=== PATIENT | female | born 1950 | race Caucasian/White ===

== ENCOUNTER 2025-07-20 09:10 | Outpatient (OUT) | payer MEDICARE, MEDICAID, SELFPAY | END 2025-07-20 09:11 | disposition home or self-care (01) | LOC: WC 09:13 | PROVIDERS: PCP Family Medicine; Visit Provider Podiatrist Foot & Ankle Surgery | DX: E11.621 Type 2 diabetes mellitus with foot ulcer (principal); L97.414 Non-pressure chronic ulcer of right heel and midfoot with necrosis of bone; L97.422 Non-pressure chronic ulcer of left heel and midfoot with fat layer exposed | CPT/HCPCS: G0463 ==

== ENCOUNTER 2025-08-24 10:55 | Outpatient (OUT) | payer MEDICARE, MEDICAID, SELFPAY | END 2025-08-24 10:56 | disposition home or self-care (01) | LOC: WC 10:57 | PROVIDERS: PCP Family Medicine; Visit Provider Podiatrist Foot & Ankle Surgery | DX: E11.621 Type 2 diabetes mellitus with foot ulcer (principal); L97.414 Non-pressure chronic ulcer of right heel and midfoot with necrosis of bone; L97.422 Non-pressure chronic ulcer of left heel and midfoot with fat layer exposed | CPT/HCPCS: G0463 ==

== ENCOUNTER 2025-10-03 12:21 | Outpatient (OUT) | payer MEDICARE, MEDICAID, SELFPAY ==
--- OUTSIDE RECORDS SUMMARY | 2025-09-29 10:25 | XMS_ITS | Continuity of Care Document ---
Author Organization [facility] Address [address] [place] [address] Phone Care Team Providers Care Wire Fence Erector Name Role Phone Karolina Chamberlain DO Primary Care Provider Lyly Schaefer MD Attending Provider Adolfo Landaverde DPM Attending Provider [phone] Denia Santa [employer] CREWMEMBER-C Attending Provider Pavel Swift MD Attending Provider [phone] Pavel Swift MD Other Provider Care Teams Patient Care Team Team Status: Active Member Role/Relationship Status Dates Karolina Chamberlain DO Primary Care Provider Active Visit Care Team Team Status: Inactive Member Role/Relationship Status Dates Karolina Chamberlain DO Primary Care Provider Active Start: July 05, 2025 End: July 05Rolando uHmmel ProviderActiveStart: July 05, 2025 End: July 05, 2025 Visit Care Team Team Status: Inactive Member Role/Relationship Status Dates Karolina Chamberlain DO Primary Care Provider Active Start: August 01, 2025 End: August 01, 2025RIYA Zamudio ProviderActive Start: August 01, 2025 End: August 01, 2025 Visit Care Team Team Status: Inactive Member Role/Relationship Status Dates Karolina Chamberlain DO Primary Care Provider Active Start: 2025 End: August 08, 2025Adolfo Landaverde DPM MSAttending ProviderActive Start: 2025 End: 2025 Visit Care Team Team Status: Inactive Member Role/Relationship Status Dates Karolina Chamberlain DO Primary Care Provider Active Start: September 19, 2025 End: September 19Rolando Hummel ProviderActiveStart: September 19, 2025 End: September 19, 2025 Visit Care Team Team Status: Inactive Member Role/Relationship Status Dates Karolina Chamberlain DO Primary Care Provider Active Start: September 27, 2025 End: September 27, 2025Denia Santa NP-CAttending ProviderActiveStart: September 27, 2025 End: September 27, 2025 Visit Care Team Team Status: Inactive Member Role/Relationship Status Dates Karolina Chamberlain DO Primary Care Provider Active Start: September 27, 2025 End: September 27, 2025Rolando Santana ProviderActiveStart: September 27, 2025 End: September 27, 2025 Visit Care Team Team Status: Inactive Member Role/Relationship Status Dates Karolina Chamberlain DO Primary Care Provider Active Start: September 28, 2025 End: September 28Rolando Hummel ProviderActiveStart: September 28, 2025 End: September 28, 2025 Patient Care Team Team Status: Active Member Role/Relationship Status Dates Karolina Chamberlain DO Primary Care Provider Active Start: September 29, 2025 Rolando Santana ProviderActiveStart: September 29, 2025 Salty Santana ProviderActiveStart: September 29, 2025 Chief Complaint and Reason for Visit Chief Complaint Admit Date RENAL 3 MONTH F/U July 05, 2025 4: 03pm R09.89 August 01, 2025 8:46am R09.89 RT heel ulcer w/ chr osteomyeliti s 2025 8:30am E21.3 E55.9 D50.9 N18.9 D63.1 I12.9 Octo 2024 11:39am DR. LANDAVERDE DOING SURG; [facility]ARY'[facility] 9:30A N ovember 2024 9:13am L97.404 I73.9 I70.229 Z98.890 I77.9 [facility] 2024 9:46am renal 3 month f/y September 28, 2025 3 :44pm PAD w/ Bilateral Foot Wounds September 6:49am Reason for Visit Admit Date Anemia of renal disease July 05 4:03pm CKD stage 4 due to type 2 diabetes [facility] July 05, 2025 4:03pm Hyperparathyroidism July 05, 2025 4: 03pm Hypertensive nephropathy July 05 4:03pm Iron deficiency anemia July 05, 2025 4:03pm Vitamin D deficiency July 05, 2025 4 :03pm Current every day smoker September 27, 2 025 9:13am Diabetic ulcer of left foot September 9:13am Diabetic ulcer of right foot September 9:13am Diminished pulses in lower extremity [facility]2024 9:13am Lower extremity edema September 27, 2025 9:13am PAD (peripheral artery disease) September 27, 2025 9:13am Anemia of renal disease September 28 3:44pm CKD stage 4 due to type 2 diabetes [facility] September 28, 2025 3:44pm Hyperparathyroidism September 28, 2025 3 :44pm Hypertensive nephropathy September 28, 2 025 3:44pm Hyperuricemia September 28, 2025 3 :44pm Iron deficiency anemia September 28 3:44pm Vitamin D deficiency September 28, 2025 3:44pm Allergies, Adverse Reactions, Alerts Allergen Type Severity Reaction Last Updated Verified Status azithromycin Allergy Unknown Hives September 29, 2025 7:12am Y es Active Social History Smoking Status Status Start Date End Date Date of Observa tion Smokes tobacco daily (finding) September 29, 2025 7:23am Observation Status Observation Response Date of Response Legal Sex Female (finding) Sex Assigned At BirthFemaleSept1949 Family History Relationship Condition Age at Onset Recorded Date/T lisbeth father Malignant neoplasm Unknown motherDiabetes mellitusUnknownsisterDiabetes mellitusUnknownKidney disorder UnknownbrotherDiabetes mellitusUnknownbrotherCoronary artery diseaseUnknown Malignant neoplasm of lungUnknownbrotherMalignant neoplasmUnknownDiabetes mellitusUnknownHeart diseaseUnknowndaughterDiabetes mellitusUnknownfather HypertensionUnknownDeceasedUnknownDiabetes mellitusUnknownMalignant neoplasm UnknownfatherMalignant neoplasmUnknowngrandparentDeceasedUnknowngrandparent DeceasedUnknowngrandparentDeceasedUnknowngrandparentDeceasedUnknownmotherHistory of strokeUnknownDiabetes mellitusUnknownDeceasedUnknownHypertensionUnknownsister Diabetes mellitusUnknownsisterDiabetes mellitusUnknown Problems Active Problems Problem Diagnosis/Recorded Date Onset Date Stat us ALFREDO (acute kidney injury) October 30, 2020 11:15pm U nknown Active Infected incision January 24, 2021 11:46am Unknown Active Ischemia of toe January 10, 2021 2:36pm Unknown Active UTI (urinary tract infection) February 10, 2021 10:26am Unknown Active Critical ischemia of extremi ty with history of revascularization of same extremity January 10, 2021 6:42pm Unknown Active Lower extremity edema September 27, 2025 10:41am Unkno wn Active Diabetic ulcer of left foot September 27, 2025 10:41am Unknown Active Lumbar disc herniation with radiculopathy October 06, 2020 8:02am Unknown Active Current every day smoker September 27, 2025 10:42am Un known Active Need for assistance with personal care October 30 11:15pm Unknown Active Peripheral vascular disease of foot January 10 2:36pm Unknown Active DM (diabetes mellitus) August 28, 2017 11:02pm Unkno wn Active Amputation toe April 20, 2021 11:03am Unknown Act sameera Diminished pulses in lower extremity September 27 10:41am Unknown Active Surgery follow-up examination August 16, 2022 12: 02pm Unknown Active Peripheral arterial occlusive disease February 09, 2021 11:01am Unknown Active CKD (chronic kidney disease) stage 3, GFR 30-59 ml/min January 10, 2021 6:45pm Unknown Active Anemia September 26, 2020 12:24pm Unknown A ctive Ulcer of heel and midfoot wi th necrosis of bone December 13, 2022 4:31pm Unknown Active Depression January 10, 2021 6:44pm Unknown A ctive Gastritis August 28, 2017 11:02pm Unknown Ac tive Hyperlipidemia September 26, 2020 12:24pm Unknown Active Hyperparathyroidism July 05, 2025 3:47pm Unknown Active Hyperuricemia September 28, 2025 3:56pm Unknown A ctive Diabetic ulcer of right foot September 27, 2025 10:41a m Unknown Active Hypothyroidism September 26, 2020 12:24pm Unknown Active CKD stage 4 due to type 2 di abetes mellitus April 12, 2025 3:27pm Unknown Active Localized swelling of both lower legs December 19 11:53am Unknown Active Post-op pain April 20, 2021 11:03am Unknown Activ e Post-op pain April 20, 2021 12:02pm Unknown Activ e Urinary retention February 12, 2021 4:09pm Unknown Active Iron deficiency anemia July 05, 2025 3:46pm Unknow n Active PAD (peripheral artery disease) September 27, 2025 10: 41am Unknown Active Acute blood loss anemia February 11, 2021 11:09am Unkno wn Active Esophagitis August 28, 2017 11:02pm Unknown Ac tive Anemia of renal disease April 12, 2025 3:31pm Unknown Active HTN (hypertension) August 28, 2017 11:02pm Unknown Active Hypertensive nephropathy April 12, 2025 3:27pm Unknown Active Vitamin D deficiency July 05, 2025 3:47pm Unknown Active Lumbar stenosis with neuroge mar claudication October 06, 2020 8:02am Unknown Active Medications Medication Status Dose Units Route Directions Qty Days Refills S tart Date Stop Date End Date Reason(s) Instructions Adherence Hydralazine 50 mg tablet Active 50 MG PO Twice d aily 60 5Oct2024 2:29pmComplies with drug therapyLovastatin 40 mg tablet Umefouannxjq14VGDOYparpQqphiex 4th, 2017 11:00pmDecember 2019 1:01pm Levothyroxine 75 mcg ikqijxZnhdzhkpcptc69UZUKLSzputCnsbzlm 4th, 2017 11:00pm October 30, 2020 10:02pmParoxetine Hcl 20 mg ykfrseFnyruceozltp18UXMOYblje August 27, 2017 11:00pm[facility] 12:21pmGlimepiride 4 mg tablet Quazdnjrqsfx7GAMNIevcoPjqafdo 4th, 2017 11:00pm[facility]2019 12:20pm Hydrochlorothiazide 25 mg uocpowGfsyzupvfkcq13TZNGNywgmDcxfuyx 2016 11:00pm September 26, 2020 12:43pmOxybutynin Chloride 5 mg vdtocfGmwamacsnvre2HHFLSbbhz dailyAugust 27, 2017 11:00pmFebruary 2020 4:51pmincontinenceInsulin Glargine (Lantus Solostar) 100 unit/mL (3 mL) Insulin XdgOyxzwotgtrkw78HBKOP SUBCUTDaily at bedtimeAugust 27, 2017 11:00pmDemymichigan medical center [facility]2019 1:01pm Fluticasone Furoate (Arnuity Ellipta) 100 mcg/actuation blister with device DiscontinuedAugust 27, 2017 11:00pm[facility]2019 12:05pmSucralfate (Carafate) 1 gram karfozLvquxirpqwgh9YFBNVzlm times rshah436173Misdrxo 2016 11:00pmSeptember 24, 2017 11:00pmSeptember 25, 2017 11:04pmadminister 1 hour before meals and at bedtimeSennosides-Docusate Sodium (Senna Laxative-Stool Softener) 8.6-50 mg ddkttoTznwnvwymzqq8GKJRMXjmtx as needed for wodivyccetxk448 August 28, 2017 11:00pm[facility]2019 12:23pmOmeprazole Magnesium (Prilosec Otc) 20 mg tablet,delayed release (DR/EC)Gykuuafgjihp39KPOLTpeig11932 August 28, 2017 11:00pmOctober 09, 2017 12:00amNove2016 12:05am Hydrocodone-Acetaminophen (Monetta) 5-325 mg tabletDiscontinued1 - 2TABPOEVERY 4-6 HOURS as needed for lfvp488DgdrvldAugust 28, 2017 11:00pmSeptember 26, 2020 12:20pm Oxycodone 5 mg glebwgWkfigfzvkpor03XNPACMZFI 4-6 HOURS as needed for Pain Scale 1 - 5Dece2019 10:02pmDece2019 10:18amCoenzyme Q10 (Coq-10) 100 mg QyyydjqDggxhmekmwpx142CCZVRowixOghhuvkv 7th, 2020 12:00am2019 1:01pmLiraglutide (Victoza 3-Vijay) 0.6 mg/0.1 mL (18 mg/3 mL) pen injector Discontinued1.4VDEEORGPZodpl7952Rwnmxviz 8th, 2020 12:2020 4:51pmInsulin Aspart U-100 (Novolog Flexpen U-100 Insulin) 100 unit/mL (3 mL) Insulin PrpUigbmmvjqddi1IXWHPHZYDOT8Q/Day with meals and bedtime Protocol: *If the corrective scale dose has been administered within the past 4 hours, do not use corrective scale again unless approved by prescriber* Condition: Corrective Scale #1 (TDI <=25) Condition: Dose/Route: Instructions: Condition: Fingerstick Blood Glucose Dose/Route: Insulin Units Condition: 150-199 mg/dl Dose/Route: 1 unit Condition: 200-249 mg/dl Dose/Route: 2 unit Condition: 250-299 mg/dl Dose/Route: 3 unit Condition: 300-349 mg/dl Dose/Route: 4 unit Condition: 350-399 mg/dl Dose/Route: 5 unit Condition: greater than or = 400 mg/dl Dose/Route: 6 unit Instructions: Call Sqzjhoyc49Wemmwcpz2019 12:002020 4:50pmPlease contact the information source for Protocol details.Oxycodone 5 mg syhkxvCvkggcwrvyqe82ZOQSFVYGH 4-6 HOURS as needed for Pain Scale 1 - 47723 November 012020 4:51pmHerniation of lumbar intervertebral disc with radiculopathy Intervertebral disc disorders with radiculopathy, lumbar regionCyclobenzaprine 10 mg SxdpwfUfolrpswppfy98RTVOWlebv 8 hours as needed for Muscle Gsxeo05Choxuljy2019 12:002020 4:50pmSennosides-Docusate Sodium 8.6-50 mg RchvzlHtebwdhswsui9LPGIFLdudx sbxkn60Amlvcnui 2019 12:00amFebruary 2020 4:53pmRivaroxaban (Xarelto) 10 mg XcdrciWwzawiigwdvl18LVTMTbrli with kthzgkojb580Czkwwvgq 9th, 2020 12:00amFebruary 2020 4:52pmAtorvastatin (Lipitor) 40 mg aqldzuIijhek50IHXZQbcup at fyigyxf2018Ssbavzzq 2019 12:00am Complies with drug therapyPotassium Chloride 20 mEq Tablet Extended Release Gsmwjhfkfppg92SXRJNVvtdwAqdld 2020 11:00pmMay 2020 9:30amMetformin 500 mg TmrpfiAdnwscmdcsuu998EMKIEibgf dailyBl[facility]ard [facility] 2020 11:00pmJanuary 2022 12:34pmLevothyroxine 75 mcg ZehfjjIdzpksbjdacg28MYUUPSabqn morningInspira Medical Center [facility] 2020 11:00pmy 2024 3:05pmthyroidFerrous Sulfate 325 mg (65 mg iron) QnsmstNihbxswpzrvy624MPATYuxbr as needed for anemiaMarch 2020 11:00pmy 2024 3:07pmOxycodone 10 mg PdhtziJfpzmtkvschv64WOSRC3I as needed for PainMarch 2020 11:00pmMay 2020 9:32amCephalexin 500 mg nixuqlwPxbmgcqturlo463YAZNU3E8651Hqgnf 2020 11:00pmApril 17, 2021 9:28am Urinary tract infection Urinary tract infection, site not specifiedOxycodone 5 mg ObntzcWtzkhsuiswbc2ZK POQ8H as needed for Esno68468Nvead 2020Ma2020 9:32amNon-healing open wound of heel Unspecified open wound, unspecified foot, initial encounterFerrous Sulfate 325 mg (65 mg iron) ycatihPqsywkyvwzif407CWQQHYTPX 3 WEEKSApril 12, 2025 3:02pm July 05, 2025 3:53pmanemiaGabapentin 300 mg osekmdbKgrsto309LXCWGsytnef August 15, 2022 11:00pmComplies with drug therapyIrbesartan (Avapro) 75 mg jqkdaySakmfk211AXJCWrxxd morningSeptember 2021 11:00pmComplies with drug therapyFurosemide 20 mg qiarzlYnxkuupkiwqm41BSMEEahzp morningSeptember 2021 11:00pmMay 2024 3:31pmMontelukast 10 mg gjneexOzutmgdkbbgr02PWZYAslec August 15, 2022 11:00pmJanuary 2022 10:19amInsulin Glargine (Lantus Solostar U-100 Insulin) 100 unit/mL (3 mL) insulin vggRboynfvhhgkv55RTOPCTJAFL Every morningSeptember 2021 11:00pmMay 2024 3:07pmMirabegron (Myrbetriq) 25 mg tablet extended release 24 glZowgascwnmrw73ETNBGsgze daily August 15, 2022 11:00pmMa2024 3:05pmOxycodone-Acetaminophen (Percocet) 5-325 mg yhnfwtHewkpmxzljgj2JHXKKV5K as needed for yrvn4972Ggyytoqiw 2021January 2022 10:19amEncounter for examination following surgery Insulin Glargine (Lantus Solostar U-100 Insulin) 100 unit/mL (3 mL) insulin pen Lljaycpnxbej51EBDCCZOAEZQfagv 2024 3:04pmAugust 2024 3:18pmInsulin Glargine (Lantus Solostar U-100 Insulin) 100 unit/mL (3 mL) insulin wymWmiluovnltfa82FHADRZFZSWShbwf morningAugust 2024 3:18pmNov2024 3:49pmInsulin Glargine (Lantus Solostar U-100 Insulin) 100 unit/mL (3 mL) insulin txiBqsrog84DCEMGRSSKJWllws morningNov2024 3:48pmComplies with drug therapyNystatin 100,000 unit/gram hsosdJjcaro8TOCHYWBGMIPLBOlbis daily December 05, 2022 12:00amyeastComplies with drug therapyMultivitamin Tablet Eagqoooqgven9AWEDDMxcig morningNov2022 12:00amNove2024 3:48pmElderberry Fruit (Elderberry) 200 mg PnirpswBgvlsobfykzp814VEPGXuhsh morningDecember 05, 2022 12:00amMay 2024 3:02pmOxycodone-Acetaminophen (Percocet) 5-325 mg dlaghrYwcmqbvhjgok5SIHYNU2R as needed for cluz8988Haxlinj2024 3: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 Cyclobenzaprine 10 mg zlphtpTkjgdkmlwbls46PFEEZhumu at bedtimeSeptember 26, 2020 12:00amDece2019 10:01pmAscorbic Acid (Vitamin C) (Vitamin C) 1,000 mg OqrzwbEunfzeryjjvp7070YLKHJheboWjhoryot 3rd, 2020 12:00ammym[facility]2019 1:01pmOmeprazole 40 mg capsule,delayed release(DR/EC)Zctsmmerpcbi36TNJASywha September 26, 2020 12:00amFebruary 2020 4:58pmAspirin (Everardo Low Dose Aspirin) 81 mg Tablet,Delayed Release (Dr/Ec)Vieewhttgzjq84TZEBCuzeeYarjmokk 3rd, 2020 12:00February 2020 4:57pmTramadol 50 mg uldvqdAntqbktafqwf988 MGPODaily at bedcape fear [facility] hospitalSeptember 26, 2020 12:002019 10:02pmFerrous Sulfate (Iron) 325 mg (65 mg iron) YkchqzGooblyjvthwg970UDCP9 Times a week September 26, 2020 12:00bruary 2020 4:50pmDocusate Sodium (Col-Rite) 100 mg KeaklmgVoukfwftoiyg447WLGH1 Times a weekSeptember 26, 2020 12:00am November 01, 2020 1:01pmFurosemide 20 mg LkjeepVdrwmcgwpsud73CKORQyghrYbraumpw 3rd, 2020 12:00am2019 1:01pmPregabalin (Lyrica) 75 mg Capsule Psukxnclnugf14DOWJEfodo as needed for PainSeptember 26, 2020 12:00ammymichigan [facility] center [facility]2019 10:03pmElderberry Fruit And Flower 460-115 mg GkziqobXdfsshvphsrx8ZJF PODailyNovember 2019 12:00amDeceer 2019 1:01pmDiazepam 5 mg Tablet Obpxtejizhyy8GPKMXrzh times daily as needed for Muscle Tyeaw46738Cwvtolog 2019 12:00amDeceer 2019 1: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 Spinal stenosis, lumbar region with neurogenic claudication Intervertebral disc disorders with radiculopathy, lumbar regionevery 8 hrs Oxycodone 5 mg UrsqqvFtibapcobqmi9IEETUHHFA 4-6 HOURS as needed for Pain Scale 1 - 699681Willsrje 2019Dece2019 10:03pmSpinal stenosis of lumbar region with neurogenic 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 Spinal stenosis, lumbar region with neurogenic claudication Intervertebral disc disorders with radiculopathy, lumbar regionOndansetron Hcl (Zofran) 4 mg SycsevJbthkleipiod1JONIQ9J as needed for NauseaFebruary 2020 12:00amJanuary 2022 10:19amPotassium Chloride (Klor-Con 10) 10 mEq Tablet Extended CfktaooZvfrkevaxgrw44KWEIZAyszzXjadagno 2020 12:00amMarch 2020 2:31pmDuloxetine 30 mg capsule,delayed release(DR/EC)Uwhhkhyzcfic48KCMO Every morningFebruary 2020 12:00amMay 2024 3:07pmAspirin 81 mg Tablet,PjjwgpqbOvtjkk91TSBUJnldv morningFebruary 2020 12:00amComplies with drug therapyDuloxetine 30 mg capsule,delayed release(DR/EC)Xpbxay73RAVUUsonp morningMay 2024 3:02pmComplies with drug therapyCyclobenzaprine 10 mg EpwqkpIrnrmebowhas29DIQYClrrowvVhblv 2020 12:00amMay 2020 9:28am Oxycodone 5 mg FinjgaLlebhaxzhzjs0KDRPYqkun 6 hours as needed for PainMarch 2020 12:00amMay 2020 9:32am5 to 10 mg Q6hrs PRN painRivaroxaban 2.5 mg TabletDiscontinued2.5MGPOTwice dailyMarch 2020 12:00amMa2020 9:34am Clindamycin Hcl 150 mg ssrzzvgEumxypfhibmb423SULXB2X1710Recff 2020 12:00am February 08, 2021 2:27pmTrazodone 50 mg smzwznZuwygkqpolbp752ENPHHtskq at bedtime April 16, 2021 11:00pmSeptember 2021 10:45amsleepCarvedilol 12.5 mg Tablet Nyaxhrcthdmb34.5MGPOTwice dailyMay 2020 11:00pmSept2021 10:39amRivaroxaban (Xarelto) 2.5 mg tabletActive2.5MGPOTwice dailyMay 2020 11:00pmComplies with drug therapyGabapentin 100 mg sofngslWyiscq277XBDMQotxo morningMa2020 11:00pmComplies with drug therapyMirabegron (Myrbetriq) 25 mg tablet extended release 24 xxYbzwnpaouowk45TBPUIecqaUdz 2020 11:00pm August 16, 2022 10:46amCyclobenzaprine 10 mg mdcyclBbbwndtrljku98GXVVTieux as needed for SpasmsMay 2020 11:00pmApril 12, 2025 3:02pmHydrocodone- Acetaminophen 5-325 mg jaauezUkkeptdrifgv2XRYCUT7E as needed for zapq7336Kyy 28th, 2020May 2024 3:06pmPostoperative pain Other acute postprocedural painOxycodone 5 mg weshzccLvagksysqejw8XVVMX7Z as needed for qrum5724Ufv 28theptember 2021 10:43amPostoperative pain Other acute postprocedural painAcetaminophen 325 mg popscavPoxsvn109XAGIJntdm 6 hours as needed for painMay 2024 11:00pmComplies with drug therapy Semaglutide (Ozempic) 0.25 mg or 0.5 mg (2 mg/3 mL) pen injectorDiscontinued0.5 MGSUBCUTevery 2024 11:00pmNov2024 3:49pmLevothyroxine 75 mcg vwlavavOdjbnv93UAPSSLxhztHki 19th, 2025 11:00pmComplies with drug therapy Furosemide 20 mg yzjjtoZfsjnppjqito40CQERLgjdu 12 hoursApril 12, 2025 3:29pm July 05, 2025 3:52pmHydralazine 25 mg gglissJuswylrvrgxl48VXQRQrrov April 11, 2025 11:00pmAugust 2024 3:50pmSemaglutide (Ozempic) 0.25 mg or 0.5 mg (2 mg/3 mL) pen qoqoddoqEbrzig3SJLRBFYEfbsgt 2024 3:49pmComplies with drug therapyHydralazine 50 mg avhnszCqtzjdxiugnk07HWYDWmcrq ysdxb939Lmbgud2024 3:49pmOctober 2024 2:30pmFurosemide 20 mg tablet Xbddvzcqcvfr76WRWXWcmbx 12 hoursJuly 05, 2025 3:52pmAugust 2024 3:52pm Furosemide 40 mg svtykcAbptrf17AFBQEmkmw 12 ogwso320Lrfhnm2024 3:52pm Complies with drug therapyFerrous Sulfate 325 mg (65 mg iron) gtvkacCdopty565CQ PODailyA2024 3:53pmanemiaComplies with drug therapyCholecalciferol (Vitamin D3) 50 mcg (2,000 unit) fhyecrjPsxnya42AOQVIOsjbh614Zlcmnr 11th, 2025 11:00pmComplies with drug therapy Immunizations Immunization Event Date Not Given Reason Dose Number [employer] Representative Lot Number Reason(s) Given Vaccine Information Statement (VIS) Detail Administration Location COVID-19 Ad26.COV2.S ([place]) March 02, 2021 COVID-19 mRNA-1273 ([employer])September 15, 2021 Medical Equipment Device Date Implanted Device Details BIOVANCE AMNIOTIC 2X2CM August 16, 2022 INTERFYL MATRIX 50MG PARTICULASeptember IOVANCE AMNIOTIC 7W9WIHlyjowe 2022INTERFYL MATRIX 100MG PARTICULJanuary 2022Multiple peripheral artery stent, bare-metalMarch 2020UDI: [id number] Issuing Agency: [employer] Device Id: [id number] Expiration Date: 2023-09-30 Serial Number: [id number] Procedures Procedure Date Performed Status MR ankle RT wo con 2025 7:31am c ompleted US arterial pvr rest LE August 01, 2025 7:47 am completed US arterial duplex LE RT July 31, 2025 11: 00pm completed XR foot BI 3V August 01, 2025 9:12am compl eted US ankle/arm indices September 27, 2025 9:47am a ctive Relevant Diagnostic Tests and/or Laboratory Data Laboratory Results Test Collection Date/Time Result Date/Time Result Interpretation Reference Range Result Comment Performing Site Corrected White Blood Count September 19, 2025 11:01am September 19, 2025 11:58am 8.0 10*3/uL 3.8-11.6FS[facility] [id number] [address] [employer], [place] [id number] Blood CountOctober 2024 11:01amOctober 2024 11:58am3.99 10*6/uL3.60-5.00[facility] [id number] [address] [place] [address] 72544UqpxunzhzfIgkpwpp 2024 11:01amOctober 2024 11:58am 11.7 g/dLBelow low xdrpij64.8-15.4FSum[facility] [id number] [address] [place] [address] 56526XmtqruyagfBkhemul 2024 11:01amOctober 2024 11:58am 34.8 %34.0-46.4FSumma [facility] [id number] [address] [place] [address] 460[address]Tpgg Corpuscular VolumeOctober 2024 11:01amOctober 2024 11:58am87.2 kK23-220KkajuspkuMercy Health [facility] [id number] [address] [place] [address] 35387Rwbt Corpuscular HemoglobinOctober 2024 11:01amOctober 2024 11:58am29.2 pg24.7-34.3FSumma Health [facility] [id number] [address] [facility] [address]Xpid Corpuscular Hemoglobin ConcentOctober 2024 11:01am September 19, 2025 11:58am33.5 g/dL32.0-35.0[facility] [id number] [address] [facility] [address]Ifw Cell Distribution WidthOctober 2024 11:01amOct2024 11:58am14.3 %11.9-15.3FSumma Health [facility] [id number] [address] [facility] [address]Ufixeagu CountOctober 2024 11:01amOctober 2024 11:25nj674 10*3/sF532-873MwguixklbMercy Health [facility] [id number] [address] [place] [id number] Platelet VolumeOctober 2024 11:01amOct2024 11:58am9.6 fL6.3-10.7FSumma [facility] [id number] [address] [facility] [address]Pbhvyys LevelOctober 2024 11:01amOctober 2024 12:77kv849 mg/dLAbove high pzoysq34-500HVZ recommended reference rangeRandom Glucose Reference Range is dependent on time and content of last meal. Glucose of more than 200 mg/dL in a nonstressed, ambulatory subject supports the diagnosisof Diabetes Mellitus.[facility] [id number] [address] [facility] [address]Pqdss Urea NitrogenOctober 2024 11:01amOctober 2024 12:33pm55 mg/dLAbove high normal7-25[facility] [id number] [address] [facility] 164[address]XeofugrqdaPkpjuwx 2024 11:01amOctober 2024 12:33pm 2.66 mg/dLAbove high normal0.60-1.20[facility] [id number] [address] [facility] [address]Btqersxyp GFR (CKD-EPI)September 19, 2025 11:01amOctober 2024 12:33pm18.389 mL/MinMercy Health [facility] [id number] [address] [facility] [address]Othfae LevelOctober 2024 11:01amOctober 2024 12:29fa050 mmol/Q740-487FoqqjjoskMercy Health [facility] [id number] [address] [facility] [address]Kkjgcgvgs LevelOctober 2024 11:01amOctober 2024 12:33pm4.9 mmol/L3.5-5.1FSumma Health [facility] [id number] [address] [facility] [address]Kywzxlfv LevelOctober 2024 11:01amOctober 2024 12:33pm99 mmol/K92-406FajrbyrjqMercy Health [facility] [id number] [facility] [id number] Dioxide LevelOctober 2024 11:01amOctober 2024 12:33pm27.6 mmol/L21.0-31.0[facility] [id number] [facility] 94871Zoejk GapOct2024 11:01amOctober 2024 12:33pm 14.3 mEq/L6.0-15.0[facility] [id number] 1[facility] 89435Obsqemq LevelOctober 2024 11:01amOctober 2024 12:33pm9.5 mg/dL8.6-10.3[facility] [id number] 1[facility] 70425Wavaucqbde LevelOctober 2024 11:01amOctober 2024 12:33pm4.7 mg/dLAbove high normal2.5-4.5FSum[facility] [id number] 1111 [facility] 79863Igpszksal LevelOctober 2024 11:01amOctober 2024 12:33pm2.1 mg/dL1.9-2.7FSum[facility] [id number] 1[address] [facility] 42669ZwngewwYugqaye 2024 11:01amOctober 2024 12:33pm4.0 g/dL3.5-5.7FSum[facility] [id number] 1111 [facility] 97234Ltvs AcidOctober 2024 11:01amOctober 2024 12:33pm 8.8 mg/dLAbove high normal2.3-6.6FSum[facility] [id number] 1111 [facility] 79293Uqwh LevelOctober 2024 11:01amOctober 2024 12:33pm 87 ug/xU20-982YlzltdzdhMer[facility] [id number] [address] [place] [address] 56260Avbnc Iron Binding CapacityOctober 2024 11:01amOctober 2024 12:97uf391 ug/wS761-320PldgaokipMercy Health [facility] [id number] [address] [place] [address] 66700Oqsg SaturationOctober 2024 11:01amOctober 2024 12:33pm24.6 %20-50[facility] [id number] [address] [place] [address] 13649VeetmzcytoxKyydpdw 2024 11:01amOctober 2024 12:33pm 252 mg/rL787-171SkwrczrdvMercy Health [facility] [id number] [address] [place] [address] 14730Sqojfgs B12 LevelOctober 2024 11:01amOctober 2024 12:01ok981 pg/jW246-488AzgxhqdylMer[facility] Health [facility] [id number] [address] [place] [address] 55407IshudpIlliemr 2024 11:01amOctober 2024 12:52pm12.9 ng/mL>5.9Folate reference range: >5.9 ng/mlThe WHO technical consultation on folate and vitamin y85tnxlsuurtmnv has determined that folate concentrations lessthan 4 ng/ml are considered deficient.[facility] [id number] 1[address] [facility] 5676591-Skvarzu Vitamin D TotalOctober 2024 11:01amOctober 2024 12:56pm36.1 ng/eL61-158VPCMZNW D STATUS 25(OH)VITAMIN D RANGE (ng/mL) Deficient <20 Insufficient 20 to <66Cdgmlyhjtr22 to 100Reference: Kayla MF,Giuliano NC, Stacia TINEO, et al. Evaluation,treatment, and prevention of vitamin D deficiency; an Endocrine Society clinical practice guideline. JCEM. 2010; 96(7):1911-30.[facility] [id number] [address] [place] [address] 78455Elrknilglzc Hormone (Intact)September 19, 2025 11:01amOctober 2024 12:89ky323.3 pg/mLAbove high inozfe99-40UgonzsakiMercy Health [facility] [id number] [address] [place] [address] 44704Zjxprayy Creatinine Clearance (ChemOctober 2024 11:01am September 19, 2025 12:33pmN/[facility] [id number] [address] [place] [address] 45402Kemia Random CreatinineOctober 2024 11:01amOctober 2024 12:37pm81.00 mg/dLNo reference range establishedMercy Health [facility] [id number] [address] [place] [address] 29453Bwafq Random Total ProteinOctober 2024 11:01amOctober 2024 12:37pm19 mg/dLAbove high normal0-9[facility] [id number] [address] [place] [address] 71022Itbrg Protein/Creatinine RatioOctober 2024 11:01amOctober 2024 12:75qi544 mg/g{Cre}Above high normal0-200[facility] [id number] [address] [place] [address] 29904 Diagnostic Imaging Reports Author Oswaldo Adam [facility] HospitalAuthoredSeptember 2024 1:57pmReport Dictated Date/TimeDictated ByStatusRadiology ReportSeptember 2024 1:57pm Oswaldo Adam Jr DOcomplete[facility] [address] [place] [address] XRay Report Signed Patient: Olivia Chopra MR#: [id number] : 1950 Acct:[id number] Age/Sex: 74 / F ADM Date: 5 Loc: UL Room: Type: [facility] CLI Attending Dr: Adolfo Landaverde DPM MS Copies to: Adolfo Landaverde DPM, MS~ Ordering Provider: Adolfo Landaverde DPM, MS Date of Service: 08/01/25 XR/XR foot BI 3V: PAIN BILATERAL FOOT - 3 views each CLINICAL HISTORY: Bilateral foot pain. COMPARISON: None FINDINGS: Right foot demonstrates distal amputations of the first and fifth digits. Prominent soft tissue is seen involving the forefoot with swelling noted. No soft tissue gas or plain film evidence of osteomyelitis. Vascular calcifications. Moderate Scattered degenerative change without bony erosions. Bones are grossly demineralized. Left foot demonstrates soft tissue swelling without acute bony process. Mild scattered degenerative changes without bony erosions. Plantar spurring. Vascular calcifications. XR/XR foot BI 3V IMPRESSION: SOFT TISSUE SWELLING WITHOUT ACUTE BONY PROCESS. Impression dictated by: Oswaldo Adam Jr., D.O. 08/01/2025 1:59 PM Dictation Location: [place] [address] Transcribed By: [facility] 08/01/25 1359 Dictated By: Oswaldo Adam Jr, DO 08/01/25 1357 Signed By: <Electronically signed by Oswaldo Adam Jr, DO in OV> 08/01/25 1359 Author Sampson Isbell [facility] HospitalAuthoredSeptember 2024 8:53amReport Dictated Date/TimeDictated ByStatusRadiology ReportSeptember 2024 8:53am Sampson Isbell [facility] [place] [address] [place] [address] Ultrasound Report Signed Patient: Olivia Chopra MR#: [id number] : 1950 Acct:[id number] Age/Sex: 74 / F ADM Date: 5 Loc: UL Room: Type: [facility] CLI Attending Dr: Adolfo Landaverde DPM, MS Ordering Provider: Adolfo Landaverde DPM, MS Date of Service: 08/01/25 US/US arterial pvr rest LE: R09.89 Copies to: Adolfo Landaverde DPM, MS~ LOWER EXTREMITY SEGMENTAL ARTERIAL DOPSCAN (PVR) INDICATION: Left foot pain and numbness. PROCEDURE: Right arm blood pressure is 128 , left is 127 . Pressures throughout the right leg are 123 at the calf, 123 at the ankle using the posterior tibial artery and 107 at the ankle using the dorsalis pedis artery with ankle-brachial index of 0.84 0.96 . Pressures throughout the left leg are 150 at the high thigh, 93 at the low thigh, 76 at the calf, 49 at the ankle using the posterior tibial artery and 29 at the ankle using the dorsalis pedis artery with ankle-brachial index of 0.23 0.38 . Wave forms by plethysmography are multiphasic in the right lower extremity and biphasic in the left lower extremity. 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 THE PATIENT IS MOST LIKELY TO HAVE FEMOROPOPLITEAL DISEASE OF THE LEFT LOWER EXTREMITY. Impression dictated by: Sampson Isbell MD,FACS,FSVS 08/04/2025 8:55 AM Dictation Location: [place] [address] Tech: Karolina Stone Transcribed By: [facility] 08/04/25854 Dictated By: Sampson Isbell MD 08/04/25852 Signed By: <Electronically signed by Sampson Isbell MD in OV> 08/04/25854 Author Sampson Isbell [facility] HospitalAuthoredSeptember 2024 8:55amReport Dictated Date/TimeDictated ByStatusRadiology ReportSeptember 2024 8:55am Sampson Isbell [facility] [place] [address] Ultrasound Report Signed Patient: Olivia Chopra MR#: [id number] : 1950 Acct:[id number] Age/Sex: 74 / F ADM Date: 5 Loc: Room: Type: [facility] CLI Attending Dr: Adolfo Landaverde DPM MS Ordering Provider: Adolfo Landaverde DPM, MS Date of Service: 08/01/25 US/US arterial duplex LE RT: R0 Copies to: Adolfo Landaverde DPM, MS~ Right lower extremity arterial duplex evaluation INDICATIONS: Surveillance study after right femoral artery stent placement. EYES: Right lower extremity: The right SFA is patent. No concerning velocities are identified. US/US arterial duplex LE RT IMPRESSION: Patent right SFA. Impression dictated by: Sampson Isbell MD,FACS,FSVS 08/04/2025 8:56 AM Dictation Location: [facility]04 Tech: Karolina Stone Transcribed By: [facility] 08/04/25855 Dictated By: Sampson Isbell MD 08/04/25854 Signed By: <Electronically signed by Sampson Isbell MD in OV> 08/04/25855 Author Pavel Davila [facility] HospitalAuthoredSeptember 2024 3:18pmReport Dictated Date/TimeDictated ByStatusRadiology ReportSeptember 2024 3:18pm [facility] [place] [address] MRI Report Signed Patient: Olivia Chopra MR#: [id number] : 1950 Acct:[id number] Age/Sex: 75 / F ADM Date: 5 Loc: [facility] Room: Type: [facility] Attending Dr: Adolfo Landaverde DPM, MS Copies to: Adolfo Landaverde DPM, MS~ Ordering Provider: Adolfo Landaverde DPM, MS Date of Service: 08/08/25 MR/MR ankle RT wo con: R09.89 MRI right ankle without contrast Routine technique HISTORY: Chronic nonhealing right heel ulcer. Unable to bear weight. 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 History of chronic kidney disease stage IV. COMPARISON: The right foot imaging 08/01/2025 Soft tissue defect of the heel. This extends to the calcaneus. Erosive changes of the adjacent cortex identified. Mild bone marrow edema present. A 12 x 4 mm lesion adjacent to the erosive changes of the posterior calcaneus. Suspected represent chronic finding. No adjacent bone marrow edema. May correlate with prior infection. Achilles tendon intact. No partial tear. No inflammatory changes. Plantar fascia intact. Plantar flexion and dorsiflexion tendons intact. No ligamentous abnormality. Subcutaneous edema and skin thickening suggesting cellulitis. 1 cm osteochondral lesion of the anterior portion of the talar dome laterally. Chronic changes of talar head. MR/MR ankle RT wo con IMPRESSION: Soft tissue ulceration of the heel of abutting the calcaneus. Erosive changes of the adjacent calcaneus. Mild adjacent bone marrow edema. Consider chronic osteomyelitis. Minimal acute component may be present. Small bony lesion posterior calcaneus suspected represent a chronic finding. Intact Achilles tendon. Intact plantar fascia. Impression dictated by: Pavel Davila M.D. 2025 3:26 PM Dictation Location: [place] [address] Transcribed By: [facility] 08/08/25 1526 Dictated By: Pavel Davila DO 08/08/25 1518 Signed By: <Electronically signed by Pavel Davila DO in OV> 08/08/25 1526 Vital Signs Vital Reading Result Reference Range Collection Date/Time Height 66 [in_i] July 05, 2025 3:16pmHeart Rate69 /lve53-375Rfbdba 2024 3:16pm Respiratory rate18 /epd32-52Haazzs 2024 3:16pmOxygen saturation by Pulse %95-100August 2024 3:16pmBP Gyfeaurt190 mm[Hg]100-140August 2024 3:16pmBP Lonllschs00 mm[Hg]60-100August 2024 3:74vjMjrnhx74 [in_i]September 27, 2025 10:60ofRilrdu820.00 kgSeptember 27, 2025 10:12amBody Coxsxojnzyo12.2 [degF]97.6-99.0September 27, 2025 10:12amHeart Rate64 /wbh94-481 September 27, 2025 10:12amRespiratory rate16 /oej42-29IffjjjktSeptember 27, 2025 10:12am Oxygen saturation by Pulse bqfcteqh94 %95-100September 27, 2025 10:12amBP Xuqgntce464 mm[Hg]100-140September 27, 2025 10:12amBP Mxaeowvsj70 mm[Hg]60-100 September 27, 2025 10:12amBMI (Body Mass Index)37.7 kg/j8YwzgnwesSeptember 27, 2025 10:73vgEqhlzr15 [in_i]September 28, 2025 3:45pmHeart Rate69 /dmz59-456KzpkvcbvSeptember 28, 2025 3:45pmRespiratory rate16 /lfb69-66RfuwicrjSeptember 28, 2025 3:45pmOxygen saturation by Pulse pcnijgme015 %95-100September 28, 2025 3:45pmBP Tdmajnbu315 mm[Hg]100-140September 28, 2025 3:45pmBP Ewtqazbgq72 mm[Hg]60-100September 28, 2025 3:46hfXrqaeo63 [in_i]September 29, 2025 7:84lsSjpllu408.13 kgSeptember 29, 2025 7:16amBody Hsewdzcjiyf62.8 [degF]97.6-99.0September 29, 2025 10:20amHeart Rate70 /acg35-525KkuapayeSeptember 29, 2025 1:50pmRespiratory rate17 /fcf46-95SunrjxedSeptember 29, 2025 1:50pmOxygen saturation by Pulse ypbkcmas50 %95-100September 29, 2025 1:50pmBP Pmiyuwes723 mm[Hg]100-140Nov2024 1:50pmBP Zjifvzhte35 mm[Hg] 60-100September 29, 2025 1:50pmInhaled oxygen flow rate3 L/minSeptember 29, 2025 9:50am Advance Directives Advance Directive Response Recorded Date/ Time Advance Directives No October 10:11am Insurance Providers Guarantor Silas Ying Address [address] [facility] [address] Info.Home Phone: Coverage Status Update:2025 Payer Group Member ID Coverage Type Subscriber Relationship to Subscriber Effective Date Expiration Date Medicaid [id number] Bottger , D Id: [id number] [address] [place] [id number] Home Phone: Email: Declined 2021elfGabby [facility] Id: [id number] Bottger , D Id: [id number] [address] [place] [phone] Home Phone: Email: Declined 2021elfJosewhitney [facility] P[facility] [id number] De Luna Id: [id number] [address] [place] [phone] Home Phone: Email: Declined 2021elf Encounters Encounter Location(s) Arrival/Admit Date Discharge/Departure Date Discharge/Departure Disposition Provider(s) Departed Physician/ Provider Office Visit -[facility] July 05, 2025 4:03pm July 05, 2025 4:59pm Discharged to home care or self care (routine discharge) Lyly Schaefer MD Departed Clinical -Ultrasound [facility] August 01, 2025 8:46am August 01, 2025 8:47am Discharged to home care or self care (routine discharge) Adolfo Landaverde DPM MS Departed Clinical -MRI [address] Closed 2025 8:30am 2025 8:31am Discharged to home care or self care (routine discharge) Adolfo Landaverde DPM MS Departed Clinical -Lab [facility] September 19, 2025 11:39am September 19, 2025 11:40am Discharged to home care or self care (routine discharge) Lyly Schaefer MD Departed Physician/ Provider Office Visit -[facility] Surg September 27, 2025 9:13am September 27, 2025 10:29am Discharged to home care or self care (routine discharge) Denia Santa APRN Departed Clinical -Ultrasound [facility] September 27, 2025 9:46am September 27, 2025 9:47am Discharged to home care or self care (routine discharge) Pavel Swift MD Departed Physician/ Provider Office Visit -[facility] Neph [place] September 28, 2025 3:44pm September 28, 2025 4:10pm Discharged to home care or self care (routine discharge) Lyly Schaefer MD Non-patient / Non-visit -[facility] Vascul ar Surg September 29, 2025 6:49am Pavel Swift MD Recent Diagnosis Onset Date Admit Date Anemia of renal disease Unknown June 242024 4:03pm CKD stage 4 due to type 2 diabetes mellitus Unkn own July 05, 2025 4:03pm Hyperparathyroidism Unknown July 05, 2025 4:03pm Hypertensive nephropathy Unknown July 05, 2025 4:03pm Iron deficiency anemia Unknown July 052024 4:03pm Vitamin D deficiency Unknown June 4:03pm Current every day smoker Unknown 2024 9:13am Diabetic ulcer of left foot Unknown 2024 9:13am Diabetic ulcer of right foot Unknown Sep 9:13am Diminished pulses in lower extremity Unknown September 27, 2025 9:13am Lower extremity edema Unknown September 272024 9:13am PAD (peripheral artery disease) Unknown September 27, 2025 9:13am Anemia of renal disease Unknown September 28, 2025 3:44pm CKD stage 4 due to type 2 diabetes mellitus Unkn own September 28, 2025 3:44pm Hyperparathyroidism Unknown September 3:44pm Hypertensive nephropathy Unknown 2024 3:44pm Hyperuricemia Unknown September 28 3:44pm Iron deficiency anemia Unknown September 28, 2025 3:44pm Vitamin D deficiency Unknown September 3:44pm Assessments Diagnosis Onset Date Resolution Status Admit Date Anemia of renal disease acuteAu2024 4:03pmCKD stage 4 due to type 2 diabetes mellitusacute July 05, 2025 4:03pmHyperparathyroidismacuteAugust 2024 4:03pm Hypertensive nephropathyacuteAugus2024 4:03pmIron deficiency anemiaacute July 05, 2025 4:03pmVitamin D deficiencyacuteAugus2024 4:03pmCurrent every day smokeracuteSeptember 27, 2025 9:13amDiabetic ulcer of left footacute September 27, 2025 9:13amDiabetic ulcer of right footacuteSeptember 27, 2025 9:13amDiminished pulses in lower extremityacuteSeptember 27, 2025 9:13amLower extremity edemaacuteSeptember 27, 2025 9:13amPAD (peripheral artery disease) acuteSeptember 27, 2025 9:13amAnemia of renal diseaseacuteSeptember 28, 2025 3:44pmCKD stage 4 due to type 2 diabetes mellitusacuteSeptember 28, 2025 3:44pm HyperparathyroidismacuteSeptember 28, 2025 3:44pmHypertensive nephropathyacute September 28, 2025 3:44pmHyperuricemiaacuteSeptember 28, 2025 3:44pmIron deficiency anemiaacuteSeptember 28, 2025 3:44pmVitamin D deficiencyacuteSeptember 28, 2025 3:44pm Plan of Treatment Author [facility]September [facility], 2025 4: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 Creatinine 2.66 and GFR 18. Pro/Cr improved with better control of BP . BP is at target . Will continue Lasix 40 mg PO BID continue ARB and GLP-1 agonist for kidney protection I explained to the patient the necessity of keeping diabetes and blood pressure under good control to preserve renal function. I will follow-up with the patient in 3 months blood pressure is at targett. Will continue same dose of hydralazine and Irbesartan . Will continue lasix 40 mg PO BID. Advised the patient to monitor blood pressure at home and to follow-up low-salt diet. Advised her to call my office if her blood pressure remains elevated Hemoglobin 11.7. No need for DENISE Iron saturation is better at 24% . Will continue iron to daily , 25-hydroxy vitamin D is normal . Will Continue V D supplement 2000 units daily PTH is 149. No need for active vitamin D. UA is slightly elevated at 8.8. No need for allopurinol No gout. Advised low animal protein diet Author Utrg [facility] 2024 4: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 Creatinine 2.3 and GFR 21. Patient has significant albuminuria. Needs better control of blood pressure. Will increase hydralazine to 50 mg twice daily Will also increase lasix from 20 mg PO BID to 40 mg PO BID continue ARB and GLP-1 agonist for kidney protection I explained to the patient the necessity of keeping diabetes and blood pressure under good control to preserve renal function. I will follow-up with the patient in 3 months blood pressure is above the target. Will increase hydralazine to 50 mg twice daily. Will increase lasix to 40 mg PO BID. Will continue same doses of irbesartan . Advised the patient to monitor blood pressure at home and to follow-up low-salt diet. Advised her to call my office if her blood pressure remains elevated Hemoglobin 10.6. No need for DENISE Iron saturation is low at 17%. Will increase iron to daily , 25-hydroxy vitamin D is slightly low at 25. Will startvitamin D supplement 2000 units daily PTH slightly elevated at 108. No need for active vitamin D. Author Denia Santa [facility] HospitalAuthoredNovember 2024 10:45amWe reviewed the health risks associated with tobacco smoking. Patient understands risks and is unmotivated to quit. Patient with history of PAD and prior intervention. ABIs at today's visit are diminished bilaterally with right MARY 0.77, left MARY is 0.59. Patient reports upcoming podiatric procedure for bone removal in the right heel. She will need diagnostic angiogram prior to proceeding with any podiatric procedures to ensure the best chance that he will surgical wound. She is currently at high risk for limb loss. We discussed the various aspects of wound healing to include good blood supply, proper diabetic management, proper nutritional support, consistent wound care, and proper offloading. We discussed procedure for angiogram, risk and benefits and all questions were addressed. Dr. Swift did discuss procedure and evaluate patient. Patient states understanding of all discussions today she is to proceed with intervention. Will get this on the schedule in the near future. She should not proceed with any podiatric procedures prior to evaluating the blood supply for healing. Patient continue taking her daily aspirin and statin medications. She should work on smoking cessation. Future Tests Future scheduled test information is unavailable Pending Tests Test Name Ordered Date Scheduled Date Renal Function Panel September 28, 2025 4:02pm 3 Months Future Visits Future appointment information is unavailable Future Procedures Procedure Name Ordered Date Scheduled Date Discharge Order September 29, 2025 10:02am Novem vimal 2024 10:03am Hemogram CBC Without Diff September 28, 2025 4:0 2pm 3 Months Iron and TIBC Profile September 28, 2025 4:02pm 3 Months Ferritin September 28, 2025 4:02pm 3 Jimbo hs Magnesium September 28, 2025 4:02pm 3 Jimbo hs Protein Creat Ratio Ur Random September 28, 2025 4:02pm 3 Months Parathyroid Hormone Intact September 28, 2025 4: 02pm 3 Months Uric Acid September 28, 2025 4:02pm 3 Jimbo hs Vit. B12/Folate Profile September 28, 2025 4:02p m 3 Months Vitamin D 25 Hydroxy Total September 28, 2025 4: 02pm 3 Months Future Medications Future medication information is unavailable Patient Instructions Instruction Admit Date Know your Meds September 29, 2025 6 :49am Hospital Discharge Instructions Additional Instructions DISCHARGE INSTRUCTIONS FOR ANGIOGRAM, ANGIOPLASTY, STENT PLACEMENT FIRST TWO (2) DAYS AFTER DISCHARGE: -Take it easy at home, no strenuous activity. -Do not lift or pull objects over 10 pounds, including children and groceries (10 pounds = 1 gallon milk). -May shower. -No excessive scrubbing of affected groin or arm. -May drive car unless you had sedation for the procedure, then you cannot drive for [address] Swift -If excessive bleeding should occur from the puncture site, immediately apply pressure to the site and call 911. -Report any fever, redness, drainage, increased swelling, or firmness at catheter site insertion. Some bruising or slight swelling may be present and this is normal. -Should the arm or leg become cold, numb, white, or blue - go to the nearest emergency room. MEDICATIONS -Follow instructions on the discharge medication sheet regarding your medications. -[Do NOT take any Metformin containing medications for the next two days: ActoPlusMet, ActoPlusMet XR, Avandamet, Fortamet, Glucophage, Glucophage XR, Glucovance, Glumetza, Janumet, Janumet XR, Jentadueto, Kombiglyze XR, Metaglip, Metformin, PrandiMet, Riomet.] FOLLOW UP/OTHER INSTRUCTIONS [ ]
--- NOTE | 2025-10-03 12:35 | ECG_ITS ---
[facility] Test Date: 2025-10-03 Pat Name: FIDEL MEADOWS Department: Room: - Gender: Female Feed Weigher: : 1950 Requested By: NICK COMBS Order Number: [id number] oJsie MD: PARESH BLANK M.D. Measurements Intervals [place] Rate: 63 P: -12 CA: 200 QRS: -32 QRSD: 119 T: 82 QT: 416 QTc: 428 Interpretive Statements SINUS RHYTHM MARKED LEFT AXIS DEVIATION [QRS AXIS < -30] LEFT VENTRICULAR HYPERTROPHY AND ST-T CHANGE [VOLTAGE CRITERIA PLUS ST/T ABNORMALITY] Abnormal ECG No previous ECG available for comparison Electronically Signed On 10-03-2025 19:22:57 EST by PARESH BLANK M.D.
--- NOTE | 2025-10-03 12:35 | XR_ITS ---
[address] [address] Patient Name: FIDEL MEADOWS MRN: [id number] date: 1950 Sex: F Assigned Patient Location: [facility] Current Patient Location: [facility] Accession/Order Number: [id number] Exam Date: 10/03/2025 13:42 Report Date: 10/03/2025 17:57 At the request of: NICK COMBS DPM Procedure: XR chest 2V PA AND LATERAL CHEST: CLINICAL HISTORY: Preop exam COMPARISON: None FINDINGS: Unremarkable cardiomediastinal silhouette. Lungs clear. No effusion or pneumothorax. Degenerative changes of the mid thoracic spine. XR/XR chest 2V IMPRESSION: NO ACUTE CARDIOPULMONARY ABNORMALITY. Impression dictated by: Bassam Estevez M.D. 10/03/2025 5:57 PM Dictation Location: [place] [address] Electronically authenticated by: [id number] Y Date: 10/03/2025 17:57
[2025-10-03 14:11] LABS: INR 1.03; Partial Thromboplastin Time 34.0 sec (22.3-36.2); Prothrombin Time 10.9 sec (9.0-11.6)
== END 2025-10-03 12:22 | disposition home or self-care (01) ==
LOC: PST 12:23
PROVIDERS: PCP Family Medicine; Visit Provider Podiatrist Foot & Ankle Surgery
DX: Z01.810 Encounter for preprocedural cardiovascular examination (principal); Z01.812 Encounter for preprocedural laboratory examination; M86.8X7 Other osteomyelitis, ankle and foot; E13.621 Other specified diabetes mellitus with foot ulcer
CPT/HCPCS: 36415; 71046; 80048; 85610; 85730; 93005

== ENCOUNTER 2025-10-11 11:59 | Observation (INO) | payer MEDICARE, MEDICAID, SELFPAY ==
[2025-10-03 13:35] VITALS: BP 146/70; PULSE 78; TEMP 36.2; O2SAT 99; BMI 38.3
[2025-10-11] VITALS (42 sets, daily range): BP systolic 67–186; BP diastolic 30–102; PULSE 63–91; TEMP 36.1–36.8; O2SAT 87–98; BMI 38.3
[2025-10-11] MEDS: CEFAZOLIN SODIUM 2 GM/50 ML D5W PREMIX IV (09:30)
[2025-10-11] MEDS: SURGIFOAM GEL SPONGE SIZE 100 1 EACH TOPICAL (11:06)
[2025-10-11] MEDS: THROMBIN (RECOMBINANT) TOPICAL 5,000 UNIT/5 ML VIAL 5000 UNIT TOPICAL (11:12)
--- NOTE | 2025-10-11 11:24 | P.ORON_ITS ---
Brief Operative Note Date of procedure: 10/11/25 Pre-op diagnosis general: Right heel ulcer with bone necrosis, chronic osteomy elitis of calcaneus, PAD, Type 2 diabetes with peripheral neuropathy Post-op diagnosis: same as pre-op Procedure: Procedure performed: Delayed primary closure of right heel ulcer with partial calcanectomy and debridement of all nonviable soft tissue including bone Indications for procedure: She has had this right posterior calcaneal ulceration for nearly 6 years and has been under the care of Dr. Lincoln with regular debridements. She was referred by her PCP for second opinion. She is an everyday smoker despite having known peripheral arterial disease. Patient relates to history of multiple infections requiring PICC line and IV antibiotics for extended periods of time. I am very concerned that if another acute infectio n occurs he cannot only be limb but also life-threatening. Imaging including an MRI were concerning for chronic osteomyelitis. She also has a history of peripheral arterial disease and underwent stenting in 2020. Most recently she was under the care of Dr. Lantigua ([facility]) and underwent angiogram. Blood flow was reportedly improved therefore timing was of the essence to salvage her right leg. She was educated on potential risks and benefits of the above procedure which include but not limited to ulcer recurrence, infection, limb and life loss. In addition, it is likely she will lose some degree of strength on plantarflexion given the proximity of the ulcer and infected bone to her Achilles tendon attachment. I also discussed with her at length the alternative option of musculocutaneous flap which would require external fixation and multiple surgeries but this would be more reliable to preserve function of her ankle. She wished to undergo the above procedures despite the known risks and possible complications. Intraoperative findings: 3.1 x 2.5 cm ulceration on right posterior heel with exposed calcaneus and Achilles tendon. Upon excision of her ulceration wound edges did bleed but was somewhat sluggish. Bone of the lateral calcaneal tuberosity was relatively soft as compared to the medial aspect of the calcaneal tuberosity. Bone cyst was identified and was excised. No andrez purulence or evidence of acute infection and all questionable soft tissue and bone was excised. A portion of the Achilles tendon attachment was sacrificed but the most proximal aspect was preserved and remaining Achilles tendon did appear healthy. Procedure in detail: Patient was identified in preoperative holding by myself which time correct side and site were marked and consent was obtained. Patient is brought back to the operating theater and preoperative antibiotics were administered. General anesthesia was administered and the patient was intubated then flipped into a well-padded prone position onto the OR table. A calf tourniquet was applied but was not inflated during the procedure. The right lower extremity was then prepped and draped in usual sterile fashion and formal timeout was performed. With attention to the right posterior heel ulceration a scalpel was used to excise the ulcer and a 3-1 ellipse. Then a combination of sharp and blunt d issection was used to further expose the calcaneal tuberosity. All exposed Achilles tendon was also excised sharply fortunately this did not involve the proximal most aspect of its insertion on the superior aspect of the calcaneal tuberosity. Then an osteotome was used to remove all necrotic bone which was passed the back table to be sent to pathology for analysis. Surgical site was irrigated and any questionable bone was further debrided and excised utilizing osteotomes, rongeur's and a power rasp. A bone cyst in the lateral tuberosity was identified and also excised then aggressively curetted. The cyst was a fluid-filled but was not consistent with purulence. Surgical site was irrigated again then a power rasp was used to contour the tuberosity. Surgical site was irrigated with 3 L of normal saline pulse lavage. Gloves were changed and a clean rongeur was used to obtain a clean proximal specimen of the calcaneus to be sent to microbiology for culture. Then Gelfoam and mixed with thrombin was placed into the surgical site and the foot was elevated for hemostasis. The Gelfoam was then removed and 1 g of vancomycin and Carole hemostatic powder was placed into the surgical site. Then 2-0 nylon suture was utilized in a palm?sole technique for temporary closure and reapproximation. Then the incision was closed in a single layer using 3-0 nylon suture. A bulky dry gustavo rile dressing was then applied followed by a multilayer modified Rodríguez posterior splint. The foot was held in slight plantarflexion while the plaster splint was allowed to dry. Patient tolerated the procedure and anesthesia well was transferred to the recovery room with vital signs stable and brisk capillary refill to the right toes. Postoperative plan: Admit to medical surgical unit for observation Hospitalist was consulted and I spoke to Dr. Ayoub regarding the postoperative plan Nonweightbearing right foot -physical therapy was consulted for gait training Social work was consulted for discharge planning -patient hopes to be discharged home once medically stable and if deemed safe to be nonweightbearing Perioperative antibiotics and pain medication ordered Patient may restart Xarelto today or tomorrow Will follow Implants: 1 gm vancomycin powder Anesthesia: General-ET Surgeon: Adolfo Landaverde [employer] Worker: Vi Renteria Estimated blood loss (mL): 200 Tourniquet time (min): 0 Pathology: other (Calcaneus sent to pathology and microbiology) Condition: stable Disposition: PACU
[2025-10-11] MEDS: VANCOMYCIN HCL 1,000 MG VIAL 1000 MG TOPICAL (11:27)
[2025-10-11] MEDS: HYDROMORPHONE HCL 0.5 MG/0.5 ML SYRINGE IV ×3 (11:51→12:08)
--- NOTE | 2025-10-11 12:02 | XR_ITS ---
The [address] [address] Patient Name: FIDEL MEADOWS MRN: [id number] date: 1950 Sex: F Assigned Patient Location: [facility] Current Patient Location: [place] Accession/Order Number: [id number] Exam Date: 10/11/2025 12:30 Report Date: 10/11/2025 19:36 At the request of: NICK COMBS DPAneesh Procedure: XR foot RT min 3V 3 views right foot HISTORY: Postop right foot COMPARISON: 08/01/2025, MRI right ankle 08/08/2025. No interval imaging Amputation changes involving the first and fifth digits. Distal soft tissue swelling. No soft tissue gas. Posterior calcaneal osteolysis consistent with history of chronic osteomyelitis of calcaneus correlate likely surgical amputation. Correlate with recent surgery. Adequate alignment without acute fracture. Splinting artifact XR/XR foot RT min 3V IMPRESSION: Stable amputation changes first toe fifth toe. Absence involving the calcaneus posteriorly. Consistent with history of chronic osteomyelitis. Likely associated findings of partial calcaneal resection. Correlate with surgical history Impression dictated by: Pavel Davila M.D. 10/11/2025 7:36 PM Dictation Location: [place] [address] Electronically authenticated by: [id number] Y Date: 10/11/2025 19:36
[2025-10-11] MEDS: OXYCODONE HCL 15 MG TABLET PO (13:11)
[2025-10-11] MEDS: ACETAMINOPHEN 500 MG TABLET 1000 MG PO ×2 (13:12→17:00)
[2025-10-11] MEDS: CHOLECALCIFEROL (VITAMIN D3) 125 MCG/5,000 UNIT TABLET PO (13:13)
--- NOTE | 2025-10-11 13:31 | PM.HP ---
HPI H&P: HPI History of Present Illness Chief complaint: right calcaneal osteomyelitis, right heel ulcer Narrative: Mrs. Chopra is a 75-year-old female who was admitted to the medical floor after foot surgery. Please refer to Dr. Landaverde's note for details. Patient has hypertension, diabetes, peripheral vascular disease, COPD, hypothyroidism and tobacco addiction. Patient is feeling fine. No chest pain or palpitation. No abdominal pain, nausea or vomiting. No headaches, loss of consciousness or seizure. Opioid HPI Opioid Management Most Recent Pain and Opioid Data: Last Pain Scale 10 Today, 13:11 Last Pain Assessment Today, 12:41 Last MAR Pain Assessment Today, 13:11 PFSH COUNT INCLUDES THE [facility] Medical History (Updated 10/11/25 @ 13:33 by Joseph Ayoub MD) Arthritis ?M19.90 - Unspecified osteoarthritis, unspecified site (ICD-10) Back pain ?M54.9 - Dorsalgia, unspecified (ICD-10) History of blood transfusion ?Z92.89 - Personal history of other medical treatment (ICD-10) Anticoagulated ?Z79.01 - public works manager (current) use of anticoagulants (ICD-10) Anemia ?D64.9 - Anemia, unspecified (ICD-10) Low iron ?E61.1 - Iron deficiency (ICD-10) Migraine ?G43.909 - Migraine, unspecified, not intractable, without status migrainosus (ICD-10) Urine incontinence ?R32 - Unspecified urinary incontinence (ICD-10) Extremity edema ?R60.0 - Localized edema (ICD-10) Hypothyroidism ?E03.9 - Hypothyroidism, unspecified (ICD-10) Deep vein thrombosis ?I82.409 - Acute embolism and thrombosis of unspecified deep veins of unspecified lower extremity (ICD-10) Asthma ?J45.909 - Unspecified asthma, uncomplicated (ICD-10) Hypothyroidism (acquired) ?E03.9 - Hypothyroidism, unspecified (ICD-10) Anxiety ?F41.9 - Anxiety disorder, unspecified (ICD-10) Chronic diastolic (congestive) heart failure ?I50.32 - Chronic diastolic (congestive) heart failure (ICD-10) Diabetic neuropathy ?E11.40 - Type 2 diabetes mellitus with diabetic neuropathy, unspecified (ICD-10) Amputation toe ?S98.139A - Complete traumatic amputation of one unspecified lesser toe, initial encounter (ICD-10) Iron deficiency anemia ?D50.9 - Iron deficiency anemia, unspecified (ICD-10) M?ni?re's disease ?H81.09 - Meniere's disease, unspecified ear (ICD-10) Peripheral vascular disease ?I73.9 - Peripheral vascular disease, unspecified (ICD-10) Hypercholesterolemia ?E78.00 - Pure hypercholesterolemia, unspecified (ICD-10) Renal artery stenosis ?I70.1 - Atherosclerosis of renal artery (ICD-10) Chronic kidney disease ?N18.9 - Chronic kidney disease, unspecified (ICD-10) Stenosis of left carotid artery ?I65.22 - Occlusion and stenosis of left carotid artery (ICD-10) Thyroid nodule ?E04.1 - Nontoxic single thyroid nodule (ICD-10) Urgency incontinence ?N39.41 - Urge incontinence (ICD-10) Vitamin D deficiency ?E55.9 - Vitamin D deficiency, unspecified (ICD-10) Diabetic foot ulcer ?E11.621 - Type 2 diabetes mellitus with foot ulcer (ICD-10) ?L97.509 - Non-pressure chronic ulcer of other part of unspecified foot with unspecified severity (ICD-10) Acute osteomyelitis of right calcaneus ?M86.171 - Other acute osteomyelitis, right ankle and foot (ICD-10) Surgical History (Updated 10/03/25 @ 13:03 by Nata Julien NP) H/O exploratory laparotomy ?Z98.890 - Other specified postprocedural states (ICD-10) H/O hand surgery ?Z98.890 - Other specified postprocedural states (ICD-10) History of esophagogastroduodenoscopy (EGD) ?Z98.890 - Other specified postprocedural states (ICD-10) History of tonsillectomy ?Z90.89 - Acquired absence of other organs (ICD-10) History of colonoscopy ?Z98.890 - Other specified postprocedural states (ICD-10) History of cholecystectomy ?Z90.49 - Acquired absence of other specified parts of digestive tract (ICD-10) H/O arthroscopy of shoulder ?Z98.890 - Other specified postprocedural states (ICD-10) History of spinal surgery ?Z98.890 - Other specified postprocedural states (ICD-10) History of tubal ligation ?Z98.51 - Tubal ligation status (ICD-10) Family History (Updated 10/03/25 @ 13:02 by Nata Julien NP) Other Family history of cancer Family history of coronary artery disease Family history of diabetes mellitus Family history of stroke Pacemaker Social History (Updated 10/03/25 @ 12:59 by Nata Julien NP) Within the past year, how often did you have a drink containing alcohol: never Score interpretation: A score less than 3 is consistent with normal alcohol consumption. Smoking status: Current every day smoker What tobacco products do you use: cigarettes Cigarettes per day: 20 Years smoked: 35 Smoking pack-years: 35.00 Non-prescribed substance use: denies use Highest level of school completed/degree received: high school graduate Meds Home Medications and Allergies Home Medications ?Medication ?Instructions ?Recorded ?Confirmed ?Type acetaminophen 325 mg capsule 325 mg PO Q6H PRN pain 10/03/25 10/11/25 History aspirin 81 mg tablet,delayed 81 mg PO DAILY 10/03/25 10/11/25 History release (Adult Aspirin Regimen) atorvastatin 40 mg tablet 40 mg PO DAILY 10/03/25 10/11/25 History cholecalciferol (vitamin D3) 50 50 mcg PO DAILY 10/03/25 10/11/25 History mcg (2,000 unit) capsule duloxetine 30 mg capsule,delayed 30 mg PO DAILY 10/03/25 10/11/25 History release (Cymbalta) ferrous sulfate 325 mg (65 mg 325 mg PO DAILY 10/03/25 10/11/25 History iron) tablet furosemide 40 mg tablet 40 mg PO DAILY 10/03/25 10/11/25 History gabapentin 100 mg capsule 200 mg PO DAILY 10/03/25 10/11/25 History gabapentin 300 mg capsule 600 mg PO QPM 10/03/25 10/11/25 History hydralazine 50 mg tablet 50 mg PO Q12H 10/03/25 10/11/25 History insulin glargine 100 unit/mL (3 25 unit subcut QAM 10/03/25 10/11/25 History mL) subcutaneous pen (Lantus Solostar U-100 Insulin) irbesartan 75 mg tablet 75 mg PO DAILY 10/03/25 10/11/25 History levothyroxine 75 mcg tablet 75 mcg PO DAILY 10/03/25 10/11/25 History nystatin 100,000 unit/gram topical 1 applic topical BID 10/03/25 10/11/25 History cream rivaroxaban 2.5 mg tablet (Xarelto) 2.5 mg PO DAILY 10/03/25 10/11/25 History semaglutide 1 mg/dose (4 mg/3 mL) 1 mg subcut QWEEK 10/03/25 10/11/25 History subcutaneous pen injector (Ozempic) Allergies Allergy/AdvReac Type Severity Reaction Status Date / Time azithromycin (From Zithromax) Allergy Hives Verified 10/03/25 12:56 Exam Narrative Exam Narrative: [pt is awake and alert. oriented to place, time and person HEENT: [place] conjunctiva and NL buccal mucosa Neck: Supple, no tenderness Endocrine: No Thyromegaly. Vascular: No JVD or carotid bruit. Lymphatic: No cervical lymphadenopathy. Chest: CTA no DTP. Heart RRR, no extra sound or murmur. Abd: Soft, no tenderness, no rebound and no rigidity. Increase abd girth therefore clinically I could not exclude the possibility of intra abd mass or organomegaly. LE: No cyanosis or clubbing, no varices or edema. The right leg is wrapped from the knee down to the toes. To be inspected by podiatry. Neuro: A A O. Nl speech, comprehension and attention. Nl and symetrical motor and tone examination through out. []] Constitutional Vital Signs, click to edit/add: Last Vital Signs Temp 98.2 F 10/11/25 12:41 Pulse 66 10/11/25 12:46 Resp 20 10/11/25 12:46 BP 146/36 H 10/11/25 12:46 Pulse Ox 95 10/11/25 12:46 O2 Del Method Room Air 10/11/25 13:09 Assessment and Plan Assessment and Plan (1) Diabetes: (2) Hypertension: (3) Chronic obstructive pulmonary disease: Plan Status post foot surgery. Please refer to Dr. Landaverde's note for details on her foot care. All surgical related issues including but not limited to wound care, need for antibiotic, wound healing, wound infection, wound bleed, ambulation instructions, pharmacological DVT prophylaxis, outpatient follow-up already addressed by podiatry. Hypertension Resume preadmission home medications hydralazine and Irbesartan COPD No exacerbation As needed albuterol Tobacco addiction Counseling and education were provided I offered patient nicotine patch but she declined. Peripheral vascular disease status post stenting We will resume her home Xarelto tomorrow. Continue statin. Continue aspirin. Diabetes Resume preadmission home insulin Started sliding scale. Started hypoglycemic order. Hypothyroidism Continue Synthroid Chronic, subacute medical conditions not listed above, abnormal labs and imaging, incidental findings seen on labs and or imaging. These would need to be addressed. Could be addressed later on or in the outpatient setting by PCP collaboration with other needed outpatient providers when time and condition are appropriate. Thank you Dr. Landaverde for this consultation
[2025-10-11 14:07] LABS: Hematocrit 33.5 % (36.0-48.0); Hemoglobin 10.4 g/dL (12.0-16.0); Mean Corpuscular HGB Conc 31.0 g/dL (29.9-35.2); Mean Corpuscular Hemoglobin 28.7 pg (26.7-34.0); Mean Corpuscular Volume 92.3 fL (81.0-99.0); Platelet Count 237 10^3/uL (150-450); Red Blood Count 3.63 10^6/uL (4.20-5.40); White Blood Count 10.3 10^3/uL (4.0-11.0)
[2025-10-11 14:31] LABS: Anion Gap 11.8; Blood Urea Nitrogen 45.0 mg/dL (7.0-18.0); Calcium 8.9 mg/dL (8.5-10.1); Carbon Dioxide 23.8 mmol/L (21.0-32.0); Chloride 110 mmol/L (98-107); Estimated GFR (African America 26 (>=60 mL/min/1.73m^2); Estimated GFR (Non-African Ame 21 (>=60 mL/min/1.73m^2); Glucose 155 mg/dL (74-106); Potassium 5.6 mmol/L (3.5-5.1); Sodium 140 mmol/L (136-145)
--- NOTE | 2025-10-11 15:29 | SWNOTE1 ---
SW met with pt to discuss dc needs and to also discuss Passport waiver services. Pt lives at home alone with her dog. Her dog is with her sister. Her sister and her one daughter help her as needed. Pt is now NWB to her right foot after surgery. Pt has a walker, hospital bed, wheelchair, and bedside commode set up at home. She stays on one floor at home. She is current with [facility], only nursing. VANNESSA adivsed that we will have therapy work with her and will likely add on PT as well, pt is in agreement. VANNESSA provided pt with [employer] program guidelines and qualifications. Pt has [facility] Medicare/Medicaid. She is over the age of 60, so she should qualify. VANNESSA provided her with the number for [facility] [employer] services. SW to look for the application online for patient. Pt did ask if her daughter could be a caregiver through [employer] waiver program and get paid to care for her. VANNESSA advised that SW has heard of this, but unsure of what the qualifications are. VANNESSA advised to call [employer] directly to speak with them and go over the regulations with them directly. She voiced understanding. VANNESSA to update [facility]. Updates sent to [facility]. Updates included face sheet, H&P, and operative note.
--- NOTE | 2025-10-11 15:48 | SWNOTE1 ---
SW looked online for an application for passport waiver program, but nothing was available. SW was on the [place] [employer] website and found another number and guidelines and provided to patient. SHe will have to call as they will ask her financial questions and questions in regards to her ADL's.
[2025-10-11] MEDS: INSULIN ASPART 300 UNIT/3 ML PEN SUBQ ×2 (16:36→21:19)
[2025-10-11] MEDS: CEFAZOLIN SODIUM/DEXTROSE,ISO 1 GM/50 ML PREMIX IV (16:46)
--- OUTSIDE RECORDS SUMMARY | 2025-10-11 19:35 | XMS_ITS | Continuity of Care Document ---
Author Organization [facility] Address [address] [place] [address] Phone Care Team Providers Care Cio Name Role Phone Karolina Chamberlain DO Primary Care Provider [phone] Adolfo Landaverde DPM Attending Provider [phone] Lyly Schaefer MD Attending Provider Denia Santa [employer]ATOR-C Attending Provider Pavel Swift MD Attending Provider Pavel Swift MD Other Provider Care Teams Visit Care Team Team Status: Inactive Member Role/Relationship Status Dates Karolina Chamberlain DO Primary Care Provider Active Start: August 01, 2025 End: August 01, 2025RIYA Zamudio ProviderActive Start: August 01, 2025 End: August 01, 2025 Visit Care Team Team Status: Inactive Member Role/Relationship Status Dates Karolina Chamberlain DO Primary Care Provider Active Start: 2025 End: August 08, 2025RIYA Zamudio ProviderActive Start: 2025 End: 2025 Visit Care [...] September 28, 2025 End: September 28, 2025 Visit Care Team Team Status: Active Member Role/Relationship Status Dates Karolina Chamberlain DO Primary Care Provider Active Start: September 29, 2025 Rolando Santana ProviderActiveStart: September 29, 2025 Salty Santana ProviderActiveStart: September 29, 2025 Patient Care Team Team Status: Inactive Member Role/Relationship Status Dates Adolfo Landaverde DPM MS Attending Provider Active Start: October 11, 2025 End: October 11, 2025 Chief Complaint and Reason for Visit Chief Complaint Admit Date R09.89 August 01, 2025 8:46am R09.89 RT heel ulcer w/ chr osteomyeliti s 2025 8:30am E21.3 E55.9 D50.9 N18.9 D63.1 I12.9 Octo 2024 11:39am DR. LANDAVERDE DOING SURG; MARY'S 9:30A N ovember 2024 9:13am L97.404 I73.9 I70.229 Z98.890 I77.9 Dvaie kandi 2024 9:46am renal 3 month f/y September 28, 2025 3 :44pm PAD w/ Bilateral Foot Wounds September 6:49am Unknown October 11, 2025 11:31am Reason for Visit Admit Date Current every day smoker September 27, 2 025 9:13am Diabetic ulcer of left foot September 9:13am Diabetic ulcer of right foot September 9:13am Diminished pulses in lower extremity Nov emb2024 9:13am Lower extremity edema September 27, 2025 9:13am PAD (peripheral artery disease) September 27, 2025 9:13am Anemia of renal disease September 28 3:44pm CKD stage 4 due to type 2 diabetes melli tus September 28, 2025 3:44pm Hyperparathyroidism September 28, [...] MG PO Twice d aily 60 5Oct2024 2:29pmUnknownLovastatin 40 mg hdcdofHcfauqmnkxcl62ETXEMkqze August 27, 2017 11:00pm[facility] 1:01pmLevothyroxine 75 mcg tablet Mofhipwlmfps37DGAVEJbdezQnqfpax 2016 11:00pm[facility] 10:02pm Paroxetine Hcl 20 mg hjgaloKwcwkwfcmixw74PPTFKrlvnYxjjnxo 2016 11:00pm September 26, 2020 12:21pmGlimepiride 4 mg wkioxmNflvelpowkmw1KNAYTpmbgZelmdgc 2016 11:00pm[facility]2019 12:20pmHydrochlorothiazide 25 mg tablet Zuiiuusojbvo15FHVHTquhoAbicdds 2016 11:00pm[facility]2019 12:43pm Oxybutynin Chloride 5 mg lwnxprWuhoixijhjfg8HBHKBgvks dailyOct2016 11:00pmFebruary 2020 4:51pmincontinenceInsulin Glargine (Lantus Solostar) 100 unit/mL (3 mL) Insulin GcbIwifthyfmtpu33BODPQFXHKSIBrvkv at bedtimeOct2016 11:00pm[facility] 2019 1:01pmFluticasone Furoate (Arnuity Ellipta) 100 mcg/actuation blister with deviceDiscontinuedOctarh [facility] 2016 11:00pm September 26, 2020 12:05pmSucralfate (Carafate) 1 gram roanrbTczxyqvffzen0RQOU Four times vtily717882Jffpght 2016 11:00pmSeptember 24, 2017 11:00pm September 25, 2017 11:04pmadminister 1 hour before meals and at bedtime Sennosides-Docusate Sodium (Senna Laxative-Stool Softener) 8.6-50 mg tablet Fjsukeilwkni1MQXPZHbodz as needed for rowmnxijmgaz382Dyvqgpr 5th, 2017 11:00pm September 26, 2020 12:23pmOmeprazole Magnesium (Prilosec Otc) 20 mg tablet,delayed release (DR/EC)Exxunrdmqaov55GBREWoaly34601Xurztwq 2016 11:00pmOctober 09, 2017 12:00amNove2016 12:05amHydrocodone- Acetaminophen ([place]) 5-325 mg tabletDiscontinued1 - 2TABPOEVERY 4-6 HOURS as needed for qqsq079Rkplhpy 2016 11:00pmSeptember 26, 2020 12:20pmOxycodone 5 mg mdlaehGufbxdyhvscp72IPNAQVZCS 4-6 HOURS as needed for Pain Scale 1 - 5 October 30, 2020 10:02pmDecember 2019 10:18amCoenzyme Q10 (Coq-10) 100 mg QwtjeyfGtdmtxjiwyhd130UKNGMgibxApmbmawz 7th, 2020 12:00amDeceer 2019 1:01pmLiraglutide (Victoza 3-Vijay) 0.6 mg/0.1 mL (18 mg/3 mL) pen injector Discontinued1.3UGMCXFFAQnqwy1648Ulmsgycy 2019 12:00amFebruary 2020 4:51pmInsulin Aspart U-100 (Novolog Flexpen U-100 Insulin) 100 unit/mL (3 mL) Insulin YlnSnvxhaciyjpg0JXJRGSJFNPG6Q/Day with meals and bedtime Protocol: *If the [...] 400 mg/dl Dose/Route: 6 unit Instructions: Call Tcboritv06Yqlycgaf2019 12:00ambruary 2020 4:50pmPlease contact the information source for Protocol details.Oxycodone 5 mg npwkxuOqvdvgzstvmz85DVMFDBHCH 4-6 HOURS as needed for Pain Scale 1 - 15311 November 01br2020 4:51pmHerniation of lumbar intervertebral disc with radiculopathy Intervertebral disc disorders with radiculopathy, lumbar regionCyclobenzaprine 10 mg NmdmdvFyahgdhfkybt41QTEDFcdow 8 hours as needed for Muscle Gongx82Nwqrjyzj2019 12:00bruary 2020 4:50pmSennosides-Docusate Sodium 8.6-50 mg AgehshQypaqgvcdisf7PWCMYQtyzh vobaz62Tguemxgl2019 12:00bruary 2020 4:53pmRivaroxaban (Xarelto) 10 mg XlonajHucedaukvyyh08FAKPImglh with mvrxapcwm542Cygypdfn 9th, 2020 12:00amFebruary 2020 4:52pmAtorvastatin (Lipitor) 40 mg erfjfcFllkdy40YDXJLsoid at xedkcbg4971Miteftib 9th, 2020 12:00am UnknownPotassium Chloride 20 mEq Tablet Extended VibqgakQxoeltcycskt75WPOLIQribw February 07, 2021 11:00pmMay 2020 9:30amMetformin 500 mg TabletDiscontinued 500MGPOTwice dailyMarch 2020 11:00pmJanuary 2022 12:34pm Levothyroxine 75 mcg SqbbefKhtvgpfrnjsj62FHQLSTjhad morningMarch 2020 11:00pmy 2024 3:05pmthyroidFerrous Sulfate 325 mg (65 mg iron) Tablet Gzuabpfiijwq821ASYBDzwxp as needed for anemiaMarch 2020 11:00pmApril 12, 2025 3:07pmOxycodone 10 mg YznxxxXhzybnsmlqjg86KAYSX9E as needed for PainMarch 2020 11:00pmApril 17, 2021 9:32amCephalexin 500 mg poldnavXehrzxdshsdv524 OTPAK1Y0508Cegna 2020 11:00pmApril 17, 2021 9:28amUrinary tract infection Urinary tract infection, site not specifiedOxycodone 5 mg XffrxaOebtiefwmvqt2GQ POQ8H as needed for Rywr99998Utfed 2020Ma2020 9:32amNon-healing open wound of heel Unspecified open wound, unspecified foot, initial encounterFerrous Sulfate 325 mg (65 mg iron) usutzyGitivonrkzxj368DLGUBTZSC 3 WEEKSApril 12, 2025 3:02pm July 05, 2025 3:53pmanemiaGabapentin 300 mg mpckhvxYzkdlt741NZLARudsmsu August 15, 2022 11:00pmUnknownIrbesartan (Avapro) 75 mg mkbdomBdiupu603CQZJ Every morningSeptember 2021 11:00pmUnknownFurosemide 20 mg tablet Ztmtxamoizyk66WJUGFbnrs morningSeptember 2021 11:00pmApril 12, 2025 3:31pm Montelukast 10 mg pfyccyUlmboeaimwvw55JKTBUkpuwBxepguayb 22nd, 2022 11:00pm December 05, 2022 10:19amInsulin Glargine (Lantus Solostar U-100 Insulin) 100 unit/mL (3 mL) insulin ayeZkmzwuxfacyg33ZHTOMCEUPXYrrkh morningSeptember 2021 11:00pmMay 2024 3:07pmMirabegron (Myrbetriq) 25 mg tablet extended release 24 juRnfbdrcrwegz37GWQVYyctw dailySeptember 2021 11:00pmMay 2024 3:05pmOxycodone-Acetaminophen (Percocet) 5-325 mg cswrcwFfsvredodgpt8LCVZZ Q8H as needed for mznk4336Zbtaqgdwd 2021January 2022 10:19am Encounter for examination following surgeryInsulin Glargine (Lantus Solostar U- 100 Insulin) 100 unit/mL (3 mL) insulin wtfIlyauasmanca38CSBERQVRDFPlgzm morning April 12, 2025 3:04pmAugust 2024 3:18pmInsulin Glargine (Lantus Solostar U-100 Insulin) 100 unit/mL (3 mL) insulin ttpFjzclgmxeklj76WRCDFEXCECJvsad morningAugust 2024 3:18pmNovember 2024 3:49pmInsulin Glargine (Lantus Solostar U-100 Insulin) 100 unit/mL (3 mL) insulin krtFmaudh13OXCBLWKNYFLaomp morningSeptember 28, 2025 3:48pmUnknownNystatin 100,000 unit/gram creamActive1 APPLICTOPICALTwice dailyJanuary 2022 12:00amyeastUnknownMultivitamin LnljsrAkkxgdfijucq1OUQHWRbyja morningJanuary 2022 12:00amNovember 2024 3:48pmElderberry Fruit (Elderberry) 200 mg MiodkduVhenfuqroxxt810GWWKImigs morningJanuary 2022 12:00amMay 2024 3:02pmOxycodone-Acetaminophen (Percocet) 5-325 mg ocrlizYspkyueucmgi0OQCMGQ3J as needed for ocnd8807Ngfnujr 2022Ma2024 3: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 Cyclobenzaprine 10 mg bcuznxZtphmwazyiiq50RDBLZdkvg at bedtimeNov2019 12:002019 10:01pmAscorbic Acid (Vitamin C) (Vitamin C) 1,000 mg AzqoegAbisoopqzlld8798UXZNUruicCqqrxgjd 3rd, 2020 12:2019 1:01pmOmeprazole 40 mg capsule,delayed release(DR/EC)Hbuscrcynaxy57MJLHMwbgp September 26, 2020 12:00February 2020 4:58pmAspirin (Everardo Low Dose Aspirin) 81 mg Tablet,Delayed Release (Dr/Ec)Nkomogaabyun76CVQIPjjzjZvbdmhbw 3rd, 2020 12:00February 2020 4:57pmTramadol 50 mg vqlwgoMbhdbkhzvsea656 MGPODaily at bedtimeSeptember 26, 2020 12:002019 10:02pmFerrous Sulfate (Iron) 325 mg (65 mg iron) CizamiUralvwijrxpy253SJGE6 Times a week September 26, 2020 12:00br[facility] 2020 4:50pmDocusate Sodium (Col-Rite) 100 mg KqjdfurKrwkzhpbbjrn765LDUT3 Times a weekSeptember 26, 2020 12:00am November 01, 2020 1:01pmFurosemide 20 mg LyczazQrazhonkhmso69LPEYCcmvfEwfhtnap 3rd, 2020 12:002019 1:01pmPregabalin (Lyrica) 75 mg Capsule Ejsviwpkzrba56LJMTRupgn as needed for PainSeptember 26, 2020 12:2019 10:03pmElderberry Fruit And Flower 460-115 mg EeqaiqeRwepbsegylrg2GDS PODailyNove2019 12:002019 1:01pmDiazepam 5 mg Tablet Szsbroqfigyw2HTOBVfrk times daily as needed for Muscle Ytrvn88753UeltdcdvOctober 06, 2020 12:002019 1: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 Spinal stenosis, lumbar region with neurogenic claudication Intervertebral disc disorders with radiculopathy, lumbar regionevery 8 hrs Oxycodone 5 mg TysozuYfoqomhjpgaz8CCDGCNFQC 4-6 HOURS as needed for Pain Scale 1 - 292455Shhxnyvr 2019[facility] 2019 10:03pmSpinal stenosis of lumbar region with neurogenic 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 Spinal stenosis, lumbar region with neurogenic claudication Intervertebral disc disorders with radiculopathy, lumbar regionOndansetron Hcl (Zofran) 4 mg UrvfozQbicxvjbnycw9UZRHT8C as needed for NauseaFebruary 2020 12:00amJanuary 2022 10:19amPotassium Chloride (Klor-Con 10) 10 mEq Tablet Extended EtbtyysMcfcffweghzn01YOECOSawryJpswxvxu 2020 12:00amMarch 2020 2:31pmDuloxetine 30 mg capsule,delayed release(DR/EC)Cshqfsfkfauk17CAUG Every morningFebruary 2020 12:00amMay 2024 3:07pmAspirin 81 mg Tablet,BkibqlfeXnakmf14UYRYExjgd morningFebruary 2020 12:00amUnknown Duloxetine 30 mg capsule,delayed release(DR/EC)Ihuxmx52YPGYPaykf morningMay 2024 3:02pmUnknownCyclobenzaprine 10 mg AuesldAhvkrskafjhi12YBZYOrystlv January 24, 2021 12:00amMay 2020 9:28amOxycodone 5 mg JknzzdJybqpsajjaww4AA POEvery 6 hours as needed for PainMarch 2020 12:00amMay 2020 9:32am5 to 10 mg Q6hrs PRN painRivaroxaban 2.5 mg TabletDiscontinued2.5MGPOTwice daily January 24, 2021 12:00amMay 2020 9:34amClindamycin Hcl 150 mg capsule Nonufyrckypc791BYLEV6L5739Etmps 2020 12:00amMarch 2020 2:27pm Trazodone 50 mg leikniOfbrwldkinpm027NBHAZwklp at bedtimeMay 2020 11:00pm August 16, 2022 10:45amsleepCarvedilol 12.5 mg BkysupMndunfrlhmab60.5MGPO Twice dailyMay 2020 11:00pmSeptember 2021 10:39amRivaroxaban (Xarelto) 2.5 mg tabletActive2.5MGPOTwice dailyMa2020 11:00pmUnknown Gabapentin 100 mg ltdalsgFgzphn320DLEBGcbjj morningMay 2020 11:00pmUnknown Mirabegron (Myrbetriq) 25 mg tablet extended release 24 pcLlxtcpploasp25WJED DailyMay 2020 11:00pmSeptember 2021 10:46amCyclobenzaprine 10 mg qhkwmfPahakbsaokub97ZUGLGioof as needed for SpasmsMay 2020 11:00pmMay 2024 3:02pmHydrocodone-Acetaminophen 5-325 mg fyihrpKeczuxkvckcn2PJGKVP9N as needed for ezvy3046Dhc 28th, 2020Ma2024 3:06pmPostoperative pain Other acute postprocedural painOxycodone 5 mg ofhkqoyFjkobpwmlwxy9MPZKS7Q as needed for cktw8314Idc , eptember 2021 10:43amPostoperative pain Other acute postprocedural painAcetaminophen 325 mg utkkyjkYlmwsr094QOXRHuggu 6 hours as needed for painy 2024 11:00pmUnknownSemaglutide (Ozempic) 0.25 mg or 0.5 mg (2 mg/3 mL) pen injectorDiscontinued0.5MGSUBCUTevery weekMa2024 11:00pmNovember 2024 3:49pmLevothyroxine 75 mcg lgcywcmPhqosb57ACXYL DailyApril 11, 2025 11:00pmUnknownFurosemide 20 mg ssddrmJjrrxoxtsggz43QYNVDrevl 12 2024 3:29pmAugust 2024 3:52pmHydralazine 25 mg tablet Gpeyatloqjyh06JBUQQalmz buzcv911SllApril 11, 2025 11:00pmAugust 2024 3:50pm Semaglutide (Ozempic) 0.25 mg or 0.5 mg (2 mg/3 mL) pen swswdxqlEbosgk2EKTWXHYI every weekSeptember 28, 2025 3:49pmUnknownHydralazine 50 mg acyhulLivymxdsbjsz92 MGPOTwice cjevp417Fnvmbx2024 3:49pmOctober 2024 2:30pmFurosemide 20 mg xylgcmWymwhlimqvaj31BUYCHsbup 12 hoursAugus2024 3:52pmAugust 2024 3:52pmFurosemide 40 mg fqdxfwDbooqz10ACEEWndcd 12 ibsun851Tbjilp2024 3:52pmUnknownFerrous Sulfate 325 mg (65 mg iron) icbuvoNrsxbv265JULWDvjqgMpmvkn 2024 3:53pmanemiaUnknownCholecalciferol (Vitamin D3) 50 mcg (2,000 unit) tijokkvVrqore16VEXBFMbncd356Sjjyiw 2024 11:00pmUnknown Immunizations Immunization Event Date Not Given Reason Dose Number Drug Room Clerk Lot Number Reason(s) Given Vaccine Information Statement (VIS) Detail Administration Location COVID-19 Ad26.COV2.S ([employer]) March 02, 2021 COVID-19 mRNA-1273 ([employer])September 15, 2021 Medical Equipment Device Date Implanted Device Details BIOVANCE AMNIOTIC 2X2CM August 16, 2022 INTERFYL MATRIX 50MG PARTICULASeptember IOVANCE AMNIOTIC 8B0RGJqtkvgp 2022INTERFYL MATRIX 100MG PARTICULJanuary 2022Multiple peripheral artery stent, bare-metalMar 2020UDI: [id number] Issuing Agency: [facility] Device Id: [id number] Expiration Date: 2023-09-30 Serial Number: [id number] artery stent, bare-metalNovember 2024 VITOR: ()[id number] Issuing Agency: [facility] Device Id: [id number] Expiration Date: 2027-07-24 Lot Number: [id number] peripheral artery stent, bare-metalNovember 2024UDI: [id number] Issuing Agency: [facility] Device Id: [id number] Expiration Date: 2026-08-23 Lot Number: [id number] Procedures Procedure Date Performed Status MR ankle RT wo con 2025 7:31am c ompleted US arterial pvr rest LE August 01, 2025 7:47 am completed US arterial duplex LE RT July 31, 2025 11: 00pm completed XR foot BI 3V August 01, 2025 9:12am compl eted US ankle/arm indices September 27, 2025 9:47am c ompleted Relevant Diagnostic Tests and/or Laboratory Data Laboratory Results Test Collection Date/Time Result Date/Time Result Interpretation Reference Range Result Comment Performing Site Corrected White Blood Count September 19, 2025 11:01am September 19, 2025 11:58am 8.0 10*3/uL 3.8-11.6[facility] [id number] [address] [place] [address] 17647Twy Blood CountOctober 2024 11:01amOctober 2024 11:58am3.99 10*6/uL3.60-5.00[facility] [id number] [address] [place] [address] 81335KkxtfibeelFutxwxi 2024 11:01amOctober 2024 11:58am 11.7 g/dLBelow low civdkc17.8-15.4[facility] [id number] [address] [place] [address] 40540VwmsdswcojAhrekss 2024 11:01amOctober 2024 11:58am 34.8 %34.0-46.4[facility] [id number] [address] [place] [address] 72378Chbo Corpuscular VolumeOctober 2024 11:01amOctober 2024 11:58am87.2 fJ16-308ZduwcdjacClermont County Hospital [facility] [id number] [address] [place] [address] 26755Dbqx Corpuscular HemoglobinOctober 2024 11:01amOctober 2024 11:58am29.2 pg24.7-34.3[facility] [id number] [address] [facility] 04987Hqas Corpuscular Hemoglobin ConcentOctober 2024 11:01am September 19, 2025 11:58am33.5 g/dL32.0-35.0[facility] [id number] [address] [facility] 08663Qur Cell Distribution WidthOctober 2024 11:01amOct2024 11:58am14.3 %11.9-15.3[facility] [id number] [address] [facility] 37948Splsvkep CountOctober 2024 11:01amOct2024 11:53za089 10*3/gY032-245JbvngzcikClermont County Hospital [facility]tr [id number] [address] [facility] 21600Xuay Platelet VolumeOctober 2024 11:01amOct2024 11:58am9.6 fL6.3-10.7[facility] [id number] [address] [facility] 180[address]Btvbcvi LevelOctarh [facility] 2024 11:01amOct2024 12:37ti182 mg/dLAbove high efmboa82-430VYS recommended reference rangeRandom Glucose Reference Range is dependent on time and content of last meal. Glucose of more than 200 mg/dL in a nonstressed, ambulatory subject supports the diagnosisof Diabetes Mellitus.[facility] [id number] [address] [facility] 36111Mhmhu Urea NitrogenOctober 2024 11:01amOctober 2024 12:33pm55 mg/dLAbove high normal7-25[facility] [id number] [address] [facility] 51174PiepuehwblWizsdrd 2024 11:01amOctober 2024 12:33pm 2.66 mg/dLAbove high normal0.60-1.20[facility] [id number] [address] [facility] 09336Hrgliirrf GFR (CKD-EPI)September 19, 2025 11:01amOctober 2024 12:33pm18.389 mL/MinClermont County Hospital Ctr [id number] [address] [facility] 26644Ylubqg LevelOctober 2024 11:01amOctober 2024 12:91jm835 mmol/K607-434RljehzbvfClermont County Hospital Ctr [id number] [address] [facility] 85802Setkldoju LevelOctober 2024 11:01amOctober 2024 12:33pm4.9 mmol/L3.5-5.1[facility] [id number] [address] [facility] 25537Dkkzfnjd LevelOctober 2024 11:01amOctober 2024 12:33pm99 mmol/Z07-128IljofbpimClermont County Hospital Ctr [id number] [address] [facility] 47126Miwsil Dioxide LevelOctober 2024 11:01amOctober 2024 12:33pm27.6 mmol/L21.0-31.0[facility] [id number] [address] [facility] 22134Amvux GapOctober 2024 11:01amOctober 2024 12:33pm 14.3 mEq/L6.0-15.0[facility] [id number] [address] [facility] 18700Fizktjk LevelOctober 2024 11:01amOctober 2024 12:33pm9.5 mg/dL8.6-10.3[facility] [id number] [address] [facility] 81854Ueygylwdjs LevelOctober 2024 11:01amOctober 2024 12:33pm4.7 mg/dLAbove high normal2.5-4.5[facility] [id number] [address] [facility] 83996Xkhaeidek LevelOctober 2024 11:01amOctober 2024 12:33pm2.1 mg/dL1.9-2.7[facility] [id number] [address] [facility] 85142FftlwhzPdwtasa 2024 11:01amOctober 2024 12:33pm4.0 g/dL3.5-5.7[facility] [id number] [address] [facility] 31504Hqos AcidOctober 2024 11:01amOctober 2024 12:33pm 8.8 mg/dLAbove high normal2.3-6.6[facility] [id number] [address] [facility] 05215Wxam LevelOctober 2024 11:01amOctober 2024 12:33pm 87 ug/sM51-460ObdfotoleClermont County Hospital Ctr [id number] [address] [facility] 84376Wnlod Iron Binding CapacityOctober 2024 11:01amOctober 2024 12:87eh264 ug/sZ503-161WcxwgzctaClermont County Hospital Ctr [id number] [address] [facility] 23284Xlvx SaturationOctober 2024 11:01amOctober 2024 12:33pm24.6 %20-50[facility] [id number] [address] [facility] 10008OudefflxaohVrrpbpe 2024 11:01amOctober 2024 12:33pm 252 mg/eF552-305MpebycszhClermont County Hospital Ctr [id number] [address] [facility] 00207Rvfwbjl B12 LevelOctober 2024 11:01amOctober 2024 12:94xm089 pg/cN180-290ExvpdmjmvClermont County Hospital Ctr [id number] [address] [place] [address] 78333OtzlwiNjooxxc 2024 11:01amOctober 2024 12:52pm12.9 ng/mL>5.9Folate reference range: >5.9 ng/mlThe WHO technical consultation on folate and vitamin h87tglxvokiblds has determined that folate concentrations lessthan 4 ng/ml are considered deficient.[facility] [id number] [address] [facility] 1307207-Gxhsvvp Vitamin D TotalOctober 2024 11:01amOctober 2024 12:56pm36.1 ng/sV08-715JRSCGFJ D STATUS 25(OH)VITAMIN D RANGE (ng/mL) Deficient <20 Insufficient 20 to <23Rickmevntz58 to 100Reference: Kayla MF,Giuliano MOE, Stacia TINEO, et al. Evaluation,treatment, and prevention of vitamin D deficiency; an Endocrine Society clinical practice guideline. JCEM. 2010; 96(7):1911-30.[facility] [id number] [address] [place] [address] 45425Frtjcrfaflw Hormone (Intact)September 19, 2025 11:01amOctober 2024 12:87dk395.3 pg/mLAbove high kidqbl26-64UvyzdfhwhClermont County Hospital Ctr [id number] [address] [place] [address] 14127Dsnubqoe Creatinine Clearance (ChemOctober 2024 11:01am September 19, 2025 12:33pmN/[facility] [id number] [address] [place] [address] 74081Jpcvd Random CreatinineOctober 2024 11:01amOctober 2024 12:37pm81.00 mg/dLNo reference range establishedClermont County Hospital Ctr [id number] [address] [facility] 49962Yrtji Random Total ProteinOctober 2024 11:01amOctober 2024 12:37pm19 mg/dLAbove high normal0-9[facility] [id number] [address] [place] [address] 44186Ctfaa Protein/Creatinine RatioOctober 2024 11:01amOctober 2024 12:18kc606 mg/g{Cre}Above high normal0-200[facility] [id number] [address] [place] [address] Diagnostic Imaging Reports Author Oswaldo Adam [facility] HospitalAuthoredSeptember 2024 1:57pmReport Dictated Date/TimeDictated ByStatusRadiology ReportSeptember 2024 1:57pm Oswaldo Adam Jr DOcompleteParkview Health [facility] [place] [address] [place] [address] XRay Report Signed Patient: Olivia Chopra MR#: [id number] : 1950 Acct:[id number] Age/Sex: 74 / F ADM Date: 5 Loc: Room: Type: [facility] CLI Attending Dr: Adolfo Landaverde DPM, MS Copies [...] Jr., D.O. 08/01/2025 1:59 PM Dictation Location: [place] [address] Transcribed By: [facility] 08/01/25 1359 Dictated By: Oswaldo Adam Jr, DO 08/01/25 1357 Signed By: <Electronically signed by Oswaldo Adam Jr, DO in [place]> 08/01/25 1359 Author Sampson Isbell [facility] HospitalAuthoredSeptember 2024 8:53amReport Dictated Date/TimeDictated ByStatusRadiology ReportSeptember 2024 8:53am [facility] [place] [address] Ultrasound Report Signed Patient: Olivia Chopra MR#: [id number] : 1950 Acct:[id number] Age/Sex: 74 / F ADM Date: 5 Loc: UL Room: Type: [facility] CLI Attending Dr: Adolfo Landaverde [...] Isbell MD,FACS,FSVS 08/04/2025 8:55 AM Dictation Location: [place] [address] Tech: Karolina Bertha Transcribed By: [facility] 08/04/25854 Dictated By: Sampson Isbell MD 08/04/25852 Signed By: <Electronically signed by Sampson Isbell MD in [place]> 08/04/25854 Author Sampson Isbell [facility] HospitalAuthoredSeptember 2024 8:55amReport Dictated Date/TimeDictated ByStatusRadiology ReportSeptember 2024 8:55am Sampson Isbell [facility] [place] [address] Ultrasound Report Signed Patient: Olivia Chopra MR#: [id number] : 1950 Acct:[id number] Age/Sex: 74 / F ADM Date: 5 [facility]: [facility]: Adolfo Landaverde DPM, MS Ordering Provider: Adolfo Landaverde DPM, MS Date of Service: 08/01/25 US/US arterial duplex LE RT: R09.89 Copies to: Adolfo Landaverde DPM, MS~ Right lower extremity arterial duplex evaluation INDICATIONS: Surveillance study after right femoral artery stent placement. EYES: Right lower extremity: The right SFA is patent. No concerning velocities are identified. US/US arterial duplex LE RT IMPRESSION: Patent right SFA. Impression dictated by: Sampson Isbell MD,FACS,FSVS 08/04/2025 8:56 AM Dictation Location: [facility] Tech: Karolina Bertha Transcribed By: PWS 08/04/25855 Dictated By: Sampson Isbell MD 08/04/25854 Signed By: <Electronically signed by Sampson Isbell MD in [place]> 08/04/25855 Author Pavel Davila [facility] HospitalAuthoredSeptember 2024 3:18pmReport Dictated Date/TimeDictated ByStatusRadiology ReportSeptember 2024 3:18pm Diane EchavarriaThe [facility] System [facility] [place] [address] [place] [address] MRI Report Signed Patient: Olivia Chopra MR#: [id number] : 1950 Acct:[id number] Age/Sex: 75 / F ADM Date: 5 Loc: [facility] Room: Type: [facility] Attending Dr: Adolfo Landaverde DPM, MS [...] Davila M.D. 2025 3:26 PM Dictation Location: [place] [address] Transcribed By: [facility] 08/08/25 1526 Dictated By: Pavel Davila DO 08/08/25 1518 Signed By: <Electronically signed by Pavel Davila DO in OV> 08/08/25 1526 Author Pavel Swift [facility] HospitalAuthoredNovember 2024 10:52amReport Dictated Date/TimeDictated ByStatusRadiology ReportNovember 2024 10:52am Kaila HusainompOhio State Health System [facility] [address] [place] [address] Ultrasound Report Signed Patient: Olivia Chopra MR#: [id number] : 1950 Acct:[id number] Age/Sex: 75 / F ADM Date: 5 Loc: [facility] Room: Type: [facility] Attending Dr: Pavel Swift MD Ordering Provider: Pavel Swift MD Date of Service: 09/27/25 US/US ankle/arm indices: L97.404 - Non-pressure chronic ulcer of unspecified heel ... Copies to: Pavel Swift MD~ LOWER EXTREMITY SEGMENTAL ARTERIAL DOPSCAN (PVR) INDICATION: Known peripheral vascular occlusive disease PROCEDURE: Right arm blood pressure is 170 , left is 172 . Pressures at the right ankle are 132 using the posterior tibial artery, and 124 using the dorsalis pedis artery with ankle-brachial index of 0.77 0.72 . Pressures at the left ankle are 102 using the posterior tibial artery, and 85 with ankle-brachial index of 0.59 0.49 . Wave forms by plethysmography are strongly pulsatile on the right and moderately blunted on the left. US/US ankle/arm indices IMPRESSION: Mild peripheral vascular occlusive disease of the right lower extremity at rest. Moderate peripheral vascular occlusive disease of the left lower extremity at rest. Impression dictated by: Pavel Swift M.D. 09/30/2025 10:53 AM Dictation Location: [place] [address] Tech: Mecca Leary Transcribed By: JOSELYN 09/30/25 1053 Dictated By: Pavel Swift MD 09/30/25 1052 Signed By: <Electronically signed by MD Pavel Swift in OV> 09/30/25 1053 Vital Signs Vital Reading Result Reference Range Collection Date/Time Height 66 [in_i] September 27, 2025 10:68hyZfwhox428.00 kgNov2024 10:12amBody Fptqofapacr10.2 [degF]97.6-99.0September 27, 2025 10:12amHeart Rate64 /mdc80-038 September 27, 2025 10:12amRespiratory rate16 /koe63-64IsxnmtskSeptember 27, 2025 10:12am Oxygen saturation by Pulse %95-100September 27, 2025 10:12amBP Aryvgbyx079 mm[Hg]100-140September 27, 2025 10:12amBP Lsznbyhkf11 mm[Hg]60-100 September 27, 2025 10:12amBMI (Body Mass Index)37.7 kg/m1TtzdvwpcSeptember 27, 2025 10:74rmQvmrfq30 [in_i]September 28, 2025 3:45pmHeart Rate69 /wyo24-568AenfuuweSeptember 28, 2025 3:45pmRespiratory rate16 /uvo89-01UgiclmzdSeptember 28, 2025 3:45pmOxygen saturation by Pulse qayreodi880 %95-100September 28, 2025 3:45pmBP Hrcduaum943 mm[Hg]100-140September 28, 2025 3:45pmBP Ghdkiqlbg33 mm[Hg]60-100Nov2024 3:29zrNsqngz23 [in_i]September 29, 2025 7:70pkBzfvzj920.13 kgSeptember 29, 2025 7:16amBody Azqcskhlxct25.8 [degF]97.6-99.0September 29, 2025 10:20amHeart Rate70 /apa03-092GgjgspqeSeptember 29, 2025 1:50pmRespiratory rate17 /wja77-38DvoklgjnSeptember 29, 2025 1:50pmOxygen saturation by Pulse hxnyiuaw56 %95-100September 29, 2025 1:50pmBP Mjqahcgx056 mm[Hg]100-140Nov2024 1:50pmBP Kibchzzas62 mm[Hg] 60-100Nov2024 1:50pmInhaled oxygen flow rate3 L/minSeptember 29, 2025 9:50am Advance Directives Advance Directive Response Recorded Date/ Time Advance Directives No October 10:11am Insurance Providers Guarantor Silas Ying Address [address] [phone] Info.Home Phone: Coverage Status Update:2025 Payer Group Member ID Coverage Type Subscriber Relationship to Subscriber Effective Date Expiration Date Medicaid [id number] Bottger , D Id: [id number] [address] [place] [phone] Home Phone: Email: Declined 2021elfGabby [facility] Id: [id number] Bottger , D Id: [id number] [address] [place] [phone] Home Phone: Email: Declined 2021elfGilda [facility] [employer] [id number] De Luna Id: [id number] [address] [place] [phone] Home Phone: Email: Declined 2021elf Encounters Encounter Location(s) Arrival/Admit Date Discharge/Departure Date Discharge/Departure Disposition Provider(s) Departed Clinical -Ultrasound [facility] August 01, 2025 8:46am August 01, 2025 8:47am Discharged to home care or self care (routine discharge) Adolfo Landaverde DPM MS Departed Clinical -MRI [address] Closed 2025 8:30am 2025 8:31am Discharged to home care or self care (routine discharge) Adolfo Landaverde DPM MS Departed Clinical -Lab [facility] September 19, 2025 11:39am September 19, 2025 11:40am Discharged to home care or self care (routine discharge) Lyly Schaefer MD Departed Physician/ Provider Office Visit -[facility] Vascular Surg September 27, 2025 9:13am September 27, 2025 10:29am Discharged to home care or self care (routine discharge) Denia Santa APRN Departed Clinical -Ultrasound [facility] September 27, 2025 9:46am September 27, 2025 9:47am Discharged to home care or self care (routine discharge) Pavel Swift MD Departed Physician/ Provider Office Visit -[facility] Neph Sand September 28, 2025 3:44pm September 28, 2025 4:10pm Discharged to home care or self care (routine discharge) Lyly Schaefer MD Non-patient / Non-visit -[facility] Vascul ar Surg September 29, 2025 6:49am DIANA Husaineparted Referred-LAB [facility] 11:31amNovember 2024 11:32amDischarged to home care or self care (routine discharge)Adolfo Landaverde DPM MS Recent Diagnosis Onset Date Admit Date Current every day smoker Unknown 2024 9:13am [...] Hyperparathyroidism Unknown September 3:44pm Hypertensive nephropathy Unknown Novembe r 2024 3:44pm Hyperuricemia Unknown September 28 3:44pm Iron deficiency anemia Unknown September 28, 2025 3:44pm Vitamin D deficiency Unknown September 3:44pm Assessments Diagnosis Onset Date Resolution Status Admit Date Current every day smoker acuteSeptember 27, 2025 9:13amDiabetic ulcer of left footacuteSeptember 27, 2025 9:13amDiabetic ulcer of right footacuteSeptember 27, 2025 9:13amDiminished pulses in lower extremityacuteSeptember 27, 2025 9:13amLower extremity edema acuteSeptember 27, 2025 9:13amPAD (peripheral artery disease)acuteSeptember 27, 2025 9:13amAnemia of renal diseaseacuteSeptember 28, 2025 3:44pmCKD stage 4 due to type 2 diabetes mellitusacuteSeptember 28, 2025 3:44pmHyperparathyroidism acuteSeptember 28, 2025 3:44pmHypertensive nephropathyacuteSeptember 28, 2025 3:44pmHyperuricemiaacuteSeptember 28, 2025 3:44pmIron deficiency anemiaacute September 28, 2025 3:44pmVitamin D deficiencyacuteSeptember 28, 2025 3:44pm Plan of Treatment Author Lyly Schaefer [facility] HospitalAutuniversity hospitals sam[facility] centerSeptember 28, 2025 4:02pmCKD likely from diabetic and [...] gout. Advised low animal protein diet Author Denia Santa [facility] 2024 10:45amWe reviewed the health risks associated [...]
[2025-10-11] MEDS: SODIUM POLYSTYRENE SULFON 15 GM/60 ML ORAL.SUSP KAYEXALATE 30 GM PO (19:57)
[2025-10-11] MEDS: SODIUM CHLORIDE 0.45 % 1,000 ML 100 ML IV (19:58)
[2025-10-11] MEDS: HYDRALAZINE HCL 50 MG TABLET PO (21:16)
[2025-10-11] MEDS: ENOXAPARIN SODIUM 30 MG/0.3 ML SYRINGE SUBQ (21:16)
[2025-10-11] MEDS: ATORVASTATIN CALCIUM 40 MG TABLET PO (21:16)
[2025-10-11] MEDS: OXYCODONE HCL 5 MG TABLET 10 MG PO (21:16)
[2025-10-12] VITALS (7 sets, daily range): BP systolic 140–178; BP diastolic 52–73; PULSE 63–68; TEMP 36.4–36.8; O2SAT 93–98
[2025-10-12] MEDS: ACETAMINOPHEN 500 MG TABLET 1000 MG PO ×3 (00:48→17:02)
[2025-10-12] MEDS: CEFAZOLIN SODIUM/DEXTROSE,ISO 1 GM/50 ML PREMIX IV ×3 (00:48→16:40)
[2025-10-12 05:49] LABS: Anion Gap 12.9; Blood Urea Nitrogen 48.0 mg/dL (7.0-18.0); Calcium 8.6 mg/dL (8.5-10.1); Carbon Dioxide 24.1 mmol/L (21.0-32.0); Chloride 108 mmol/L (98-107); Estimated GFR (African America 24 (>=60 mL/min/1.73m^2); Estimated GFR (Non-African Ame 20 (>=60 mL/min/1.73m^2); Glucose 163 mg/dL (74-106); Potassium 5.0 mmol/L (3.5-5.1); Sodium 140 mmol/L (136-145)
[2025-10-12] MEDS: LEVOTHYROXINE SODIUM 75 MCG TABLET PO (05:51)
[2025-10-12] MEDS: OXYCODONE HCL 5 MG TABLET 10 MG PO ×4 (06:02→20:38)
[2025-10-12] MEDS: DULOXETINE HCL 30 MG CAPSULE.DR PO (08:40)
[2025-10-12] MEDS: HYDRALAZINE HCL 50 MG TABLET PO ×2 (08:40→21:23)
[2025-10-12] MEDS: GABAPENTIN 100 MG CAPSULE 200 MG PO (08:40)
[2025-10-12] MEDS: CHOLECALCIFEROL (VITAMIN D3) 125 MCG/5,000 UNIT TABLET PO (08:41)
[2025-10-12] MEDS: AMLODIPINE BESYLATE 5 MG TABLET PO (08:41)
[2025-10-12] MEDS: ASPIRIN 81 MG TABLET.DR PO (08:41)
--- NOTE | 2025-10-12 09:00 | CM.NOTE ---
Rounds made with Dr. Ayoub, clarified status as OBS. No discharge today, plan of care reviewed. Dr. Ayoub discussed with Akhil pt's case and discharge planning. PT and OT will evaluate pt for discharge planning.
--- NOTE | 2025-10-12 10:53 | PT.DAILY ---
Physical Therapy Daily Note PT Daily Note/Assess Start: 10/12/25 10:01 Freq: Status: Active Protocol: Document 10/12/25 10:01 FLASH (Rec: 10/12/25 10:29 FLASH [id number]) Physical Therapy Daily Note/Assessment Time In/Time Out Time In 09:10 Time Out 09:34 Pain In Pain N/A Pain Out Pain N/A Subjective Subjective Pt supine upon arrival. Agrees to PT. Does not want to sit in recliner but agreeable to pivot/transfer training. Therapeutic Exercise Time Therapeutic Exercise 4 Minutes (minutes) Therapeutic Exercise 0 Units Therapeutic Exercise Treatment Therapeutic Exercise pt sits EOB unsupported and complete L LE AP, LAQ, Treatment marches, bilat add squeezes, bilat abd step outs 10x ea . Therapeutic Activity Time Therapeutic Activity 20 Minutes (minutes) Therapeutic Activity 2 Units Therapeutic Activity Treatment Bed Mobility Ability Minimum Assist Chair Transfer Moderate Assist Ability Therapeutic Activity Supine>sit Dulce to advance R LE. Pt sits unsupported at Comments EOB without LOB. Pt sit>stand from elevated bed Dulce with static standing at RW while maintaining NWB R LE. Stand>sit to EOB for seated rest prior to pivot attempt to bed side commode. SIt>stand Dulce from bed to RW. Pivot to BS commode with RW while maintaining NWB R LE - increased time needed and vc for walker placement with transfer. Pt safely descends to BS commode. ModA to sit>stand from BS commode with assist needed for pericare. Pivot with RW to Bed with increased time needed and vc not to sit too soon. Seated rest break. Sit>stand Dulce again as pt wishes to darlene a pull up before laying down. Needs total assist to pull up brief . Sit>supine SBA - pt able to advance R LE on her own without outside assistance. R LE propped on pillows with call light within reach and needs met. Total Physical Therapy Time Total Therapy 24 Minutes Total Physical 2 Therapy Units Summary Daily Note Summary Improved pivot transfer ability- less assistance needed but increased time to complete.
--- NOTE | 2025-10-12 11:41 | PM.PN ---
Progress Note: Subjective Subjective Interval history: Pain and discomfort in the right foot to be addressed by pasting machine offbearer No chest pain. Abdominal pain, nausea or vomiting. Exam Narrative Exam Narrative: [pt is awake and alert. oriented to place, time and person HEENT: [place] conjunctiva and NL buccal mucosa Neck: Supple, no tenderness Endocrine: No Thyromegaly. Vascular: No JVD or carotid bruit. Lymphatic: No cervical lymphadenopathy. Chest: CTA no DTP. Heart RRR, no extra sound or murmur. Abd: Soft, no tenderness, no rebound and no rigidity. Increase abd girth therefore clinically I could not exclude the possibility of intra abd mass or organomegaly. LE: No cyanosis or clubbing, no varices or edema. The right leg is wrapped from the knee down to the toes. To be inspected by podiatry. Neuro: A A O. Nl speech, comprehension and attention. Nl and symetrical motor and tone examination through out. []] Constitutional Vital Signs, click to edit/add: Last Vital Signs Temp 98 F 10/12/25 07:48 Pulse 66 10/12/25 07:48 Resp 20 10/12/25 07:48 BP 165/61 H 10/12/25 07:48 Pulse Ox 96 10/12/25 07:48 O2 Del Method Room Air 10/12/25 07:48 Progress Note: Objective Labs Labs: Short CBC 10/11/25 Range/Units 13:58 WBC 10.3 (4.0-11.0) 10^3/uL Hgb 10.4 L (12.0-16.0) g/dL Hct 33.5 L (36.0-48.0) % Plt Count 237 (150-450) 10^3/uL BMP 10/11/25 10/12/25 13:58 05:01 Sodium 140 140 Potassium 5.6 H 5.0 Chloride 110 H 108 H Carbon Dioxide 23.8 24.1 BUN 45.0 H 48.0 H Creatinine 2.27 H 2.40 H Glucose 155 H 163 H Calcium 8.9 8.6 Progress Note: A&P Assessment and Plan (1) Diabetes: (2) Hypertension: (3) Chronic obstructive pulmonary disease: Plan Status post foot surgery. Please refer to Dr. Landaverde's note for details on her foot care. All surgical related issues including but not limited to wound care, need for antibiotic, wound healing, wound infection, wound bleed, ambulation instructions, pharmacological DVT prophylaxis, outpatient follow-up already addressed by podiatry. Hypertension Resume preadmission home medications hydralazine ARB has been placed on hold due to CKD stage IV Blood pressure is poorly controlled therefore added amlodipine CKD stage IV. Near baseline. Patient follows up with Dr. Angeles. Avoid nephrotoxic drugs. Hold ARB at this time. Consideration to resumed at a lower dose or discontinued due to borderline hyperkalemia. Continue diuretics to keep patient in euvolemic state. COPD No exacerbation As needed albuterol Tobacco addiction Counseling and education were provided I offered patient nicotine patch but she declined. Peripheral vascular disease status post stenting We will resume her home Xarelto tomorrow. Continue statin. Continue aspirin. Diabetes Resume preadmission home insulin Started sliding scale. Started hypoglycemic order. Hypothyroidism Continue Synthroid Chronic, subacute medical conditions not listed above, abnormal labs and imaging, incidental findings seen on labs and or imaging. These would need to be addressed. Could be addressed later on or in the outpatient setting by PCP collaboration with other needed outpatient providers when time and condition are appropriate.
--- NOTE | 2025-10-12 11:57 | SWNOTE1 ---
SW stopped in to see patient as she did work with physical therapy this morning. SW asked pt how she felt she did with therapy? Pt voiced it went better than yesterday. She does remember speaking with SW yesterday. She again let SW know that she has all the equipment she needs at home and has a ramp to get in the home. VANNESSA asked again if she lived at home alone? She stated yes she does as of now and her dog is there. She has custody of her grand-daughter who is 13, but the grand-daughter is with her own mother at this time. She stated her daughter, grand-daughter, and grandson can stop and help as needed. Her one daughter works at the [employer]. This is the daughter she is going to try to have get paid to be her caregiver. She has the [employer] program paperwork that she will go over with her daughter today. SW asked pt if she felt she is getting around safe enough to return home with home health services? Pt again stated she has everything she needs and she does feel she will be safe at home. VANNESSA advised the alternative is that SW can start a precert for her to go to a group home facility for a short time to get stronger and educate in safety of transfers. Pt voiced she has had a bad experience during covid at [facility] and that she does not want to go to SNF. She has a dog at home. She voiced that she thought about skilled, but has decided she does not want to. SW did let her know there are many other facilities and that Covid was a tough time to be at a SNF. She was in agreement, but wants to return home and has all the equipment needed and does have some extra support. She did state she was thinking about an aide to help with bathing. VANNESSA cAN reach out to [facility] to see if they can provide. SW also let her know we would add on therapy to home health as well. Pt is in agreement. SW to update [facility] and ask about an Aide to come in.
--- NOTE | 2025-10-12 12:04 | PM.PN ---
Progress Note: Subjective Subjective Interval history: Patient is POD #1 s/p right partial calcanectomy and delayed closure of heel ulcer. She had not worked with PT yet at the time of my evaluation. She relates to persistent, throbbing/achy right heel pain. She has not been out of bed. She denies n/v/f/c/sob/cp/calf pain Exam Narrative Exam Narrative: Splint is clean dry and intact. No calf pain on squeeze. Patient is able to wiggle toes without pain. Capillary refill is brisk to right toes Constitutional Vital Signs, click to edit/add: Last Vital Signs Temp 98 F 10/12/25 07:48 Pulse 66 10/12/25 07:48 Resp 20 10/12/25 07:48 BP 165/61 H 10/12/25 07:48 Pulse Ox 96 10/12/25 07:48 O2 Del Method Room Air 10/12/25 07:48 Progress Note: Objective Labs Labs: Short CBC 10/11/25 Range/Units 13:58 WBC 10.3 (4.0-11.0) 10^3/uL Hgb 10.4 L (12.0-16.0) g/dL Hct 33.5 L (36.0-48.0) % Plt Count 237 (150-450) 10^3/uL BMP 10/11/25 10/12/25 13:58 05:01 Sodium 140 140 Potassium 5.6 H 5.0 Chloride 110 H 108 H Carbon Dioxide 23.8 24.1 BUN 45.0 H 48.0 H Creatinine 2.27 H 2.40 H Glucose 155 H 163 H Calcium 8.9 8.6 Progress Note: A&P Assessment and Plan (1) Diabetes: (2) Hypertension: (3) Chronic obstructive pulmonary disease: (4) Chronic osteomyelitis of right ankle with draining sinus: Plan Patient seen and evaluated. Physical therapist was in her room at the time of my evaluation and ready to perform initial evaluation as she is nonweightbearing and I am concerned for falls. Patient would like to go home once discharged however given her pain and fall risk she is not ready for discharge today. Plan was discussed with Dr. Ayoub who agrees patient should remain admitted for at least 1 additional night. volunteer services director have been consulted for discharge planning. Will follow
[2025-10-12] MEDS: FUROSEMIDE 40 MG TABLET PO (12:17)
[2025-10-12] MEDS: RIVAROXABAN 10 MG TABLET 2.5 MG PO ×2 (12:17→21:23)
--- NOTE | 2025-10-12 14:30 | SWNOTE1 ---
VANNESSA faxed updated PT note, podiatry note, and physician note to [facility]. VANNESSA sent email requesting an aide be added to services, waiting to hear back.
--- NOTE | 2025-10-12 14:43 | SWNOTE1 ---
VANNESSA received an email back from Soheila at [facility] and they do have aides in this area for pt. VANNESSA updated case management. At discharge with [facility], pt will need nurse, PT/OT, and aide.
--- NOTE | 2025-10-12 14:46 | CM.NOTE ---
Medicare Outpatient Observation Notice discussed with pt, pt verbalizes understanding and signs paper. Original given to pt and copy placed on pt's chart.
[2025-10-12] MEDS: INSULIN ASPART 300 UNIT/3 ML PEN SUBQ ×2 (15:54→21:44)
[2025-10-12] MEDS: ATORVASTATIN CALCIUM 40 MG TABLET PO (21:23)
[2025-10-12] MEDS: TEMAZEPAM 15 MG CAPSULE PO (21:27)
[2025-10-13] VITALS: BP 149/54; PULSE 63; TEMP 36.4; O2SAT 96
[2025-10-13] MEDS: OXYCODONE HCL 5 MG TABLET 10 MG PO (01:19)
[2025-10-13] MEDS: ACETAMINOPHEN 500 MG TABLET 1000 MG PO ×2 (01:19→05:31)
[2025-10-13] MEDS: CEFAZOLIN SODIUM/DEXTROSE,ISO 1 GM/50 ML PREMIX IV (01:25)
[2025-10-13 04:00] VITALS: BP 162/67; PULSE 62; TEMP 36.4; O2SAT 94
[2025-10-13] MEDS: LEVOTHYROXINE SODIUM 75 MCG TABLET PO (05:32)
[2025-10-13 07:57] VITALS: BP 139/68; PULSE 57; TEMP 36.4; O2SAT 94
[2025-10-13 08:00] VITALS: PULSE 62
--- NOTE | 2025-10-13 08:20 | PM.PN ---
Progress Note: Subjective Subjective Interval history: Patient is POD #2 s/p right partial calcanectomy and delayed closure of heel ulcer. Patient sleeping comfortably and easily aroused. Relates she had a rough night secondary to pain. She also relates to generalized itchiness on her arms and all over my body. She denies n/v/f/c/sob/cp/calf pain Exam Narrative Exam Narrative: No visible rash on arms/legs Spint c/d/i. No calf pain on squeeze. Able to wiggle toes without pain Constitutional Vital Signs, click to edit/add: Last Vital Signs Temp 97.5 F L 10/13/25 07:57 Pulse 57 L 10/13/25 07:57 Resp 18 10/13/25 07:57 BP 139/68 10/13/25 07:57 Pulse Ox 94 L 10/13/25 07:57 O2 Del Method Room Air 10/13/25 07:57 Progress Note: A&P Assessment and Plan (1) Diabetes: (2) Hypertension: (3) Chronic obstructive pulmonary disease: (4) Chronic osteomyelitis of right ankle with draining sinus: Plan Gram stain from surgery is negative however cultures still pending. She has been on ancef prophylactically and will switch to doxycycline 100mg PO BID. Unsure if puritis is due to ancef or oxycodone. D/c oxycodone and switch to norco 5/325 and 10/325 q 4h prn I will send norco 5/325 1 po q4h prn pain and doxycycline 100 mg PO BID prescriptions through my office EMR Patient will not require lovenox on d/c as she has restarted xarelto 2.5 mg BID Strict NWB and will work with PT again today Patient remains resistent to going to SNF and from foot perspective she may be d/c home - wheelchair, shower chair, walker and hospital bed she has at home. Recommended she rent a knee scooter. She is to f/u in wound center next week for follow up eval Call with updates
--- NOTE | 2025-10-13 09:36 | PM.DS1 ---
DS: Providers Provider Primary care physician: RIO HYDE Consults: 10/11/25 12:00 Consult to Hospitalist Routine Consulting Provider: Joseph Ayoub Reason for consultation: Medical mgt following surgery Has provider been notified: No 10/11/25 12:03 Consult to Deskidding Machine Operator Routine Has provider been notified: No Reason for consult:: Other Other reason:: discharge planning - patient would like to go home but is a fall risk 10/11/25 12:04 Physical Therapy Eval and Treat Routine Reason for consultation: Gait training w walker/knee scooter - NWB right foot Has provider been notified: No DS: Diagnosis Discharge Diagnosis (1) Diabetes: (2) Hypertension: (3) Chronic obstructive pulmonary disease: (4) Chronic osteomyelitis of right ankle with draining sinus: Plan As listed above, below and others that are listed DS: Summary Hospital Course Hospital Course: Mrs. Chopra is a 75-year-old female who had an outpatient foot surgery by Dr. Landaverde and subsequently was admitted to the medical floor to take care of her postoperative needs and also complex medical issues. Please refer to Dr. Landaverde's note for details on her foot surgery, status, treatment plan and they needed outpatient follow-up. Status post foot surgery. Please refer to Dr. Landaverde's note for details on her foot care. All surgical related issues including but not limited to wound care, need for antibiotic, wound healing, wound infection, wound bleed, ambulation instructions, pharmacological DVT prophylaxis, outpatient follow-up already addressed by podiatry. Dr. Landaverde will send prescription for doxycycline and pain medication. He will follow-up on pending culture report. Hypertension Resume preadmission home medications hydralazine ARB has been placed on hold due to CKD stage IV Blood pressure is poorly controlled therefore added amlodipine. Continue amlodipine 5 mg daily Additional titration may be needed by her PCP and field professional to achieve better control. CKD stage IV. Near baseline. Patient follows up with Dr. Angeles. Avoid nephrotoxic drugs. Hold ARB at this time. Patient has borderline hyperkalemia. Avoid ERNA, ARB, MRA Continue diuretics to keep patient in euvolemic state. Lasix 40 mg daily I added Farxiga 10 mg daily to reduce risk of progression into end-stage kidney disease and also to reduce risk of a cardiovascular event. COPD No exacerbation As needed albuterol Tobacco addiction Counseling and education were provided I offered patient nicotine patch but she declined. Peripheral vascular disease status post stenting Patient will resume Xarelto 2.5 mg twice a day Continue statin. Continue aspirin. Patient will follow-up with her vascular surgeon in [place]. Diabetes Resume preadmission home insulin Started sliding scale. Started hypoglycemic order. I added Farxiga for diabetes control, to reduce risk of progression into end-stage kidney disease and reduce cardiovascular risk. Hypothyroidism Continue Synthroid Functional impairment Patient was seen by physical and Occupational Therapy. Patient does not want to go to any residential facility. She has a walker at home. She wants to go home. She is in agreement to have home health care. Chronic, subacute medical conditions not listed above, abnormal labs and imaging, incidental findings seen on labs and or imaging. These would need to be addressed. Could be addressed later on or in the outpatient setting by PCP collaboration with other needed outpatient providers when time and condition are appropriate. Patient has multiple complex medical issues as listed above and others that are not listed. All appear to be stable. I do not have any clear or strong clinical justification to extend inpatient hospitalization. Patient however will require close and frequent monitoring as well as additional work-up, investigation and therapeutic intervention that could take place from this point on post discharge. That is to prevent relapse, decompensation, rehospitalization and other medical implications. Discharge medications as listed are not final or set in stone. Primary care doctor and other out patient providers will need to titrate and adjust medications as soon as the first post discharge visit based on clinical progression, vitals signs, volume status and other related organs function. I instructed patient to ask her primary care doctor to obtain [facility] record entirely to address abnormalities seen on labs and imaging that I have and have not addressed during this hospitalization, follow-up on pending blood work, imaging and pathology is if available and to follow-up on needed medical care in the outpatient setting. Time Spent with Patient Time attestation: Total time spent providing and/or coordinating discharge services: Exam Constitutional Vital Signs, click to edit/add: Last Vital Signs Temp 97.5 F L 10/13/25 07:57 Pulse 57 L 10/13/25 07:57 Resp 18 10/13/25 07:57 BP 139/68 10/13/25 07:57 Pulse Ox 94 L 10/13/25 07:57 O2 Del Method Room Air 10/13/25 07:57 DS: Data Data Completed and Pending Labs on day of discharge: Labs from last 24 hours 10/13/25 10/12/25 10/12/25 07:52 21:31 15:50 POC Glucose 85 172 H 165 H Preliminary micro results at discharge 10/11/25 11:28 Mycology Culture - Preliminary Bone 10/11/25 11:28 Tissue Culture - Preliminary Bone 10/11/25 11:28 Acid Fast Bacilli Culture - Preliminary Bone Discharge Plan Discharge Disposition: Home, Self-Care Condition: Good Discharge Medications: New amlodipine 5 mg Tablet 5 mg PO QD Qty: 30 2RF dapagliflozin propanediol [Farxiga] 10 mg tablet 10 mg PO DAILY Qty: 30 1RF Continued atorvastatin 40 mg tablet 40 mg PO DAILY cholecalciferol (vitamin D3) 50 mcg (2,000 unit) capsule 50 mcg PO DAILY furosemide 40 mg tablet 40 mg PO DAILY hydralazine 50 mg tablet 50 mg PO Q12H insulin glargine [Lantus Solostar U-100 Insulin] 100 unit/mL (3 mL) insulin pen 25 unit SUBCUT QAM levothyroxine 75 mcg tablet 75 mcg PO DAILY rivaroxaban [Xarelto] 2.5 mg tablet 2.5 mg PO BID Ozempic 1 mg/dose (4 mg/3 mL) pen injector 1 mg SUBCUT QWEEK nystatin 100,000 unit/gram cream 1 applic TOPICAL BID aspirin [Adult Aspirin Regimen] 81 mg tablet,delayed release (DR/EC) 81 mg PO DAILY acetaminophen 325 mg capsule 325 mg PO Q6H PRN (Reason: pain) ferrous sulfate 325 mg (65 mg iron) tablet 325 mg PO DAILY duloxetine 60 mg capsule,delayed release(DR/EC) 60 mg PO DAILY gabapentin [Neurontin] 300 mg capsule 300 mg PO DAILY Changed gabapentin 300 mg capsule 300 mg PO QPM Qty: 0 0RF Discontinued irbesartan 150 mg tablet 150 mg PO DAILY Activity Restrictions/Additional Instructions: I may not have addressed or treated all of your medical illnesses or the abnormal blood work or imaging studies during this hospitalization. Please ask your primary care provider to obtain [facility] records entirely to follow up on all of the abnormal physical, laboratory, and imaging findings that I have not addressed. Please return back to the emergency room or seek medical attention if your symptoms worsen or return. Check your blood sugar 3 times a day before meals. Document these numbers on a blood glucose log and bring them with you to your follow-up appointment with your primary care doctor. Communicate with your primary care doctor or product support specialist if your blood sugar is under 100 or above 300 on 2 consecutive checks. Communicate with your primary care doctor or product support specialist if you have any questions about your diabetes medications. Signs of a low blood sugar include sweating, racing heart, dizziness and/or weakness. Check your blood sugar if you have any of the symptoms. Discharge medications as listed are not final or set in stone. Primary care doctor and other out patient providers will need to titrate and adjust medications as soon as the first post discharge visit based on clinical progression, vitals signs, volume status and other related organs function. Discharging you from [facility] does not mean that your medical care ends here and now. You may still need additional monitoring, work up, investigation, and treatment plan to be handled from this point on by out patient providers including your primary care provider and specialists. For any medication question, please contact your retail pharmacist or your primary care provider. Thank you. Print Language: Anguillan
[2025-10-13] MEDS: AMLODIPINE BESYLATE 5 MG TABLET PO (09:51)
[2025-10-13] MEDS: CHOLECALCIFEROL (VITAMIN D3) 125 MCG/5,000 UNIT TABLET PO (09:52)
[2025-10-13] MEDS: ASPIRIN 81 MG TABLET.DR PO (09:52)
[2025-10-13] MEDS: DOXYCYCLINE MONOHYDRATE 100 MG CAPSULE PO (09:52)
[2025-10-13] MEDS: CHOLECALCIFEROL (VITAMIN D3) 25 MCG/1,000 UNITS TABLET 50 MCG PO (09:52)
[2025-10-13] MEDS: DULOXETINE HCL 30 MG CAPSULE.DR PO (09:53)
[2025-10-13] MEDS: FERROUS SULFATE 325 MG TABLET PO (09:53)
[2025-10-13] MEDS: GABAPENTIN 100 MG CAPSULE 200 MG PO (09:53)
[2025-10-13] MEDS: INSULIN GLARGINE 300 UNIT/3 ML INSULN.PEN 25 UNIT SQ (09:54)
[2025-10-13] MEDS: HYDRALAZINE HCL 50 MG TABLET PO (09:54)
[2025-10-13] MEDS: RIVAROXABAN 10 MG TABLET 2.5 MG PO (09:54)
--- NOTE | 2025-10-13 11:10 | PC.NURSE ---
pt dressed and iv dc'd per student. belongings packed. dc instructions given to pt, verbalized understanding. awaiting ride home.
--- NOTE | 2025-10-13 11:30 | CM.NOTE ---
CRF completed and signed by Dr. Ayoub. Pt will discharge with services.
--- NOTE | 2025-10-13 11:54 | SWNOTE1 ---
VANNESSA faxed CRF, dc med rec, dc summary, podiatry note from today, and PT note from today to Aissatou PHILIP.
--- OUTSIDE RECORDS SUMMARY | 2025-10-19 10:36 | XMS_ITS | Clinical Summary ---
Author Organization [facility] Address [address], [address] [place] [address] Care Team Providers Care Lieutenant General Name Role Phone Karolina Chamberlain Aneesh MELVIN Primary Care Provider [phone] Allergies Active AllergyReactionsCriticalityNoted DateCommentsAzithromycinHives,Itching 01/11/2021 Medications MedicationSigDispense QuantityRefillsLast FilledStart DateEnd DateStatus levothyroxine (SYNTHROID) 75 MCG tablet Take 75 mcg by mouth DailyActive potassium chloride (KLOR-CON) 20 MEQ packet Take 10 mEq by mouth dailyActive cyclobenzaprine (FLEXERIL) 10 MG tablet Take 10 mg by mouth nightlyActive pregabalin (LYRICA) 75 MG capsule Take 75 mg by mouth 2 times daily.Active DULoxetine (CYMBALTA) 30 MG extended release capsule Take 30 mg by mouth dailyActive atorvastatin (LIPITOR) 40 MG tablet Take 40 mg by mouth dailyActive furosemide (LASIX) 20 MG tablet Take 20 mg by mouth dailyActive carvedilol (COREG) 12.5 MG tablet Take 12.5 mg by mouth 2 times daily (with meals)Active aspirin 81 MG chewable tablet Take 81 mg by mouth dailyActive cilostazol (PLETAL) 100 MG tablet Take 1 tablet by mouth 2 times daily 60 tablet 01/18/2021ctive ferrous sulfate (FE TABS 325) 325 (65 Fe) MG EC tablet Take 1 tablet by mouth daily (with breakfast) 30 tablet 01/19/2021ctive folic acid (FOLVITE) 1 MG tablet Take 1 tablet by mouth daily 30 tablet 01/19/2021ctive rivaroxaban (XARELTO) 2.5 MG TABS tablet Take 1 tablet by mouth 2 times daily 60 tablet 01/18/2021ctive Active Problems ProblemNoted DateDiagnosed DateModerate dhcwbcwqoyov57/26/2021arotid stenosis, asymptomatic, unspecified yhfjxwziim52/22/2021cute kidney vplzma9901/13/2021 Ischemic toe01/11/2021Tobacco abuse01/11/2021Obesity (BMI 30-39.9)01/11/2021 Peripheral vascular fatpgqu1201/11/2021Gangrene of toe01/11/2021ssential hypertensionOther hyperlipidemiaCRP elevatedDisorientation Family History Medical HistoryRelationNameCommentsDiabetesBrotherDiabetesMotherDiabetesSister DianeKidney DiseaseSisterDianeRelationNameStatusCommentsBrotherAliveMother DeceasedSisterDianeAlive Social History Tobacco UseTypesPacks/DayYears UsedDateSmoking Tobacco: NeverSmokeless Tobacco: NeverCommentsUnknownSex and Gender InformationValueDate RecordedSex Assigned at BirthNot on fileLegal ShvOfoyce60/17/2021 8:03 PM ESTGender Identity Not on fileSexual OrientationNot on file Last Filed Vital Signs Vital SignReadingTime TakenCommentsBlood Nchigmmk338/3802 9:18 PM EST Zntku846001/19/2021 9:18 PM HIWQbyitknbvil26.6 ??C (97.8 ??F)02/05/2021 3:01 PM EDTRespiratory Tkff941902/05/2021 3:01 PM EDTOxygen Fsvkzglhsx91%01/19/2021 9:18 PM ESTInhaled Oxygen Concentration--Tdgjya297.6 kg (224 lb)02/05/2021 3:01 PM AMPBvgyyt989.1 cm (5' 5 )02/05/2021 3:01 PM EDTBody Mass Index37.28002/05/2021 3:01 PM EDT Plan of Treatment Not on file Medical Devices ImplantedTypeAreaManufacturerDevice IdentifierShelf Expiration DateModel / Serial / LotPatch Vasc W0.8xl8cm Periph Bov Pericard N Pvc N Dehp Crss - [id number] Implanted:Qty: 1 on 01/16/2021 [facility] [employer]awn [employer]OS[employer]GERY-WD09/13/[id number] / [id number] / [id number]:VERIFIED X2 Frank PATTON RN, Rafita PARKS [employer] REC[employer]DS CODER Insurance Advance Directives * Full Code (Latest Code Status on File) Date ActivatedDate InactivatedComments01/11/2021 2:24 AM01/20/2021 1:22 AM NameRelationshipHealthcare Agent RelationshipCommunicationDiana MaschariOther Primary Decision Maker* Care Teams Team MemberRelationshipSpecialtyStart DateEnd Date Karolina Chamberlain DO [address] [place] [address] PCP - GeneralFamily Medicine01/11/21
--- OUTSIDE RECORDS SUMMARY | 2025-10-19 10:36 | XMS_ITS | Encounter Summary ---
Author Organization [facility] Address [address] [place] [address] Care Team Providers Care Intellectual Property Manager Name Role Phone BulmaroAlejandroKarolina M DO Primary Care Provider [phone] Bulmaro Karolina Aneesh DO Unavailable [phone] Encounter Details DateTypeDepartmentCare Team (Latest Contact Info)Dbanwonhitv77/18/2025Clinisync Result Encounter [facility] External Department Unsolicited Provider, Generic External Data Social History Tobacco UseTypesPacks/DayYears UsedDateSmoking Tobacco: Every DayCigarettes Smokeless Tobacco: Never Comments:Started at 18 years of age smokes a pack a day Alcohol UseStandard Drinks/WeekCommentsNot Currently0 (1 standard drink = 0.6 oz pure alcohol)caffeine intake: 2-3 cups per day coffeeAUDIT-CAnswerDate Recorded Q1: How often do you have a drink containing alcohol?Monthly or less05/15/2023 Q2: How many drinks containing alcohol do you have on a typical day when you are drinking?1 or Q3: How often do you have six or more drinks on one occasion?Never05/15/2023Overall Financial Resource Strain (CARDIA)AnswerDate RecordedHow hard is it for you to pay for the very basics like food, housing, medical care, and heating?Somewhat hard07/30/2023HQ-2AnswerDate RecordedPatient Health Questionnaire-2 Biqgb991Exercise Vital SignAnswerDate RecordedOn average, how many days per week do you engage in moderate to strenuous exercise (like a brisk walk)?0 days05/21/2023On average, how many minutes do you engage in exercise at this level?0 min3PRAPARE - TransportationAnswerDate RecordedIn the past 12 months, has lack of transportation kept you from medical appointments or from getting medications?No07/30/2023In the past 12 months, has lack of transportation kept you from meetings, work, or from getting things needed for daily living?No07/30/2023Housing Stability Vital SignAnswerDate RecordedIn the last 12 months, was there a time when you were not able to pay the mortgage or rent on time?No07/30/2023In the last 12 months, how many places have you lived?In the last 12 months, was there a time when you did not have a steady place to sleep or slept in ashelter (including now)?No 07/30/2023CommentsUnknownSex and Gender InformationValueDate RecordedSex Assigned at BirthNot on fileLegal JzoYicvak45/15/2023 6:45 PM EDTGender Identity Not on fileSexual OrientationNot on filedocumented as of this encounter Plan of Treatment DateTypeDepartmentCare Team (Latest Contact Info)Cbefyzckagh29/09/2025 2:30 PM ESTOffice Visit [facility] [address] [place] [id number] Karolina Chamberlain, [address] [place] [address] documented as of this encounter Procedures Procedure NamePriorityDate/TimeAssociated DiagnosisCommentsMLR HEMOGLOBIN A1C Ihtuehi3410/11/2025 1:58 PM EST HMHP CBC WITH PLATELET NO PZFCGJVXJUJLDsoxxmt25/18/2025 1:58 PM EST ALL BASIC METABOLIC FWWRRHgxvnpn12/18/2025 1:58 PM EST documented in this encounter Results * MLR HEMOGLOBIN A1C (10/11/2025 1:58 PM EST)ComponentValueRef RangeTest Method Analysis TimePerformed AtPathologist SignatureGLYCOHEMOGLOBIN A1C6.14.5 - 6.2 %TBHComment: ADA RECOMMENDED LIMIT 4.0 - 6.0 ADA THERAPEUTIC TARGET < 7.0 ACTION SUGGESTED > 7.0 ESTIMATED AVERAGE WHAQLKK402pe/dLTBHSpecimen (Source)Anatomical Location / LateralityCollection Method / VolumeCollection TimeReceived Time10/11/2025 1:58 PM EST10/11/2025 2:03 PM EST Narrative CLINISYNC - 10/11/2025 2:55 PM EST Authorizing ProviderResult TypeResult StatusGeneric External Data Provider CLINISYNCFinal ResultPerforming OrganizationAddressCity/State/ZIP CodePhone Number ALANISYNC TB * (ABNORMAL) ALL BASIC METABOLIC PANEL (10/11/2025 1:58 PM EST)ComponentValueRef RangeTest MethodAnalysis TimePerformed AtPathologist [id number] - 145 mmol/LTBHPOTASSIUM5.6(H)3.5 - 5.1 mmol/TRLTLRFUADTM998(H)98 - 107 mmol/L TBHCARBON MFCPROD28.821.0 - 32.0 mmol/LTBHANION GAP11.9IRJEFBQTUR380(H)74 - 106 mg/dLTBHBLOOD UREA HBJWIDYG96.0(H)7.0 - 18.0 mg/dLTBHCREATININE2.27(H)0.55 - 1.02 mg/dLTBHTBH EGFR-AF KVEIXALC99(L)>=60 mL/min/1.73m 2TBHTBH EGFR-NON AF EKMGGBSA79(L)>=60 mL/min/1.73m 2TBHBUN CREATININE RATIO19.9WSZIECMWPZ2.98.5 - 10.1 mg/dLTBHSpecimen (Source)Anatomical Location / LateralityCollection Method / VolumeCollection TimeReceived Time10/11/2025 1:58 PM EST10/11/2025 2:03 PM EST Narrative CLINISYNC - 10/11/2025 2:33 PM EST Authorizing ProviderResult TypeResult StatusGeneric External Data Provider CLINISYNCFinal ResultPerforming OrganizationAddressty/State/ZIP CodePhone Number ESTHELANC TB * (ABNORMAL) HMHP CBC WITH PLATELET NO DIFFERENTIAL (10/11/2025 1:58 PM EST) ComponentValueRef RangeTest MethodAnalysis TimePerformed AtPathologist SignatureTBH WBC10.34.0 - 11.0 10 3/uLTBHTBH RBC3.63(L)4.20 - 5.40 10 6/uLTBH TBH HGB10.4(L)12.0 - 16.0 g/dLTBHTBH HCT33.5(L)36.0 - 48.0 %TBHTBH MCV92.381.0 - 99.0 fLTBHTBH MCH28.726.7 - 34.0 pgTBHTBH MCHC31.029.9 - 35.2 g/dLTBHTBH RDW 13.511.0 - 15.0 %TBHTBH RKO975130 - 450 10 3/uLTBHTBH MPV11.49.5 - 13.5 fLTBH Specimen (Source)Anatomical Location / LateralityCollection Method / Volume Collection TimeReceived Time10/11/2025 1:58 PM EST10/11/2025 2:03 PM EST Narrative CLINISYNC - 10/11/2025 2:07 PM EST Authorizing ProviderResult TypeResult StatusGeneric External Data Provider CLINISYNCFinal ResultPerforming OrganizationAddressCity/State/ZIP CodePhone Number [facility] documented in this encounter Visit Diagnoses Not on filedocumented in this encounter Care Teams Team MemberRelationshipSpecialtyStart DateEnd Date Karolina Chamberlain, DO [address] [place] [address] [facility] - [facility] Karolina Chamberlain, DO [address] [place] [address] PCP - [facility]/documented as of this encounter
--- OUTSIDE RECORDS SUMMARY | 2025-10-19 10:36 | XMS_ITS | Encounter Summary ---
Author Organization [facility] Address [address] [place] [address] Care Team Providers Care Automation Technologist Name Role Phone BulmaroAlejandroKarolina M DO Primary Care Provider [phone] Bulmaro Karolina Aneesh DO Unavailable [phone] Encounter Details DateTypeDepartmentCare Team (Latest Contact Info)Cbmlhaluajl05/19/2025Clinisync Result Encounter [facility] External Department Unsolicited Provider, [...] care, and heating?Somewhat hard07/30/2023HQ-2AnswerDate RecordedPatient Health Questionnaire-2 Qvdfl247Exercise Vital SignAnswerDate RecordedOn average, how many days [...] sleep or slept in ashelter (including now)?No 3CommentsUnknownSex and Gender InformationValueDate RecordedSex Assigned at BirthNot on fileLegal GflRsrizm00/15/2023 6:45 PM EDTGender Identity Not on fileSexual OrientationNot on filedocumented as of this encounter Plan of Treatment DateTypeDepartmentCare Team (Latest Contact Info)Tadhkjhkvur62/09/2025 2:30 PM ESTOffice Visit [facility] [address] [place] [address] Karolina Chamberlain, [address] [place] [address] documented as of this encounter Procedures Procedure NamePriorityDate/TimeAssociated DiagnosisCommentsALL BASIC METABOLIC YQMGIEjwxzor58/19/2025 5:01 AM EST documented in this encounter Results * (ABNORMAL) ALL BASIC METABOLIC PANEL (10/12/2025 5:01 AM EST)ComponentValueRef RangeTest MethodAnalysis TimePerformed AtPathologist DrpapgkzoOVHIHW356768 - 145 mmol/LTBHPOTASSIUM5.03.5 - 5.1 mmol/OTJXREDPJMIY691(H)98 - 107 mmol/LTBH CARBON EJNVAQR87.121.0 - 32.0 mmol/LTBHANION GAP12.4RPHDMOEFJU455(H)74 - 106 mg/dLTBHBLOOD UREA KLZSMYMZ47.0(H)7.0 - 18.0 mg/dLTBHCREATININE2.40(H)0.55 - 1.02 mg/dLTBHTBH EGFR-AF RIYYTOIB22(L)>=60 mL/min/1.73m 2TBHTBH EGFR-NON AF FLHCQOWG09(L)>=60 mL/min/1.73m 2TBHBUN CREATININE RATIO20.4TVGRPNIOGY6.68.5 - 10.1 mg/dLTBHSpecimen (Source)Anatomical Location / LateralityCollection Method / VolumeCollection TimeReceived Time10/12/2025 5:01 AM EST10/12/2025 5:28 AM EST Narrative CLINISYNC - 10/12/2025 5:50 AM EST Authorizing ProviderResult TypeResult StatusGeneric External Data Provider CLINISYNCFinal ResultPerforming OrganizationAddressCity/State/ZIP CodePhone Number [facility]IS[facility]NC [facility] documented in this encounter Visit Diagnoses Not on filedocumented in this encounter Care Teams Team MemberRelationshipSpecialtyStart DateEnd Date Karolina Chamberlain DO [address] [facility] [address] [place] [address] [facility] - [facility] Karolina Chamberlain, DO [address] [place] [address] PCP - [facility]/documented as of this encounter
--- OUTSIDE RECORDS SUMMARY | 2025-10-19 10:36 | XMS_ITS | Encounter Summary ---
Author Organization [facility] Address [address] [place] [address] Care Team Providers Care Supervisor Cabinetmaker Name Role Phone Karolina Chamberlain DO Primary Care Provider [phone] Karolina Chamberlain DO Unavailable [phone] Encounter Details DateTypeDepartmentCare Team (Latest Contact Info)Goxczolczzn61/25/2025Telephone [facility] [address] [phone] Shauna Maciel MA Social History Tobacco UseTypesPacks/DayYears UsedDateSmoking Tobacco: Every [...] care, and heating?Somewhat hard07/30/2023HQ-2AnswerDate RecordedPatient Health Questionnaire-2 [id number] Vital SignAnswerDate RecordedOn average, how many days per week do you engage in moderate to strenuous exercise (like a brisk walk)?0 days05/21/2023On average, how many minutes do you engage in exercise at this level?0 min05/21/2023RAPARE - TransportationAnswerDate RecordedIn the past 12 months, [...] InformationValueDate RecordedSex Assigned at BirthNot on fileLegal JitOvawvt77/15/2023 6:45 PM EDTGender Identity Not on fileSexual OrientationNot on filedocumented as of this encounter Miscellaneous Notes * Telephone Encounter - Princess Oquendo LPN - 10/18/2025 3:35 PM EST LM with pt informing her that Zofran was sent, but if no improvement see needs to contact her surgeon or schedule an appt. * Addendum Note - Karolina Chamberlain DO - 10/18/2025 2:52 PM ESTAddended by: KAROLINA CHAMBERLAIN on: 10/18/2025 02:52 PM Modules accepted: Orders * Telephone Encounter - Karolina Chamberlain DO - 10/18/2025 2:51 PM EST I will send in zofran for her to take for nausea. If this is not improving [facility] an [facility]. thanks * Telephone Encounter - Shauna Maciel MA - 10/18/2025 2:38 PM EST Pt called stating that she has been having a lot of nausea since her surgery and is wondering if there is anything that she can take to help with this as she has not been able to really eat anything because of this. Pls send to [facility] documented in this encounter Plan of Treatment DateTypeDepartmentCare Team (Latest Contact Info)Trjttsyyplv61/09/2025 2:30 PM ESTOffice Visit [facility] [address] [place] [address] Karolina Chamberlain DO [address] [place] [address] documented as of this encounter Visit Diagnoses Diagnosis Nausea- Primary Nausea alone documented in this encounter Care Teams Team MemberRelationshipSpecialtyStart DateEnd Date Karolina Chamberlain DO [address] [place] [address] PCP - GeneralFamily Medicine04/15/23 Karolina Chamberlain DO [address] [place] [address] PCP - [facility]/11/2511documented as of this encounter
--- OUTSIDE RECORDS SUMMARY | 2025-10-19 10:36 | XMS_ITS | Clinical Summary ---
Author Organization [facility] Address [address] [place] [address] Care Team Providers Care Rn Field Case Manager Name Role Phone Karolina Hyde DO Primary Care Provider [phone] Karolina Hyde DO Unavailable [phone] Allergies Active AllergyReactionsCriticalityNoted DateCommentsAzithromycinHives,Itching, Brtnypce60/15/2023 Medications MedicationSigDispense QuantityRefillsLast FilledStart DateEnd DateStatus aspirin 81 MG chewable tablet Chew 81 mg in the morning.Active HANDICAP PLACARD 5 YEAR 1 (one) time each day at the same time.Active Alcohol Swabs (B-D SINGLE USE SWABS REGULAR) pads Indications:Type 2 diabetes mellitus with diabetic peripheral angiopathy and gangrene, with long-term current use of insulin (HCC)Fsbs bid 200 each 4Active nystatin (Mycostatin) cream Indications:Candidiasis, intertrigoAPPLY TOPICALLY TWICE DAILY 30 g 1104Active gabapentin (Neurontin) 300 MG capsule Indications:Diabetic polyneuropathy associated with type 2 diabetes mellitus (HCC)Take one in the AM and Take 2 pills qhs 90 capsule 1114Active DULoxetine (Cymbalta) [address] capsule Indications:Generalized anxiety disorderTake 1 capsule (60 mg) by mouth Daily 90 capsule 5Active fluticasone (Flonase) 50 MCG/ACT nasal spray Indications:Left ear painAdminister 2 sprays into each nostril Daily Shake gently. Before first use, prime pump. After use, clean tip and replace cap. 16 g 5026Active Ozempic, 0.25 or 0.5 MG/DOSE, 2 MG/3ML solution pen-injector Indications:Type 2 diabetes mellitus with diabetic peripheral angiopathy and gangrene, with long-term current use of insulin (HCC)INJECT 0.5 MG SUBCUTANEOUSLY ONCE WEEKLY 9 mL 5Active insulin pen needle (B-D UF III MINI PEN NEEDLES) 31G x 5 mm [facility] Indications:Type 2 diabetes mellitus with diabetic peripheral angiopathy and gangrene, with long-term current use of insulin (HCC)Once a day 100 each 5Active hydrALAZINE (Apresoline) 50 MG tablet Take 50 mg by mouth in the morning and 50 mg before bedtime.07/06/2025tive furosemide (Lasix) 40 MG tablet Take 40 mg by mouth in the morning and 40 mg before bedtime.5Active VITAMIN D PO Take by mouthActive Blood Glucose Monitoring Suppl (Accu-Chek Guide Me) w/Device kit Indications:Type 2 diabetes mellitus with diabetic peripheral angiopathy and gangrene, with long-term current use of insulin (HCC)Checking bg levels once a day 1 kit 07/12/2025tive glucose blood (Accu-Chek Guide Test) test strip Indications:Type 2 diabetes mellitus with diabetic peripheral angiopathy and gangrene, with long-term current use of insulin ([facility])Checking bg levels once a day 100 each /6Active semaglutide (Ozempic, 1 MG/DOSE,) 4 MG/3ML solution pen-injector Indications:Type 2 diabetes mellitus with diabetic peripheral angiopathy and gangrene, with long-term current use of insulin ([facility])Inject 1 mg under the skin 1 (one) time per week 9 mL 6Active insulin glargine (Lantus SoloStar) 100 UNIT/ML pen Indications:Diabetic polyneuropathy associated with type 2 diabetes mellitus (HCC)Inject 25 Units under the skin Daily 45 mL 5Active irbesartan (Avapro) 150 MG tablet Indications:Essential hypertensionTAKE 1 TABLET BY MOUTH DAILY 100 tablet 5Active rivaroxaban (Xarelto) 2.5 MG tablet Indications:Type 2 diabetes mellitus with diabetic peripheral angiopathy and gangrene, with long-term current use of insulin (HCC)TAKE 1 TABLET BY MOUTH IN THE MORNING AND 1 TABLET BY MOUTH BEFORE BEDTIME 200 tablet 5Active levothyroxine (Synthroid, Levoxyl) 75 MCG tablet Indications:Acquired hypothyroidismTAKE 1 TABLET BY MOUTH IN THE MORNING TAKE BEFORE A MEAL 100 tablet 09/28/2025tive atorvastatin (Lipitor) 40 MG tablet Indications:Pure hypercholesterolemiaTAKE 1 TABLET BY MOUTH DAILY 100 tablet 5Active ondansetron ODT (Zofran-ODT) 8 MG disintegrating tablet Indications:NauseaTake 1 tablet (8 mg) by mouth every 8 (eight) hours if needed for nausea or vomiting for up to 7 days 20 tablet 5Active levothyroxine (Synthroid, Levoxyl) 75 MCG tablet Indications:Acquired hypothyroidismTake 1 tablet (75 mcg) by mouth in the morning. Take before meals. 90 tablet Discontinued irbesartan (Avapro) 150 MG tablet Indications:Essential hypertensionTake 1 tablet (150 mg) by mouth Daily 90 tablet Discontinued rivaroxaban (Xarelto) 2.5 MG tablet Indications:Type 2 diabetes mellitus with diabetic peripheral angiopathy and gangrene, with long-term current use of insulin (HCC)Take 1 tablet (2.5 mg) by mouth in the morning and 1 tablet (2.5 mg) before bedtime. 180 tablet Discontinued atorvastatin (Lipitor) 40 MG tablet Indications:Pure hypercholesterolemiaTake 1 tablet (40 mg) by mouth Daily 90 tablet Discontinued Active Problems ProblemNoted DateDiagnosed DateType 2 diabetes mellitus with stage 4 chronic kidney disease, with long-term current use of gqwnydn9504/06/2024Lumbar stenosis with neurogenic mqznpsliqncg80/30/2024Thyroid vasknh2505/15/2023Stenosis of left carotid jlnwwu4105/15/2023KD (chronic kidney disease) stage 4, GFR 15-29 ml/min 05/15/2023 Assessment & Plan (07/12/2025 1:09 PM EDT): Reviewed patients recent GFR and will continue to monitor this. Encouarged to continue to avoid anyNSAIDS or other nephrotoxic agents. Will stay on medications to help prevent any future progressionof kidney damage. She is following with nephrology Assessment & Plan (12/28/2024 12:08 PM EST): Will get labs to see where her kidney function is at. If it continues to be in the low 30's or lower, will refer to a kidney specialist. Assessment & Plan (04/06/2024 12:37 PM EDT): Reviewed patients recent GFR and will continue to monitor this. Encouarged to continue to avoid anyNSAIDS or other nephrotoxic agents. Will stay on medications to help prevent any future progressionof kidney damage. Chronic diastolic congestive heart kerlxwz6205/15/2023 Assessment & Plan (07/12/2025 1:09 PM EDT): Prior to the patient's appointment today, I reviewed past laboratory testing and any diagnostics asit relates in the management of their CHF. Discussed continuing to stay on a low sodium diet and totake daily weights to monitor fluid status. Will continue current therapy for this. Assessment & Plan (04/06/2024 12:36 PM EDT): Prior to the patient's appointment today, I reviewed past laboratory testing and any diagnostics asit relates in the management of their CHF. Discussed continuing to stay on a low sodium diet and totake daily weights to monitor fluid status. Will continue current therapy for this. Type 2 diabetes with skin ulcer of foot04/17/2023 Assessment & Plan (07/12/2025 1:10 PM EDT): Continues to struggle with complete healing. Would like a second opinion and will refer to Dr Landaverde per pt request. Assessment & Plan (04/06/2024 12:38 PM EDT): Continues to follow with Dr Lincoln for this. Needs PT to help with strength and mobility due to being off her feet for so long. She is still not able to walk on her own without falling. Diabetic polyneuropathy associated with type 2 diabetes /03/2021 Assessment & Plan (07/12/2025 1:08 PM EDT): During the appointment today all pertinent labs, imaging, health maintenance, and glucose readings were reviewed. Encouraged to check blood glucose throughout the day with some fasting and some PP readings. They are to bring their glucose meter/cgm in to all appointments. All of the patients questions, treatment options, and current care plan and goals were discussed. Acopy of this along with pertinent instructions were given to the patient at the end of the appointment. The patient voices understanding of all of this and is to call in between appointments if they have any problems or questions. Olivia Chopra is doing very well and encouraged on this. , Instructions given today include: Hypoglycemia management and Insulin instructions. Will increase ozempic and decrease lantus. She would like a cgm and will work on getting this through [facility]. Assessment & Plan (12/28/2024 12:07 PM EST): During the appointment today all pertinent labs, imaging, health maintenance, and glucose readings were reviewed. Encouraged to check blood glucose throughout the day with some fasting and some PP readings. They are to bring their glucose meter/cgm in to all appointments. All of the patients questions, treatment options, and current care plan and goals were discussed. Acopy of this along with pertinent instructions were given to the patient at the end of the appointment. The patient voices understanding of all of this and is to call in between appointments if they have any problems or questions. Olivia Chopra blood sugars are worsening. , Discussed dietary changes at length. Encouraged to limit simple carbs and focus more on healthy protein/fat with all meals and snacks. They should also avoid any sugary drinks. , Discussed importance of checking blood glucose regularly and bringing them in to their appointment in order for me to better adjust their medications. , Instructions given today include: Dietary education. Will start ozempic. GLP-1 and GLP-1/GIP agonist: Instructed on injection technique and the use of the medication. Pt has no hx of pancreatitis or fmh of mtc. Pt is to call if any significant vomiting, diarrhea, or reflux. Will decrease lantus with starting ozempic and may need to decrease this dose more in the future. Assessment & Plan (04/06/2024 12:35 PM EDT): During the appointment today all pertinent labs, imaging, health maintenance, and glucose readings were reviewed. Encouraged to check blood glucose throughout the day with some fasting and some PP readings. They are to bring their glucose meter/cgm in to all appointments. All of the patients questions, treatment options, and current care plan and goals were discussed. Acopy of this along with pertinent instructions were given to the patient at the end of the appointment. The patient voices understanding of all of this and is to call in between appointments if they have any problems or questions. Olivia Chopra control is stable overall. , Will stay on current medications. , Discussed importanceof checking blood glucose regularly and bringing them in to their appointment in order for me to better adjust their medications. Assessment & Plan (09/23/2023 9:09 PM EDT): During the appointment today all pertinent labs, imaging, health maintenance, and glucose readings were reviewed. Encouraged to check blood glucose throughout the day with some fasting and some PP readings. They are to bring their glucose meter/cgm in to all appointments. All of the patients questions, treatment options, and current care plan and goals were discussed. Acopy of this along with pertinent instructions were given to the patient at the end of the appointment. The patient voices understanding of all of this and is to call in between appointments if they have any problems or questions. Olivia Chopra control is stable overall. , Will stay on current medications. History of amputation of lesser toe of right foot ([facility]-HCC)05/06/2021 Assessment & Plan (04/06/2024 12:39 PM EDT): Wearing diabetic shoes and working on her mobility. History of amputation of great toe ([facility]HS-HCC)05/06/2021Type 2 diabetes mellitus with diabetic peripheral angiopathy and gangrene, with long-term current use of wxecknz8203/30/2021ure njelrczhygifjsvadgfv44/07/2021 Assessment & Plan (07/12/2025 1:10 PM EDT): Prior to the patient's appointment today, I reviewed past laboratory testing and any diagnostics asit relates in the management of their cholesterol. Encouraged to stay on their statin medication daily and continue with a low cholesterol (mediterranean style) diet. Assessment & Plan (04/06/2024 12:38 PM EDT): Prior to the patient's appointment today, I reviewed past laboratory testing and any diagnostics asit relates in the management of their cholesterol. Encouraged to stay on their statin medication daily and continue with a low cholesterol (mediterranean style) diet. Renal artery bwfcewrm79/22/2021 Assessment & Plan (04/06/2024 12:36 PM EDT): Working on risk factor reduction Tobacco abuse01/11/2021lass 3 severe obesity due to excess calories with serious comorbidity and body mass index (BMI) of40.0 to 44.9 in adult01/11/2021 Urge ohgbczirogoa68/25/2019 Assessment & Plan (04/06/2024 12:37 PM EDT): Stable, no changes needed to current treatment plan. Need to decrease myrbetriq to daily dosing dueto insurance not covering bid dosing. Vitamin D ndrpqpngxy02/25/2018Mild intermittent tobqrs2808/25/2017 Assessment & Plan (07/12/2025 1:09 PM EDT): Stable, no changes needed to current treatment plan. Assessment & Plan (04/06/2024 12:36 PM EDT): Stable, no changes needed to current treatment plan. terminologist current use of plutibd4212/16/2016Peripheral vascular kdmzacz2810/30/2015 Assessment & Plan (04/06/2024 12:36 PM EDT): Working on risk factor reduction Menieres rnjnjnp8810/30/2015Iron deficiency nmystv9110/30/2015 Assessment & Plan (04/06/2024 12:38 PM EDT): Only takes iron a few days a week due to constipation. Will check labs and may need to consider IV iron. Essential reivegrnnymd02/07/2015 Assessment & Plan (07/12/2025 1:09 PM EDT): Prior to the patient's appointment today, I reviewed past laboratory testing and any diagnostics asit relates in the management of their hypertension. Current blood pressure readings were reviewed with the patient along with blood pressure goal of less than 140/90. Encouraged to continue a low sodium diet and will stay on current medications. Assessment & Plan (04/06/2024 12:36 PM EDT): Prior to the patient's appointment today, I reviewed past laboratory testing and any diagnostics asit relates in the management of their hypertension. Current blood pressure readings were reviewed with the patient along with blood pressure goal of less than 140/90. Encouraged to continue a low sodium diet and will stay on current medications. Generalized anxiety vijqnkkk42/07/2015 Assessment & Plan (07/12/2025 1:10 PM EDT): Stable, no changes needed to current treatment plan. Acquired hyhuhioeawsjdo63/12/2015 Assessment & Plan (07/12/2025 1:10 PM EDT): Stable, no changes needed to current treatment plan. Assessment & Plan (04/06/2024 12:38 PM EDT): Stable, no changes needed to current treatment plan. Resolved Problems ProblemNoted DateDiagnosed DateResolved DateRenal mass/3Kidney cystsOther jqoycjzqipdbkw36ERD without tybggllamyv03/22/202302/02/2025 Assessment & Plan (04/06/2024 12:36 PM EDT): Stable, no changes needed to current treatment plan. Hggippxekiubfz94epressive sapqplzq15RP yoivpiev20oughnemia Amputation of toebscess of heelUlcer of right heel and midfoot with necrosis of boneUlcer of left heel and midfoot with fat layer mcnsflu87/ifficulty sleeping Urinary ijxvporfmjus50Ulcer of foot due to type 2 diabetes aanyczha29cquired absence of other right toe(s) ([facility])Moderate malnutrition ([facility])01/19/2021 05/15/2023Ischemic toeangrene of toe of right foot bnormal gaitHypoglycemia due to type 2 diabetes hfqfgqrk60ost herpetic Gastroesophageal reflux rmqsqvs33Reactive airway disease lass 3 severe obesity due to excess calories with body mass index (BMI) of 40.0 to 44.9 in adultSciatica10/31/2015 05/15/2023 Encounters DateTypeDepartmentCare LhkoMmtexsbdypb79/25/2025Telephone [facility] [address] [place] [address] Shauna Maciel MA 10/13/2025Refill [facility] [address] [place] [address] Karolina Hyde DO Cmbmdlqfjmb26/19/2025Clinisync Result Encounter [facility] External Department Unsolicited Provider, Generic External Data 10/11/2025linisync Result Encounter [facility] External [facility] Unsolicited Provider, Generic External Data 5Clinisync Result Encounter [facility] Unsolicited Provider, Generic External Data 10/08/2025Refill [facility] [address] [place] [address] Karolina Hyde, DO Ryyjaglotgz93/12/2025Refill [facility] [address] [place] [address] Karolina Hyde, DO Pure byykhkedgitvndaledqf04/10/2025Clinisync Result Encounter [facility] External Department Unsolicited Provider, Generic External Data 10/03/2025linisync Result Encounter [facility] Unsolicited Provider, Generic External Data 10/03/2025linisync Result Encounter [facility] Unsolicited Provider, Generic External Data 09/28/2025Refill [facility] [address] [place] [address] Karolina Hyde, DO Essential hypertension; Type 2 diabetes mellitus with diabetic peripheral angiopathy and gangrene, with long-term current use of insulin (HCC); Acquired ooitdtusofaxqc86/17/2025Telephone [facility] [address] [place] [address] Karolina Hyde, DO 09/07/2025Refill [facility] [address] [place] [address] Karolina Hyde, DO Pvgxrfxbnaj56/29/2025Telephone [facility] [address] [place] [address] Karolina Hyde, DO Medication Zhkhwhjo29/27/2025bstract [facility] [address] [place] [address] Karolina Hyde, DO from Last 3 Months Immunizations ImmunizationAdministration DatesNext DueInfluenza, High Dose Seasonal, Preservative Free10/09/2024,08/18/2020,10/23/2019,08/13/2018,12/18/2017 Influenza, Seasonal, Quadrivalent, Pttbyuhrjg94/09/2023,09/15/2021Influenza, injectable, MDCK, preservative free, yjhqoplsguni41/30/2022Influenza, injectable, quadrivalent, preservative free08/11/2020,01/07/2017Influenza, seasonal, injectable, preservative free10/30/2015Influenza, seasonal, intradermal, preservative free01/01/2010Pneumococcal Conjugate PCV 13012/18/2017, 08/18/2017Pneumococcal Polysaccharide OMUP4162Zoster, Recombinant 02/05/2019Zoster, live07/23/2016 Family History Medical HistoryRelationNameCommentsLung diseaseBrother 1CancerFatherDiabetes FatherHypertensionFatherDiabetesMaternal GrandfatherDiabetesMaternal Grandmother DiabetesMotherHypertensionMotherRelationNameStatusCommentsBrother 1AliveBrother 2DeceasedFatherDeceasedMaternal GrandfatherMaternal GrandmotherMotherDeceased Social History Tobacco UseTypesPacks/DayYears UsedDateSmoking Tobacco: Every DayCigarettes Smokeless Tobacco: Never Tobacco Cessation:Ready to Q uit: Not Asked; Counseling Given: Not Answered Comments:Started at 18 years of age smokes [...] like food, housing, medical care, and heating?Somewhat hard09/06/2023PHQ-2AnswerDate RecordedPatient Health Questionnaire-2 Wcore554Exercise Vital SignAnswerDate RecordedOn average, how many days [...] steady place to sleep or slept in [facility] (including now)?No 3CommentsUnknownSex and Gender InformationValueDate RecordedSex Assigned at BirthNot on fileLegal RmzVakomr56/15/2023 6:45 PM EDTGender Identity Not on fileSexual OrientationNot on file Last Filed Vital Signs Vital SignReadingTime TakenCommentsBlood Pmhzwook059/62007/12/2025 8:44 AM EDT Glqjd423107/12/2025 8:44 AM LNRMedgmszjalj10.7 ??C (98.1 ??F)07/12/2025 8:44 AM EDTRespiratory Rate--Oxygen Vlysiogsex35%07/12/2025 8:44 AM EDTInhaled Oxygen Concentration--Khtkng551 kg (244 lb)07/12/2025 8:44 AM FXVDntrch022.8 cm (5' 4.5 )07/12/2025 8:44 AM EDTBody Mass Index41.24007/12/2025 8:44 AM EDT Plan of Treatment DateTypeDepartmentCare Team (Latest Contact Info)Trcbagswzii48/09/2025 2:30 PM ESTOffice Visit [facility] [address] [place] [phone] Karolina Hyde, DO [address] [place] [address] Health MaintenanceDue DateLast DoneCommentsCT Esnvcsdiqfdj1952Colonoscopy 1950FIT1950 9663Aiyxvdzaxfzdt01/15/5444MWUC12//07/2020Diabetes: Urine Protein Glrvrvcnb89/04/2022, 01/15/2019Diabetes: Retinopathy Donepurwd47/2Colorectal Cancer Mugmkhpon90/26/2025FIT-DNA 5001/19/2022OVID-19 Vaccine ( season)/, 1Diabetes: Hemoglobin A1C508/, 12/28/2024, 04/06/2024, Additional history existsMedicare Annual Wellness (AWV)6007/12/2025, 07/12/2025, 04/06/2024, Additional history existsPneumococcal Vaccine: 65+ Years Pkbauivty63/25/2018, 12/18/2017, 08/18/20179964GkucjxlzxWzkedvkkibbk09/13/2020, 12/06/2019Influenza BzanjzoApgjjoaut72/08/2025, 10/09/2024, 09/01/2023, Additional history exists Procedures Procedure NamePriorityDate/TimeAssociated DiagnosisCommentsALL BASIC METABOLIC QYOHPKoghpoj24/19/2025 5:01 AM EST XR FOOT RT MIN 3V112/11/2024 7:36 PM EST MLR HEMOGLOBIN R7CAaafqze84/18/2025 1:58 PM EST ALL BASIC METABOLIC WOSNRZhlgoed65/18/2025 1:58 PM EST HMHP CBC WITH PLATELET NO LIOXBAWCKQIMVhyxcyk98/18/2025 1:58 PM EST FUNGUS IPFIFRawdfll11/18/2025 11:28 AM EST ANAEROBIC CULT, EXTENDED SWSMJDcjrqpg89/18/2025 11:28 AM ESTFUNGUS (MYCOLOGY) TUYTIHEXwwxovj61/18/2025 11:28 AM ESTTISSUE FRFZOVGIlkuzrf71/18/2025 11:28 AM EST GRAM STAIN JAONWOXzibvjh33/18/2025 11:28 AM EST ACID FAST PSVGTYFQafulpu52/18/2025 11:28 AM ESTACID FAST QPUTFCkbugkg54/18/2025 11:28 AM EST AFB SPECIMEN UVSTYBTJFNDkcwizu50/18/2025 11:28 AM EST XR CHEST 2V112/03/2024 5:57 PM EST CCF RKJSWiaudxi80/10/2025 1:20 PM EST SRMCOH PROTHROMBIN TIME INR W/O VBEEFwrjzun59/10/2025 1:20 PM EST ECG 12-LEAD10/03/2025 12:21 PM EST POCT GLYCOSYLATED HEMOGLOBIN (HGB A1C)Aqabmlr6607/12/2025 9:06 AM EDT Type 2 diabetes mellitus with diabetic peripheral angiopathy and gangrene, with long-term current use of insulin (HCC) MICROALB/CREAT RATIO DYQGezctyg87/06/2022 LAB COLOGUARD?? COLON CANCER WPLFSQGvqexgr23/26/2022 COLOR FUNDUS PHOTOGRAPHY - OU - BOTH HFZOAvuyaak94/15/2022 12:00 PM EST FECAL OCCULT BLD MKLKumzmhn24/09/2020 12:00 PM EDT BI MAMMOGRAM SCREENING QICPDOPFWXdqvelu45/13/2020 12:00 PM EST from Last 3 Months or Most Recently Relevant to Health Maintenance Results * (ABNORMAL) ALL BASIC METABOLIC PANEL (10/12/2025 5:01 AM EST) Only the most recent of2 resultswithin the time period is included. ComponentValueRef RangeTest MethodAnalysis TimePerformed AtPathologist Signature KJIZWR456171 - 145 mmol/LTBHPOTASSIUM5.03.5 - 5.1 mmol/AIZTMYGKCJLV000(H)98 - 107 mmol/LTBHCARBON BAYBQEQ73.121.0 - 32.0 mmol/LTBHANION GAP12.7GXKKKYOBTW960 (H)74 - 106 mg/dLTBHBLOOD UREA ZWATKLNN89.0(H)7.0 - 18.0 mg/dLTBHCREATININE2.40 (H)0.55 - 1.02 mg/dLTBHTBH EGFR-AF OROSKIYD90(L)>=60 mL/min/1.73m 2TBHTBH EGFR- NON AF SCBYPCWF52(L)>=60 mL/min/1.73m 2TBHBUN CREATININE RATIO20.4QHTVONKUYK9.6 8.5 - 10.1 mg/dLTBHSpecimen (Source)Anatomical Location / LateralityCollection Method / VolumeCollection TimeReceived Time10/12/2025 5:01 AM EST10/12/2025 5:28 AM EST Narrative DONNA - 10/12/2025 5:50 AM EST Authorizing ProviderResult TypeResult StatusGeneric External Data Provider CLINISYNCFinal ResultPerforming OrganizationAddressCity/State/ZIP CodePhone Number DONNA [facility] * XR FOOT RT MIN 3V (10/11/2025 7:36 PM EST)Anatomical RegionLateralityModality OtherSpecimen (Source)Anatomical Location / LateralityCollection Method / VolumeCollection TimeReceived Time10/11/2025 7:36 PM EST Narrative 10/11/2025 7:38 PM EST [facility] ?[address] ? [place] [address] ?XRay Report ? Signed ? Patient: BOTTGER,OLIVIA D ? MR#: [id number] ?? : 1950 ?Acct:[id number] ?? Age/Sex: 75 / F ?ADM Date: 11/18/25 ?? Loc: [place] ??222-1 ? Attending Dr: Nick Landaverde D.P.M. ? Ordering Physician: Nick Landaverde D.P.M. ?? Date of Service: 10/11/25 ?? Procedure(s): XR foot RT min 3V ?? Accession Number(s): [id number] ? cc: Nick Landaverde D.P.M.; KAROLINA HYDE ? [facility] ? [address] ? [place] [address] ? Patient Name: ?? OLIVIA CHOPRA ? MRN: [facility]:[id number] ? date: 1950 ?Sex: F ?? Assigned Patient Location: SURGOUT ?? Current Patient Location: [place] ?? Accession/Order Number: [id number] ?? Exam Date: 10/11/2025 ??12:30 ?Report Date: 10/11/2025 ??19:36 ? At the request of: ?? NICK ??GARRET ??DPM ? Procedure: ??XR foot RT min 3V ? 3 views right foot ? HISTORY: Postop right foot ? COMPARISON: 08/01/2025, MRI right ankle 2025. ??No interval imaging ? Amputation changes involving the first and fifth digits. ??Distal soft tissue ?? swelling. ??No soft tissue gas. ??Posterior calcaneal osteolysis consistent with ?? history of chronic osteomyelitis of calcaneus correlate likely surgical ?? amputation. ??Correlate with recent surgery. ??Adequate alignment without acute ?? fracture. ??Splinting artifact ? XR/XR foot RT min 3V ?? IMPRESSION: Stable amputation changes first toe fifth toe. ??Absence involving ?? the calcaneus posteriorly. ??Consistent with history of chronic osteomyelitis. ? Likely associated findings of partial calcaneal resection. ??Correlate with ?? surgical history ? Impression dictated by: Pavel Davila M.D. ??10/11/2025 7:36 PM ? Dictation Location: RADIO-PC-20 ? Electronically authenticated by: [id number] ??Y ?? Date: 10/11/2025 ??19:36 ? Dictated By: ?Pavel Davila D.O. ? Signed By: ?10/11/25 1938 ? DD/ 1936 ? TD/TT: ? Convex Grinder: Procedure Note Radiology, Radiologist, - 10/11/[address] [address] XRay Report Signed Patient: OLIVIA CHOPRA DMR#: [id number] : 1950cct:[id number] Age/Sex: 75 / FADM Date: 10/11/25 Loc: [place] 222-[address]: Nick Landaverde D.P.M. Ordering Physician: Nick Landaverde D.P.M. Date of Service: 10/11/25 Procedure(s): XR foot RT min 3V Accession Number(s): [id number] cc: Nick Landaverde D.P.M.; KAROLINA HYDE The [place] [id number] Patient Name: OLIVIA CHOPRA MRN: TBH:[id number] date: 1950 Sex: F Assigned Patient Location: [facility] Current Patient Location: [place] Accession/Order Number: [id number] Exam Date: 10/11/2025 12:30 Report Date: 10/11/2025 19:36 At the request of: NICK LANDAVERDE DPAneesh Procedure: XR foot RT min 3V 3 views right foot HISTORY: Postop right foot COMPARISON: 08/01/2025, MRI right ankle 2025. No interval imaging Amputation changes involving the first and fifth digits. Distal softtissue swelling. No soft tissue gas. Posterior calcaneal osteolysis consistentwith history of chronic osteomyelitis of calcaneus correlate likely surgical amputation. Correlate with recent surgery. Adequate alignment withoutacute fracture. Splinting artifact XR/XR foot RT min 3V IMPRESSION: Stable amputation changes first toe fifth toe. Absenceinvolving the calcaneus posteriorly. Consistent with history of chronicosteomyelitis. Likely associated findings of partial calcaneal resection. Correlate with surgical history Impression dictated by: Pavel Davila M.D. 10/11/2025 7:36 PM Dictation Location: [place] [address] Electronically authenticated by: [id number] Y Date: 9:36 Dictated By: Pavel Davila D.O. Signed By:10/11/251937 DD/ 35 TD/TT: Convex Grinder: Authorizing ProviderResult TypeResult StatusGeneric External Data Provider CLINISYNC IMAGINGFinal Result * MLR HEMOGLOBIN A1C (10/11/2025 1:58 PM EST)ComponentValueRef RangeTest Method Analysis TimePerformed AtPathologist SignatureGLYCOHEMOGLOBIN A1C6.14.5 - 6.2 %TBHComment: ADA RECOMMENDED LIMIT 4.0 - 6.0 ADA THERAPEUTIC TARGET < 7.0 ACTION SUGGESTED > 7.0 ESTIMATED AVERAGE JMANIUW705xj/dLTBHSpecimen (Source)Anatomical Location / LateralityCollection Method / VolumeCollection TimeReceived Time10/11/2025 1:58 PM EST10/11/2025 2:03 PM EST Narrative CLINISYNC - 10/11/2025 2:55 PM EST Authorizing ProviderResult TypeResult StatusGeneric External Data Provider CLINISYNCFinal ResultPerforming OrganizationAddressCity/State/ZIP CodePhone Number [facility] * (ABNORMAL) [facility] CBC WITH PLATELET NO DIFFERENTIAL (10/11/2025 1:58 PM EST) ComponentValueRef RangeTest MethodAnalysis TimePerformed AtPathologist SignatureTBH WBC10.34.0 - 11.0 10 3/uLTBHTBH RBC3.63(L)4.20 - 5.40 10 6/uLTBH TBH HGB10.4(L)12.0 - 16.0 g/dLTBHTBH HCT33.5(L)36.0 - 48.0 %TBHTBH MCV92.381.0 - 99.0 fLTBHTBH MCH28.726.7 - 34.0 pgTBHTBH MCHC31.029.9 - 35.2 g/dLTBHTBH RDW 13.511.0 - 15.0 %TBHTBH [id number] - 450 10 3/uLTBHTBH MPV11.49.5 - 13.5 fLTBH Specimen (Source)Anatomical Location / LateralityCollection Method / Volume Collection TimeReceived Time10/11/2025 1:58 PM EST10/11/2025 2:03 PM EST Narrative CLINISYNC - 10/11/2025 2:07 PM EST Authorizing ProviderResult TypeResult StatusGeneric External Data Provider CLINISYNCFinal ResultPerforming OrganizationAddGeisinger-Shamokin Area Community Hospitalty/State/ZIP CodePhone Number DONNA BOYER * TISSUE CULTURE (10/11/2025 11:28 AM EST)ComponentValueRef RangeTest Method Analysis TimePerformed AtPathologist SignatureTISSUE CULTURE ??Tissue Culture WILL FOLLOW TBHTISSUE CULTURETBHTISSUE CULTURENo growth after 18-24 hours.TBHTISSUE CULTURE TBHTISSUE CULTURENo growth in 36 - 48 hours.TBHTISSUE CULTURETBHTISSUE CULTURENo growth in 56 - 72 hours.TBHSpecimen (Source)Anatomical Location / Laterality Collection Method / VolumeCollection TimeReceived Time10/11/2025 11:28 AM EST 10/11/2025 2:16 PM EST Narrative CLINISYNC - 10/17/2025 2:08 PM EST Authorizing ProviderResult TypeResult StatusGeneric External Data ProviderLAB BLOOD ORDERABLESFinal ResultPerforming OrganizationAddGeisinger-Shamokin Area Community Hospitalty/State/ZIP Code Phone Number DON[facility] * GRAM STAIN RESULT (10/11/2025 11:28 AM EST)ComponentValueRef RangeTest Method Analysis TimePerformed AtPathologist SignatureGRAM STAIN RESULT ??Gram Stain Result TBHGRAM STAIN RESULTNo white blood cells seen.TBHGRAM STAIN RESULTTBHGRAM STAIN RESULTNo organisms seenTBHGRAM STAIN RESULTPerformed at: [facility] GRAM STAIN [id number] [place], [place] [address]RZUSFOI STAIN RESULTLab Director: Bernard Trevino PhD, Phone: [phone] (Source)Anatomical Location / LateralityCollection Method / VolumeCollection TimeReceived Time 10/11/2025 11:28 AM EST10/11/2025 2:16 PM EST Narrative CLINISYNC - 10/17/2025 2:08 PM EST Authorizing ProviderResult TypeResult StatusGeneric External Data ProviderLAB BLOOD ORDERABLESFinal ResultPerforming OrganizationAddGeisinger-Shamokin [facility] Hospitalty/State/ZIP Code Phone Number [facility] * FUNGUS STAIN (10/11/2025 11:28 AM EST)ComponentValueRef RangeTest Method Analysis TimePerformed AtPathologist SignatureFUNGUS STAIN ??Fungus Stain TBHFUNGUS STAINKOH/Calcofluor preparation: no fungus observed.TBHSpecimen (Source)Anatomical Location / LateralityCollection Method / VolumeCollection TimeReceived Time10/11/2025 11:28 AM EST10/11/2025 2:16 PM EST Narrative CLINISYGA - 10/17/2025 4:14 PM EST Authorizing ProviderResult TypeResult StatusGeneric External Data ProviderLAB BLOOD ORDERABLESFinal ResultPerforming OrganizationAddressCity/State/ZIP Code Phone Number [facility] * ACID FAST SMEAR (10/11/2025 11:28 AM EST)ComponentValueRef RangeTest Method Analysis TimePerformed AtPathologist SignatureACID FAST SMEAR ??Acid Fast Smear ?Negative TBHSpecimen (Source)Anatomical Location / LateralityCollection Method / Volume Collection TimeReceived Time10/11/2025 11:28 AM EST10/11/2025 2:16 PM EST Narrative [facility] - 10/12/2025 11:08 AM EST Authorizing ProviderResult TypeResult StatusGeneric External Data ProviderLAB BLOOD ORDERABLESFinal ResultPerforming OrganizationAddressCity/State/ZIP Code Phone Number [facility] * AFB SPECIMEN PROCESSING (10/11/2025 11:28 AM EST)ComponentValueRef RangeTest MethodAnalysis TimePerformed AtPathologist SignatureAFB SPECIMEN PROCESSING ??AFB Specimen Processing TBHAFB SPECIMEN PROCESSINGTissue GrindingTBHSpecimen (Source)Anatomical Location / LateralityCollection Method / VolumeCollection TimeReceived Time10/11/2025 11:28 AM EST10/11/2025 2:16 PM EST Narrative [facility] - 10/12/2025 11:08 AM EST Authorizing ProviderResult TypeResult StatusGeneric External Data ProviderLAB BLOOD ORDERABLESFinal ResultPerforming OrganizationAddressCity/State/ZIP Code Phone Number [facility] * XR CHEST 2V (10/03/2025 5:57 PM EST)Anatomical RegionLateralityModalityOther Specimen (Source)Anatomical Location / LateralityCollection Method / Volume Collection TimeReceived Time10/03/2025 5:57 PM EST Narrative 10/03/2025 6:00 PM EST [facility] ?[address] ? [place] [address] ?XRay Report ? Signed ? Patient: OLIVIA CHOPRA D ? MR#: [id number] ?? : 1950 ?Acct:[id number] ?? Age/Sex: 75 / F ?ADM Date: 10/03/25 ?? Loc: PST ? Attending Dr: Nick Landaverde D.P.M. ? Ordering Physician: Nick Landaverde D.P.M. ?? Date of Service: 10/03/25 ?? Procedure(s): XR chest 2V ?? Accession Number(s): [id number] ? cc: Nick Landaverde D.P.M.; KAROLINA HYDE ? [facility] ? [address] [facility] ? [place] [address] ? Patient Name: ?? OLIVIA CHOPRA ? MRN: [facility]:[id number] ? date: 1950 ?Sex: F ?? Assigned Patient Location: SURGOUT ?? Current Patient Location: SURGOUT ?? Accession/Order Number: [id number] ?? Exam Date: 10/03/2025 ??13:42 ?Report Date: 10/03/2025 ??17:57 ? At the request of: ?? NICK ??GARRET ??DPM ? Procedure: ??XR chest 2V ? PA AND LATERAL CHEST: ? CLINICAL HISTORY: Preop exam ? COMPARISON: None ? FINDINGS: ? Unremarkable cardiomediastinal silhouette. ??Lungs clear. ??No effusion or ?? pneumothorax. ??Degenerative changes of the mid thoracic spine. ? XR/XR chest 2V ?? IMPRESSION: ? NO ACUTE CARDIOPULMONARY ABNORMALITY. ? Impression dictated by: Bassam Estevez M.D. ??10/03/2025 5:57 PM ? Dictation Location: RADIO-PC-29 ? Electronically authenticated by: [id number] ??Y ?? Date: 10/03/2025 ??17:57 ? Dictated By: ?Bassam Estevez M.D. ? Signed By: ?11/10/25 1800 ? DD/ 1757 ? TD/TT: ? Convex Grinder: Procedure Note Radiology, Radiologist, MD - 10/03/[address] [address] XRay Report Signed Patient: OLIVIA CHOPRA DMR#: [id number] : 1950cct:[id number] Age/Sex: 75 / FADM Date: 10/03/25 Loc: PST Attending Dr: Nick Landaverde D.P.M. Ordering Physician: Nick Landaverde D.P.M. Date of Service: 10/03/25 Procedure(s): XR chest 2V Accession Number(s): [id number] cc: Nick Landaverde D.P.M.; KAROLINA HYDE [address] [address] Patient Name: OLIVIA CHOPRA MRN: TBH:[id number] date: 1950 Sex: F Assigned Patient Location: [facility] Current Patient Location: [facility] Accession/Order Number: [id number] Exam Date: 10/03/2025 13:42 Report Date: 10/03/2025 17:57 At the request of: NICK LANDAVERDE DPAneesh Procedure: XR chest 2V PA AND LATERAL CHEST: CLINICAL HISTORY: Preop exam COMPARISON: None FINDINGS: Unremarkable cardiomediastinal silhouette. Lungs clear. No effusion or pneumothorax. Degenerative changes of the mid thoracic spine. XR/XR chest 2V IMPRESSION: NO ACUTE CARDIOPULMONARY ABNORMALITY. Impression dictated by: Bassam Estevez M.D. 10/03/2025 5:57 PM Dictation Location: [place] [address] Electronically authenticated by: [id number] Y Date: 7:57 Dictated By: Bassam Estevez M.D. Signed By:10/03/251799 DD/ 56 TD/TT: Convex Grinder: Authorizing ProviderResult TypeResult StatusGeneric External Data Provider CLINISYNC IMAGINGFinal Result * SRMCOH PROTHROMBIN TIME INR W/O COUM (10/03/2025 1:20 PM EST)ComponentValueRef RangeTest MethodAnalysis TimePerformed AtPathologist SignaturePROTHROMBIN TIME 10.99.0 - 11.6 secTBHTBH INR1.03TBHComment: DESIRED INR: 2.0-3.0 CONDITIONS NOT LISTED BELOW 2.5-3.5 FOR PROSTHETIC HEART VALVE REPLACEMENT 2.5-3.5 RECURRENT THROMBOSIS Specimen (Source)Anatomical Location / LateralityCollection Method / Volume Collection TimeReceived Time10/03/2025 1:20 PM EST10/03/2025 1:37 PM EST Narrative CLINISYNC - 10/03/2025 2:12 PM EST Authorizing ProviderResult TypeResult StatusGeneric External Data Provider CLINISYNCFinal ResultPerforming OrganizationAddressty/State/ZIP CodePhone Number [facility] * CCF APTT (10/03/2025 1:20 PM EST)ComponentValueRef RangeTest MethodAnalysis TimePerformed AtPathologist SignaturePARTIAL THROMBOPLASTIN TIME34.022.3 - 36.2 secTBHSpecimen (Source)Anatomical Location / LateralityCollection Method / VolumeCollection TimeReceived Time10/03/2025 1:20 PM EST10/03/2025 1:37 PM EST Narrative CLINISYGA - 10/03/2025 2:12 PM EST Authorizing ProviderResult TypeResult StatusGeneric External Data Provider CLINISYNCFinal ResultPerforming OrganizationAddressty/State/ZIP CodePhone Number [facility] * ECG 12-LEAD (10/03/2025 12:21 PM EST)Anatomical RegionLateralityModalityOther Specimen (Source)Anatomical Location / LateralityCollection Method / Volume Collection TimeReceived Time10/03/2025 12:21 PM EST Narrative 10/03/2025 7:23 PM EST [facility] ?[address] ? [place] [address] ? Electrocardiograph Report ? Signed ? Patient: OLIVIA CHOPRA Silas ? MR#: [id number] ?? : 1950 ?Acct:[id number] ?? Age/Sex: 75 / F ?ADM Date: 10/03/25 ?? Loc: PST ? Attending Dr: Nick Landaverde D.P.M. ? Ordering Physician: Nick Landaverde D.P.M. ?? Date of Service: 10/03/25 ?? Procedure(s): ECG 12 lead ?? Accession Number(s): [id number] ? cc: ?[facility] ? Test Date: ?2025-10-03 ?? Pat Name: ? OLIVIA CHOPRA ?Department: ? Room: ? - ?? Gender: ? Female ? 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 Requested By: NICK LANDAVERDE ?? Order Number: [id number] ?Reading MD: ?? PARESH ??Pierre BLANK ? Measurements ?? Intervals ?[place] ? Rate: ? 63 ? P: ?-12 ?? OK: ? 200 ?QRS: ?-32 ?? QRSD: ? 119 ?T: ?82 ?? QT: ? 416 ? QTc: ?428 ? Interpretive Statements ?? SINUS RHYTHM ?? MARKED LEFT AXIS DEVIATION [QRS AXIS < -30] LEFT VENTRICULAR HYPERTROPHY AND ST-T CHANGE [VOLTAGE CRITERIA PLUS ST/T ?? ABNORMALITY] ?? Abnormal ECG ?? No previous ECG available for comparison ?? Electronically Signed On 10-03-2025 19:22:57 EST by PARESH ??Pierre BLANK ? Dictated By: ?PARESH BLANK ? Signed By: ?11/10/25 1923 ? DD/ 1221 ? TD/TT: ? Convex Grinder: Procedure Note Radiology, Radiologist, - 10/03/2025 [place] [address] Electrocardiograph Report Signed Patient: OLIVIA CHOPRA DMR#: [id number] : 1950cct:[id number] Age/Sex: 75 / FADM Date: 10/03/25 Loc: PST Attending Dr: Nick Landaverde D.P.M. Ordering Physician: Nick Landaverde D.P.M. 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 Measurements Intervals [place] Rate: 63 P: -12 OK: 200 QRS: -32 QRSD: 119 T: 82 QT: 416 QTc: 428 Interpretive Statements SINUS RHYTHM MARKED LEFT AXIS DEVIATION [QRS AXIS < -30] LEFT VENTRICULAR HYPERTROPHY AND ST-T CHANGE [VOLTAGE CRITERIA PLUS ST/T ABNORMALITY] Abnormal ECG No previous ECG available for comparison Electronically Signed On 10-03-2025 19:22:57 EST by PARESH BLANK M.D. Dictated By: PARESH BLANK Signed By:10/03/251922 DD/ 1221 TD/TT: Convex Grinder: Authorizing ProviderResult TypeResult StatusGeneric External Data Provider CLINISYNC IMAGINGFinal Result * POCT glycosylated hemoglobin (Hb A1C) docked device (07/12/2025 9:06 AM EDT) ComponentValueRef RangeTest MethodAnalysis TimePerformed AtPathologist SignatureHemoglobin A1C6.1Specimen (Source)Anatomical Location / Laterality Collection Method / VolumeCollection TimeReceived TimeBloodVenous blood specimen / Twwmdgn6407/12/2025 9:06 AM EDT Narrative Authorizing ProviderResult TypeResult StatusKarolina Hyde DOPOINT OF CARE TEST ENTER/EDIT ORDERABLESFinal Result * (ABNORMAL) MICROALB/CREAT RATIO URR (07/30/2022)ComponentValueRef RangeTest MethodAnalysis TimePerformed AtPathologist SignatureMICROALBUMIN, URINE19.4(H) 0.0 - 1.8[facility] PMANHPBB08.5[facility] LABComment:No reference range establishedMICROALBUMIN/CREATININE RATIO1,251.0(H)0.0 - 30.0 [facility] LABComment: 30-300 mg/g indicates an increased risk for diabetic nephropathy. ??Greater than 300 mg/g is consistent with clinical nephropathy. ??(Am. J. Kidney Disease 1995, 25:107) Specimen (Source)Anatomical Location / LateralityCollection Method / Volume Collection TimeReceived Time07/30/2022 Narrative Authorizing ProviderResult TypeResult ZakAlejandroaneudy Melendrez Bulmaro DOECW LABSFinal ResultPerforming OrganizationAddressCity/State/ZIP CodePhone Number [facility] * Cologuard?? colon cancer screening (01/19/2022)ComponentValueRef RangeTest MethodAnalysis TimePerformed AtPathologist SignatureCOLOGUARD RESULT REPORTABLESample Could Not Be ProcessedNegativeN[facility]S [facility] Comment: The sample stability limit had been exceeded. The patient will be contacted to initiate a new sample collection. TEST DESCRIPTION: Composite algorithmic analysis of stool DNA-biomarkers with hemoglobin immunoassay. ?? Quantitative values of individual biomarkers are not reportable and are not associated with individual biomarker result reference ranges. Cologuard is intended for colorectal cancer screening ofadults of either sex, 45 years or older, who are at average-risk for colorectal cancer (CRC). Cologuard has been approved for use by the U.S. FDA. The performance of Cologuard was established in a cross sectional study of average-risk adults aged 50-84. Cologuard performance in patients ages 45 to 49 years was estimated by sub-group analysis of near-age groups. Colonoscopies performed for a positive result may find as the most clinically significant lesion: colorectal cancer [4.0%], advanced adenoma (including sessile serrated polyps greater than or equal to 1cm diameter) [20%] or non- advanced adenoma [31%]; or no colorectal neoplasia [45%]. These estimates are derived from a prospective cross-sectional screening study of 10,000 individuals at average risk for colorectal cancer who were screened with both Cologuard and colonoscopy. (Lauren Fragoso et al, N Engl J Med 2014;370(14):4860-1067.) Cologuard may produce a false negative or false positive result (no colorectal cancer or precancerous polyp present at colonoscopy follow up). A negative Cologuard test result does not guarantee the absence of CRC or advanced adenoma (pre-cancer). The current Cologuard screening interval is every 3 years. ([place] [employer] and U.S. Multi-Society Task Force). Cologuard performance data in a 10,000 patient pivotal study using colonoscopy as the reference method can be accessed at the following location: www.[employer]/results. Additional description of the Cologuard test process, warnings and precautions can be found at www.cologuard.com. Specimen (Source)Anatomical Location / LateralityCollection Method / Volume Collection TimeReceived Time01/19/2022 Narrative Authorizing ProviderResult TypeResult StatusKarolina LAWS Orbiter DIAGNOSTICS ORDERABLESFinal ResultPerforming OrganizationAddressCity/State/ZIP CodePhone Number [facility] * Color Fundus Photography - OU - Both Eyes (01/08/2022 12:00 PM EST)Anatomical RegionLateralityModalityHeadFundus PhotographySpecimen (Source)Anatomical Location / LateralityCollection Method / VolumeCollection TimeReceived Time 01/08/2022 12:00 PM EST Narrative 01/08/2022 12:00 PM EST PERFORMED AT [facility] LOCATION:[id number] no diabetic retinopathy Procedure Note CONVERSION, GENERIC - 04/09/2023 PERFORMED AT [facility] LOCATION:[id number] no diabetic retinopathy Authorizing ProviderResult TypeResult StatusAlejandroaneudy Melendrez Bulmaro DOOPHTH PHOTOGRAPHYFinal Result * FECAL OCCULT BLD TST (09/01/2020 12:00 PM EDT)ComponentValueRef RangeTest MethodAnalysis TimePerformed AtPathologist SignatureIMMUNO FOBSSIECW NONXML LABSSpecimen (Source)Anatomical Location / LateralityCollection Method / VolumeCollection TimeReceived Time09/01/2020 12:00 PM EDT Narrative Authorizing ProviderResult TypeResult StatusAlejandroaneudy Melendrez Bulmaro DOECW LABSFinal ResultPerforming OrganizationAddressCity/State/ZIP CodePhone Number [facility] NONXML [facility]S * Bilateral screening mammogram (12/06/2019 12:00 PM EST)Anatomical Region LateralityModalityBreastBilateralMammographySpecimen (Source)Anatomical Location / LateralityCollection Method / VolumeCollection TimeReceived Time Narrative 12/06/2019 12:00 PM EST PERFORMED AT [facility] LOCATION:[id number] SSI Procedure Note CONVERSION, GENERIC / Karolina Hyde DO - 05/30/2023 PERFORMED AT [facility] LOCATION:[id number] [facility]SI Authorizing ProviderResult TypeResult StatusAlejandroaneudy Melendrez Bulmaro DOIMG BI PROCEDURESFinal Result from Last 3 Months or Most Recently Relevant to Health Maintenance Insurance Advance Directives TypeDate RecordedPatient RepresentativeExplanationAdvance Directives and Living Will.10.10 POA HealthcareAdvance Directives and Living Will .10.10 Last Will and Testament Care Teams Team MemberRelationshipSpecialtyStart DateEnd Date Karolina Hyde DO [address] [facility] [address] [place] [address] PCP - [facility]04/15/23 Karolina Hyde DO [address] [place] [address] PCP - [facility]/11/2511
--- OUTSIDE RECORDS SUMMARY | 2025-10-19 10:36 | XMS_ITS | Patient Health Record ---
Author Organization [facility] Address [address] [place] [address] Care Team Providers Care Floor Worker Well Service Name Role Phone Karolina Chamberlain Primary Care Provider Unavaila ble Reason For Referral No Information Immunizations Vaccine Route Administration Date Status [facility] z2024 Fluzone, HIGH DOSE, PFS (0.5mL Admin) IM Intramuscular 10/09/2024 Administered Plan Of Treatment No Information Insurance Providers Payer Name Payer Address Payer Phone Subscriber Number Group Number Insured Name Patient Relationship to Insured Coverage Start Date Coverage End Date [employer] [address] [address] [place] [address] [id number] Benji Chopra - patient is the insuredMEDICAID [facility] [address] [place], [place] [id number], SueSelf - patient is the insured
--- OUTSIDE RECORDS SUMMARY | 2025-10-19 10:36 | XMS_ITS | Encounter Summary ---
Author Organization [facility] Address [address] [place] [address] Care Team Providers Care Physical Aerodynamicist Name Role Phone Karolina Chamberlain DO Primary Care Provider [phone] Karolina Chamberlain DO Unavailable [phone] Reason for Visit * ReasonCommentsMed Refill Encounter Details DateTypeDepartmentCare Team (Latest Contact Info)Gssiyjuedan77/15/2025Refill [facility] [place] [facility] [address] [facility] [address] [place] [phone] Karolina Chamberlain, DO [address] [facility] [address] [place] [address] Candidiasis Social History Tobacco UseTypesPacks/DayYears UsedDateSmoking Tobacco: Every [...] care, and heating?Somewhat hard07/30/2023HQ-2AnswerDate RecordedPatient Health Questionnaire-2 [id number] Vital SignAnswerDate RecordedOn average, how many days [...] steady place to sleep or slept in homeworthelter (including now)?No 07/30/2023CommentsUnknownSex and Gender InformationValueDate RecordedSex Assigned at BirthNot on fileLegal EmhVpfpup95/15/2023 6:45 PM EDTGender Identity Not on fileSexual OrientationNot on filedocumented as of this encounter Plan of Treatment DateTypeDepartmentCare Team (Latest Contact Info)Lisjwccqufu91/09/2025 2:30 PM ESTOffice Visit [facility] [address] [place] [phone] Karolina Chamberlain DO [address] [place] [address] documented as of this encounter Visit Diagnoses Diagnosis Candidiasis documented in this encounter Care Teams Team MemberRelationshipSpecialtyStart DateEnd Date Karolina Chamberlain DO [address] [place] [address] PCP - GeneralFamily Medicine04/15/23 Karolina Chamberlain DO [address] [place] [address] [facility] - 11/24/2511documented as of this encounter
--- OUTSIDE RECORDS SUMMARY | 2025-10-19 10:36 | XMS_ITS | Clinical Summary ---
Author Organization [facility] Address [facility] [place] [address] Care Team Providers Care Head Of Precision Targeting Name Role Phone Karolina Chamberlain Primary Care Provider Social History Tobacco UseTypesPacks/DayYears UsedDateSmoking Tobacco: Never Assessed CommentsUnknownSex and Gender InformationValueDate RecordedSex Assigned at Not on fileLegal DusOfckmq20/17/2021 1:43 PM ESTGender IdentityNot on fileSexual OrientationNot on file Plan of Treatment Not on file Insurance MemberSubscriberPlan / Payer (Effective 2022-Present)Name:Olivia Chopra Relation to Subscriber:SelfName:Olivia Chopra Silas Payer ID:Not on file Group ID:Not on file Type:Medicaid Address: [address] [place] [id number] Care Teams Team MemberRelationshipSpecialtyStart DateEnd Date Karolina Chamberlain [address] [facility] [address] [place] [address] [facility] - [facility]01/10/21
--- OUTSIDE RECORDS SUMMARY | 2025-10-19 10:36 | XMS_ITS | Encounter Summary ---
Author Organization [facility] Address [address] [place] [address] Care Team Providers Care Aadc Plans Staff Officer Name Role Phone BulmaroAlejandroKarolina M DO Primary Care Provider [phone] Bulmaro Karolina Aneesh DO Unavailable [phone] Encounter Details DateTypeDepartmentCare Team (Latest Contact Info)Hondyzhwqll41/18/2025Clinisync Result Encounter [facility] External Department Unsolicited Provider, [...] care, and heating?Somewhat hard07/30/2023HQ-2AnswerDate RecordedPatient Health Questionnaire-2 [id number] Vital SignAnswerDate RecordedOn average, how many days [...] InformationValueDate RecordedSex Assigned at BirthNot on fileLegal OxcNowuxw60/15/2023 6:45 PM EDTGender Identity Not on fileSexual OrientationNot on filedocumented as of this encounter Plan of Treatment DateTypeDepartmentCare Team (Latest Contact Info)Qfmuyjemijf61/09/2025 2:30 PM ESTOffice Visit [facility] [address] [place] [address] Karolina Chamberlain, DO [address] [place] [address] NameTypePriorityAssociated DiagnosesDate/TimeACID FAST CULTURELabRoutine 10/11/2025 11:28 AM ESTFUNGUS (MYCOLOGY) ALZHPMIJnaTgrnjdu34/18/2025 11:28 AM ESTANAEROBIC CULT, EXTENDED OJBFCNegTutuqds96/18/2025 11:28 AM ESTdocumented as of this encounter Procedures Procedure NamePriorityDate/TimeAssociated DiagnosisCommentsXR FOOT RT MIN 3V 10/11/2025 7:36 PM EST ANAEROBIC CULT, EXTENDED WGNWMHwliier49/18/2025 11:28 AM ESTTISSUE CULTURE Nrpovzs2010/11/2025 11:28 AM EST GRAM STAIN MVWQVOXzsnehm99/18/2025 11:28 AM EST FUNGUS PFDWMRtxsjlj55/18/2025 11:28 AM EST ACID FAST BQFUQXJXlyosip53/18/2025 11:28 AM ESTFUNGUS (MYCOLOGY) CULTURERoutine 10/11/2025 11:28 AM ESTACID FAST FXEWKUibmzqy10/18/2025 11:28 AM EST AFB SPECIMEN LVRWXKBRWCIltaypm69/18/2025 11:28 AM EST documented in this encounter Results * XR FOOT RT MIN 3V (10/11/2025 7:36 PM EST)Anatomical RegionLateralityModality OtherSpecimen (Source)Anatomical Location / LateralityCollection Method / VolumeCollection TimeReceived Time10/11/2025 7:36 PM EST Narrative 10/11/2025 7:38 PM EST [facility] ?[address] ? [place] [address] ?XRay Report ? Signed ? Patient: OLIVIA MEADOWS ? MR#: [id number] ?? : 1950 ?Acct:[id number] ?? Age/Sex: 75 / F ?ADM Date: 10/11/25 ?? Loc: MS ??222-1 ? Attending Dr: Nick Landaverde D.P.M. ? Ordering Physician: Nick Landaverde D.P.M. ?? Date of Service: 10/11/25 ?? Procedure(s): XR foot RT min 3V ?? Accession Number(s): [id number] ? cc: Nick Landaverde D.P.M.; KAROLINA CHAMBERLAIN ? [facility] ? [address] ? [place] [address] ? Patient Name: ?? OLIVIA MEADOWS ? MRN: [id number] ? date: 1950 ?Sex: F ?? Assigned Patient Location: SURGOUT ?? Current Patient Location: [place] ?? Accession/Order Number: [id number] ?? Exam Date: 10/11/2025 ??12:30 ?Report Date: 10/11/2025 ??19:36 ? At the request of: ?? NICK ??HIGHLANDER ??DPM ? Procedure: ??XR foot RT min [...] M.D. ??10/11/2025 7:36 PM ? Dictation Location: [place] [address] ? Electronically authenticated by: [id number] ??Y ?? Date: 10/11/2025 ??19:36 ? Dictated By: ?Pavel Davila D.O. ? Signed By: ?10/11/251937 ? DD/ 35 ? TD/TT: ? Supervisor Fur Floor Worker: Procedure Note Radiology, Radiologist, - 10/11/2025 [place] [address] XRay Report Signed Patient: OLIVIA MEADOWS DMR#: [id number] : 2Acct:[id number] Age/Sex: 75 / FADM Date: 10/11/25 Loc: [place] 222-[address]: Nick Landaverde D.P.M. Ordering Physician: Nick Landaverde D.P.M. Date of Service: 10/11/25 Procedure(s): XR foot RT min 3V Accession Number(s): [id number] cc: Nick Landaverde D.P.M.; KAROLINA CHAMBERLAIN [address] [address] Patient Name: OLIVIA MEADOWS MRN: [id number] date: 1950 Sex: F Assigned Patient Location: SURGOUT Current Patient Location: [place] Accession/Order Number: [id number] Exam Date: 10/11/2025 12:30 Report Date: 10/11/2025 19:36 At the request of: NICK LANDAVERDE DPM Procedure: XR foot RT min 3V 3 [...] Davila M.D. 10/11/2025 7:36 PM Dictation Location: [place] [address] Electronically authenticated by: [id number] Y Date: 9:36 Dictated By: Pavel Davila D.O. Signed By:10/11/251937 DD/ 35 TD/TT: Supervisor Fur Floor Worker: Authorizing ProviderResult TypeResult StatusGeneric External Data Provider CLINISYNC IMAGINGFinal Result * FUNGUS STAIN (10/11/2025 11:28 AM EST)ComponentValueRef RangeTest Method Analysis TimePerformed AtPathologist SignatureFUNGUS STAIN ??Fungus Stain TBHFUNGUS STAINKOH/Calcofluor preparation: no fungus observed.TBHSpecimen (Source)Anatomical Location / LateralityCollection Method / VolumeCollection TimeReceived Time10/11/2025 11:28 AM EST10/11/2025 2:16 PM EST Narrative CLINISYNC - 10/17/2025 4:14 PM EST Authorizing ProviderResult TypeResult StatusGeneric External Data ProviderLAB BLOOD ORDERABLESFinal ResultPerforming OrganizationAddressCity/State/ZIP Code Phone Number [facility] * TISSUE CULTURE (10/11/2025 11:28 AM EST)ComponentValueRef [...] StatusGeneric External Data ProviderLAB BLOOD ORDERABLESFinal ResultPerforming OrganizationAddFulton County Medical Center/[facility] [address]/[facility] Code Phone Number [facility] * GRAM STAIN RESULT (10/11/2025 11:28 AM EST)ComponentValueRef RangeTest Method Analysis TimePerformed AtPathologist SignatureGRAM STAIN RESULT ??Gram Stain Result TBHGRAM STAIN RESULTNo white blood cells seen.TBHGRAM STAIN RESULTTBHGRAM STAIN RESULTNo organisms seenTBHGRAM STAIN RESULTPerformed at: [facility] GRAM STAIN [id number] [place], [place] [id number] STAIN RESULTLab Director: Bernard Trevino PhD, Phone: [phone] (Source)Anatomical Location / LateralityCollection Method / VolumeCollection TimeReceived Time 10/11/2025 11:28 AM EST10/11/2025 2:16 PM EST Narrative CLINISYNC - 10/17/2025 2:08 PM EST Authorizing ProviderResult TypeResult StatusGeneric External Data ProviderLAB BLOOD ORDERABLESFinal ResultPerforming OrganizationAddLifecare Hospital of Mechanicsburgty/[facility] [address]/[facility] Code Phone Number [facility] * ACID FAST SMEAR (10/11/2025 11:28 AM EST)ComponentValueRef RangeTest Method Analysis TimePerformed AtPathologist SignatureACID FAST SMEAR ??Acid Fast Smear ?Negative TBHSpecimen (Source)Anatomical Location / LateralityCollection Method / Volume Collection TimeReceived Time10/11/2025 11:28 AM EST10/11/2025 2:16 PM EST Narrative CLINISYNC - 10/12/2025 11:08 AM EST Authorizing ProviderResult TypeResult StatusGeneric External Data ProviderLAB BLOOD ORDERABLESFinal ResultPerforming OrganizationAddressCity/State/ZIP Code Phone Number [facility] * AFB SPECIMEN PROCESSING (10/11/2025 11:28 AM EST)ComponentValueRef RangeTest MethodAnalysis TimePerformed AtPathologist SignatureAFB SPECIMEN PROCESSING ??AFB Specimen Processing TBHAFB SPECIMEN PROCESSINGTissue GrindingTBHSpecimen (Source)Anatomical Location / LateralityCollection Method / VolumeCollection TimeReceived Time10/11/2025 11:28 AM EST10/11/2025 2:16 PM EST Narrative CLINISYNM - 10/12/2025 11:08 AM EST Authorizing ProviderResult TypeResult StatusGeneric External Data ProviderLAB BLOOD ORDERABLESFinal ResultPerforming OrganizationAddressCity/State/ZIP Code Phone Number [facility] documented in this encounter Visit Diagnoses Not on filedocumented in this encounter Care Teams Team MemberRelationshipSpecialtyStart DateEnd Date Karoilna Chamberlain, DO [address] [facility] [address] [place] [address] PCP - [facility]04/15/23 Karolina Chamberlain, DO [address] [place] [address] PCP - [facility]/documented as of this encounter
--- OUTSIDE RECORDS SUMMARY | 2025-10-19 10:36 | XMS_ITS | Encounter Summary ---
Author Organization [facility] Address [address] [place] [address] Care Team Providers Care Pipe Stress Engineer Name Role Phone Karolina Chamberlain DO Primary Care Provider [phone]- [phone] Karolina Chamberlain DO Unavailable [phone] Reason for Visit * ReasonCommentsMed Refill Encounter Details DateTypeDepartmentCare Team (Latest Contact Info)Syzdcfueztk76/12/2025Refill [facility] [address] [facility] [address] [place] [phone] Karolina Chamberlain, DO [address] [facility] [address] [place] [address] Pure hypercholesterolemia Social History Tobacco UseTypesPacks/DayYears UsedDateSmoking Tobacco: Every [...] care, and heating?Somewhat hard07/30/2023HQ-2AnswerDate RecordedPatient Health Questionnaire-2 Hcanh032Exercise Vital SignAnswerDate RecordedOn average, how many days [...] steady place to sleep or slept in [facility] (including now)?No 07/30/2023CommentsUnknownSex and Gender InformationValueDate RecordedSex Assigned at BirthNot on fileLegal WzrAxudud15/15/2023 6:45 PM EDTGender Identity Not on fileSexual OrientationNot on filedocumented as of this encounter Miscellaneous Notes * Telephone Encounter - Shama Hidalgo LPN - 10/06/2025 12:54 PM EST Last ov 07/12/2025 RX sent in per Dr Turcios documented in this encounter Plan of Treatment DateTypeDepartmentCare Team (Latest Contact Info)Zrbvxzpweqh26/09/2025 2:30 PM ESTOffice Visit [facility] [address] [place] [address] Karolina Chamberlain, DO [address] [place] [address] documented as of this encounter Visit Diagnoses Diagnosis Pure hypercholesterolemia documented in this encounter Care Teams Team MemberRelationshipSpecialtyStart DateEnd Date Karolina Chamberlain DO [address] [place] [address] [facility] - [facility] Karolina Chamberlain DO [address] [place] [address] PCP - [facility]/11/2511documented as of this encounter
--- OUTSIDE RECORDS SUMMARY | 2025-10-19 10:36 | XMS_ITS | Clinical Summary ---
Author Organization [facility] Address [address] [place] [address] Phone Care Team Providers Care Pipe Threader Name Role Phone Unavailable Primary Care Provider Unavailabl e Social History Tobacco UseTypesPacks/DayYears UsedDateSmoking Tobacco: Never Assessed CommentsUnknownSex and Gender InformationValueDate RecordedSex Assigned at Not on fileLegal RcuMdsxbt68/26/2022 4:57 AM ESTGender IdentityNot on fileSexual OrientationNot on file Plan of Treatment Not on file
--- OUTSIDE RECORDS SUMMARY | 2025-10-19 10:36 | XMS_ITS | Encounter Summary ---
Author Organization [facility] Address [address] [place] [address] Care Team Providers Care Documentation Consultant Name Role Phone Karolina Chamberlain DO Primary Care Provider [phone]- [phone] Karolina Chamberlain DO Unavailable [phone] Reason for Visit * ReasonCommentsMed Refill Encounter Details DateTypeDepartmentCare Team (Latest Contact Info)Xcsdypmnmps47/20/2025[facility] [address] [facility] [address] [place] [address] Karolina Chamberlain, DO [address] [facility] [address] [place] [address] Candidiasis Social History Tobacco UseTypesPacks/DayYears UsedDateSmoking Tobacco: [...] care, and heating?Somewhat hard07/30/2023HQ-2AnswerDate RecordedPatient Health Questionnaire-2 [id number] Vital SignAnswerDate RecordedOn average, how many days [...] steady place to sleep or slept in [place] (including [place])?No 07/30/2023CommentsUnknownSex and Gender InformationValueDate RecordedSex Assigned at BirthNot on fileLegal OftNgggkh26/15/2023 6:45 PM EDTGender Identity Not on fileSexual OrientationNot on filedocumented as of this encounter Plan of Treatment DateTypeDepartmentCare Team (Latest Contact Info)Izspdsmxbtv85/09/2025 2:30 PM ESTOffice Visit [facility] [address] [place] [address] Karolina Chamberlain DO [address] [place] [address] documented as of this encounter Visit Diagnoses Diagnosis Candidiasis documented in this encounter Care Teams Team MemberRelationshipSpecialtyStart DateEnd Date Karolina Chamberlain DO [address] [place] [address] PCP - GeneralFamily Medicine04/15/23 Karolina Chamberlain DO [address] [place] [address] [facility] - 11/24/2511documented as of this encounter
--- OUTSIDE RECORDS SUMMARY | 2025-10-19 10:37 | XMS_ITS | Patient Health Record ---
Author Organization [employer] [facility] Address [address] [place] [address] Care Team Providers Care Specialist Employee Labor Relations Name Role Phone XXROMMELMaia baptiste Primary Care Provider [place] [phone] Allergies Allergen (clinical drug ingredient) Drug/Non Drug Allergy documented on EMR Reaction Allergy Type Onset Date Status azithromycin Zithromax phlebitis from IV Drug Allergy Active Reason For Referral No Information Medications Medication SIG (Take, Route, Frequency, Duration) Notes Start Date End Date Status Wellbutrin SR 150 MG Tablet Extended Release 12 Hour 1 tablet Orally Twice a day; Duration: 3 0 day(s) ctiveFlexeril 10 mg 30 10 mg Tabletsone tablet orally every 8 hours prn painctiveTessalon Perles 100 MG Capsule1 capsule Orally Three times a dayctivePletal 100 MG Tablet1 tablet 30 minutes before or 2 hours after breakfast and dinner Orally Twice a dayctivehydroCHLOROthiazide 25 MG Tablet1 tablet Orally Once a dayctiveFluticasone Furoate 27.5 MCG/SPRAY Suspension2 puffs in each nostril Nasally Once a day; Duration: 30 day(s) ctivemetFORMIN HCl 1000 MG (OSM) Tablet Extended Release 24 Houras directed Orally BIDctiveCoreg 12.5 MG Tablet1 tablet with food Orally Twice a dayctiveByetta 10 MCG Pen 10 MCG/0.04ML Solution0.02 ml up to 1 hour before breakfast and evening meal Subcutaneous Twice a dayctiveglipiZIDE XL 5 MG Tablet Extended Release 24 Hour1 tablet Orally Once a dayctive Avapro 300 MG Tablet1 tablet Orally Once a dayctiveLantus SoloStar 100units/ml Jrfadrhe65ahfon Subcutaneous Once a day ActiveLovastatin 40 MG Tablet Extended Release 24 Hour1 tablet at bedtime Orally Once a dayctiveNexIUM 40 MG Capsule Delayed Releaseas directed Orally once dailyctive Social History Section Notes: Tobacco smoker. 1 pack/week Tobacco history was smoking 1-2 packs daily, 2009 down to 6 cigarettes a day Problems Problem Type SNOMED Code ICD Code Onset Dates Problem Status W/U Status Risk Notes Problem Type II diabetes hiral litus without complication (395421922) Diabetes mellitus without mention of complication, type II or unspecified type, not stated as uncontrolled (250.00) ActiveconfirmedProblemHypertension (29595270)Hypertension (997.91)Active confirmed Plan Of Treatment No Information Insurance Providers Payer Name Payer Address Payer Phone Subscriber Number Group Number Insured Name Patient Relationship to Insured Coverage Start Date Coverage End Date XXX[place] DON'T USE!!!!!!!!!!! !!!!!!!!!!!!! [address] [place] [phone] [id number] Everton Chopra - patient is the spouse of the insuredFORMERLY [facility] [address] [place] [id number], SueSelf - patient is the insured Medical (General) History Medical History History ICD Code 1993 HTN 1993 [id number] DMIIPVDheart murmurGERDSurgical History Surgery Date(Month/Year) Rt. shoulder surgery 04/24/04 right lower leg - revasc 2009
== END 2025-10-13 11:37 | disposition home or self-care (01) ==
LOC: MS 10-12 16:03 → SURGOUT 11-03 07:56 → MS 11-03 08:03
PROVIDERS: Internal Medicine; Admitting Provider Podiatrist Foot & Ankle Surgery; PCP Family Medicine; Visit Provider Podiatrist Foot & Ankle Surgery
PROC: (CPT 28005; principal; 2025-10-11 08:20)
DX: E11.69 Type 2 diabetes mellitus with other specified complication (principal); M86.471 Chronic osteomyelitis with draining sinus, right ankle and foot; E11.621 Type 2 diabetes mellitus with foot ulcer; E11.51 Type 2 diabetes mellitus with diabetic peripheral angiopathy without gangrene; J44.9 Chronic obstructive pulmonary disease, unspecified; E03.9 Hypothyroidism, unspecified; F17.210 Nicotine dependence, cigarettes, uncomplicated; Z79.4 Long term (current) use of insulin; Z79.85 Long-term (current) use of injectable non-insulin antidiabetic drugs; Z79.01 Long term (current) use of anticoagulants; L97.414 Non-pressure chronic ulcer of right heel and midfoot with necrosis of bone; L29.9 Pruritus, unspecified; N18.4 Chronic kidney disease, stage 4 (severe); E11.22 Type 2 diabetes mellitus with diabetic chronic kidney disease; Z89.421 Acquired absence of other right toe(s); M86.171 Other acute osteomyelitis, right ankle and foot; Z98.51 Tubal ligation status; E78.5 Hyperlipidemia, unspecified; I50.9 Heart failure, unspecified; I13.0 Hypertensive heart and chronic kidney disease with heart failure and stage 1 through stage 4 chronic kidney disease, or unspecified chronic kidney disease; I65.29 Occlusion and stenosis of unspecified carotid artery; F41.9 Anxiety disorder, unspecified
CPT/HCPCS: 28005; 36415; 73630; 80048; 81001; 82948; 83036; 85027; 87070; 87075; 87102; 87116; 87176; 87205; 87206; 88307; 96365; 96366; 96372; 97163; 97530; 99999; G0378; J0690; J1100; J1171; J1650; J2250; J2371; J2405; J2704; J3010; J3373

== ENCOUNTER 2025-10-26 10:03 | Outpatient (OUT) | payer MEDICARE, MEDICAID, SELFPAY ==
--- OUTSIDE RECORDS SUMMARY | 2025-10-26 10:06 | XMS_ITS | Clinical Summary ---
Author Organization [facility] Address [address] [place] [address] Care Team Providers Care Storage Engineer Name Role Phone Karolina Chamberlain DO Primary Care Provider [phone] Karolina Chamberlain DO Unavailable [phone] Allergies Active AllergyReactionsCriticalityNoted DateCommentsAzithromycinHives,Itching, Fooczncu71/15/2023 Medications MedicationSigDispense QuantityRefillsLast FilledStart DateEnd DateStatus aspirin [...] MINI PEN NEEDLES) 31G x 5 mm [facility] [place] Indications:Type 2 diabetes mellitus with diabetic peripheral [...] gangrene, with long-term current use of insulin ([facility])Checking bg levels once a day 100 each /6Active semaglutide (Ozempic, 1 MG/DOSE,) 4 MG/3ML solution pen-injector Indications:Type 2 diabetes mellitus with diabetic peripheral angiopathy and gangrene, with long-term current use of insulin ([facility])Inject 1 mg under the skin 1 (one) [...] TABLET BY MOUTH BEFORE BEDTIME 200 tablet 09/28/2025tive levothyroxine (Synthroid, Levoxyl) 75 MCG tablet Indications:Acquired hypothyroidismTAKE 1 TABLET BY MOUTH IN THE MORNING TAKE BEFORE A MEAL 100 tablet 09/28/2025tive atorvastatin (Lipitor) 40 MG tablet Indications:Pure hypercholesterolemiaTAKE 1 TABLET BY MOUTH DAILY 100 tablet 5Active levothyroxine (Synthroid, Levoxyl) 75 MCG [...] mg) by mouth Daily 90 tablet Discontinued ondansetron ODT (Zofran-ODT) 8 MG disintegrating tablet Indications:NauseaTake 1 tablet (8 mg) by mouth every 8 (eight) hours if needed for nausea or vomiting for up to 7 days 20 tablet Expired Active Problems ProblemNoted DateDiagnosed DateType 2 diabetes mellitus with stage 4 chronic kidney disease, with long-term current use of dbpxmix9204/06/2024Lumbar stenosis with neurogenic fljiegichtht06/30/2024Thyroid eduuyw9305/15/2023Stenosis of left carotid qjrobm5405/15/2023KD (chronic kidney disease) stage 4, GFR 15-29 [...] progressionof kidney damage. Chronic diastolic congestive heart vucpfhl5405/15/2023 Assessment & Plan (07/12/2025 1:09 PM EDT): [...] they have any problems or questions. Olivia Meadows is doing very well and encouraged on [...] they have any problems or questions. Olivia Meadows blood sugars are worsening. , Discussed dietary [...] they have any problems or questions. Olivia Meadows control is stable overall. , Will stay [...] they have any problems or questions. Olivia Meadows control is stable overall. , Will stay on current medications. History of amputation of lesser toe of right foot ([facility]HS-HCC)05/06/2021 Assessment & Plan (04/06/2024 12:39 PM EDT): Wearing diabetic shoes and working on her mobility. History of amputation of great toe ([facility]HS-HCC)05/06/2021Type 2 diabetes mellitus with diabetic peripheral angiopathy and gangrene, with long-term current use of qipqmbk0403/30/2021ure bizlqgdfhiwcxbocdshu89/07/2021 Assessment & Plan (07/12/2025 1:10 PM EDT): [...] low cholesterol (mediterranean style) diet. Renal artery pnkxolxa31/22/2021 Assessment & Plan (04/06/2024 12:36 PM EDT): Working on risk factor reduction Tobacco abuse01/11/2021lass 3 severe obesity due to excess calories with serious comorbidity and body mass index (BMI) of40.0 to 44.9 in adult01/11/2021 Urge mwwylyvfgzeq56/25/2019 Assessment & Plan (04/06/2024 12:37 PM EDT): Stable, no changes needed to current treatment plan. Need to decrease myrbetriq to daily dosing dueto insurance not covering bid dosing. Vitamin D duvpdnyvan27/25/2018Mild intermittent mvanvk8008/25/2017 Assessment & Plan (07/12/2025 1:09 PM EDT): Stable, no changes needed to current treatment plan. Assessment & Plan (04/06/2024 12:36 PM EDT): Stable, no changes needed to current treatment plan. termite inspector current use of vvzlhpa2712/16/2016Peripheral vascular irtkydr0110/30/2015 Assessment & Plan (04/06/2024 12:36 PM EDT): Working on risk factor reduction Menieres hktgroq3710/30/2015Iron deficiency jzlnuq1010/30/2015 Assessment & Plan (04/06/2024 12:38 PM EDT): Only takes iron a few days a week due to constipation. Will check labs and may need to consider IV iron. Essential tcqpoghvacnh29/07/2015 Assessment & Plan (07/12/2025 1:09 PM EDT): [...] will stay on current medications. Generalized anxiety fxejwshq46/07/2015 Assessment & Plan (07/12/2025 1:10 PM EDT): Stable, no changes needed to current treatment plan. Acquired gjnxvdpuerdqug71/12/2015 Assessment & Plan (07/12/2025 1:10 PM EDT): Stable, no changes needed to current treatment plan. Assessment & Plan (04/06/2024 12:38 PM EDT): Stable, no changes needed to current treatment plan. Resolved Problems ProblemNoted DateDiagnosed DateResolved DateRenal mass3Kidney cystsOther wjappgabytaltv30ERD without sctzwunviye40 Assessment & Plan (04/06/2024 12:36 PM EDT): Stable, no changes needed to current treatment plan. Afsljbcfuamfoz78/22/202306//3Depressive oxonqwtv79RP brivvuir77oughnemia Amputation of toebscess of heelUlcer of right heel and midfoot with necrosis of boneUlcer of left heel and midfoot with fat layer clfvadw58ifficulty sleeping Urinary dgbgapfsoyfi90Ulcer of foot due to type 2 diabetes tegwzbnt48cquired absence of other right toe(s) ([facility])Moderate malnutrition ([facility])01/19/2021 05/15/2023Ischemic toeangrene of toe of right foot bnormal gaitHypoglycemia due to type 2 diabetes rmlkcteh63ost herpetic wnhklvaeu69 Gastroesophageal reflux uvwirbu14Reactive airway disease lass 3 severe obesity due to excess calories with body mass index (BMI) of 40.0 to 44.9 in adultSciatica10/31/2015 05/15/2023 Encounters DateTypeDepartmentCare NibpTvbbovvbgyw09/25/2025Telephone [facility] [address] [place] [address] Shauna Maciel MA 10/13/2025Refill [facility] [address] [place] [address] Karolina Chamberlain DO Jmezytauguo22/19/2025Clinisync Result Encounter [facility] External Department Unsolicited Provider, Generic External Data 10/11/2025linisync Result Encounter [facility] External Department Unsolicited Provider, Generic External Data 5Clinisync Result Encounter [facility] External Department Unsolicited Provider, Generic External Data 10/08/2025Refill [facility] [address] [place] [address] Karolina Chamberlain, DO Yznsmikzrkd62/12/2025Refill [facility] [address] [place] [address] Karolina Chamberlain, DO Pure hhnukjxgsozddsiucvyi07/10/2025Clinisync Result Encounter [facility] External Department Unsolicited Provider, Generic External Data 5Clinisync Result Encounter [facility] External Department Unsolicited Provider, Generic External Data 5Clinisync Result Encounter [facility] External Department Unsolicited Provider, Generic External Data 09/28/2025Refill [facility] [address] [place] [address] Karolina Chamberlain, DO Essential hypertension; Type 2 diabetes mellitus with diabetic peripheral angiopathy and gangrene, with long-term current use of insulin (HCC); Acquired araolkjlfgufnf35/17/2025Telephone [facility] [address] [place] [address] Karolina Chamberlain, DO 09/07/2025Refill [facility] [address] [place] [address] Karolina Chamberlain, DO Jqzdimgxdlm35/29/2025Telephone [facility] hospital [address] [place] [address] Karolina Chamberlain, DO Medication Questionfrom Last 3 Months Immunizations ImmunizationAdministration DatesNext DueInfluenza, High Dose Seasonal, Preservative Free10/09/2024,08/18/2020,10/23/2019,08/13/2018,12/18/2017 Influenza, Seasonal, Quadrivalent, Dtyqqjeecm57/09/2023,09/15/2021Influenza, injectable, MDCK, preservative free, dyjokvikswwn39/30/2022Influenza, injectable, quadrivalent, preservative free08/11/2020,01/07/2017Influenza, seasonal, injectable, preservative free10/30/2015Influenza, seasonal, intradermal, preservative free01/01/2010Pneumococcal Conjugate PCV 13012/18/2017, 08/18/2017Pneumococcal Polysaccharide IFXX5736Zoster, Recombinant 02/05/2019Zoster, live07/23/2016 Family History Medical HistoryRelationNameCommentsLung [...] care, and heating?Somewhat hard07/30/2023HQ-2AnswerDate RecordedPatient Health Questionnaire-2 Vovda830Exercise Vital SignAnswerDate RecordedOn average, how many days [...] InformationValueDate RecordedSex Assigned at BirthNot on fileLegal YchZkupao29/15/2023 6:45 PM EDTGender Identity Not on fileSexual OrientationNot on file Last Filed Vital Signs Vital SignReadingTime TakenCommentsBlood Mhumwagk237/6208 8:44 AM EDT Bykax280507/12/2025 8:44 AM QHUIjgrmkhknib13.7 ??C (98.1 ??F)07/12/2025 8:44 AM EDTRespiratory Rate--Oxygen Uljwfxewil92%07/12/2025 8:44 AM EDTInhaled Oxygen Concentration--Xuldjk930 kg (244 lb)07/12/2025 8:44 AM IMECglwnk622.8 cm (5' 4.5 )07/12/2025 8:44 AM EDTBody Mass Index41.24007/12/2025 8:44 AM EDT Plan of Treatment DateTypeDepartmentCare Team (Latest Contact Info)Evqniuuplbd50/09/2025 2:30 PM ESTOffice Visit [facility] [address] [place] [address] Karolina Chamberlain, [address] [place] [address] Health MaintenanceDue DateLast DoneCommentsCT Juuqvkmrivmy1952Colonoscopy 1950FIT1950 8299Jubkxudypsrqa81/15/8724YUWP51//07/2020Diabetes: Urine Protein Ultcnrcac17/06/896837/04/2022, 01/15/2019Diabetes: Retinopathy Fvfesqsel17/2Colorectal Cancer Rnrbuorgy70/26/2025FIT-DNA 502COVID-19 Vaccine ( season)/, 1Diabetes: Hemoglobin A1C/, 12/28/2024, 04/06/2024, Additional history existsMedicare Annual Wellness (AWV)608/, 07/12/2025, 04/06/2024, Additional history existsPneumococcal Vaccine: 65+ Years Gvysnoepo85/25/2018, 12/18/2017, 08/18/20170720ThchadussOqtelgnfwmio95/13/2020, 12/06/2019Influenza FbrhdzpJsivclezi84/08/2025, 10/09/2024, 09/01/2023, Additional history exists Procedures Procedure NamePriorityDate/TimeAssociated DiagnosisCommentsALL BASIC METABOLIC HARZJLqbqjdb15/19/2025 5:01 AM EST XR FOOT RT MIN 3V112/11/2024 7:36 PM EST MLR HEMOGLOBIN J0DZkihest62/18/2025 1:58 PM EST ALL BASIC METABOLIC LIUWOWgimvra94/18/2025 1:58 PM EST HMHP CBC WITH PLATELET NO CUKSFFXIYFPKHacskwf39/18/2025 1:58 PM EST FUNGUS FQKXSQfzjipo61/18/2025 11:28 AM EST ANAEROBIC CULT, EXTENDED GIZWLNkeslph60/18/2025 11:28 AM ESTFUNGUS (MYCOLOGY) XGHGSMCCeooymn08/18/2025 11:28 AM ESTTISSUE RFKCCBKYauemru18/18/2025 11:28 AM EST GRAM STAIN LTWSRXMzxdwoa23/18/2025 11:28 AM EST ACID FAST FPPSYTIMptpdwt75/18/2025 11:28 AM ESTACID FAST ODQCEZexwoas84/18/2025 11:28 AM EST AFB SPECIMEN BLMNTNQSCIRxfwlkj86/18/2025 11:28 AM EST XR CHEST 2V112/03/2024 5:57 PM EST CCF GHBYHjrjvci79/10/2025 1:20 PM EST SRMCOH PROTHROMBIN TIME INR W/O RVFOUvvkrln33/10/2025 1:20 PM EST ECG 12-LEAD10/03/2025 12:21 PM EST POCT GLYCOSYLATED HEMOGLOBIN (HGB A1C)Iheoufv5707/12/2025 9:06 AM EDT Type 2 diabetes mellitus with diabetic peripheral angiopathy and gangrene, with long-term current use of insulin (HCC) MICROALB/CREAT RATIO QUJBrhnbhm23/06/2022 LAB COLOGUARD?? COLON CANCER FKBMKSHrgpmkk19/26/2022 COLOR FUNDUS PHOTOGRAPHY - OU - BOTH CFDHSqqjijr32/15/2022 12:00 PM EST FECAL OCCULT BLD VGUCmevntj16/09/2020 12:00 PM EDT BI MAMMOGRAM SCREENING BATTUBJTWVjpvzww75/13/2020 12:00 PM EST from Last 3 Months or Most Recently Relevant to Health Maintenance Results * (ABNORMAL) ALL BASIC METABOLIC PANEL (10/12/2025 5:01 AM EST) Only the most recent of2 resultswithin the time period is included. ComponentValueRef RangeTest MethodAnalysis TimePerformed AtPathologist Signature RMAJOA290750 - 145 mmol/LTBHPOTASSIUM5.03.5 - 5.1 mmol/IGWXAAYVUQFP161(H)98 - 107 mmol/LTBHCARBON CFGUJIH41.121.0 - 32.0 mmol/LTBHANION GAP12.9RZIWHUXJIJ111 (H)74 - 106 mg/dLTBHBLOOD UREA PBCTQPMP62.0(H)7.0 - 18.0 mg/dLTBHCREATININE2.40 (H)0.55 - 1.02 mg/dLTBHTBH EGFR-AF BIUFKUHM17(L)>=60 mL/min/1.73m 2TBHTBH EGFR- NON AF XOSBPDFQ39(L)>=60 mL/min/1.73m 2TBHBUN CREATININE RATIO20.2MLPUMPBWZS7.6 8.5 - 10.1 mg/dLTBHSpecimen (Source)Anatomical Location / LateralityCollection Method / VolumeCollection TimeReceived Time10/12/2025 5:01 AM EST10/12/2025 5:28 AM EST Narrative [facility] - 10/12/2025 5:50 AM EST Authorizing ProviderResult TypeResult StatusGeneric External Data Provider CLINISYNCFinal ResultPerforming OrganizationAddressCity/State/ZIP CodePhone Number [facility] * XR FOOT RT MIN 3V (10/11/2025 7:36 PM EST)Anatomical RegionLateralityModality OtherSpecimen (Source)Anatomical Location / LateralityCollection Method / VolumeCollection TimeReceived Time10/11/2025 7:36 PM EST Narrative 10/11/2025 7:38 PM EST [facility] ?[address] ? [place] [address] ?XRay Report ? Signed ? Patient: BOTTGER,OLIVIA D ? MR#: [id number] ?? : 1950 ?Acct:[id number] ?? Age/Sex: 75 / F ?ADM Date: 11/18/25 ?? Loc: [place] ??222-1 ? Attending Dr: Nick Landaverde D.P.M. ? Ordering Physician: Nick Landaverde D.P.M. ?? Date of Service: 10/11/25 ?? Procedure(s): XR foot RT min 3V ?? Accession Number(s): [id number] ? cc: Nick Landaverde D.P.M.; KAROLINA CHAMBERLAIN ? [facility] ? [address] ? [place] [address] ? Patient Name: ?? OLIVIA MEADOWS ? MRN: [facility]:[id number] ? date: 1950 ?Sex: F ?? Assigned Patient Location: SURGOUT ?? Current Patient Location: [place] ?? Accession/Order Number: [id number] ?? Exam Date: 10/11/2025 ??12:30 ?Report Date: [...] Dictation Location: RADIO-PC-20 ? Electronically authenticated by: [id number] ??Y ?? Date: 10/11/2025 ??19:36 ? Dictated By: ?Pavel Davila D.O. ? Signed By: ?10/11/25 1938 ? DD/ 1936 ? TD/TT: ? Commercial Roofing Estimator: Procedure Note Radiology, Radiologist, MD - 10/11/[address] [address] XRay Report Signed Patient: OLIVIA MEADOWS DMR#: [id number] : 1950cct:[id number] Age/Sex: 75 / FADM Date: 10/11/25 Loc: [place] 222-[address]: Nick Landaverde D.P.M. Ordering Physician: Nick Landaverde D.P.M. Date of Service: 10/11/25 Procedure(s): XR foot RT min 3V Accession Number(s): [id number] cc: Nick Landaverde D.P.M.; KAROLINA CHAMBERLAIN [place] [id number] Patient Name: OLIVIA MEADOWS MRN: [id number]:[id number] date: 1950 Sex: F [facility] Current Patient Location: [place] Accession/Order Number: [id number] Exam Date: 10/11/2025 12:30 Report Date: 10/11/2025 [...] Davila M.D. 10/11/2025 7:36 PM Dictation Location: [place] [address] Electronically authenticated by: [id number] Y Date: 9:36 Dictated By: Pavel Davila D.O. Signed By:10/11/251937 DD/ 35 TD/TT: Commercial Roofing Estimator: Authorizing ProviderResult TypeResult StatusGeneric External Data Provider CLINISYNC IMAGINGFinal Result * MLR HEMOGLOBIN A1C (10/11/2025 1:58 PM EST)ComponentValueRef RangeTest Method Analysis TimePerformed AtPathologist SignatureGLYCOHEMOGLOBIN A1C6.14.5 - 6.2 %TBHComment: ADA RECOMMENDED LIMIT 4.0 - 6.0 ADA THERAPEUTIC TARGET < 7.0 ACTION SUGGESTED > 7.0 ESTIMATED AVERAGE UNADCUH222ev/dLTBHSpecimen (Source)Anatomical Location / LateralityCollection Method / VolumeCollection TimeReceived Time10/11/2025 1:58 PM EST10/11/2025 2:03 PM EST Narrative [facility] - 10/11/2025 2:55 PM EST Authorizing ProviderResult TypeResult StatusGeneric External Data Provider CLINISYNCFinal ResultPerforming OrganizationAddressCity/State/ZIP CodePhone Number [facility] * (ABNORMAL) [facility] CBC WITH PLATELET NO DIFFERENTIAL (10/11/2025 1:58 PM EST) ComponentValueRef RangeTest MethodAnalysis TimePerformed AtPathologist SignatureTBH WBC10.34.0 - 11.0 10 3/uLTBHTBH RBC3.63(L)4.20 - 5.40 10 6/uLTBH TBH HGB10.4(L)12.0 - 16.0 g/dLTBHTBH HCT33.5(L)36.0 - 48.0 %TBHTBH MCV92.381.0 - 99.0 fLTBHTBH MCH28.726.7 - 34.0 pgTBHTBH MCHC31.029.9 - 35.2 g/dLTBHTBH RDW 13.511.0 - 15.0 %TBHTBH DIH125085 - 450 10 3/uLTBHTBH MPV11.49.5 - 13.5 fLTBH Specimen (Source)Anatomical Location / LateralityCollection Method / Volume Collection TimeReceived Time10/11/2025 1:58 PM EST10/11/2025 2:03 PM EST Narrative [facility] - 10/11/2025 2:07 PM EST Authorizing ProviderResult TypeResult StatusGeneric External Data Provider CLINISYNCFinal ResultPerforming OrganizationAddNew [facility]/State/ZIP CodePhone Number [facility] * TISSUE CULTURE (10/11/2025 11:28 AM EST)ComponentValueRef RangeTest Method Analysis TimePerformed AtPathologist SignatureTISSUE CULTURE ??Tissue Culture WILL FOLLOW TBHTISSUE CULTURETBHTISSUE CULTURENo growth after 18-24 hours.TBHTISSUE CULTURE TBHTISSUE CULTURENo growth in 36 - 48 hours.TBHTISSUE CULTURETBHTISSUE CULTURENo growth in 56 - 72 hours.TBHSpecimen (Source)Anatomical Location / Laterality Collection Method / VolumeCollection TimeReceived Time10/11/2025 11:28 AM EST 10/11/2025 2:16 PM EST Narrative [facility] - 10/24/2025 4:09 PM EST Authorizing ProviderResult TypeResult StatusGeneric External Data ProviderLAB BLOOD ORDERABLESFinal ResultPerforming OrganizationAddNew [facility]/ZIP Code Phone Number [facility] * GRAM STAIN RESULT (10/11/2025 11:28 AM EST)ComponentValueRef RangeTest Method Analysis TimePerformed AtPathologist SignatureGRAM STAIN RESULT ??Gram Stain Result TBHGRAM STAIN RESULTNo white blood cells seen.TBHGRAM STAIN RESULTTBHGRAM STAIN RESULTNo organisms seenTBHGRAM STAIN RESULTPerformed at: [facility] GRAM STAIN [id number] [place], [place] [id number] STAIN RESULTLab Director: Bernard Trevino PhD, Phone: [phone] (Source)Anatomical Location / LateralityCollection Method / VolumeCollection TimeReceived Time 10/11/2025 11:28 AM EST10/11/2025 2:16 PM EST Narrative [facility] - 10/24/2025 4:09 PM EST Authorizing ProviderResult TypeResult StatusGeneric External Data ProviderLAB BLOOD ORDERABLESFinal ResultPerforming OrganizationAddNew [facility]/State/ZIP Code Phone Number [facility] * FUNGUS STAIN (10/11/2025 11:28 AM EST)ComponentValueRef RangeTest Method Analysis TimePerformed AtPathologist SignatureFUNGUS STAIN ??Fungus Stain TBHFUNGUS STAINKOH/Calcofluor preparation: no fungus observed.TBHSpecimen (Source)Anatomical Location / LateralityCollection Method / VolumeCollection TimeReceived Time10/11/2025 11:28 AM EST10/11/2025 2:16 PM EST Narrative [facility]IN[facility]KY - 10/17/2025 4:14 PM EST Authorizing ProviderResult TypeResult StatusGeneric External Data ProviderLAB BLOOD ORDERABLESFinal ResultPerforming OrganizationAddressCity/State/ZIP Code Phone Number [facility] * ACID FAST SMEAR (10/11/2025 11:28 AM EST)ComponentValueRef RangeTest Method Analysis TimePerformed AtPathologist SignatureACID FAST SMEAR ??Acid Fast Smear ?Negative TBHSpecimen (Source)Anatomical Location / LateralityCollection Method / Volume Collection TimeReceived Time10/11/2025 11:28 AM EST10/11/2025 2:16 PM EST Narrative [facility] - 10/12/2025 11:08 AM EST Authorizing ProviderResult TypeResult StatusGeneric External Data ProviderLAB BLOOD ORDERABLESFinal ResultPerforming OrganizationAddressty/State/ZIP Code Phone Number [facility] * AFB SPECIMEN PROCESSING (10/11/2025 11:28 AM EST)ComponentValueRef RangeTest MethodAnalysis TimePerformed AtPathologist SignatureAFB SPECIMEN PROCESSING ??AFB Specimen Processing TBHAFB SPECIMEN PROCESSINGTissue GrindingTBHSpecimen (Source)Anatomical Location / LateralityCollection Method / VolumeCollection TimeReceived Time10/11/2025 11:28 AM EST10/11/2025 2:16 PM EST Narrative [facility] - 10/12/2025 11:08 AM EST Authorizing ProviderResult TypeResult StatusGeneric External Data ProviderLAB BLOOD ORDERABLESFinal ResultPerforming OrganizationAddressty/State/ZIP Code Phone Number [facility] * XR CHEST 2V (10/03/2025 5:57 PM EST)Anatomical RegionLateralityModalityOther Specimen (Source)Anatomical Location / LateralityCollection Method / Volume Collection TimeReceived Time10/03/2025 5:57 PM EST Narrative 10/03/2025 6:00 PM EST [facility] ?[address] ? [place] [address] ?XRay Report ? Signed ? Patient: BOTTGER,OLIVIA D ? MR#: [id number] ?? : 1950 ?Acct:[id number] ?? Age/Sex: 75 / F ?ADM Date: 11/10/25 ?? Loc: PST ? Attending Dr: Nick Landaverde D.P.M. ? Ordering Physician: Nick Landaverde D.P.M. ?? Date of Service: 10/03/25 ?? Procedure(s): XR chest 2V ?? Accession Number(s): [id number] ? cc: Nick Landaverde D.P.M.; KAROLINA CHAMBERLAIN ? [facility] ? [address] ? [place] [address] ? Patient Name: ?? OLIVIA MEADOWS ? MRN: [facility]:[id number] ? date: 1950 ?Sex: F ?? Assigned Patient Location: SURGOUT ?? Current Patient Location: SURGOUT ?? Accession/Order Number: [id number] ?? Exam Date: 10/03/2025 ??13:42 ?Report Date: [...] Dictation Location: RADIO-PC-29 ? Electronically authenticated by: [id number] ??Y ?? Date: 10/03/2025 ??17:57 ? Dictated By: ?Bassam Estevez M.D. ? Signed By: ?10/03/25 1800 ? DD/ 1757 ? TD/TT: ? Commercial Roofing Estimator: Procedure Note Radiology, Radiologist, MD - 10/03/[address] [address] XRay Report Signed Patient: OLIVIA MEADOWS [facility]#: [id number] : 1950cct:[id number] Age/Sex: 75 / FADM Date: 10/03/25 Loc: PST Attending Dr: Nick Landaverde D.P.M. Ordering Physician: Nick Landaverde D.P.M. Date of Service: 10/03/25 Procedure(s): XR chest 2V Accession Number(s): [id number] cc: Nick Landaverde D.P.M.; KAROLINA CHAMBERLAIN [place] [address] Patient Name: OLIVIA MEADOWS MRN: [id number]:[id number] date: 1950 Sex: F Assigned Patient Location: [facility] Current Patient Location: [facility] Accession/Order Number: [id number] Exam Date: 10/03/2025 13:42 Report Date: 10/03/2025 [...] Estevez M.D. 10/03/2025 5:57 PM Dictation Location: [place] [address] Electronically authenticated by: [id number] Y Date: 7:57 Dictated By: Bassam Estevez M.D. Signed By:10/03/25 1800 DD/ 56 TD/TT: Commercial Roofing Estimator: Authorizing ProviderResult TypeResult StatusGeneric External Data Provider [...] Data Provider CLINISYNCFinal ResultPerforming OrganizationAddressCity/State/ZIP CodePhone Number [facility] * CCF APTT (10/03/2025 1:20 PM EST)ComponentValueRef RangeTest MethodAnalysis TimePerformed AtPathologist SignaturePARTIAL THROMBOPLASTIN TIME34.022.3 - 36.2 secTBHSpecimen (Source)Anatomical Location / LateralityCollection Method / VolumeCollection TimeReceived Time10/03/2025 1:20 PM EST10/03/2025 1:37 PM EST Narrative [facility] - 10/03/2025 2:12 PM EST Authorizing ProviderResult TypeResult StatusGeneric External Data Provider CLINISYNCFinal ResultPerforming OrganizationAddressCity/State/ZIP CodePhone Number [facility] * ECG 12-LEAD (10/03/2025 12:21 PM EST)Anatomical RegionLateralityModalityOther Specimen (Source)Anatomical Location / LateralityCollection Method / Volume Collection TimeReceived Time10/03/2025 12:21 PM EST Narrative 10/03/2025 7:23 PM EST [facility] ?[address] ? [place] [address] ? Electrocardiograph Report ? Signed ? Patient: OLIVIA MEADOWS ? MR#: [id number] ?? : 1950 ?Acct:[id number] ?? Age/Sex: 75 / F ?ADM Date: 10/03/25 ?? Loc: PST ? Attending Dr: Nick Landaverde D.P.M. ? Ordering Physician: Nick Landaverde D.P.M. ?? Date of Service: 10/03/25 ?? Procedure(s): ECG 12 lead ?? Accession Number(s): [id number] ? cc: ?[facility] ? Test Date: ?2025-10-03 ?? Pat Name: ? OLIVIA MEADOWS ?Department: ? Room: ? - ?? Gender: ? Female ? Pyrometer Temperature Regulator: ? : ?1950 ? Requested By: NICK LANDAVERDE ?? Order Number: [id number] ?Reading MD: ?? PARESH ??ABHAY, M.D. ? Measurements ?? Intervals ?[place] ? Rate: ? 63 ? P: ?-12 ?? MN: ? 200 ?QRS: ?-32 ?? QRSD: ? [...] 1923 ? DD/ 1221 ? TD/TT: ? Commercial Roofing Estimator: Procedure Note Radiology, Radiologist, MD - 10/03/2025 [place] [address] Electrocardiograph Report Signed Patient: OLIVIA MEADOWS DMR#: [id number] : 1950cct:[id number] Age/Sex: 75 / FADM Date: 10/03/25 Loc: PST Attending Dr: Nick Landaverde D.P.M. Ordering Physician: Nick Landaverde D.P.M. Date of Service: 10/03/25 Procedure(s): ECG 12 lead Accession Number(s): [id number] cc: [facility] Test Date: 2025-10-03 Pat Name: OLIVIA MEADOWS Department: Room: - Gender: Female Pyrometer Temperature Regulator: : 1950 Requested By: NICK LANDAVERDE Order Number: [id number] Josie MD: PARESH BLANK M.D. Measurements Intervals [place] Rate: 63 P: -12 MN: 200 QRS: -32 QRSD: 119 T: 82 QT: 416 QTc: 428 Interpretive Statements SINUS RHYTHM MARKED LEFT AXIS DEVIATION [QRS AXIS < -30] LEFT VENTRICULAR HYPERTROPHY AND ST-T CHANGE [VOLTAGE CRITERIA PLUS ST/T ABNORMALITY] Abnormal ECG No previous ECG available for comparison Electronically Signed On 10-03-2025 19:22:57 EST by PARESH BLANK M.D. Dictated By: PARESH BLANK Signed By:10/03/251922 DD/ 1221 TD/TT: Commercial Roofing Estimator: Authorizing ProviderResult TypeResult StatusGeneric External Data Provider CLINISYNC IMAGINGFinal Result * POCT glycosylated hemoglobin (Hb A1C) docked device (07/12/2025 9:06 AM EDT) ComponentValueRef RangeTest MethodAnalysis TimePerformed AtPathologist SignatureHemoglobin A1C6.1Specimen (Source)Anatomical Location / Laterality Collection Method / VolumeCollection TimeReceived TimeBloodVenous blood specimen / Zvyhjzr2607/12/2025 9:06 AM EDT Narrative Authorizing ProviderResult TypeResult StatusKarolina Aneesh Bulmaro DOPOINT OF CARE TEST ENTER/EDIT ORDERABLESFinal Result * (ABNORMAL) MICROALB/CREAT RATIO URR (07/30/2022)ComponentValueRef RangeTest MethodAnalysis TimePerformed AtPathologist SignatureMICROALBUMIN, URINE19.4(H) 0.0 - 1.8[facility] KWEQRKWE28.5[facility] EXTERNAL LABComment:No reference range establishedMICROALBUMIN/CREATININE RATIO1,251.0(H)0.0 [...] screened with both Cologuard and colonoscopy. (Lauren Leonard. et al, N Engl J Med 2014;370(14):0749-1574.) Cologuard may produce a false negative or false positive result (no colorectal cancer or precancerous polyp present at colonoscopy follow up). A negative Cologuard test result does not guarantee the absence of CRC or advanced adenoma (pre-cancer). The current Cologuard screening interval is every 3 years. ([place] [employer] and U.S. Multi-Society Task Force). Cologuard performance data in a 10,000 patient pivotal study using colonoscopy as the reference method can be accessed at the following location: www.Canary Calendar/results. Additional description of the Cologuard test process, warnings and precautions can be found at www.cologuard.com. Specimen (Source)Anatomical Location / LateralityCollection Method / Volume Collection TimeReceived Time01/19/2022 Narrative Authorizing ProviderResult TypeResult StatusKarolina Chamberlain [facility] MOLECULAR DIAGNOSTICS ORDERABLESFinal ResultPerforming OrganizationAddressCity/State/ZIP CodePhone Number [facility] * Color Fundus Photography - OU - Both Eyes (01/08/2022 12:00 PM EST)Anatomical RegionLateralityModalityHeadFundus PhotographySpecimen (Source)Anatomical Location / LateralityCollection Method / VolumeCollection TimeReceived Time 01/08/2022 12:00 PM EST Narrative 01/08/2022 12:00 PM EST PERFORMED AT [facility] LOCATION:[id number] no diabetic retinopathy Procedure Note CONVERSION, GENERIC - 04/09/2023 PERFORMED AT [facility] LOCATION:[id number] no diabetic retinopathy Authorizing ProviderResult TypeResult StatusKarolina Chamberlain DOOPHTH PHOTOGRAPHYFinal Result * FECAL OCCULT BLD TST (09/01/2020 12:00 PM EDT)ComponentValueRef RangeTest MethodAnalysis TimePerformed AtPathologist SignatureIMMUNO FOBSSIECW NONXML LABSSpecimen (Source)Anatomical Location / LateralityCollection Method / VolumeCollection TimeReceived Time09/01/2020 12:00 PM EDT Narrative Authorizing ProviderResult TypeResult StatusKarolina Chamberlain DOECW LABSFinal ResultPerforming OrganizationAddressCity/State/ZIP CodePhone Number W NONXML LABS * Bilateral screening mammogram (12/06/2019 12:00 PM EST)Anatomical Region LateralityModalityBreastBilateralMammographySpecimen (Source)Anatomical Location / LateralityCollection Method / VolumeCollection TimeReceived Time Narrative 12/06/2019 12:00 PM EST PERFORMED AT [facility] LOCATION:[id number] [facility]SI Procedure Note CONVERSION, GENERIC / Karolina Chamberlain, DO - 05/30/2023 PERFORMED AT [facility] LOCATION:[id number] [facility] Authorizing ProviderResult TypeResult Brown Alexanderbasil DOIMG BI PROCEDURESFinal Result from Last 3 Months or Most Recently Relevant to Health Maintenance Insurance Advance Directives TypeDate RecordedPatient RepresentativeExplanationAdvance Directives and Living Will.10.10 POA HealthcareAdvance Directives and Living Will .10.10 Last Will and Testament Care Teams Team MemberRelationshipSpecialtyStart DateEnd Date Karolina Chamberlain DO [address] [facility] [address] [place] [address] [facility] - [facility] Karolina Chamberlain DO [address] [facility] [address] [place] [address] PCP - [facility]/
--- OUTSIDE RECORDS SUMMARY | 2025-10-26 10:06 | XMS_ITS | Encounter Summary ---
Author Organization [facility] Address [address] [place] [address] Care Team Providers Care Parent Educator Name Role Phone Karolina Chamberlain DO Primary Care Provider [phone]- [phone] Karolina Chamberlain DO Unavailable [phone] Reason for Visit * ReasonCommentsMed Refill Encounter Details DateTypeDepartmentCare Team (Latest Contact Info)Yxcurortqmc92/20/2025Refill [facility] [address] [facility] [address] [place] [address] Karolina Chamberlain, DO [address] [facility] [address] [place] [address] Candidiasis Social History Tobacco UseTypesPacks/DayYears UsedDateSmoking Tobacco: [...] care, and heating?Somewhat hard07/30/2023HQ-2AnswerDate RecordedPatient Health Questionnaire-2 Gstfc653Exercise Vital SignAnswerDate RecordedOn average, how many days [...] steady place to sleep or slept in [place] (including now)?No 07/30/2023CommentsUnknownSex and Gender InformationValueDate RecordedSex Assigned at BirthNot on fileLegal MsrFsgkwi35/15/2023 6:45 PM EDTGender Identity Not on fileSexual OrientationNot on filedocumented as of this encounter Plan of Treatment DateTypeDepartmentCare Team (Latest Contact Info)Xuajljcswng04/09/2025 2:30 PM ESTOffice Visit [facility] [address] [place] [address] Karolina Chamberlain DO [address] [place] [address] documented as of this encounter Visit Diagnoses Diagnosis Candidiasis documented in this encounter Care Teams Team MemberRelationshipSpecialtyStart DateEnd Date Karolina Chamberlain DO [address] [place] [address] PCP - GeneralFamily Medicine04/15/23 Karolina Chamberlain DO [address] [place] [address] [facility] - 11/24/2511documented as of this encounter
--- OUTSIDE RECORDS SUMMARY | 2025-10-26 10:06 | XMS_ITS | Encounter Summary ---
Author Organization [facility] Address [address] [place] [address] Care Team Providers Care Heel Cutter Name Role Phone Kaorlina Chamberlain DO Primary Care Provider [phone]- [phone] Karolina Chamberlain DO Unavailable [phone] Encounter Details DateTypeDepartmentCare Team (Latest Contact Info)Ysvoihmuhbd58/25/2025Telephone [facility] [address] [address] Shauna Maciel MA Social History Tobacco UseTypesPacks/DayYears [...] care, and heating?Somewhat hard07/30/2023HQ-2AnswerDate RecordedPatient Health Questionnaire-2 Yysuf548Exercise Vital SignAnswerDate RecordedOn average, how many days [...] InformationValueDate RecordedSex Assigned at BirthNot on fileLegal OhzCediqp30/15/2023 6:45 PM EDTGender Identity Not on fileSexual [...] is not improving [facility] or come in [facility] an [...] anything because of this. Pls send to [facility] documented in this encounter Plan of Treatment DateTypeDepartmentCare Team (Latest Contact Info)Elhgtldyhee37/09/2025 2:30 PM ESTOffice Visit NOM[facility] [address] [place] [address] Karolina Chamberlain DO [address] [place] [address] documented as of this encounter Visit Diagnoses Diagnosis Nausea- Primary Nausea alone documented in this encounter Care Teams Team MemberRelationshipSpecialtyStart DateEnd Date Karolina Chamberlain DO [address] [place] [address] PCP - GeneralFamily Medicine04/15/23 Karolina Chamberlain DO [address] [place] [address] PCP - [facility]/11/2511documented as of this encounter
--- OUTSIDE RECORDS SUMMARY | 2025-10-26 10:06 | XMS_ITS | Encounter Summary ---
Author Organization [facility] Address [address] [place] [address] Care Team Providers Care Extrusion Press Operator Name Role Phone BulmaroAlejandroKarolina M DO Primary Care Provider [phone]- [phone] Bulmaro Karolina Aneesh DO Unavailable [phone] Encounter Details DateTypeDepartmentCare Team (Latest Contact Info)Yyzxreavlku92/18/2025Clinisync Result Encounter [facility] External Department Unsolicited Provider, [...] care, and heating?Somewhat hard07/30/2023HQ-2AnswerDate RecordedPatient Health Questionnaire-2 Sgwin107Exercise Vital SignAnswerDate RecordedOn average, how many days [...] InformationValueDate RecordedSex Assigned at BirthNot on fileLegal XinWcrqow41/15/2023 6:45 PM EDTGender Identity Not on fileSexual OrientationNot on filedocumented as of this encounter Plan of Treatment DateTypeDepartmentCare Team (Latest Contact Info)Jovznzrqwxg94/09/2025 2:30 PM ESTOffice Visit N[facility] [place] [facility] [address] [place] [address] Karolina Chamberlain, DO [address] [place] [address] NameTypePriorityAssociated DiagnosesDate/TimeACID FAST CULTURELabRoutine 10/11/2025 11:28 AM ESTFUNGUS (MYCOLOGY) WWOGOVUJiyEtyaodx60/18/2025 11:28 AM ESTANAEROBIC CULT, EXTENDED LZBAJJlnGciugws94/18/2025 11:28 AM ESTdocumented as of this encounter Procedures Procedure NamePriorityDate/TimeAssociated DiagnosisCommentsXR FOOT RT MIN 3V 10/11/2025 7:36 PM EST ANAEROBIC CULT, EXTENDED EWLJROslhmkv47/18/2025 11:28 AM ESTTISSUE CULTURE Fvgariv9610/11/2025 11:28 AM EST GRAM STAIN QVBRELGtglljq60/18/2025 11:28 AM EST FUNGUS PIIKZHkzmzzs49/18/2025 11:28 AM EST ACID FAST PUHSNAVRqfxtdc88/18/2025 11:28 AM ESTFUNGUS (MYCOLOGY) CULTURERoutine 10/11/2025 11:28 AM ESTACID FAST ZKRGGPmcknyk39/18/2025 11:28 AM EST AFB SPECIMEN BRWVAGOCJDXnvnxfs24/18/2025 11:28 AM EST documented in this encounter Results * XR FOOT RT MIN 3V (10/11/2025 7:36 PM EST)Anatomical RegionLateralityModality OtherSpecimen (Source)Anatomical Location / LateralityCollection Method / VolumeCollection TimeReceived Time10/11/2025 7:36 PM EST Narrative 10/11/2025 7:38 PM EST [facility] ?[address] ? [place] [address] ?XRay Report ? Signed ? Patient: OLIVIA MEADOWS ? MR#: [id number] ?? : 1950 ?Acct:[id number] ?? Age/Sex: 75 / F ?ADM Date: 10/11/25 ?? Loc: [place] ??222-1 ? Attending Dr: Nick Landaverde D.P.M. ? Ordering Physician: Nick Landaverde D.P.M. ?? Date of Service: 10/11/25 ?? Procedure(s): XR foot RT min 3V ?? Accession Number(s): [id number] ? cc: Nick Landaverde D.P.M.; KAROLINA CHAMBERLAIN ? The [facility] ? [address] ? [place] [address] ? Patient Name: ?? OLIVIA MEADOWS ? MRN: [id number] ? date: 1950 ?Sex: F ?? Assigned Patient Location: SURGOUT ?? Current Patient Location: [place] ?? Accession/Order Number: [id number] ?? Exam Date: 10/11/2025 ??12:30 ?Report Date: [...] M.D. ??10/11/2025 7:36 PM ? Dictation Location: [place] [address] ? Electronically authenticated by: [id number] ??Y ?? Date: 10/11/2025 ??19:36 ? Dictated By: ?Pavel Davila D.O. ? Signed By: ?10/11/251937 ? DD/ 35 ? TD/TT: ? Communications Controller: Procedure Note Radiology, Radiologist, - 10/11/2025 [place] [address] XRay Report Signed Patient: OLIVIA MEADOWS DMR#: [id number] : 2Acct:[id number] Age/Sex: 75 / FADM Date: 10/11/25 Loc: [place] 222-[address]: Nick Landaverde D.P.M. Ordering Physician: Nick Landaverde D.P.M. Date of Service: 10/11/25 Procedure(s): XR foot RT min 3V Accession Number(s): [id number] cc: Nick Landaverde D.P.M.; KAROLINA CHAMBERLAIN [address] [address] Patient Name: OLIVIA MEADOWS MRN: [id number] date: 1950 Sex: F Assigned Patient Location: SURGOUT Current Patient Location: [place] Accession/Order Number: [id number] Exam Date: 10/11/2025 12:30 Report Date: 10/11/2025 [...] Davila M.D. 10/11/2025 7:36 PM Dictation Location: [place] [address] Electronically authenticated by: [id number] Y Date: 9:36 Dictated By: Pavel Davila D.O. Signed By:10/11/251937 DD/ 35 TD/TT: Communications Controller: Authorizing ProviderResult TypeResult StatusGeneric External Data Provider [...] BLOOD ORDERABLESFinal ResultPerforming OrganizationAddressCity/State/ZIP Code Phone Number [facility] * TISSUE CULTURE (10/11/2025 11:28 AM [...] ProviderLAB BLOOD ORDERABLESFinal ResultPerforming OrganizationAddLifecare Hospital of [facility] Code Phone Number [facility] * GRAM STAIN RESULT (10/11/2025 11:28 AM EST)ComponentValueRef RangeTest Method Analysis TimePerformed AtPathologist SignatureGRAM STAIN RESULT ??Gram Stain Result TBHGRAM STAIN RESULTNo white blood cells seen.TBHGRAM STAIN RESULTTBHGRAM STAIN RESULTNo organisms seenTBHGRAM STAIN RESULTPerformed at: [facility] GRAM STAIN [id number] [place], [place] [id number] STAIN RESULTLab Director: Bernard Trevino PhD, Phone: [phone] (Source)Anatomical Location / LateralityCollection Method / VolumeCollection TimeReceived Time 10/11/2025 11:28 AM EST10/11/2025 2:16 PM EST Narrative [facility] - 10/24/2025 4:09 PM EST Authorizing ProviderResult TypeResult StatusGeneric External Data ProviderLAB BLOOD ORDERABLESFinal ResultPerforming OrganizationAddJefferson Healthty/[facility] Code Phone Number [facility] * ACID FAST SMEAR (10/11/2025 11:28 AM EST)ComponentValueRef RangeTest Method Analysis TimePerformed AtPathologist SignatureACID FAST SMEAR ??Acid Fast Smear ?Negative TBHSpecimen (Source)Anatomical Location / LateralityCollection Method / Volume Collection TimeReceived Time10/11/2025 11:28 AM EST10/11/2025 2:16 PM EST Narrative [facility] - 10/12/2025 11:08 AM EST Authorizing ProviderResult TypeResult StatusGeneric External Data ProviderLAB BLOOD ORDERABLESFinal ResultPerforming OrganizationAddressCity/State/ZIP Code Phone Number [facility] * AFB SPECIMEN PROCESSING (10/11/2025 11:28 AM EST)ComponentValueRef RangeTest MethodAnalysis TimePerformed AtPathologist SignatureAFB SPECIMEN PROCESSING ??AFB Specimen Processing TBHAFB SPECIMEN PROCESSINGTissue GrindingTBHSpecimen (Source)Anatomical Location / LateralityCollection Method / VolumeCollection TimeReceived Time10/11/2025 11:28 AM EST10/11/2025 2:16 PM EST Narrative [facility]OK - 10/12/2025 11:08 AM EST Authorizing ProviderResult TypeResult StatusGeneric External Data ProviderLAB BLOOD ORDERABLESFinal ResultPerforming OrganizationAddressCity/State/ZIP Code Phone Number [facility] documented in this encounter Visit Diagnoses Not on filedocumented in this encounter Care Teams Team MemberRelationshipSpecialtyStart DateEnd Date Karolina Chamberlain, DO [address] [facility] [address] [place] [address] PCP - [facility]04/15/23 Karolina Chamberlain, DO [address] [place] [address] PCP - [facility]/documented as of this encounter
--- OUTSIDE RECORDS SUMMARY | 2025-10-26 10:06 | XMS_ITS | Clinical Summary ---
Author Organization [facility] Address [address] [facility], [address] [place] [address] Care Team Providers Care Fuel Efficient Automobile Designer Name Role Phone Karolina Chamberlain Aneesh MELVIN Primary Care Provider [phone]- [phone] Allergies Active AllergyReactionsCriticalityNoted DateCommentsAzithromycinHives,Itching 01/11/2021 Medications MedicationSigDispense [...] tablet 01/18/2021ctive Active Problems ProblemNoted DateDiagnosed DateModerate pirenzhwuukq81/26/2021arotid stenosis, asymptomatic, unspecified vpzijrhjmw41/22/2021cute kidney ertpac6401/13/2021 Ischemic toe01/11/2021Tobacco abuse01/11/2021Obesity (BMI 30-39.9)01/11/2021 Peripheral vascular nzfygqa9801/11/2021Gangrene of toe01/11/2021ssential hypertensionOther hyperlipidemiaCRP elevatedDisorientation Family History Medical HistoryRelationNameCommentsDiabetesBrotherDiabetesMotherDiabetesSister DianeKidney DiseaseSisterDianeRelationNameStatusCommentsBrotherAliveMother DeceasedSisterDianeAlive Social History Tobacco UseTypesPacks/DayYears UsedDateSmoking Tobacco: NeverSmokeless Tobacco: NeverCommentsUnknownSex and Gender InformationValueDate RecordedSex Assigned at BirthNot on fileLegal CyeEurfgu93/17/2021 8:03 PM ESTGender Identity Not on fileSexual OrientationNot on file Last Filed Vital Signs Vital SignReadingTime TakenCommentsBlood Wynwmbhg672/3802 9:18 PM EST Egrhz632201/19/2021 9:18 PM GKBQjejiljdosd84.6 ??C (97.8 ??F)02/05/2021 3:01 PM EDTRespiratory Djea258902/05/2021 3:01 PM EDTOxygen Ywyhshexyi04%01/19/2021 9:18 PM ESTInhaled Oxygen Concentration--Wgyydx790.6 kg (224 lb)02/05/2021 3:01 PM GJLKhegye247.1 cm (5' 5 )02/05/2021 3:01 PM EDTBody Mass Index37.28002/05/2021 3:01 PM EDT Plan of Treatment Not on file Medical Devices ImplantedTypeAreaManufacturerDevice IdentifierShelf Expiration DateModel / Serial / LotPatch Vasc W0.8xl8cm Periph Bov Pericard N Pvc N Dehp Crss - [id number] Implanted:Qty: 1 on 01/16/2021 by [facility]: Dashawn BIOSURGERY-WD09/13/[id number] / [id number] / [id number]:VERIFIED X2 Frank PATTON RN, Rafita PARKS BRIM SETTER Insurance Advance Directives * Full Code (Latest Code Status on File) Date ActivatedDate InactivatedComments01/11/2021 2:24 AM01/20/2021 1:22 AM NameRelationshipHealthcare Agent RelationshipCommunicationDiana MaschariOther Primary Decision Maker* Care Teams Team MemberRelationshipSpecialtyStart DateEnd Date Karolina Chamberlain DO [address] [place] [address] PCP - GeneralFamily Medicine01/11/21
--- OUTSIDE RECORDS SUMMARY | 2025-10-26 10:06 | XMS_ITS | Encounter Summary ---
Author Organization [facility] Address [address] [place] [address] Care Team Providers Care Quality Analyst/Technical Writer Name Role Phone BulmaroAlejandroKarolina M DO Primary Care Provider [phone] Bulmaro Karolina Aneesh DO Unavailable [phone] Encounter Details DateTypeDepartmentCare Team (Latest Contact Info)Jxjjywjtpth45/19/2025Clinisync Result Encounter [facility] External Department Unsolicited Provider, [...] care, and heating?Somewhat hard07/30/2023HQ-2AnswerDate RecordedPatient Health Questionnaire-2 Xoyit000Exercise Vital SignAnswerDate RecordedOn average, how many days [...] InformationValueDate RecordedSex Assigned at BirthNot on fileLegal HkhCvwmdy37/15/2023 6:45 PM EDTGender Identity Not on fileSexual OrientationNot on filedocumented as of this encounter Plan of Treatment DateTypeDepartmentCare Team (Latest Contact Info)Jelqarlvnkj90/09/2025 2:30 PM ESTOffice Visit N[facility] [place] [facility] [address] [place] [address] Karolina Chamberlain, [address] [place] [address] documented as of this encounter Procedures Procedure NamePriorityDate/TimeAssociated DiagnosisCommentsALL BASIC METABOLIC RQAXJPsztqzj76/19/2025 5:01 AM EST documented in this encounter Results * (ABNORMAL) ALL BASIC METABOLIC PANEL (10/12/2025 5:01 AM EST)ComponentValueRef RangeTest MethodAnalysis TimePerformed AtPathologist WndurslqvNPFXMV790493 - 145 mmol/LTBHPOTASSIUM5.03.5 - 5.1 mmol/RXKVAUUKDYFI160(H)98 - 107 mmol/LTBH CAR[place] LNDHENH07.121.0 - 32.0 mmol/LTBHANION GAP12.7KZYYONPXIU012(H)74 - 106 mg/dLTBHBLOOD UREA NZJRZGVM27.0(H)7.0 - 18.0 mg/dLTBHCREATININE2.40(H)0.55 - 1.02 mg/dLTBHTBH EGFR-AF NNGQOPXW69(L)>=60 mL/min/1.73m 2TBHTBH EGFR-NON AF AAVSGLMZ83(L)>=60 mL/min/1.73m 2TBHBUN CREATININE RATIO20.2PACSIMPDXS4.68.5 - 10.1 mg/dLTBHSpecimen (Source)Anatomical Location / LateralityCollection Method / VolumeCollection TimeReceived Time10/12/2025 5:01 AM EST10/12/2025 5:28 AM EST Narrative [facility] - 10/12/2025 5:50 AM EST Authorizing ProviderResult TypeResult StatusGeneric External Data Provider CLINISYNCFinal ResultPerforming OrganizationAddressCity/State/ZIP CodePhone Number [facility] documented in this encounter Visit Diagnoses Not on filedocumented in this encounter Care Teams Team MemberRelationshipSpecialtyStart DateEnd Date Karolina Chamberlain DO [address] [facility] [address] [place] [address] [facility] - [facility] Karolina Chamberlain, DO [address] [place] [address] PCP - [facility]/documented as of this encounter
--- OUTSIDE RECORDS SUMMARY | 2025-10-26 10:06 | XMS_ITS | Clinical Summary ---
Author Organization [facility] Address [address] [place] [address] Phone Care Team Providers Care Congressional Representative Name Role Phone Unavailable Primary Care Provider Unavailabl e Social History Tobacco UseTypesPacks/DayYears UsedDateSmoking Tobacco: Never Assessed CommentsUnknownSex and Gender InformationValueDate RecordedSex Assigned at Not on fileLegal VapFaeckh83/26/2022 4:57 AM ESTGender IdentityNot on fileSexual OrientationNot on file Plan of Treatment Not on file
--- OUTSIDE RECORDS SUMMARY | 2025-10-26 10:06 | XMS_ITS | Encounter Summary ---
Author Organization [facility] Address [address] [place] [address] Care Team Providers Care Fuel Cell Test Engineer Name Role Phone Karolina Chamberlain DO Primary Care Provider [phone]- [phone] Karolina Chamberlain DO Unavailable [phone] Reason for Visit * ReasonCommentsMed Refill Encounter Details DateTypeDepartmentCare Team (Latest Contact Info)Jmaykkuheaf38/15/2025Refill [facility] [address] [facility] [address] [place] [address] Karolina Chamberlain, DO [address] [facility] [address] [place] [address] Candidiasis Social History Tobacco UseTypesPacks/DayYears UsedDateSmoking Tobacco: [...] care, and heating?Somewhat hard07/30/2023HQ-2AnswerDate RecordedPatient Health Questionnaire-2 Asdih929Exercise Vital SignAnswerDate RecordedOn average, how many days [...] steady place to sleep or slept in [place] (including now)?No 07/30/2023CommentsUnknownSex and Gender InformationValueDate RecordedSex Assigned at BirthNot on fileLegal ZnyUugnqr27/15/2023 6:45 PM EDTGender Identity Not on fileSexual OrientationNot on filedocumented as of this encounter Plan of Treatment DateTypeDepartmentCare Team (Latest Contact Info)Aiqmtcwdulu61/09/2025 2:30 PM ESTOffice Visit [facility] [place] [facility] [address] [place] [address] Karolina Chamberlain DO [address] [place] [address] documented as of this encounter Visit Diagnoses Diagnosis Candidiasis documented in this encounter Care Teams Team MemberRelationshipSpecialtyStart DateEnd Date Karolina Chamberlain DO [address] [place] [address] PCP - GeneralFamily Medicine04/15/23 Karolina Chamberlain DO [address] [place] [address] [facility] - 11/24/2511documented as of this encounter
== END 2025-10-26 10:04 | disposition home or self-care (01) ==
LOC: WC 10:03
PROVIDERS: PCP Family Medicine; Visit Provider Podiatrist Foot & Ankle Surgery
DX: E11.621 Type 2 diabetes mellitus with foot ulcer (principal); L97.414 Non-pressure chronic ulcer of right heel and midfoot with necrosis of bone; L97.422 Non-pressure chronic ulcer of left heel and midfoot with fat layer exposed
CPT/HCPCS: 29515

== ENCOUNTER 2025-11-14 15:46 | Outpatient (OUT) | payer MEDICARE, MEDICAID, SELFPAY ==
--- OUTSIDE RECORDS SUMMARY | 2025-11-09 09:16 | XMS_ITS | Continuity of Care Document ---
Author Organization [facility] Address [address] [place] [address] Phone Care Team Providers Care Analog Ic Design Architect Name Role Phone Karolina Chamberlain DO Primary Care Provider Lyly Schaefer MD Attending Provider Denia Santa ANALYST BUSINESS ANALYSIS-C Attending Provider Pavel Swift MD Attending Provider [phone] Pavel Swift MD Other Provider Adolfo Landaverde DPM Attending Provider [phone] Davy Calixto PA-C Emergency Provider NON STAFF Primary Care Provider Deana Barajas MD Emergency Provider Robin Whitaker MD Admit Provider [phone] Robin Whitaker MD Attending Provider Care Teams Patient Care Team Team [...] 27, 2025 End: September 27, 2025Denia Santa NP-Aubrey ProviderActiveStart: September 27, 2025 End: September 27, 2025 Visit Care Team Team Status: Inactive Member Role/Relationship Status Dates Karolinaaneudy Chamberlain DO Primary Care Provider Active Start: September 27, 2025 End: September 27, 2025Rolando Santana ProviderActiveStart: September 27, 2025 End: September 27, 2025 Visit Care Team Team Status: Inactive Member Role/Relationship Status Dates Karolina Chamberlain DO Primary Care Provider Active Start: September 28, 2025 End: September 28Jackelin Hummelending ProviderActiveStart: September 28, 2025 End: September 28, 2025 Visit Care Team Team Status: Active Member Role/Relationship Status Dates Karolina Chamberlain DO Primary Care Provider Active Start: September 29, 2025 Rolando Santana ProviderActiveStart: September 29, 2025 Salty Santana ProviderActiveStart: September 29, 2025 Visit Care Team Team Status: Inactive Member Role/Relationship Status Dates Adolfo Landaverde DPM MS Attending Provider Active Start: October 11, 2025 End: October 11, 2025 Visit Care Team Team Status: Inactive Member Role/Relationship Status Dates Davy Calixto PA-C Emergency Provider Active Start: October 31, 2025 End: October 31, 2025NON [facility]FFPr[facility] Care ProviderActiveStart: October 31, 2025 End: October 31, 2025 Visit Care Team Team Status: Inactive Member Role/Relationship Status Dates Deana Rodriguez MD Emergency Provider Active Start: November 04, 2025 End: November 09llJYOTSNA Bermudezribrooklyny Care ProviderActiveStart: November 04, 2025 End: November 09, 2025Robin Cifuentes Doramo , MDAdmit ProviderActiveStart: November 04, 2025 End: November 09, 2025Robin Motleyor , MDAttending ProviderActiveStart: November 04, 2025 End: November 09, 2025 Chief Complaint and Reason for Visit Chief Complaint Admit Date E21.3 E55.9 D50.9 N18.9 D63.1 I12.9 Octo 2024 11:39am DR. LANDAVERDE DOING SURG; MARY'S 9:30A N ovember 2024 9:13am L97.404 I73.9 I70.229 Z98.890 I77.9 Sepe mb2024 9:46am renal 3 month f/y September 28, 2025 3 :44pm PAD w/ Bilateral Foot Wounds September 6:49am Unknown October 11, 2025 11:31am N/V October 31, 2025 1 1:04am Ill November 04, 2025 3:34pm Reason for Visit Admit Date Current every day smoker September 27, 2 025 9:13am Diabetic ulcer of left foot September 9:13am Diabetic ulcer of right foot September 9:13am Diminished pulses in lower extremity Sep 9:13am Lower extremity edema September 27, 2025 9:13am PAD (peripheral artery disease) September 27, 2025 9:13am Anemia of renal disease September 28 3:44pm 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 This puts you at a higher risk for infection, illness, falls, and other injuries. Here are four ways to help you reduce your risk of frailty: 1. IDENTIFY EARLY SIGNS OF FRAILTY ??? Discuss contributing factors and concerns with your doctor 2. BE ACTIVE ??? Walking and light strengthening exercises will help reduce weakness 3. EAT WELL ??? Aim for three healthy meals a day that are high in protein 4. THINK POSITIVE ??? Keep your mind active by being sociable and continuing to learn References: Stay Strong: Four Ways to Beat the Frailty Risk https://www.[facility].org/health/durondlt-mka-nisubkcsfc/ggik-ljkpfu-kcdb- afzj-pq-dasr-the-fra ilty-risk Allergies, Adverse Reactions, Alerts Allergen Type Severity Reaction Last Updated Verified Status azithromycin Allergy Unknown Hives November 04, 2025 10:46am Yes Active Social History Smoking Status Status Start Date End Date Date of Observa tion Smokes tobacco daily (finding) November 04, 2025 11:30pm Observation Status Observation Response Date of Response Legal Sex Female (finding) Sex Assigned At BirthFemaleSeptember 1949 Social History Assessments Assessment Value Date Recorded SDOH Follow up November 09, 2025 2:03pmQuestionAnswerDate RecordedHas the SDOH screening changed since admission?NDe2024 2:03pm Assessment Value Date Recorded SDOH Follow up November 07, 2025 11:38amQuestionAnswerDate RecordedHas the SDOH screening changed since admission?[facility] 11:38am Family History Relationship Condition Age at Onset [...] radiculopathy October 06, 2020 8:02am Unknown Active Hypertensive emergency November 04, 2025 7:43pm Unkn own Active Current every day smoker September 27, [...] September 27, 2025 10: 41am Unknown Active Altered mental status November 04, 2025 7:43pm Unkno wn Active Acute blood loss anemia February 11, [...] claudication October 06, 2020 8:02am Unknown Active Inactive/Resolved Problems Problem Diagnosis/Recorded Date Onset Date Stat us Abdominal pain October 31, 2025 5:18pm Unknown Resolved Medications Medication Status Dose Units Route Directions Qty Days Refills S tart Date Stop Date End Date Reason(s) Instructions Adherence Hydralazine 50 mg tablet Discontinued 50 MG PO Tw ice daily 60 5Oct2024 2:29pm[facility] 2024 1:17pmFurosemide 40 mg tablet Discontinued0.ROUTE.QULXWKE433FytadkmpOctober 13, 2025 2:56pmDec[facility] 2024 12:38pmTAKE 1 TABLET BY MOUTH EVERY 12 HOURSLovastatin 40 mg tabletDiscontinued 40MGPODailyOctcarroll county memorial hospital 2016 11:00pmDec[facility] 2019 1:01pmLevothyroxine 75 mcg srtaidBbegbvwznoqv53ROAHWWfaofDmcxyzx 2016 11:00pm[facility] 2019 10:02pmParoxetine Hcl 20 mg chclkpLturfrybttow04GPHLUgwwcYkapwsv 2016 11:00pm[facility] 2019 12:21pmGlimepiride 4 mg yhfkgmPiukkvqyzruo0VGFAAtgbi August 27, 2017 11:00pm[facility] 2019 12:20pmHydrochlorothiazide 25 mg skgpluKyppodjmdext99XOZZAjzluExsvsra 4th, 2017 11:00pm[facility] 2019 12:43pm Oxybutynin Chloride 5 mg vmwxqqKnhmdtejkuuz2UDHULkbvs dailyOctober 2016 11:00pmFebanner desert medical center 2020 4:51pmincontinenceInsulin Glargine (Lantus Solostar) 100 unit/mL (3 mL) Insulin XvzGsotfskxrcqk67JVQVPKFOLDNMczwa at bedtimeOct2016 11:00pmDece2019 1:01pmFluticasone Furoate (Arnuity Ellipta) 100 mcg/actuation blister with deviceDiscontinuedOctcarroll county memorial hospital 2016 11:00pm September 26, 2020 12:05pmSucralfate (Carafate) 1 gram cykjabLruqunuezqzo7RYIF Four times fzwcw811936Qmffsqu 2016 11:00pmSeptember 24, 2017 11:00pm September 25, 2017 11:04pmadminister 1 hour before meals and at bedtime Sennosides-Docusate Sodium (Senna Laxative-Stool Softener) 8.6-50 mg tablet Caacgxkhfwvu5ZCLICBmafp as needed for snddtzkpgbgv896Khmiqhg 5th, 2017 11:00pm September 26, 2020 12:23pmOmeprazole Magnesium (Prilosec Otc) 20 mg tablet,delayed release (DR/EC)Knigfygwcinh26RXNFCoyxp45875Wkvpplg 2016 11:00pmOctober 09, 2017 12:00amNove2016 12:05amHydrocodone- Acetaminophen ([place]) 5-325 mg tabletDiscontinued1 - 2TABPOEVERY 4-6 HOURS as needed for elru223Vcvpmzb 5th, 2017 11:00pmSeptember 26, 2020 12:20pmOxycodone 5 mg ontilxRonacreuwydi52KPWKBRDNO 4-6 HOURS as needed for Pain Scale 1 - 5 October 30, 2020 10:02pmDecemb2019 10:18amCoenzyme Q10 (Coq-10) 100 mg TjwzanwNaisxqaxcgoh770FDVLZjxflNpjmxzmz 7th, 2020 12:00amDece2019 1:01pmLiraglutide (Victoza 3-Vijay) 0.6 mg/0.1 mL (18 mg/3 mL) pen injector Discontinued1.3FZRLZLEDSulyc3655Xqshgekj 8th, 2020 12:00amFebruary 2020 4:51pmInsulin Aspart U-100 (Novolog Flexpen U-100 Insulin) 100 unit/mL (3 mL) Insulin SseNoosduitevcq5TOLNVCBWSQB0C/Day with meals and bedtime Protocol: *If the [...] 400 mg/dl Dose/Route: 6 unit Instructions: Call Njmjakiy83Idxmuyav2019 12:00ambruary 2020 4:50pmPlease contact the information source for Protocol details.Oxycodone 5 mg wuhcqaGbniooqvkuvx67GZNLLEPFC 4-6 HOURS as needed for Pain Scale 1 - 85168 November 01br2020 4:51pmHerniation of lumbar intervertebral disc with radiculopathy Intervertebral disc disorders with radiculopathy, lumbar regionCyclobenzaprine 10 mg EhficyJcjizfgjsukp84NZUBQskwb 8 hours as needed for Muscle Khiqu50Irgdleco2019 12:00ambruary 2020 4:50pmSennosides-Docusate Sodium 8.6-50 mg FkbshnNztnintschzz7YBUMTYmjcc mlqln16Pyjjuqdh2019 12:00ambruary 2020 4:53pmRivaroxaban (Xarelto) 10 mg WoojijQexepiuughjp41VCWIXoiao with bgplcaqzu427Amotzkex 9th, 2020 12:00amFebruary 2020 4:52pmAtorvastatin (Lipitor) 40 mg bmtokaPhkyhv17VNHYAjrmn at vgvonad1519Ourgijwy 2019 12:00am Complies with drug therapyPotassium Chloride 20 mEq Tablet Extended Release Lmaqdkezojoy67PLXGHNiviyHyfyh 2020 11:00pmMay 2020 9:30amMetformin 500 mg CbfynmYzxipruvmeww726STQJJifid dailyMarch 2020 11:00pmJanuary 2022 12:34pmLevothyroxine 75 mcg QxerjdCehgfhgvfmfx28LPKFALrwfi morningMarch 2020 11:00pmy 2024 3:05pmthyroidFerrous Sulfate 325 mg (65 mg iron) MpnalzMwzlefjgfpxm656ZYXPXlipf as needed for anemiaMarch 2020 11:00pmMay 2024 3:07pmOxycodone 10 mg QzcifnRncaukjxrrlq21AVQSM6C as needed for PainMarch 2020 11:00pmMay 2020 9:32amCephalexin 500 mg iohfxltEhulpvbnrdau588PSAAR3U9834Yrwte 2020 11:00pmMay 2020 9:28am Urinary tract infection Urinary tract infection, site not specifiedOxycodone 5 mg NaiavnFdwxplwdfjhv2LT POQ8H as needed for Rlho12201Sqbfe 2020Ma2020 9:32amNon-healing open wound of heel Unspecified open wound, unspecified foot, initial encounterFerrous Sulfate 325 mg (65 mg iron) nuhzduDpwhpzarycvy038NNWVSNWZQ 3 WEEKSMa2024 3:02pm July 05, 2025 3:53pmanemiaGabapentin 300 mg srgnamiDuineo311PVRZFuexs daily August 15, 2022 11:00pmComplies with drug therapyIrbesartan (Avapro) 75 mg mdgzhbRmydwubnlfqd885RVMKPeeak morningSeptember 2021 11:00pmDecember 2024 11:19amFurosemide 20 mg gunngxAsvsmnkoazsd22IYVIPbhdh morningSeptember 2021 11:00pmMay 2024 3:31pmMontelukast 10 mg fucwsiDlmmteednoti58HH PODailySeptember 2021 11:00pmJanuary 2022 10:19amInsulin Glargine (Lantus Solostar U-100 Insulin) 100 unit/mL (3 mL) insulin gbhUtanfaaeceqe72SDUA SUBCUTEvery morningSeptember 2021 11:00pmMay 2024 3:07pmMirabegron (Myrbetriq) 25 mg tablet extended release 24 vuNnvbegulbhwz13WKHQEcpqo daily August 15, 2022 11:00pmMay 2024 3:05pmOxycodone-Acetaminophen (Percocet) 5-325 mg caubzpIakjpdyybenh3ZSKSNQ7Q as needed for rmlz5475Tfnlojadc 2021January 2022 10:19amEncounter for examination following surgery Insulin Glargine (Lantus Solostar U-100 Insulin) 100 unit/mL (3 mL) insulin pen Ykyrnczxcrad57REDQYKNSPIBzbfp morningMay 2024 3:04pmAugust 2024 3:18pmInsulin Glargine (Lantus Solostar U-100 Insulin) 100 unit/mL (3 mL) insulin vymApweifyidueh91PFLEKFYZNJLffhg morningAugust 2024 3:18pmNovember 2024 3:49pmInsulin Glargine (Lantus Solostar U-100 Insulin) 100 unit/mL (3 mL) insulin oevLlykam43UNSWTEICXVMjhhh morningNovember 2024 3:48pmComplies with drug therapyNystatin 100,000 unit/gram xbpssYhpwsomvrdll2IYOVDNOJMWNUMPrhic dailyJanuary 2022 12:00amDecember 2024 11:19amyeastMultivitamin ClebmhRnpsuzmejnkf6DGYEYHmosx morningJanuary 2022 12:00amNovember 2024 3:48pmElderberry Fruit (Elderberry) 200 mg QjklikaAzulquxadwar868FFAWVwbcb morningJanuary , 2023 12:00amMay 2024 3:02pmOxycodone-Acetaminophen (Percocet) 5-325 mg svnkshXkoelnzusbsd7GLLMOE6D as needed for lrwz2748Rmzlnoy2024 3: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 Cyclobenzaprine 10 mg ucvgcfOtnrisnnxhgs06IIEDFfqsz at bedtimeSeptember 26, 2020 12:002019 10:01pmAscorbic Acid (Vitamin C) (Vitamin C) 1,000 mg ZxkajxWzzsxosxbdbh5840TWEYDgzmqZxezvfhq 3rd, 2020 12:002019 1:01pmOmeprazole 40 mg capsule,delayed release(DR/EC)Sweqlihbzzlg69THANGljxv September 26, 2020 12:00[facility] 2020 4:58pmAspirin (Everardo Low Dose Aspirin) 81 mg Tablet,Delayed Release (Dr/Ec)Yikuoimugsdw99ZCUFKxptmFuyiaxvi 3rd, 2020 12:00Feb[facility] 2020 4:57pmTramadol 50 mg drnuovJcygostqyslh117 MGPODaily at bedtimeSeptember 26, 2020 12:002019 10:02pmFerrous Sulfate (Iron) 325 mg (65 mg iron) ObbzywGryvbcqxpdce002DRLT7 Times a week September 26, 2020 12:00[facility]2020 4:50pmDocusate Sodium (Col-Rite) 100 mg MxcxqofZfiawjzmedxc725GIZX3 Times a weekSeptember 26, 2020 12:00am November 01, 2020 1:01pmFurosemide 20 mg NvrodqGeaujeejrivw20WRELGmqdcRiieztvn 3rd, 2020 12:002019 1:01pmPregabalin (Lyrica) 75 mg Capsule Mwnpqxysemes48SPNRYbzfs as needed for PainSeptember 26, 2020 12:002019 10:03pmElderberry Fruit And Flower 460-115 mg XlksqekSkysthcpgyib8CWJ PODailyNove2019 12:002019 1:01pmDiazepam 5 mg Tablet Hhzhtceujpeh8EKPUIdfd times daily as needed for Muscle Wgiak75840Exbblxrx 2019 12:00amDecehonorhealth [facility] 2019 1: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 Spinal stenosis, lumbar region with neurogenic claudication Intervertebral disc disorders with radiculopathy, lumbar regionevery 8 hrs Oxycodone 5 mg FmamaiWotwqziqxthh0XHIOHTFRQ 4-6 HOURS as needed for Pain Scale 1 - 912977Beyvgray 2019De2019 10:03pmSpinal stenosis of lumbar region with neurogenic 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 Spinal stenosis, lumbar region with neurogenic claudication Intervertebral disc disorders with radiculopathy, lumbar regionOndansetron Hcl (Zofran) 4 mg ZoecjnLwkysyixyaia4EUDBW5L as needed for NauseaFebruary 2020 12:00amJanuary 2022 10:19amPotassium Chloride (Klor-Con 10) 10 mEq Tablet Extended YalcoloTjfdbbkagcoz20YXORMVxpbgRodbkkkw 2020 12:00amMarch 2020 2:31pmDuloxetine 30 mg capsule,delayed release(DR/EC)Ivqwhlhtlrnr01XRUS Every morningFebruary 2020 12:00amMay 2024 3:07pmAspirin 81 mg Tablet,DbatdfpnFdalgx95GYZHFivzq morningFebruary 2020 12:00amComplies with drug therapyDuloxetine 30 mg capsule,delayed release(DR/EC)Otmflztjedad37MZDU Every morningMay 2024 3:02pmDecember 2024 11:18amCyclobenzaprine 10 mg TswdvrSfuxnkzcwuyo18DYEABxvomnpYaajf 2020 12:00amMay 2020 9:28am Oxycodone 5 mg AfgvxbYykgpblthdrt7NIHKTxrmc 6 hours as needed for PainMarch 2020 12:00amMay 2020 9:32am5 to 10 mg Q6hrs PRN painRivaroxaban 2.5 mg TabletDiscontinued2.5MGPOTwice dailyMarch 2020 12:00amMa2020 9:34am Clindamycin Hcl 150 mg bnmhnvdLdqfknvcrptc394HBUFI1L0165Veuty 2020 12:00am February 08, 2021 2:27pmTrazodone 50 mg zcwbwbGoqvvzkkydwp117LRHBJjtjp at bedtime April 16, 2021 11:00pmSeptember 2021 10:45amsleepCarvedilol 12.5 mg Tablet Wrzlcauzabdu30.5MGPOTwice dailyMay 2020 11:00pmSeptember 2021 10:39amRivaroxaban (Xarelto) 2.5 mg tabletActive2.5MGPOTwice dailyMay 2020 11:00pmComplies with drug therapyGabapentin 100 mg xxuxajqKlskbqmgpxae942MRGX Every morningMay 2020 11:00pmDecember 2024 11:18amMirabegron (Myrbetriq) 25 mg tablet extended release 24 qaNxshptkkbwow04TAHSYwidcDkc 2020 11:00pmSeptember 2021 10:46amCyclobenzaprine 10 mg tabletDiscontinued 10MGPODaily as needed for SpasmsMay 2020 11:00pmMay 2024 3:02pm Hydrocodone-Acetaminophen 5-325 mg zmdesoXuaksodqqrnr9AAOSKQ7Q as needed for jqnu0876Ilg 28th, 2020May 2024 3:06pmPostoperative pain Other acute postprocedural painOxycodone 5 mg usneeenMpemnaljshzn8LQDWT7S as needed for vfud8164Lnh , eptember 2021 10:43amPostoperative pain Other acute postprocedural painCephalexin 500 mg ctbrftdHgelvrtaphqu274VAZAQlop times cxfhb43907Wvtnmtmk 2024 12:00amDecember 2024 1:17pmHydrocodone- Acetaminophen 5-325 mg wpwwtvGcgxpgbkmtew8HFNAVWfgnu 6 hours as needed for pain 1030cember 2024Decemb2024 1:17pmAbdominal pain Unspecified abdominal painAmlodipine 5 mg xgfgzgFnlgqbjnifdc0YXSXVzngzRfplppid 2024 12:00ams[facility]20[facility] 1:17pmLevothyroxine 75 mcg prfcajKdjgwx16 MCGPODaily at 06302024 12:00amComplies with drug therapy Irbesartan 150 mg mhwzalDqhaipwdhwmu831TVWBMbkezFcltpaoj 2024 12:00am November 04, 2025 11:20amDuloxetine 60 mg capsule,delayed release(DR/EC)Active 60MGPODailyDecopper springs [facility] 2024 12:00amComplies with drug therapyDapagliflozin Propanediol (Farxiga) 10 mg nkerqmMbsfgf16DGGTVbnhcRofbwlsy 2024 12:00am Complies with drug therapySemaglutide (Ozempic) 1 mg/dose (4 mg/3 mL) pen dxahfffjRzerva8AYDVYGROacsut 2024 12:00amComplies with drug therapyFurosemide 40 mg kbopgmMelrgl72ZBLCEixnjGnfvptoq 2024 12:00amdaily on discharge from [facility] 10/13/25Complies with drug therapyIrbesartan 150 mg tablet Pxxafspdjwon732MFXSEfwmzHivqdzhf 12th, 2025 12:00[facility]2024 1:17pmOn Hold: held on d/c 10/13/25 from [facility] d/t ALFREDO and hyperkalemiaValsartan 160 mg IrgcsxZsppqr220ZILNCefdp18Ygkyudxy 17th, 2025 12:00amUnknownHydralazine 50 mg vycqkgWgqeah423ASVMDmlzb times ctxph024Shgkjglk 17th, 2025 1:12pmComplies with drug therapyAmlodipine 10 mg DowdchQsricn02QFKWNdyqe35Xgyovtsr 2024 12:00amUnknownHydrocodone-Acetaminophen 5-325 mg wvqowbUuazwx0YXFIFS3Y as needed for xvkm864Eznmuwid bdominal pain Unspecified abdominal painUnknownAcetaminophen 325 mg hmptvudCmywff371UETXAyrgw 6 hours as needed for painMay 2024 11:00pmComplies with drug therapy Semaglutide (Ozempic) 0.25 mg or 0.5 mg (2 mg/3 mL) pen injectorDiscontinued0.5 MGSUBCUTevery weekApril 11, 2025 11:00pmNov2024 3:49pmLevothyroxine 75 mcg jdwqxfpGmuywuudsaxz71UKXBLVpwdjSdj 19th, 2025 11:00pmDecember 2024 11:19amFurosemide 20 mg zlpssjFatvtnsdvloa16WLHURujdu 12 hoursApril 12, 2025 3:29pmAugust 2024 3:52pmHydralazine 25 mg pnavjvBxrbjmhxfkpe35ANUDOvjaq bfgfd514DmcApril 11, 2025 11:00pmAugust 2024 3:50pmSemaglutide (Ozempic) 0.25 mg or 0.5 mg (2 mg/3 mL) pen ysxlxrhpObngdmdvszmz9REWHECWEotdbx 2024 3:49pmDecember 2024 11:19amHydralazine 50 mg tabletDiscontinued 50MGPOTwice ocfqo531Gmnwwb2024 3:49pmOctober 2024 2:30pmFurosemide 20 mg acorcgInnxdalgstam39WQIATooxs 12 hoursAugus2024 3:52pmAugust 2024 3:52pmFurosemide 40 mg whsitoYvxohiqujiny55MPLBFlnqm 12 udgnu588Vqkqfb2024 3:52pmNov2024 2:59pmFerrous Sulfate 325 mg (65 mg iron) zimsbhTzkhtqmhjuzd365HTYZPhiduWhlfad 2024 3:53pmDecember 2024 11:21amanemiaCholecalciferol (Vitamin D3) 50 mcg (2,000 unit) pucaidfMnqpqc18PXO SHUsory512Bmhfxs 2024 11:00pmComplies with drug therapy Immunizations Immunization Event Date Not Given Reason Dose Number Watch Assembly Inspector Lot Number Reason(s) Given Vaccine Information Statement (VIS) Detail Administration Location COVID-19 Ad26.COV2.S ([place]) March 02, 2021 COVID-19 mRNA-1273 (Moderna)September 15, 2021 Medical Equipment Device Date Implanted Device Details BIOVANCE AMNIOTIC 2X2CM August 16, 2022 INTERFYL MATRIX 50MG PARTICULASeptember IOVANCE AMNIOTIC 9D8BKEhnwwos 2022INTERFYL MATRIX 100MG PARTICULJanuary 2022Multiple peripheral artery stent, bare-metalMarch 2020UDI: [id number] Issuing Agency: [facility] Device Id: [id number] Expiration Date: 2023-09-30 Serial Number: [id number] artery stent, bare-metalNovember 2024 VITOR: [id number] Issuing Agency: [facility] Device Id: [id number] Expiration Date: 2027-07-24 Lot Number: [id number] peripheral artery stent, bare-metalNovember 2024UDI: [id number] Issuing Agency: [facility] Device Id: [id number] Expiration Date: 2026-08-23 Lot Number: [id number] Procedures Procedure Date Performed Status US ankle/arm indices September 27, 2025 9:47am c ompleted CT abdomen pelvis wo con October 31, 2025 1:41 pm completed Urine Culture October 31, [address] head/brain wo con November 04, 2025 11:08am completed XR chest 2V* November 04, 2025 11:08am comp leted Blood Culture November 04, 2025 completed Blood Culture November 04, 2025 completed Relevant Diagnostic Tests and/or Laboratory Data Laboratory Results Test Collection Date/Time Result Date/Time Result Interpretation Reference Range Result Comment Performing Site Corrected White Blood Count September 19, 2025 11:01am September 19, 2025 11:58am 8.0 10*3[facility]L [facility] [id number] [facility] 43116Txdonltcd White Blood CountDecember 2024 12:06pmDecember 2024 12:44pm6.4 10*3/uL3.8-11.[address] [place] [address] Ctr [id number] [address] [facility] 82377Ahbvyhjav White Blood CountDecember 2024 3:48amDecember 2024 4:35am7.2 10*3/uL3.8-11.[address] [place] [address] Ctr [id number] [address] [facility] 56380Nfmxepyouvf WBC CountDecember 2024 12:06pmDecember 2024 12:44pm6.4 10*3/uL3.8-11.[address] [place] [address] Ctr [id number] [address] [facility] 00886Tkywwcfxxec WBC CountDecember 2024 3:48amDecember 2024 4:35am7.2 10*3/uL3.8-11.6F[facility] [id number] [address] [place] [address] 85950Wmp Blood CountOctober 2024 11:01amOctober 2024 11:58am3.99 10*6/uL3.60-5.00[facility] [id number] [address] [place] [address] 06679Zuj Blood CountDecember 2024 12:06pmDecember 2024 12:44pm4.09 10*6/uL3.60-5.00[facility] [id number] [address] [facility] 49599Jwt Blood CountDecember 2024 3:48amDecember 2024 4:35am3.79 10*6/uL3.60-5.00[facility] [id number] [address] [place] [address] 02568CzuyqrmeeuFfzwljn 2024 11:01amOctober 2024 11:58am 11.7 g/dLBelow low ytkspi05.8-15.4F[facility] [id number] [address] [facility] 31205QajxsykdzyXwgwvpcd 2024 12:06pmDecember 2024 12:44pm 12.1 g/dL11.8-15.4F[facility] [id number] [address] [facility] 27894HnbfqrhjpkMnqnsdiy 2024 3:48amDecember 2024 4:35am 11.4 g/dLBelow low owjjbi25.8-15.4F[facility] [id number] [address] [facility] 13252TprupgnapbFfslavt 2024 11:01amOctober 2024 11:58am 34.8 %34.0-46.4F[facility] [id number] [address] [facility] 80127FwkuuhwhbsBtgwjnzw 2024 12:06pmDecember 2024 12:44pm 35.9 %34.0-46.4F[facility] [id number] [address] [facility] 45356UlywwxeyvbMadwddwg 2024 3:48amDecember 2024 4:35am 33.5 %Below low .0-46.4F[facility] [id number] [address] [facility] 26157Ygnz Corpuscular VolumeOctober 2024 11:01amOctober 2024 11:58am87.2 qI09-202Pdulurqfj[address] [place] [address] Ctr [id number] [address] [facility] 26665Sayy Corpuscular VolumeDecember 2024 12:06pmDecember 2024 12:44pm87.8 dJ36-055Wdagukshu[address] Ctr [id number] [address] [facility] 63436Sshh Corpuscular VolumeDecember 2024 3:48amDecember 2024 4:35am88.5 lA52-561Hralpimnu[address] Ctr [id number] [address] [facility] 09046Ghsx Corpuscular HemoglobinOctober 2024 11:01amOctober 2024 11:58am29.2 pg24.7-34.3F[facility] [id number] [address] [facility] 79130Mzkl Corpuscular HemoglobinDecember 2024 12:06pmDecember 2024 12:44pm29.6 pg24.7-34.3F[facility] [id number] [address] [facility] 24982Hleb Corpuscular HemoglobinDecember 2024 3:48amDecember 2024 4:35am30.0 pg24.7-34.3F[facility] [id number] [address] [facility] [id number] Corpuscular Hemoglobin ConcentOctober 2024 11:01am September 19, 2025 11:58am33.5 g/dL32.0-35.0[facility] [id number] [address] [place] [id number] Corpuscular Hemoglobin ConcentDecember 2024 12:06pm October 31, 2025 12:44pm33.7 g/dL32.0-35.0[facility] [id number] [address] [place] [id number] Corpuscular Hemoglobin ConcentDecember 2024 3:48am November 06, 2025 4:35am33.9 g/dL32.0-35.0[facility] [id number] [address] [place] [address] 82003Kdp Cell Distribution WidthOctober 2024 11:01amOctober 2024 11:58am14.3 %11.9-[facility].3[facility] [id number] [address] [facility] 72358Rwo Cell Distribution WidthDecember 2024 12:06pmDecember 2024 12:44pm14.1 %11.9-15.3[facility] [id number] [address] [facility] 22969Yvy Cell Distribution WidthDecember 2024 3:48amDecember 2024 4:35am14.6 %11.9-15.3[facility] [id number] [address] [facility] 84860Yacedrua CountOctober 2024 11:01amOctober 2024 11:40zl834 10*3/lV425-205DdtqflzslAultman Hospital Ctr [id number] [address] [place] [address] 22512Mzntwfmv CountDecember 2024 12:06pmDecember 2024 12:70dz415 10*3/aB721-322GnffvcbolAultman Hospital Ctr [id number] [address] [facility] 83329Ioqbhtua CountDecember 2024 3:48amDecember 2024 4:33oq669 10*3/xC114-344XchganvlvAultman Hospital Ctr [id number] [address] [place] [address] 52890Efbi Platelet VolumeOctober 2024 11:01amOctober 2024 11:58am9.6 fL6.3-10.7[facility] [id number] [address] [place] [address] 58761Rnzr Platelet VolumeDecember 2024 12:06pmDecember 2024 12:44pm10.1 fL6.3-10.7[facility] [id number] [address] [place] [address] 86411Wlpv Platelet VolumeDecember 2024 3:48amDecember 2024 4:35am10.3 fL6.3-10.7[facility] [id number] [address] [place] [address] 22445Wulbyjek Distribution WidthDecember 2024 12:06pmDecember 2024 1:24pm17.61 %0.00-20.00[facility] [id number] [address] [place] [address] 16177Onsziyqk Distribution WidthDecember 2024 10:53amDecember 2024 11:30am19.67 %0.00-20.00[facility] [id number] [address] [facility] [place] [address]Kvosrlszdbw (%) (Auto)October 31, 2025 12:06pmDecemb2024 1:24pm65.4 %.[facility] [id number] [facility] [facility] [place] [address]Sztbomtaoro (%) (Auto)November 06, 2025 3:48amDecember 2024 4:35am63.3 %.[facility] [id number] [address] [facility] [place] [address]Ekuqzqkiegs (%) (Auto)October 31, 2025 12:06pmDecemb2024 1:24pm27.6 %.[facility] [id number] [address] [facility] [place] [address]Ixmzfhzhdrm (%) (Auto)November 06, 2025 3:48amDecember 2024 4:35am24.0 %.[facility] [id number] [address] [facility] [place] [address]Uwywtxgqp (%) (Auto)October 31, 2025 12:06pmDecemb2024 1:24pm5.9 %.[facility] [id number] [address] [facility] [place] [address]Ntngnkywc (%) (Auto)November 06, 2025 3:48amDecember 2024 4:35am10.9 %.[facility] [id number] [address] [facility] [place] [address]Yfbzusfsile (%) (Auto)October 31, 2025 12:06pmDecemb2024 1:24pm0.5 %.[facility] [id number] [facility] [facility] [place] [address]Nuzrrmmyyxg (%) (Auto)November 06, 2025 3:48amDecember 2024 4:35am1.3 %.[facility] [id number] [address] [facility] [place] [address]Ctpylhgku (%) (Auto)October 31, 2025 12:06pmDece2024 1:24pm0.6 %.[facility] [id number] [address] [facility] 39821Trozfsyxn (%) (Auto)November 06, 2025 3:48amDece2024 4:35am0.5 %.[facility] [id number] [address] [facility] 09581Mhayxkehs RBC Relative Count (auto)October 31, 2025 12:06pm October 31, 2025 1:24pm0.1 /100{WBC}0-0.5[facility] [id number] [address] [facility] 99429Njttpihzn RBC Relative Count (auto)November 06, 2025 3:48am November 06, 2025 4:35am0.0 /100{WBC}0-0.5[facility] [id number] [address] [facility] 76548Tclnjoovvsv # (Auto)October 31, 2025 12:06pmDece2024 1:24pm4.2 10*3/uL1.8-7.7[facility] [id number] [address] [facility] 24263Icaxaznuzvv # (Auto)November 06, 2025 3:48amNovember 06, 2025 4:35am4.6 10*3/uL1.8-7.7[facility] [id number] [address] [facility] 84632Prcskazpfht # (Auto)October 31, 2025 12:06pmDece2024 1:24pm1.8 10*3/uL1.00-4.8[facility] [id number] [address] [facility] 23421Dleoxevfvas # (Auto)November 06, 2025 3:48amDece2024 4:35am1.7 10*3/uL1.00-4.8[facility] [id number] [address] [facility] 63377Tcnysipxg # (Auto)October 31, 2025 12:06pmDece5 1:24pm0.4 10*3/uL0.0-0.8[facility] [id number] [address] [facility] 74906Bxawcnczq # (Auto)November 06, 2025 3:48amDecember 2024 4:35am0.8 10*3/uL0.0-0.8[facility] [id number] [address] [facility] 34047Yvkplxswzik # (Auto)October 31, 2025 12:06pmDecemb2024 1:24pm0.0 10*3/uL0.0-0.45[facility] [id number] [address] [facility] 29753Akawusigkxt # (Auto)November 06, 2025 3:48amDecember 2024 4:35am0.1 10*3/uL0.0-0.45[facility] [id number] [address] [place], [place] [address]Basophils # (Auto)October 31, 2025 12:06pmDece2024 1:24pm0.0 10*3/uL0.0-0.2[facility] [id number] [address] [place] [address] 98300Olbonpkmz # (Auto)November 06, 2025 3:48amDecember 2024 4:35am0.0 10*3/uL0.0-0.2[facility] [id number] [address] [facility] 67080Nof Blood Cell MorphologyDe2024 12:06pmDece2024 1:24pmN/[facility] [id number] [address] [place] [address] 60486DkuxszxnyukuyTkwtofoz 8th, 2025 12:06pmDece2024 1:24pmSlightAultman Hospital Ctr [id number] [address] [place] [address] 69499GjnhsbhgxclxuyUkjxnydz 8th, 2025 12:06pmDece2024 1:24pmSSum[facility] [id number] [address] [facility] 85385HtxkhhpahflwWmzrexnh 8th, 2025 12:06pmDece2024 1:24pm SlightA[facility] [id number] [address] [facility] 27692ExcvaioblmvqUbroxrsk 8th, 2025 12:06pmDece2024 1:24pm [facility] [id number] [address] [facility] 30645AnopqlpzibBejhixby 8th, 2025 12:06pmDece2024 1:24pm [facility] [id number] [address] [facility] 13214Jtqfhyho EstimateDece2024 12:06pmDece2024 1:24pmNormalNormalA[facility]man Hospital [facility] [id number] [address] [place] [address] 61739Htlwnegf Morphology CommentOctober 31, 2025 12:06pmDece2024 1:24pmN/[facility]ireL[facility] [id number] [address] [place] [address] 70256Lwpty PlateletsOctober 31, 2025 12:06pmDece2024 1:24pmSSumma [facility] [id number] [address] [facility] 10690Dtssdbqcxcx TimeDece2024 1:27pmce2024 2:14pm13.6 sAbove high normal9.0-12.9A hematocrit value greater than 55% may lead to inaccurate results in coagulation testing. Patientshaving hematocrit values >55% require a special collection tube for coagulation studies. Please c ontact the laboratory at [phone] for redraw instructions.[facility] [id number] [address] [facility] 06210Wibvxcyhc Time International RatioNovember 05, 2025 1:27pm November 05, 2025 2:14pm1.2INR Therapeutic Range A) Pre- and Peroperative OAT started two weeks before surgery. NOT HIP SURGERY: 1.5 - 2.5 HIP SURGERY: 2 - 3B) Primary and secondary prevention of venous THROMBOSIS: 2 - 3C) Active venous thrombosis, pulmonary embolismand prevention of recurrent venous thrombosis: 2 - 3D) Prevention of arterial thromboembolismincluding patients with mechanical heart valves: 3 - 4.5[facility] [id number] [address] [place] [address] 45448Jhxztgosu Partial Thromboplast TimeDece2024 1:27pm November 05, 2025 2:14pm45.0 sAbove high rfbetj26.1-36.5A hematocrit value greater than 55% may lead to inaccurate results in coagulation testing. Patients having hematocrit values >55% require a special collection tube for coagulation studies. Please contact the laboratory at [phone] for redraw instructions. [facility] [id number] [address] [facility] 27658Noylf ColorDecember 2024 3:00pmDecember 2024 3:16pm YellowYelSelect [facility] [id number] [address] [place] [address] 69209Wbdwb ColorDecember 2024 2:28pmDecember 2024 2:42pm [facility] [id number] [address] [place] [address] 95232Veygx AppearanceDecember 2024 3:00pmDecember 2024 3:16pmClearCDelaware County Hospital [facility] [id number] [address] [place] [address] 14331Qnogd AppearanceDecember 2024 2:28pmDecember 2024 2:42pmClearCDelaware County Hospital [facility] [id number] [address] [place] [address] 51931Iudqg Specific GravityDecember 2024 3:00pmDecember 2024 3:16pm1.0171.001-1.030[facility] [id number] [address] [place] [address] 17509Vybuk Specific GravityDecember 2024 2:28pmDecember 2024 2:42pm1.0191.001-1.030[facility] [id number] [address] [place], [place] [address]y [place] [address]Ckapq pHDecember 2024 3:00pmDecemb2024 3:16pm5.5 5.0-9.0[facility] [id number] [address] [facility] 21396Ttyko pHDecember 2024 2:28pmDecemb2024 2:42pm5.5 5.0-9.0[facility] [id number] [address] [facility] 91071Uxvcc Leukocyte EsteraseDecember 2024 3:00pmDecemb2024 3:16pm3+Above high normalNegativeAultman Hospital [facility]tr [id number] [address] [facility] 11084Afrzw Leukocyte EsteraseDeceer 2024 2:28pmDecember 2024 2:42pmNegativeNegativeA[facility]c [facility] [id number] [address] [facility] 74128Okxcw NitriteDecemb2024 3:00pmDecemb2024 3:16pm PositiveAbove high normalNegativeAultman Hospital [facility] [id number] [address] [facility] 81702Rzkde NitriteDecember 2024 2:28pmDecember 2024 2:42pmNegativeNegativeA[facility]man [facility] [id number] [address] [facility] 89657Mxvda ProteinDecemb2024 3:00pmDecemb2024 3:16pm 100 mg/dLAbove high normalNegativeA[facility] [id number] [address] [facility] 86597Feqgm ProteinDecember 2024 2:28pmDecemb2024 2:59bp651 mg/dLAbove high normalNegativeA[facility] [id number] [address] [facility] 18983Fhbot Glucose (UA)October 31, 2025 3:00pmDece2024 3:16pmNormal mg/dLNormalA[facility] Hospital [facility] [id number] [address] [facility] 39266Gkbpn Glucose (UA)November 04, 2025 2:28pmDecemb2024 2:42pmNormal mg/dLNormalFirOur Lady of Mer[facility] [id number] [address] [facility] 54618Hpdic KetonesDecember 2024 3:00pmDecemb2024 3:16pm 1+Above high normalNegativeFirpelhams [facility] [id number] [address] [facility] 02266Sbjko KetonesDecember 2024 2:28pmDecemb2024 2:42pm1+Above high normalNegativeFirelands [facility] [id number] [address] [facility] 51966Veciz UrobilinogenDecemb2024 3:00pmDecemb2024 3:16pmNormal mg/dLNormalFirTrumbull [facility] [id number] [address] [facility] 27308Kpgwz UrobilinogenDecemb2024 2:28pmDecemb2024 2:42pmNormal mg/dLNormalFirpelhams [facility] [id number] [address] [facility] 50961Qwlit BilirubinDecemb2024 3:00pmDecemb2024 3:16pmNegativeNegativeFirpelhams [facility] [id number] [address] [facility] 44391Jokxn BilirubinDecember 2024 2:28pmDecember 2024 2:42pmNegativeNegativeFirpelhams [facility] [id number] [address] [facility] 77632Rqyoc Occult BloodDecember 2024 3:00pmDecemb2024 3:16pm1+Above high normalNegativeCarolinaeast [facility] [id number] [address] [facility] 73840Plsnb Occult BloodDecember 2024 2:28pmDecember 2024 2:42pmNegativeNegativeFirpelhams [facility] [id number] [address] [facility] 30026Owbom RBCDe2024 3:00pmDecemb2024 3:50rd3-2 [HPF]0-[facility] [id number] [address] [facility] [place] [address]Eqpyb RBCDecember 2024 2:28pmDecemb2024 2:50pm1- 2 [HPF]0-[facility] [id number] [address] [facility] [place] [address]Qiixh WBCDecember 2024 3:00pmDecemb2024 3:26pm20- 49 [HPF]Above high normal0-[address] [place] [address] Ctr [id number] [address] [facility] [place] [address]Tpjzd WBCDecember 2024 2:28pmDecemb2024 2:50pm1- 2 [HPF]0-[facility] [id number] [address] [facility] 06033Xaikn WBC Clumpsce2024 3:00pmDecemb2024 3:26pmFew [LPF]Above high normalNone [facility] [id number] [address] [facility] [place] [address]Tmxuf Squamous Epithelial CellsDeceer 2024 3:00pm October 31, 2025 3:12gn7-6 [HPF]Above high normal0-[address] [place] [address] Ctr [id number] [address] [facility] [place] [address]Tjryo Squamous Epithelial CellsDecember 2024 2:28pm November 04, 2025 2:10ov3-6 [HPF]0-[facility] [id number] [address] [facility] [place] [address]Lkicx BacteriaDecember 2024 3:00pmDecemb2024 3:26pm4+ [HPF]Above high normalNone [facility] [id number] [address] [facility] [place] [address]Yfppc BacteriaDecember 2024 2:28pmDecember 2024 2:50pmRare [HPF]None [facility] [id number] [address] [facility] [place] [address]Mzxkj Hyaline CastsDecember 2024 3:00pmDecember 2024 3:01qa7-8 [LPF]0-8[facility] [id number] [address] [facility] 50475Vmuhd Hyaline CastsDecember 2024 2:28pmDecember 2024 2:50pmNone [LPF]0-8[facility] [id number] [address] [facility] 54338Rwgjm MucusDecember 2024 3:00pmDecember 2024 3:26pm Rare [LPF][facility] [id number] [address] [facility] 76127Zzfah MucusDecember 2024 2:28pmDecember 2024 2:50pm Rare [LPF][facility] [id number] [address] [facility] 67473Ueplftx LevelOctober 2024 11:01amOctober 2024 12:44mq726 mg/dLAbove high jigucp18-238JWU recommended reference rangeRandom Glucose Reference Range is dependent on time and content of last meal. Glucose of more than 200 mg/dL in a nonstressed, ambulatory subject supports the diagnosisof Diabetes Mellitus.[facility] [id number] [address] [facility] 06277Lchumfr LevelDece2024 12:06pmDecember 2024 12:07nc248 mg/dLAbove high ifdbyd29-583TDJ recommended reference rangeRandom Glucose Reference Range is dependent on time and content of last meal. Glucose of more than 200 mg/dL in a nonstressed, ambulatory subject supports the diagnosisof Diabetes Mellitus.[facility] [id number] [address] [facility] 89379Kcplrcm LevelDecember 2024 3:48amDecember 2024 5:07am93 mg/gU32-468PDN recommended reference rangeRandom Glucose Reference Range is dependent on time and content of last meal. Glucose of more than 200 mg/dL in a nonstressed, ambulatory subject supports the diagnosisof Diabetes Mellitus.[facility] [id number] [address] [facility] 75238Cnmud Urea NitrogenOctober 2024 11:01amOctober 2024 12:33pm55 mg/dLAbove high normal06-17[facility] [id number] [address] [facility] 42052Wigtm Urea NitrogenDecember 2024 12:06pmDecember 2024 12:55pm24 mg/dL06-17[facility] [id number] [address] [facility] 98868Pepzt Urea NitrogenDecember 2024 3:48amDecember 2024 5:07am25 mg/dL06-17[facility] [id number] [address] [facility] 44578AiqdjrocrxOaqvqcu 2024 11:01amOctober 2024 12:33pm 2.66 mg/dLAbove high normal0.60-1.20[facility] [id number] [address] [facility] 97064KvrezcfftpLpbysfxq 2024 12:06pmDecember 2024 12:55pm 1.89 mg/dLAbove high normal0.60-1.20[facility] [id number] [address] [facility] 04332PitjjiycseCoicnuin 2024 3:48amDecember 2024 5:07am 1.97 mg/dLAbove high normal0.60-1.20[facility] [id number] [address] [facility] 94965Ahcdotzhr GFR (CKD-EPI)September 19, 2025 11:01amOctober 2024 12:33pm18.389 mL/MinAultman Hospital Ctr [id number] [address] [facility] 79177Cznkpmnup GFR (CKD-EPI)October 31, 2025 12:06pmDecember 2024 12:55pm27.711 mL/MinAultman Hospital Ctr [id number] [address] [facility] 38881Ltgugvham GFR (CKD-EPI)November 06, 2025 3:48amDecember 2024 5:07am26.367 mL/MinAultman Hospital [facility]tr [id number] [address] [facility] 70497Tokpbm LevelOctober 2024 11:01amOctober 2024 12:12qr081 mmol/Q173-243NtmlonknvAultman Hospital Ctr [id number] [address] [facility] 61618Qchgrx LevelDecember 2024 12:06pmDecember 2024 12:10ek796 mmol/L312-126FzhegnwalAultman Hospital Ctr [id number] [address] [facility] 66996Bddivi LevelDecember 2024 3:48amDecember 2024 5:06jh729 mmol/V178-229VlllkmvliAultman Hospital Ctr [id number] [address] [facility] 19437Rtaqzicvi LevelOctober 2024 11:01amOctober 2024 12:33pm4.9 mmol/L3.5-5.1[facility] [id number] [address] [place] [address] 19708Scgjnjcbs LevelDecember 2024 12:06pmDecember 2024 12:55pm4.3 mmol/L3.5-5.1F[facility] [id number] [address] [facility] 12460Xwhwcivpg LevelDecember 2024 3:48amDecember 2024 5:07am3.9 mmol/L3.5-5.1[facility] [id number] [address] [facility] 37815Bcpweaug LevelOctober 2024 11:01amOctober 2024 12:33pm99 mmol/E81-914VtklptoqdAultman Hospital Ctr [id number] [address] [facility] 66624Sfjskkqg LevelDecember 2024 12:06pmDecember 2024 12:23la970 mmol/O88-332UavliextzAultman Hospital Ctr [id number] [address] [facility] 90937Hzbmmjdf LevelDecember 2024 3:48amDecember 2024 5:32uw401 mmol/K28-258QeutyoqgpAultman Hospital Ctr [id number] [address] [facility] 53068Ohwoem Dioxide LevelOctober 2024 11:01amOctober 2024 12:33pm27.6 mmol/L21.0-31.0[facility] [id number] [address] [facility] 63185Jgqjda Dioxide LevelDecember 2024 12:06pmDecember 2024 12:55pm23.5 mmol/L21.0-31.0[facility] [id number] [address] [facility] 03988Ybvidq Dioxide LevelDecember 2024 3:48amDecember 2024 5:07am24.2 mmol/L21.0-31.0[facility] [id number] [address] [facility] 07072Nkjbs GapOctober 2024 11:01amOctober 2024 12:33pm 14.3 mEq/L6.0-15.0[facility] [id number] [address] [facility] 17763Bctmp GapDecember 2024 12:06pmDecember 2024 12:55pm 15.8 mEq/LAbove high normal6.0-15.0[facility] [id number] [address] [facility] 34297Sdige GapDecember 2024 3:48amDecember 2024 5:07am 11.7 mEq/L6.0-15.0[facility] [id number] [address] [facility] 54467Thqjtgy LevelOctober 2024 11:01amOctober 2024 12:33pm9.5 mg/dL8.6-10.3[facility] [id number] [address] [facility] 01532Jyhgzfc LevelDecember 2024 12:06pmDecember 2024 12:55pm9.1 mg/dL8.6-10.3[facility] [id number] [address] [facility] 04328Hularfh LevelDecember 2024 3:48amDecember 2024 5:07am8.8 mg/dL8.6-10.3[facility] [id number] [address] [facility] 35438Ajlargkapv LevelOctober 2024 11:01amOctober 2024 12:33pm4.7 mg/dLAbove high normal2.5-4.5F[facility] [id number] [address] [place] [address] 30204Lingccbks LevelOctober 2024 11:01amOctober 2024 12:33pm2.1 mg/dL1.9-2.7F[facility] [id number] [address] [place] [address] 15665Nungujylb LevelDecember 2024 3:48amDecember 2024 5:07am2.0 mg/dL1.9-2.7F[facility] [id number] [address] [place] [address] 45711Utrme ProteinDecember 2024 12:06pmDecember 2024 12:55pm7.2 g/dL6.4-8.9[facility] [id number] [address] [facility] 83690Ljvst ProteinDecember 2024 3:48amDecember 2024 5:07am6.1 g/dLBelow low normal6.4-8.9[facility] [id number] [address] [place] [address] 09880WlumembPfxcmbj 2024 11:01amOctober 2024 12:33pm4.0 g/dL3.5-5.7F[facility] [id number] [address] [place] [address] 06152SivjbiaAgcaeamw 2024 12:06pmDecember 2024 12:55pm3.8 g/dL3.5-5.7F[facility] [id number] [address] [facility] 28967VsmxrzlGxnadkjb 2024 3:48amDecember 2024 5:07am3.4 g/dLBelow low normal3.5-5.7F[facility] [id number] [address] [facility] 51895YfkoomfkUdztejwk 2024 12:06pmDecember 2024 12:55pm3.4 g/dLAultman Hospital Ctr [id number] [address] [facility] 85793KlhxjvdaGaqvmbsw 2024 3:48amDecember 2024 5:07am2.7 g/dLAultman Hospital Ctr [id number] [address] [facility] 85853Rkjawrc/Globulin RatioDecemb2024 12:06pmDecember 2024 12:55pm1.1F[facility] [id number] [address] [facility] 12598Yxaikqm/Globulin RatioDecember 2024 3:48amDecember 2024 5:07am1.3F[facility] [id number] [address] [facility] 62462Eadec BilirubinDecember 2024 12:06pmDecember 2024 12:55pm0.5 mg/dL0.3-1.0[facility] [id number] [address] [facility] 58518Eskmy BilirubinDecember 2024 3:48amDecember 2024 5:07am0.5 mg/dL0.3-1.0[facility] [id number] [address] [facility] 65764Eynczkgag Amino Transf (AST/SGOT)October 31, 2025 12:06pm October 31, 2025 12:55pm14 U/N33-71VllglnqbfAultman Hospital Ctr [id number] [address] [facility] 32685Ypavnwttk Amino Transf (AST/SGOT)November 06, 2025 3:48am November 06, 2025 5:07am25 U/Y87-92IbwvohhvvAultman Hospital Ctr [id number] [address] [facility] 36886Esgrcuk Aminotransferase (ALT/SGPT)October 31, 2025 12:06pm October 31, 2025 12:55pm6 U/LBelow low normal7-52[facility] [id number] [address] [place] [address] 69096Sqwyrhz Aminotransferase (ALT/SGPT)November 06, 2025 3:48am November 06, 2025 5:07am5 U/LBelow low normal7-52[facility] [id number] [address] [place] [address] 85175Gnoqaiaz PhosphataseDece2024 12:06pmDecemb2024 12:72lf370 U/LAbove high -560PldfxvpfbAultman Hospital Ctr [id number] [address] [place] [address] 47077Deehboov PhosphataseDecember 2024 3:48amDecember 2024 5:81el154 U/LAbove high upeoai72-279SnvvtgmxkAultman Hospital Ctr [id number] [address] [place] [address] 41432NpgqlnTqksfcyd 8th, 2025 12:06pmDece2024 2:08pm13.0 U/L11.0-82.0[facility] [id number] [address] [place] [address] 08822Utmdlg Acid LevelDeceer 2024 10:53amDecember 2024 11:35am1.3 mmol/L0.5-1.9Lactic Acid reference range has been updated to 0.5 ??? 1.9 mmol/L and the critical range of 2.0 [facility] [id number] [address] [place] [address] 46244Vras AcidOctober 2024 11:01amOctober 2024 12:33pm 8.8 mg/dLAbove high normal2.3-6.6F[facility] [id number] [address] [place] [address] 59207Wswk LevelOctober 2024 11:01amOctober 2024 12:33pm 87 ug/oJ42-837RqlapuesoAultman Hospital Ctr [id number] [address] [facility] 91803Nbzaa Iron Binding CapacityOctober 2024 11:01amOctober 2024 12:53yy968 ug/mI634-640NjxcornwwAultman Hospital Ctr [id number] [address] [facility] 25943Oqvj SaturationOctober 2024 11:01amOctober 2024 12:33pm24.6 %20-50[facility] [id number] [address] [facility] 66901JcwfgsqaoaoNbwfxeh 2024 11:01amOctober 2024 12:33pm 252 mg/tR621-373UzrhuqafmAultman Hospital Ctr [id number] [address] [facility] 13462Ssntjohi I High SensitivityDecember 2024 1:27pmDecember 2024 2:44pm49 ng/LAbove high normal0-15The Troponin units of report have been changed to meet the Chest Pain Accreditation requirement, element EC5.M1l2. Troponin units are changed from pg/ml to ng/L. Also, the decimal is removed and results are in whole numbers.[facility] [id number] [address] [facility] 50751Q-Jewa Natriuretic PeptideDeceer 2024 10:53amDecember 2024 11:53am77.0 pg/mL5-100[facility] [id number] [address] [facility] 91118Vqswhtwgwlz LevelDeceer 2024 1:27pmDecember 2024 2:39cm186 mg/iM506-493Ftdf less than 200 mg/dl low riskChol 201-239 mg/dl borderline riskChol 240 mg/dl and greater high riskAultman Hospital Ctr [id number] [address] [place] [id number] CholesterolDecember 2024 1:27pmDeceer 2024 2:01pm50 mg/hR99-05HQD CHOL ATP-III CLASSIFICATION Cardiovascular RiskHDL > or equal to 60 mg/dL LOWHDL < 40 mg/dL [facility] [id number] [address] [facility] [id number] LevelDecember 2024 1:27pmDecember 2024 2:34xo093 mg/dL0-149TRIG ATP III CLASSIFICATIONTRIG less than 150 mg/dL NormalTRIG 150-199 mg/dL Borderline highTRIG 200-500 mg/dL High TRIG greater than 500 mg/dL Very highStandard traceable to the Center for Disease Conrtrol and Prevention (CDC) test method.[facility] [id number] [address] [facility] [id number] Cholesterol, CalculatedDeceer 2024 1:27pmDecember 2024 2:01pm90 mg/dL0-100LDL ATP III CLASSIFICATIONLDL less than 100 mg/dL OptimalLDL 100-129 mg/dL Near or above kfkeweeQZZ554-064 mg/dL Borderline highLDL 160-189 mg/dL HighLDL greater than 189 mg/dL Very highAultman [facility] [id number] [facility] [id number] CholesterolDecember 2024 1:27pmDecember 2024 2:01pm24 mg/dLAultman Hospital [facility] [id number] [facility] 18074Oklmkwfjlzf/HDL RatioDeceer 2024 1:27pmDecember 2024 2:01pm3.3<5.0[facility] [id number] [address] [facility] 51552Mzvopke B12 LevelOctober 2024 11:01amOctober 2024 12:71mz639 pg/qT038-132WdmvlbkojAultman Hospital Ctr [id number] [facility] [facility] 54819CfpjzrOpekhsa 2024 11:01amOctober 2024 12:52pm12.9 ng/mL>5.9Folate reference range: >5.9 ng/mlThe WHO technical consultation on folate and vitamin c25oudlwihfpxox has determined that folate concentrations lessthan 4 ng/ml are considered deficient.[facility] [id number] [address] [facility] 28709Bnttras Stimulating Hormone 3rd GenDecember 2024 3:48am November 06, 2025 5:22am4.92 u[iU]/mL0.45-5.33[facility] [id number] [facility] [id number]-Horsdvo Vitamin D TotalOctober 2024 11:01amOctober 2024 12:56pm36.1 ng/eJ04-218YJEYUQH D STATUS 25(OH)VITAMIN D RANGE (ng/mL) Deficient <20 Insufficient 20 to <39Fpupdecqre13 to 100Reference: Kayla MF,Giuliano MOE, Stacia TINEO, et al. Evaluation,treatment, and prevention of vitamin D deficiency; an Endocrine Society clinical practice guideline. JCEM. 2010; 96(7):1911-30.[facility] [id number] [address] [facility] 64654Ucervzenoqr Hormone (Intact)September 19, 2025 11:01amOctober 2024 12:42ms025.3 pg/mLAbove high -39QkxmzxbfpAultman Hospital Ctr [id number] 1[address] [facility] 04850Jcgdoltu Creatinine Clearance (ChemOctober 2024 11:01am September 19, 2025 12:33pmN/[facility] [id number] 1[address] [facility] 68071Rlyffwqy Creatinine Clearance (ChemDecember 2024 12:06pm October 31, 2025 12:55pm33.34[facility] [id number] [address] [facility] 82337Xzxbqgbd Creatinine Clearance (ChemDecember 2024 3:48am November 06, 2025 5:07am31.05[facility] [id number] [address] [facility] 91576Bsmnyhrnbu N1dQmtiuldv 2024 1:27pmDecember 2024 12:45pm5.7 %Above high normal4.3-5.6Increased risk for diabetes: 5.7 - 6.4diabetes: >6.4glycemic control for adults with diabetes: <7.0[facility] [id number] [address] [facility] 80145Nwwjyrymg Average GlucoseDecember 2024 1:27pmDecember 2024 12:70ln165 mg/dLAultman Hospital Ctr [id number] 1[address] [facility] 35037Rlqed Random CreatinineOctober 2024 11:01amOctober 2024 12:37pm81.00 mg/dLNo reference range establishedAultman Hospital [facility] [id number] [address] [facility] 79788Quscd Random Total ProteinOctober 2024 11:01amOctober 2024 12:37pm19 mg/dLAbove high normal0-9[facility] [id number] [address] [facility] 46617Vzyeq Protein/Creatinine RatioOctober 2024 11:01amOctober 2024 12:30lf120 mg/g{Cre}Above high normal0-200[facility] [id number] [address] [facility] 12359Ccqtzxwj Blood pHDecember 2024 10:29amDecemb2024 10:31am7.427.35-7.45Point of Care testingArterial Blood Partial Pressure CO2 November 05, 2025 10:29amDecemb2024 10:31am29.7 mm[Hg]Below lower panic lxuayo31.0-45.0Point of Care testingArterial Blood Partial Pressure O2 November 05, 2025 10:29amDecemb2024 10:31am79.6 mm[Hg]Below low bcerwz59.0-100.0Point of Care testingArterial Blood QFK5Uodnoqcl2024 10:29amDecember 2024 10:31am19.0 mmol/LBelow low .0-29.0Point of Care testingArterial Blood Base ExcessDeceer 2024 10:29amDeceer 2024 10:31am-4.3 mmol/LBelow low normal-3.0-3.0Point of Care testingArterial Blood Oxygen SaturationDehonorhealth [facility] 2024 10:29amDece2024 10:31am 95.9 %95.0-100.0Point of Care testingArterial Blood Oxygen ContentDecopper springs east hospital 2024 10:29amDeceer 2024 10:31am7.5 mmol/L6.6-9.7Point of Care testing Arterial Blood Total CY5Zymrmoyk 2024 10:29amDesurgeons choice medical center2024 10:31am 19.9 mmol/LBelow low goyjqk81.0-27.0Point of Care rmyyvfuGlR1Zsxwfbbf 2024 10:29amDecopper springs east hospital 2024 10:31am21 %Point of Care testingBlood Gas Sample Sitehonorhealth [facility] 2024 10:29amDecehonorhealth deer valley medical center 2024 10:31amRight radialPoint of Care testingBlood Gas Critical ValueDunc health [facility]2024 10:29amsurgeons choice medical center2024 10:31amSee commentCritical Value called on: 11/05/2025 at 10:31Point of Care testingBedside Glucose2024 11:23amDece2024 11:31am 141 mg/dLRandom Glucose Reference Range is dependent on time and content of last meal. Glucose of more than 200 mg/dL in a nonstressed, ambulatory subject supports the diagnosis of Diabetes Mellitus.Point of Care testingBedside Glucose November 09, 2025 11:06amDece2024 11:83hb972 mg/dLRandom Glucose Reference Range is dependent on time and content of last meal. Glucose of more than 200 mg/dL in a nonstressed, ambulatory subject supports the diagnosis of Diabetes Mellitus.Point of Care testingBedside Glucose Comment2024 11:06amDece2024 11:06pwZvw5: cleaned meterPoint of Care testing Microbiology Results Procedure Source Result Collection Date/Time Result Date/Time Result Comment Performing Site Blood Culture Blood, Left Hand NO GROWTH 5 DAYS Decemb er 2024 12:14pm November 09, 2025 12:32pm [facility] [id number] [address] [place] [address] 36895Qbegt CultureBlood, Left WristNO GROWTH 5 DAYSDecember 2024 12:14pmDecember 2024 12:31pmAultman Hospital [facility] [id number] [address] [place] [address] 30559Vubwz CultureUrine, Clean-Voided MidstreamKlebsiella pneumoniae October 31, 2025 3:00pmDecember 2024 12:37pmAultman Hospital [facility] [id number] [address] [place] [address]99 Diagnostic Imaging Reports Author Zenaida Boothe [facility] HospitalReport Date/TimeDecember 2024 12:15pm [facility] [place] [address] [place] [address] XRay Report Signed Patient: Olivia Chopra MR#: [id number] : 1950 Acct:[id number] Age/Sex: 75 / F ADM Date: 5 Loc: ER Room: Type: [facility] ER Attending Dr: Copies to: Deana Rodriguez MD~ Ordering Provider: Deana Rodriguez MD Date of Service: 11/04/25 XR/XR chest 2V*: Abdominal Pain AP ERECT AND LATERAL CHEST: CLINICAL HISTORY: Confusion for the past week. Recent heel surgery, urinary tract infection and hypertension COMPARISON: 01/10/2021 There is shallow inspiration. There is no focal parenchymal consolidation, effusion or pneumothorax. The cardiac, hilar and mediastinal silhouettes are within normal limits. There is no vascular congestion. The visualized bony thorax is intact. End plate spurring is present at the spine. XR/XR chest 2V* IMPRESSION: NO ACUTE CARDIOPULMONARY ABNORMALITY. Impression dictated by: Zenaida Boothe M.D. 11/04/2025 12:15 PM Dictation Location: [place] [address] Transcribed By: JOSELYN 11/04/25 1215 Dictated By: Zenaida Boothe MD 11/04/25 1213 Signed By: <Electronically signed by MD Zenaida Boothe in OV> 11/04/25 1215 Author Zenaida Boothe [facility] HospitalReport Date/TimeDecember 2024 12:36pm [facility] [place] [address] [place] [address] CT Scan Report Signed Patient: Olivia Chopra MR#: [id number] : 1950 Acct:[id number] Age/Sex: 75 / F ADM Date: 5 Loc: ER Room: Type: [facility] ER Attending Dr: Copies to: Deana Rodriguez MD~ Ordering Provider: Deana Rodriguez MD Date of Service: 11/04/25 CT/CT head/brain wo con: ams CT BRAIN WITHOUT CONTRAST: CLINICAL HISTORY: Confusion for the past week. Hypertension. COMPARISON: MRI 04/01/2016 TECHNIQUE: Contiguous axial unenhanced images were obtained through the brain. This CT exam was performed using one or more following dose reduction techniques: Automated exposure control, adjustmentof the mA and/or kV accordingto patient size, or use of iterative reconstruction technique. FINDINGS: There is mild cortical atrophy. The ventricles are normal in size andposition. Mild whitematter hypodensity is present compatible with chronic microvascular disease. No suspected acute cortical infarct is identified. There is no hemorrhage, mass effect or extra-axial collections. The imaged paranasal sinuses and mastoid air cells are clear. There is carotid siphon and vertebral artery plaque. CT/CT head/brain wo con IMPRESSION: ATROPHY AND CHRONIC MICROVASCULAR CHANGES. NO ACUTE INTRACRANIAL ABNORMALITY. Impression dictated by: Zenaida Boothe M.D. 11/04/2025 12:36 PM Dictation Location: [place] [address] Transcribed By: [facility] 11/04/25 1236 Dictated By: Zenaida Boothe MD 11/04/25 1234 Signed By: <Electronically signed by MD Zenaida Boothe in OV> 11/04/25 1236 Vital Signs Vital Reading Result Reference Range Collection Date/Time Height 66 [in_i] September 27, 2025 10:25fgWxmacj605.00 kgNovember 4th, 2025 10:12amBody Gddrnwfxvkk94.2 [degF]97.6-99.0September 27, 2025 10:12amHeart Rate64 /xae99-360 September 27, 2025 10:12amRespiratory rate16 /hmo34-82DegfyvjbSeptember 27, 2025 10:12am Oxygen saturation by Pulse ckferdjs97 %95-100September 27, 2025 10:12amBP Eakkybhy921 mm[Hg]100-140September 27, 2025 10:12amBP Pjurzewre42 mm[Hg]60-100 September 27, 2025 10:12amBMI (Body Mass Index)37.7 kg/k5NaulealgSeptember 27, 2025 10:41uyIteqeh86 [in_i]September 28, 2025 3:45pmHeart Rate69 /spk28-274SsxcpinzSeptember 28, 2025 3:45pmRespiratory rate16 /glc30-99TsqktjlwSeptember 28, 2025 3:45pmOxygen saturation by Pulse phjbopsz220 %95-100September 28, 2025 3:45pmBP Wgussfhk942 mm[Hg]100-140September 28, 2025 3:45pmBP Zwjwdmkki15 mm[Hg]60-100September 28, 2025 3:71plNkmqir74 [in_i]September 29, 2025 7:55cvYdpoop534.13 kgNov2024 7:16amBody Dmrmojfutyx73.8 [degF]97.6-99.0September 29, 2025 10:20amHeart Rate70 /ssw38-396KxzzqzvsSeptember 29, 2025 1:50pmRespiratory rate17 /loa04-04UwabixfnSeptember 29, 2025 1:50pmOxygen saturation by Pulse %95-100September 29, 2025 1:50pmBP Ooaghizb708 mm[Hg]100-140September 29, 2025 1:50pmBP Ezuzwotab16 mm[Hg] 60-100September 29, 2025 1:50pmInhaled oxygen flow rate3 L/minSeptember 29, 2025 9:43maOpkykb78 [in_i]October 31, 2025 11:11dcWddryv723.22 kgDecember 2024 11:20amBody Vmbzoqlyqtw36.3 [degF]97.6-99.0December 2024 11:20amHeart Rate71 /qkm93-942Asddhvop 2024 4:50pmRespiratory rate16 /sxu15-32Occelrsh 2024 4:50pmOxygen saturation by Pulse pomnjedi98 %95-100Deceer 2024 4:50pmBP Yugdwimc586 mm[Hg]100-140December 2024 4:50pmBP Mriftimci73 mm[Hg] 60-100December 2024 4:59vbBspedz60 [in_i]November 07, 2025 1:22pmWeight 106.00 kgDecember 2024 6:00amBody Kdxwvoebspg73.4 [degF]97.6-99.0Deceer 2024 9:20amHeart Rate70 /kxs33-581Pnkfjntw 2024 9:20amRespiratory rate18 /szn35-30Ymzrdbbr 2024 9:20amOxygen saturation by Pulse %95-100Deceer 2024 9:20amBP Tjubdgkw778 mm[Hg]100-140Deceer 2024 9:20amBP Vifcziqhr65 mm[Hg]60-100December 2024 9:20am Advance Directives Advance Directive Response Recorded Date/ Time Advance Directives No October 10:11am Insurance Providers Guarantor Silas Ying Address [address] [place] [id number] Info.Home Phone: Coverage Status Update:2025 Payer Group Member ID Coverage Type Subscriber Relationship to Subscriber Effective Date Expiration Date Medicaid [id number] Bottger , D Id: [id number] [address] [place] [phone] Home Phone: Email: Declined 2021Ludmila [facility] PFFS Id: [id number] Bottger , D Id: [id number] [address] [place] [phone] Home Phone: Email: Declined 2021robertGilda [facility] [id number] Silas Chopra Id: [id number] Yuliya Dickson [facility] [address] Home Phone: Email: Declined 2021elf Encounters Encounter Location(s) Arrival/Admit Date Discharge/Departure Date Discharge/Departure Disposition Provider(s) Departed Clinical -Lab [facility] September 19, 2025 11:39am September 19, 2025 11:40am Discharged to home care or self care (routine discharge) Lyly Schaefer MD Departed Physician/ Provider Office Visit -[facility] Surg September 27, 2025 9:13am September 27, 2025 10:29am Discharged to home care or self care (routine discharge) Denia Santa APRN Departed Clinical -Ultrasound [facility] September 27, 2025 9:46am September 27, 2025 9:47am Discharged to home care or self care (routine discharge) Pavel Swift MD Departed Physician/ Provider Office Visit -[facility] September 28, 2025 3:44pm September 28, 2025 4:10pm Discharged to home care or self care (routine discharge) Lyly Schaefer MD Non-patient / Non-visit -[facility] Vascul ar Surg September 29, 2025 6:49am DIANA Husaineparted Referred-LAB [facility] 11:31amNovember 2024 11:32amDischarged to home care or self care (routine discharge)Adolfo Landaverde DPM MSDeparted Emergency-Emergency RoomDecember 2024 11:04amDecember 2024 5:39pmDischarged to home care or self care (routine discharge)Discharged Inpatient-[facility] [place] Med SurgDecember 2024 3:34pmDecember 2024 2:15pm Discharged[facility] with Mendoza Whitaker MD Recent Diagnosis Onset Date Admit Date Current every day smoker Unknown Kurt evans 2024 9:13am Diabetic ulcer of left foot [...] 3:44pm Vitamin D deficiency Unknown September 3:44pm Altered mental status Unknown October 242024 3:34pm Hypertensive emergency Unknown November 04, 2025 3:34pm Functional Status Observation Response Date Recorded Dressing Patient Not at Baseline November 09, 2025 2:03pm Eating Patient Not at Baseline November 09, 2025 2:03pm Bathing Patient Not at Baseline November 09, 2025 2:03pm Disability Status Patient Not at Baseline [facility] 2024 2:03pm Mental Status Observation Response Date Recorded Cognitive Status Patient Not at Baseline [facility] 2024 2:03pm Cognitive/Mental Status Assessments Assessments Diagnosis Onset Date Resolution Status Admit [...] type 2 diabetes mellitusacuteSeptember 28, 2025 3:44pmHyperparathyroidism acuteNov2024 3:44pmHypertensive nephropathyacuteNov2024 3:44pmHyperuricemiaacuteNov2024 3:44pmIron deficiency anemiaacute September 28, 2025 3:44pmVitamin D deficiencyacuteSeptember 28, 2025 3:44pm Altered mental statusacuteDecehonorhealth [facility] 2024 3:34pmHypertensive emergencyacute November 04, 2025 3:34pm Plan of Treatment Author Lyly Artmiakin [facility] 2024 4:02pmCKD likely from diabetic and [...] low animal protein diet Author Denia Santa [facility] 2024 10:45amWe reviewed the health risks associated [...] Discharge Order September 29, 2025 10:02am Novem 2024 10:03am Admit Status Order November 04, 2025 6:39pm De cember 2024 6:39pm Code Status November 04, 2025 6:39pm Decem 2024 6:39pm Discharge Order November 09, 2025 1:07pm Decem 2024 1:07pm Hemogram CBC Without Diff September 28, 2025 [...] your Meds September 29, 2025 6 :49am Abdominal pain in adults - E D discharge instructions Urinary tract infection in adults - ED discharge instructionsDece2024 11:04am Goals Acute Goals Author Authored Date Exhibit optimal tissue perfu maurice * Exhibits adequate oxygenation and ventilation * Exhibits adequate cardiac output * Regains stable cardiac rhythm * Maintains optimal activity level * Maintains balanced intake and outputTayler [facility] 2024 2:15pmMaintain/increase activity levels * Understands factors that may lead to activity intolerance * Helps perform self care activities * Maintains maximum range of motion * Increase/regain muscle mass and strength * Maintains VS WNL during activity * Maintain intact skin integrity Updated: 01/06/2023Tayler [facility] 2024 2:15pmAbsence of new skin breakdown [facility] 2024 2:15pmWound healing [facility] 2024 2:15pmSkin integrity intact [facility] 2024 2:15pmFall Prevention 2022Tayler [facility] 2024 2:15pm Preferences Type Detail Treatment Intervention Code Status: Full Code Hospital Discharge Instructions Additional Instructions SNF TO MANAGE: PT/OT to eval and treat Monitor VS per protocol--HTN Monitor FSBS ACHS Monitor Neuro. assessment--Encephalopathy Monitor GI assessment--Epigastric pain Monitor Skin assessment RLE splint and dressing- leave dry and intact until f/u with surgeon High risk fall precautions Care to be managed by SNF providers History & Physical Note Author Robin Whitaker [facility] HospitalNote Date/TimeDd[facility] 2024 12:34am [place] [address] Hospitalist H&P Signed Patient: Olivia Chopra MR#: [id number] : 1950 Acct:[id number] Age/Sex: 75 / F Adm Date: 5 Loc: Room: [address] [place] [address] Type: ADM IN Attending Dr: Robin Whitaker MD Copies to: DO Robin Doty MD~ HPI DATE OF EXAMINATION: 11/04/25 CHIEF COMPLAINT: Abdominal pain HISTORY OF PRESENT ILLNESS: Ms. Chopra is a 75yo F with PMH of T2DM, tobacco use (approximately 10 cigarettes/day), M???ni???re's disease, COPD, DVT, PAD on low-dose Xarelto, hypothyroidism, HLD, HTN here with complaints of abdominal pain and nausea. Patient had a recent surgery for her right foot for a nonhealing ulcer at [facility] at the end of September. Apparently, shortly after that, patient had worsened epigastric abdominal pain, for which she presented to the emergency department on 10/31/2025. She notes epigastric pain that is often 10/10 in nature, nonradiating. She reports association of poor appetite, nausea, emesis x 1 that was nonbloody and nonbilious. She presented to the ED on 10/31/2025 and had workup which included UA, which was ultimately positive forKlebsiella pneumoniae UTI. She was startedon Keflex and has been taking this medication. Despite this, she continued to have abdominal pain and nausea. In the emergency department today, patient was with her daughter Mary. Vital signs were noteworthy for significantly elevated hypertension in the 200s systolic. She was given IV hydralazine with minimal improvement in her blood pressure. She did complain of epigastric pain and dizziness. She recently had a workup with CT imaging of the abdomen and pelvis which was unremarkable and patient's lactic acid was within normal limits and previous lipase was also within normal limits. She was recommended for hospital admission due to concerns from the patient's daughter Mary that patient is confused and is not at her baseline mental status. Upon arrival to the hospital floor, patient states fairly clearly that she does not want all of them regarding other details of her medical stay. She appears alert and oriented x 3, and answers all questions appropriately. She is hazy onsome details of the history, but can articulate her own medical issues quite well. She reports that she is living with her 13-year-old granddaughter, and that Mary is not living with her now. Review of Systems Review of Systems Review of systems: 10 point ROS reviewed and is negative except for that which is noted above in [facility] Medical History Neuropathy Smoker Incontinence Wound, open bilateral heels H/O hemorrhoids Encounter for incision and drainage procedure bilateral heel ulcers Meniere disease COPD (chronic obstructive pulmonary disease) Poor historian Pt has trouble recalling entire health history, 04/17/21, pt didn't recall until after much discussion that she had back surgery in 10/13 History of DVT (deep vein thrombosis) Back pain Arthritis Peripheral vascular disease vascular stent rt leg GERD (gastroesophageal reflux disease) Diabetes mellitus, type 2 Hypothyroidism Anemia Murmur Hyperlipidemia Hypertension Surgical History 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 H/O lumbar discectomy Left lumbar 3-4 10/05/2020 Hx of decompressive lumbar laminectomy L3-4 and 4-5 10/05/2020 History of orthopedic surgery rt shoulder surgery History of tubal ligation History of tonsillectomy H/O exploratory laparotomy History of cholecystectomy Family History Father Cancer Mother Diabetes Sister Diabetes Renal disease Brother Diabetes Brother CAD (coronary artery disease) Lung cancer Brother Cancer Legacy FamHx Relation: Brother(s); Legacy FamHx Problem: Diagnosed with Cancer Diabetes Legacy FamHx Relation: Brother(s) Heart disease Legacy FamHx Relation: Brother(s) Daughter Diabetes Legacy FamHx Relation: Daughter(s) Father Hypertension Diabetes Cancer Legacy FamHx Problem: Diagnosed with Cancer Father Cancer Grandparent Legacy FamHx Relation: Maternal Grand Father Grandparent Legacy FamHx Relation: Maternal Grand Mother Grandparent Legacy FamHx Relation: Paternal Grand Father Grandparent Legacy FamHx Relation: Paternal Grand Mother Mother History of stroke Legacy FamHx Problem: Diagnosed with Stroke Diabetes Hypertension Sister Diabetes Sister Diabetes Social History Smoking Status: Current every day smoker Tobacco Type: cigarettes and e-cigarettes Substance Use Type: None Substance Abuse Comment: occasional drink for special occasions Social History Comments: grand daughter lives with patient, she is 10 years old Meds Medications and Allergies Allergies azithromycin (From Zithromax) Allergy (Unknown, Verified 11/04/25 10:46) Hives Home Medications atorvastatin 40 mg tablet (Lipitor) 40 mg PO QHS #30 tabs 11/01/20 [Rx Confirmed 11/04/25] aspirin 81 mg chewable tablet 81 mg PO QAM 01/10/21 [History Confirmed 11/04/25] rivaroxaban 2.5 mg tablet (Xarelto) 2.5 mg PO BID 04/20/21 [History Confirmed 11/04/25] gabapentin 300 mg capsule 300 mg PO BID 08/16/22 [History Confirmed 11/04/25] acetaminophen 325 mg capsule 325 mg PO Q6HR PRN pain 04/12/25 [History Confirmed 11/04/25] cholecalciferol (vitamin D3) 50 mcg (2,000 unit) capsule 50 mcg PO DAILY #90 caps 07/05/25 [Rx Confirmed 11/04/25] hydralazine 50 mg tablet 50 mg PO BID #60 tabs 09/07/25 [Rx Confirmed 11/04/25] insulin glargine 100 unit/mL (3 mL) subcutaneous pen (Lantus Solostar U-100 Insulin) 25 unit subcutQAM 09/28/25 [History Confirmed 11/04/25] cephalexin 500 mg capsule 500 mg PO QID 10 days #40 caps 10/31/25 [Rx Confirmed 11/04/25] hydrocodone 5 mg-acetaminophen 325 mg tablet 1 tab PO Q6HR PRN pain 3 days #10 tabs 10/31/25 [Rx Confirmed 11/04/25] amlodipine 5 mg tablet 5 mg PO DAILY 11/04/25 [History Confirmed 11/04/25] dapagliflozin propanediol 10 mg tablet (Farxiga) 10 mg PO DAILY 11/04/25 [History Confirmed 11/04/25] duloxetine 60 mg capsule,delayed release 60 mg PO DAILY 11/04/25 [History Confirmed 11/04/25] furosemide 40 mg tablet 40 mg PO DAILY 11/04/25 [History Confirmed 11/04/25] irbesartan 150 mg tablet 150 mg PO DAILY 11/04/25 [History Confirmed 11/04/25] Held on 11/04/25. Instructions: held on d/c 10/13/25 from [facility] d/t ALFREDO and hyperkalemia levothyroxine 75 mcg tablet 75 mcg PO DAILY.0630 11/04/25 [History Confirmed 11/04/25] semaglutide 1 mg/dose (4 mg/3 mL) subcutaneous pen injector (Ozempic) 1 mg subcut QWEEK 11/04/25 [History Confirmed 11/04/25] Exam Physical Exam Vital Signs: Temp Pulse Resp BP Pulse Ox O2 Del Method 97.4 F L 65 18 184/66 H 97 Room Air 11/04/25 20:10 11/04/25 20:10 11/04/25 20:10 11/04/25 20:10 11/04/25 20:10 11/04/25 20:10 Narrative: Constitutional: Elderly WF, resting in bed comfortably HEENT: Moist mucous membranes, neck supple Cardiovascular: RRR, no M/R/G, normal S1 and S2, no JVD Respiratory: Lungs clear to auscultation bilaterally, no wheezes, rales or rhonchi GI: Soft, NTND, normoactive bowel sounds : Deferred Neuro: AAO x3, no focal deficits. CN III-XII grossly intact, Strength 5/5 throughout Extremities: Right foot wrapped in an Hiren wrap Psych: Patient calm, cooperative and conversant Results - Hospitalist H&P Lab Results Labs: Laboratory Last Values Corrected WBC 7.0 X10E3/uL (3.8-11.6) 11/04/25 10:53 Uncorrected WBC Count 7.0 x10E3/uL (3.8-11.6) 11/04/25 10:53 RBC 4.34 x10E6/uL (3.60-5.00) 11/04/25 10:53 Hgb 12.7 g/dL (11.8-15.4) 11/04/25 10:53 Hct 37.8 % (34.0-46.4) 11/04/25 10:53 MCV 87.1 fl (80-100) 11/04/25 10:53 MCH 29.2 pg (24.7-34.3) 11/04/25 10:53 MCHC 33.5 g/dL (32.0-35.0) 11/04/25 10:53 RDW 14.2 % (11.9-15.3) 11/04/25 10:53 Plt Count 266 x10E3/uL (150-450) 11/04/25 10:53 MPV 10.1 fl (6.3-10.7) 11/04/25 10:53 Neut % (Auto) 58.6 % (.) 11/04/25 10:53 Lymph % (Auto) 32.8 % (.) 11/04/25 10:53 Frontier % (Auto) 6.5 % (.) 11/04/25 10:53 Eos % (Auto) 1.4 % (.) 11/04/25 10:53 Baso % (Auto) 0.7 % (.) 11/04/25 10:53 Nucleat RBC Rel Count 0.0 /100 WBC (0-0.5) 11/04/25 10:53 Neut # (Auto) 4.1 x10E3/uL (1.8-7.7) 11/04/25 10:53 Lymph # (Auto) 2.3 x10E3/uL (1.00-4.8) 11/04/25 10:53 Frontier # (Auto) 0.5 x10E3/uL (0.0-0.8) 11/04/25 10:53 Eos # (Auto) 0.1 x10E3/uL (0.0-0.45) 11/04/25 10:53 Baso # (Auto) 0.0 x10E3/uL (0.0-0.2) 11/04/25 10:53 Monocyte Dist Width 19.67 % (0.00-20.00) 11/04/25 10:53 PT 11.6 Seconds (9.0-12.9) 11/04/25 10:53 INR 1.0 11/04/25 10:53 PHA Creatinine Clear 35.65 11/04/25 10:53 Sodium 139 mmol/L (136-145) 11/04/25 10:53 Potassium 4.5 mmol/L (3.5-5.1) 11/04/25 10:53 Chloride 104 mmol/L (98-107) 11/04/25 10:53 Carbon Dioxide 22.5 mmol/L (21.0-31.0) 11/04/25 10:53 Anion Gap 17.0 mEq/L (6.0-15.0) H 11/04/25 10:53 BUN 21 mg/dL (7-25) 11/04/25 10:53 Creatinine 1.73 mg/dL (0.60-1.20) H 11/04/25 10:53 Est GFR (CKD-EPI) 30.815 mL/Min 11/04/25 10:53 Glucose 113 mg/dL (70-100) H 11/04/25 10:53 POC Glucose 74 mg/dl 11/04/25 21:03 Lactic Acid 1.3 mmol/L (0.5-1.9) 11/04/25 10:53 Calcium 9.9 mg/dL (8.6-10.3) 11/04/25 10:53 Total Bilirubin 0.4 mg/dl (0.3-1.0) 11/04/25 10:53 AST 17 U/L (13-39) 11/04/25 10:53 ALT 6 U/L (7-52) L 11/04/25 10:53 Alkaline Phosphatase 148 U/L (34-104) H 11/04/25 10:53 Troponin I High Sens 28 ng/L (0-15) H 11/04/25 13:23 B-Natriuretic Peptide 77.0 pg/mL (5-100) 11/04/25 10:53 Total Protein 7.2 gm/dL (6.4-8.9) 11/04/25 10:53 Albumin 3.9 gm/dL (3.5-5.7) 11/04/25 10:53 Globulin 3.3 gm/dL 11/04/25 10:53 Albumin/Globulin Ratio 1.2 11/04/25 10:53 Urine Color Light-yellow (Yellow) 11/04/25 14:28 Urine Appearance Clear (Clear) 11/04/25 14:28 Urine pH 5.5 (5.0-9.0) 11/04/25 14:28 Ur Specific [place] 1.019 (1.001-1.030) 11/04/25 14:28 Urine Protein 100 mg/dL (Negative) H 11/04/25 14:28 Urine Glucose (UA) Normal mg/dL (Normal) 11/04/25 14:28 Urine Ketones 1+ (Negative) H 11/04/25 14:28 Urine Occult Blood Negative (Negative) 11/04/25 14:28 Urine Nitrite Negative (Negative) 11/04/25 14:28 Urine Bilirubin Negative (Negative) 11/04/25 14:28 Urine Urobilinogen Normal mg/dL (Normal) 11/04/25 14:28 Ur Leukocyte Esterase Negative (Negative) 11/04/25 14:28 Urine RBC 1-2 /HPF (0-4) 11/04/25 14:28 Urine WBC 1-2 /HPF (0-4) 11/04/25 14:28 Ur Squamous Epith Cells 1-2 /HPF (0-2) 11/04/25 14:28 Urine Bacteria Rare /HPF (None Seen) 11/04/25 14:28 Hyaline Casts None /LPF (0-8) 11/04/25 14:28 Urine Mucus Rare /LPF 11/04/25 14:28 Assessment & Plan Assessment/Plan (1) Altered mental status: Plan Possible acute Encephalopathy Emergency department stated that patient may be confused, but she seems to have a reasonable amountof capacity at this time. She is alert and oriented on my assessment. Does not seem overly confused. She knows her recent medical issuesand current management, though it does take some probing. She does have a UTI that she is currently being treated for. -Continue to monitor neurologic and cognitive status - Continue to treat UTI with Keflex Epigastric pain Unclear etiology. Patient presents to the ED on 10/31/2025 with a similar complaint. Workup at that time was negative. Workup remains unclear at this time - Start PPI therapy - Continue [place] as needed Diabetic Heel Ulcers s/p Recent Intervention Right foot evaluated by the ED attending, and reportedly there was no evidence of acute infectious appearance of the foot - Wound care nursing assessment Uncontrolled Hypertension Not adherent to her home regimen of medications. -Continue amlodipine, Lasix - Increase hydralazine to 50 mg 3 times daily Chronic medical conditions noted below, continue home regimens unless otherwise specified: Peripheral arterial disease Diabetic neuropathy Tobacco use disorder M???ni???re's disease COPD GERD DM type II Hypothyroidism HLD Obesity CODE STATUS: Full DVT PPx: Eliquis IP vs OBS Justification Based on differential dx, clinical care plan, and risk of adverse events, if untreated, in my clinical judgement this patient requires an acute care setting as: OBSERVATION because of an expectation of an under 2 midnight stay. Estimated length of stay (# of days): 2 Documented By: Robin Whitaker MD [id number] Signed By: <Electronically signed by Robin Whitaker MD> 11/05/25 0034 Progress Note Author Guero Robert [facility] Date/TimeD2024 9:53am [address] [address] Progress Note Signed Patient: Olivia Chopra MR#: [id number] : 1950 Acct:[id number] Age/Sex: 75 / F Adm Date: 5 Loc: Room: [address] [place] [address] Type: ADM IN Attending Dr: Sameer Carlos MD Copies to: ~ Date of Service: 11/05/2025 Progress Narrative Note PROGRESS NOTE Progress Note: Called for confusion and elevated blood pressure, patient assessed, denies headache, chest pain or shortness of breath but does have waxing and waning orientation, intermittently states hospital vs distant and confused. Not oriented to year or reason for admission. Noted mentation on admission was AOx3 with slight haziness but articulating medical issues appropriately. BP remains above 200 systolic on manual 1 hours after home meds, given mentation will transfer for hypertensive urgency/emergency, start nicardipine gtt with target SBP 160-170. Check ABG as well. Documented By: Guero Robert MD 11/05/25 0950 Signed By: <Electronically signed by Guero Robert MD> 11/05/25 0953 Progress Note Author Sameer Carlos [facility]Note Date/TimeDecember 2024 4:33pm [place] [address] Hospitalist Progress Note Signed Patient: Olivia Chopra MR#: [id number] : 1950 Acct:[id number] Age/Sex: 75 / F Adm Date: 5 Loc: Room: 4Y0612-1 Type: ADM IN Attending Dr: Sameer Carlos MD Copies to: ~ Date of Service: 11/05/2025 Subjective Subjective Narrative: Patient was seen and examined at bedside. She was having her lunch tray at thattime. She was up andalert. Patient was transferred early this morning for hypertensive urgency. Currently she is on nicardipine drip. Blood pressure was 165/97 mmHg. ON ADMISSION: Ms. Chopra is a 75yo F with PMH of T2DM, tobacco use (approximately 10 cigarettes/day), M???ni???re's disease, COPD, DVT, PAD on low-dose Xarelto, hypothyroidism, HLD, HTN here with complaints of abdominal pain and nausea. Patient had a recent surgery for her right foot for a nonhealing ulcer at [facility] at the end of September. Apparently, shortly after that, patient had worsened epigastric abdominal pain, for which she presented to the emergency department on 10/31/2025. She notes epigastric pain that is often 10/10 in nature, nonradiating. She reports association of poor appetite, nausea, emesis x 1 that was nonbloody and nonbilious. She presented to the ED on 10/31/2025 and had workup which included UA, which was ultimately positive forKlebsiella pneumoniae UTI. She was startedon Keflex and has been taking this medication. Despite this, she continued to have abdominal pain and nausea. In the emergency department today, patient was with her daughter Mary. Vital signs were noteworthy for significantly elevated hypertension in the 200s systolic. She was given IV hydralazine with minimal improvement in her blood pressure. She did complain of epigastric pain and dizziness. She recently had a workup with CT imaging of the abdomen and pelvis which was unremarkable and patient's lactic acid was within normal limits and previous lipase was also within normal limits. She was recommended for hospital admission due to concerns from the patient's daughter Mary that patient is confused and is not at her baseline mental status. Upon arrival to the hospital floor, patient states fairly clearly that she does not want all of them regarding other details of her medical stay. She appears alert and oriented x 3, and answers all questions appropriately. She is hazy onsome details of the history, but can articulate her own medical issues quite well. She reports that she is living with her 13-year-old granddaughter, and that Mary is not living with her now. Exam Physical Exam Vital Signs: Temp Pulse Resp BP Pulse Ox O2 Del Method 98.4 F 69 14 163/70 H 98 Room Air 11/05/25 10:15 11/05/25 16:00 11/05/25 16:00 11/05/25 16:00 11/05/25 16:00 11/05/25 16:00 Const General: cooperative, no acute distress and well hydrated Orientation: alert, awake and oriented x3 HEENT Head: normocephalic and atraumatic Face and sinus: normal facial exam and sinuses nontender Mouth: oral mucosae normal Eyes Conjunctivae: conjunctivae normal Sclera: sclerae normal Neck Thyroid: thyroid normal Carotids: normal carotid upstroke Lymphatic: no lymphadenopathy noted Resp Effort & Inspection: normal respiratory effort, able to speak in complete sentences and symmetric chest movement Auscultation: clear to auscultation bilaterally Cardio Palpation: normal PMI Rate: regular rate Rhythm: regular rhythm Heart Sounds: S1 normal and S2 normal Pulses: dorsalis pedis present GI Palpation: soft and no hepatosplenomegaly Auscultation: normal bowel sounds Skin General: no rashes or lesions noted and turgor normal Extrem General: full ROM Objective Lab Results 11/05/25 13:27 11/05/25 13:27 Microbiology Results Microbiology 11/04/25 12:14 Blood - Left Wrist Blood Culture - Preliminary No Growth 1 Day 11/04/25 12:14 Blood - Left Hand Blood Culture - Preliminary No Growth 1 Day ABG Interpretation ABG results: 11/05/25 10:29 ABG pH 7.42 ABG pCO2 29.7 L* ABG pO2 79.6 L ABG HCO3 19.0 L ABG Total CO2 19.9 L ABG O2 Saturation 95.9 ABG O2 Content 7.5 ABG Base Excess -4.3 L Meds Allergies and Active Meds Allergies azithromycin (From Zithromax) Allergy (Unknown, Verified 11/04/25 10:46) Hives Active Meds: Active Medications Generic Name Dose Route Start Last Admin Trade Name Freq PRN Reason Stop Dose Admin Acetaminophen 325 mg 11/04/25 19:07 Acetaminophen 325 Mg Tablet PO 11/04/26 19:06 Q6HR PRN pain Acetaminophen 650 mg 11/04/25 18:44 Acetaminophen 325 Mg Tablet PO 11/04/26 18:43 Q6HR PRN Pain Scale 1 - 3 or fever Hydrocodone Bitart/Acetaminophen 1 tab 11/04/25 18:35 11/04/25 20:10 Hydrocodone/Acetaminophen 5-325 Mg Tablet PO 1 tab Q6HR PRN Administration Pain Amlodipine Besylate 5 mg 11/05/25 09:00 11/05/25 08:24 Amlodipine 5 Mg Tablet PO 11/05/26 08:59 5 mg DAILY REGINA Administration Aspirin 81 mg 11/05/25 09:00 11/05/25 08:23 Aspirin 81 Mg Tab.Chew PO 11/05/26 08:59 81 mg QAM REGINA Administration Atorvastatin Calcium 40 mg 11/04/25 22:00 11/04/25 22:30 Atorvastatin 40 Mg Tablet PO 11/04/26 21:59 40 mg QHS REGINA Administration Cephalexin HCl 500 mg 11/05/25 09:00 11/05/25 14:28 Cephalexin 500 Mg Capsule PO 500 mg QID REGINA Administration Dapagliflozin 10 mg 11/05/25 09:00 11/05/25 08:25 Dapagliflozin 10 Mg Tablet PO 11/05/26 08:59 10 mg DAILY REGINA Administration Dextrose 0 gm 11/04/25 18:34 Dextrose 50% In Water 25 Gm/50 Ml Syringe IV-PUSH 11/04/26 18:33 PRN PRN Hypoglycemia Duloxetine HCl 60 mg 11/05/25 09:00 11/05/25 08:23 Duloxetine 60 Mg Capsule.Dr PO 11/05/26 08:59 60 mg DAILY REGINA Administration Furosemide 40 mg 11/05/25 09:00 11/05/25 08:24 Furosemide 40 Mg Tablet PO 11/05/26 08:59 40 mg DAILY REGINA Administration Gabapentin 300 mg 11/04/25 21:00 11/05/25 08:25 Gabapentin 300 Mg Capsule PO 11/04/26 20:59 300 mg BID REGINA Administration Glucose 0 gm 11/04/25 18:34 Dextrose 40% Gel 15 Gm Tube PO 11/04/26 18:33 PRN PRN Hypoglycemia Hydralazine HCl 50 mg 11/04/25 23:55 11/05/25 13:59 Hydralazine 50 Mg Tablet PO 11/04/26 23:54 50 mg TID REGINA Administration Magnesium Sulfate 2 gm in 50 mls @ 25 mls/hr 11/04/25 18:44 Magnesium Sulf 2gm-*Swfi* IV 11/04/26 18:43 DAILY PRN Magnesium Level < 1.7 Nicardipine/Sodium Chloride 20 mg in 200 mls @ 50 mls/hr 11/05/25 10:00 11/05/25 16:13 Cardene 20 Mg/200 Ml - Nacl IV 11/05/26 09:59 Not Given .Q4H REGINA Protocol 5 MG/HR Insulin Aspart 0 units 11/04/25 22:00 11/05/25 14:02 Insulin Aspart 300 Units/3 Ml SUBCUT 11/04/26 21:59 Not Given TID.WM.HS REGINA Protocol Insulin Glargine 25 units 11/05/25 09:00 11/05/25 08:26 Insulin Glargine 300 Units/3 Ml Insuln.Pen SUBCUT 11/05/26 08:59 25 units QAM REGINA Administration Levothyroxine Sodium 75 mcg 11/05/25 06:30 11/05/25 05:29 Levothyroxine 75 Mcg Tablet PO 11/05/26 06:29 75 mcg DAILY.0630 REGINA Administration Melatonin 5 mg 11/04/25 21:29 11/04/25 22:30 Melatonin 5 Mg Tablet PO 11/04/26 21:59 5 mg QHS PRN Administration Insomnia Nystatin 1 applic 11/04/25 21:29 11/04/25 22:30 Nystatin 100,000 Unit/Gram Powder 15 Gm Bottle TOPICAL 11/04/26 21:28 1 applic QID PRN Administration Irritation Pantoprazole Sodium 40 mg 11/04/25 22:45 11/05/25 08:25 Pantoprazole 40 Mg Vial IV-PUSH 11/04/26 22:44 40 mg DAILY REGINA Administration Potassium Chloride 40 meq 11/04/25 18:44 Potassium Chloride Er 20 Meq Tab.Er.Prt PO 11/04/26 18:43 DAILY PRN Hypokalemia Prochlorperazine Edisylate 10 mg 11/04/25 23:52 11/05/25 06:37 Prochlorperazine Edisylate 10 Mg/2 Ml Vial IV-PUSH 11/04/26 23:51 10 mg Q4H PRN Administration Nausea And Vomiting Rivaroxaban 2.5 mg 11/04/25 21:00 11/05/25 08:24 Rivaroxaban 2.5 Mg Tablet PO 11/04/26 20:59 2.5 mg BID REGINA Administration Sodium Chloride 0 ml 11/04/25 10:48 Sodium Chloride 0.9 % 10 Ml Syringe IV-PUSH 11/04/26 10:47 PRN PRN Flush Sodium Chloride 0 ml 11/04/25 22:00 11/05/25 14:03 Sodium Chloride 0.9 % 10 Ml Syringe IV-PUSH 11/04/26 21:59 Not Given QSHIFT REGINA Sodium Chloride 10 ml 11/04/25 22:45 11/05/25 08:25 Sodium Chloride 0.9 % 10 Ml Vial.Pf INJECTION 11/04/26 22:44 10 ml PRN PRN Administration Dilution Sodium Chloride 10 ml 11/04/25 22:45 Sodium Chloride 0.9 % 10 Ml Syringe IV-PUSH 11/04/26 22:44 PRN PRN Flush Vitamin D 50 mcg 11/05/25 09:00 11/05/25 08:24 Cholecalciferol 25 Mcg (1,000 Units) Tablet PO 11/05/26 08:59 50 mcg DAILY REGINA Administration A&P - Hospitalist Assessment/Plan (1) Altered mental status: Plan FOR TODAY: 11/05/2025 Hypertensive encephalopathy Patient has been transferred from med/tele floor to the ICU since her blood pressure remained 200 mmHg systolic. Currently she is on nicardipine drip. Will try to wean her off. We increased her hydralazine and amlodipine dosage. She will be monitored in ICU for tonight. Possible acute Encephalopathy Emergency department stated that patient may be confused, but she seems to have a reasonable amountof capacity at this time. She is alert and oriented on my assessment. Does not seem overly confused. She knows her recent medical issuesand current management, though it does take some probing. She does have a UTI that she is currently being treated for. -Continue to monitor neurologic and cognitive status - Continue to treat UTI with Keflex Epigastric pain Unclear etiology. Patient presents to the ED on 10/31/2025 with a similar complaint. Workup at that time was negative. Workup remains unclear at this time - Start PPI therapy - Continue [place] as needed Diabetic Heel Ulcers s/p Recent Intervention Right foot evaluated by the ED attending, and reportedly there was no evidence of acute infectious appearance of the foot - Wound care nursing assessment Uncontrolled Hypertension Not adherent to her home regimen of medications. -Continue amlodipine, Lasix - Increase hydralazine to 50 mg 3 times daily Chronic medical conditions noted below, continue home regimens unless otherwise specified: Peripheral arterial disease Diabetic neuropathy Tobacco use disorder M???ni???re's disease COPD GERD DM type II Hypothyroidism HLD Obesity CODE STATUS: Full DVT PPx: Eliquis Documented By: Sameer Carlos MD 11/05/251624 Signed By: <Electronically signed by Sameer Carlos MD> 11/05/25 1633 Progress Note Author [facility] HospitalNote Date/TimeDecember 2024 5:57am [address] [address] Progress Note Signed Patient: Olivia Chopra MR#: [id number] : 1950 Acct:[id number] Age/Sex: 75 / F Adm Date: 5 Loc: Room: [address] [place] [address] Type: ADM IN Attending Dr: Sameer Carlos MD Copies to: ~ Date of Service: 11/06/2025 Progress Narrative Note I was called and notified of the patient's elevated blood pressure and whether new Cardene infusionneed to be restarted. Patient without evidence of hypertensive emergency at the moment so no need for IV. Options were limited because of low heart rate and ALFREDO. Hydralazine above 300 is okay but increase risk of drug-induced lupus. I gave 1 oral nifedipine short acting, it possibly worked. My suggestion if she continues to be very hypertensive to switch amlodipine to ER nifedipine which has a wide range of titration up to 180 mg/day (90 twice daily) as compared to amlodipine which is capped at 10. Documented By: Ramon Friedman MD 11/06/25 055 4 Signed By: <Electronically signed by Ramon Friedman MD> 11/06/25 0557 Progress Note Author Sameer Carlos [facility] HospitalNote Date/TimeDecember 2024 3:52pm [place] [address] Hospitalist Progress Note Signed Patient: Olivia Chopra MR#: [id number] : 1950 Acct:[id number] Age/Sex: 75 / F Adm Date: 5 Loc: Room: [address] [place] [address] Type: ADM IN Attending Dr: Sameer Carlos MD Copies to: ~ Date of Service: 11/06/2025 Subjective Subjective Narrative: Patient was seen and examined in the ICU. She is off of Cardene drip. Her blood pressure was maintaining 160 mmHg. 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 She is denies any lightheadedness, chest pain or pressure. ON ADMISSION: Ms. Chopra is a 75yo F with PMH of T2DM, tobacco use (approximately 10 cigarettes/day), M???ni???re's disease, COPD, DVT, PAD on low-dose Xarelto, hypothyroidism, HLD, HTN here with complaints of abdominal pain and nausea. Patient had a recent surgery for her right foot for a nonhealing ulcer at [facility] at the end of September. Apparently, shortly after that, patient had worsened epigastric abdominal pain, for which she presented to the emergency department on 10/31/2025. She notes epigastric pain that is often 10/10 in nature, nonradiating. She reports association of poor appetite, nausea, emesis x 1 that was nonbloody and nonbilious. She presented to the ED on 10/31/2025 and had workup which included UA, which was ultimately positive forKlebsiella pneumoniae UTI. She was startedon Keflex and has been taking this medication. Despite this, she continued to have abdominal pain and nausea. In the emergency department today, patient was with her daughter Mary. Vital signs were noteworthy for significantly elevated hypertension in the 200s systolic. She was given IV hydralazine with minimal improvement in her blood pressure. She did complain of epigastric pain and dizziness. She recently had a workup with CT imaging of the abdomen and pelvis which was unremarkable and patient's lactic acid was within normal limits and previous lipase was also within normal limits. She was recommended for hospital admission due to concerns from the patient's daughter Mary that patient is confused and is not at her baseline mental status. Upon arrival to the hospital floor, patient states fairly clearly that she does not want all of them regarding other details of her medical stay. She appears alert and oriented x 3, and answers all questions appropriately. She is hazy onsome details of the history, but can articulate her own medical issues quite well. She reports that she is living with her 13-year-old granddaughter, and that Mary is not living with her now. Exam Physical Exam Vital Signs: Temp Pulse Resp BP Pulse Ox O2 Del Method 98.5 F 78 18 161/71 H 98 Room Air 11/06/25 14:00 11/06/25 15:00 11/06/25 15:00 11/06/25 15:00 11/06/25 15:00 11/06/25 15:00 Const General: cooperative, no acute distress and well hydrated Orientation: alert, awake and oriented x3 HEENT Head: normocephalic and atraumatic Face and sinus: normal facial exam and sinuses nontender Mouth: oral mucosae normal Eyes Conjunctivae: conjunctivae normal Sclera: sclerae normal Neck Thyroid: thyroid normal Carotids: normal carotid upstroke Lymphatic: no lymphadenopathy noted Resp Effort & Inspection: normal respiratory effort, able to speak in complete sentences and symmetric chest movement Auscultation: clear to auscultation bilaterally Cardio Palpation: normal PMI Rate: regular rate Rhythm: regular rhythm Heart Sounds: S1 normal and S2 normal Pulses: dorsalis pedis present GI Palpation: soft and no hepatosplenomegaly Auscultation: normal bowel sounds Skin General: no rashes or lesions noted and turgor normal Extrem General: full ROM Objective Lab Results 11/06/25 03:48 11/06/25 03:48 Microbiology Results Microbiology 11/04/25 12:14 Blood - Left Wrist Blood Culture - Preliminary No Growth 2 Days 11/04/25 12:14 Blood - Left Hand Blood Culture - Preliminary No Growth 2 Days Meds Allergies and Active Meds Allergies azithromycin (From Zithromax) Allergy (Unknown, Verified 11/04/25 10:46) Hives Active Meds: Active Medications Generic Name Dose Route Start Last Admin Trade Name Freq PRN Reason Stop Dose Admin Acetaminophen 325 mg 11/04/25 19:07 Acetaminophen 325 Mg Tablet PO 11/04/26 19:06 Q6HR PRN pain Acetaminophen 650 mg 11/04/25 18:44 Acetaminophen 325 Mg Tablet PO 11/04/26 18:43 Q6HR PRN Pain Scale 1 - 3 or fever Hydrocodone Bitart/Acetaminophen 1 tab 11/04/25 18:35 11/04/25 20:10 Hydrocodone/Acetaminophen 5-325 Mg Tablet PO 1 tab Q6HR PRN Administration Pain Amlodipine Besylate 10 mg 11/06/25 09:00 11/06/25 08:35 Amlodipine 10 Mg Tablet PO 11/06/26 08:59 10 mg DAILY REGINA Administration Aspirin 81 mg 11/05/25 09:00 11/06/25 08:35 Aspirin 81 Mg Tab.Chew PO 11/05/26 08:59 81 mg QAM REGINA Administration Atorvastatin Calcium 40 mg 11/04/25 22:00 11/05/25 21:41 Atorvastatin 40 Mg Tablet PO 11/04/26 21:59 40 mg QHS REGINA Administration Cephalexin HCl 500 mg 11/05/25 09:00 11/06/25 14:19 Cephalexin 500 Mg Capsule PO 500 mg QID REGINA Administration Dapagliflozin 10 mg 11/05/25 09:00 11/06/25 08:34 Dapagliflozin 10 Mg Tablet PO 11/05/26 08:59 10 mg DAILY REGINA Administration Dextrose 0 gm 11/04/25 18:34 Dextrose 50% In Water 25 Gm/50 Ml Syringe IV-PUSH 11/04/26 18:33 PRN PRN Hypoglycemia Duloxetine HCl 60 mg 11/05/25 09:00 11/06/25 08:35 Duloxetine 60 Mg Capsule.Dr PO 11/05/26 08:59 60 mg DAILY REGINA Administration Furosemide 40 mg 11/05/25 09:00 11/06/25 08:34 Furosemide 40 Mg Tablet PO 11/05/26 08:59 40 mg DAILY REGINA Administration Gabapentin 300 mg 11/04/25 21:00 11/06/25 08:34 Gabapentin 300 Mg Capsule PO 11/04/26 20:59 300 mg BID REGINA Administration Glucose 0 gm 11/04/25 18:34 Dextrose 40% Gel 15 Gm Tube PO 11/04/26 18:33 PRN PRN Hypoglycemia Hydralazine HCl 100 mg 11/05/25 22:00 11/06/25 14:19 Hydralazine 50 Mg Tablet PO 11/05/26 21:59 100 mg TID REGINA Administration Magnesium Sulfate 2 gm in 50 mls @ 25 mls/hr 11/04/25 18:44 11/06/25 00:46 Magnesium Sulf 2gm-*Swfi* IV 11/04/26 18:43 Infused DAILY PRN Infusion Magnesium Level < 1.7 Insulin Aspart 0 units 11/04/25 22:00 11/06/25 13:11 Insulin Aspart 300 Units/3 Ml SUBCUT 11/04/26 21:59 3 units TID.WM.HS REGINA Administration Protocol Insulin Glargine 25 units 11/05/25 09:00 11/06/25 13:05 Insulin Glargine 300 Units/3 Ml Insuln.Pen SUBCUT 11/05/26 08:59 25 units QAM REGINA Administration Levothyroxine Sodium 75 mcg 11/05/25 06:30 11/06/25 06:34 Levothyroxine 75 Mcg Tablet PO 11/05/26 06:29 75 mcg DAILY.0630 REGINA Administration Melatonin 5 mg 11/04/25 21:29 11/04/25 22:30 Melatonin 5 Mg Tablet PO 11/04/26 21:59 5 mg QHS PRN Administration Insomnia Nystatin 1 applic 11/04/25 21:29 11/04/25 22:30 Nystatin 100,000 Unit/Gram Powder 15 Gm Bottle TOPICAL 11/04/26 21:28 1 applic QID PRN Administration Irritation Pantoprazole Sodium 40 mg 11/04/25 22:45 11/06/25 08:36 Pantoprazole 40 Mg Vial IV-PUSH 11/04/26 22:44 40 mg DAILY REGINA Administration Potassium Chloride 40 meq 11/04/25 18:44 Potassium Chloride Er 20 Meq Tab.Er.Prt PO 11/04/26 18:43 DAILY PRN Hypokalemia Prochlorperazine Edisylate 10 mg 11/04/25 23:52 11/05/25 20:28 Prochlorperazine Edisylate 10 Mg/2 Ml Vial IV-PUSH 11/04/26 23:51 10 mg Q4H PRN Administration Nausea And Vomiting Rivaroxaban 2.5 mg 11/04/25 21:00 11/06/25 08:35 Rivaroxaban 2.5 Mg Tablet PO 11/04/26 20:59 2.5 mg BID REGINA Administration Sodium Chloride 0 ml 11/04/25 10:48 11/05/25 20:28 Sodium Chloride 0.9 % 10 Ml Syringe IV-PUSH 11/04/26 10:47 10 ml PRN PRN Administration Flush Sodium Chloride 0 ml 11/04/25 22:00 11/06/25 14:20 Sodium Chloride 0.9 % 10 Ml Syringe IV-PUSH 11/04/26 21:59 10 ml QSHIFT REGINA Administration Sodium Chloride 10 ml 11/04/25 22:45 11/05/25 08:25 Sodium Chloride 0.9 % 10 Ml Vial.Pf INJECTION 11/04/26 22:44 10 ml PRN PRN Administration Dilution Sodium Chloride 10 ml 11/04/25 22:45 Sodium Chloride 0.9 % 10 Ml Syringe IV-PUSH 11/04/26 22:44 PRN PRN Flush Valsartan 160 mg 11/07/25 09:00 Valsartan 160 Mg Tablet PO 11/07/26 08:59 DAILY REGINA Vitamin D 50 mcg 11/05/25 09:00 11/06/25 08:36 Cholecalciferol 25 Mcg (1,000 Units) Tablet PO 11/05/26 08:59 50 mcg DAILY REGINA Administration A&P - Hospitalist Assessment/Plan (1) Altered mental status: Plan FOR TODAY: 11/06/2025 Hypertensive encephalopathy Patient has been transferred from med/tele floor to the ICU since her blood pressure remained 160 mmHg systolic. She will be transferred out from ICU now. She is off of Cardene drip. I also added valsartan 160 mgon top of her current antihypertensive medications. Will closely monitor her blood pressure. Her encephalopathy is much better now. She is on Keflex for UTI. Epigastric pain Unclear etiology. Patient presents to the ED on 10/31/2025 with a similar complaint. Workup at that time was negative. Workup remains unclear at this time - Start PPI therapy - Continue [place] as needed Diabetic Heel Ulcers s/p Recent Intervention Right foot evaluated by the ED attending, and reportedly there was no evidence of acute infectious appearance of the foot - Wound care nursing assessment Uncontrolled Hypertension Not adherent to her home regimen of medications. -Continue amlodipine, Lasix - Increase hydralazine to 50 mg 3 times daily Chronic medical conditions noted below, continue home regimens unless otherwise specified: Peripheral arterial disease Diabetic neuropathy Tobacco use disorder M???ni???re's disease COPD GERD DM type II Hypothyroidism HLD Obesity CODE STATUS: Full DVT PPx: Eliquis Documented By: Sameer Carlos MD 11/06/25 1549 Signed By: <Electronically signed by Sameer Carlos MD> 11/06/25 1552 Progress Note Author Robin Whitaker [facility] HospitalNote Date/TimeDecember 2024 3:32am [place] [address] Hospitalist Progress Note Signed Patient: Olivia Chopra MR#: [id number] : 1950 Acct:[id number] Age/Sex: 75 / F Adm Date: 5 Loc: 3T Room: [address] [place] [address] Type: ADM IN Attending Dr: Robin Whitaker MD Copies to: ~ Date of Service: 11/07/2025 Subjective Subjective Narrative: Patient has no complaints. No acute events noted overnight. She does feel thatshe is getting stronger while in the hospital. Blood pressures were actually low in the afternoon today. Exam Physical Exam Vital Signs: Temp Pulse Resp BP Pulse Ox O2 Del Method 97.4 F L 68 16 137/70 98 Room Air 11/07/25 19:58 11/07/25 19:58 11/07/25 19:58 11/07/25 19:58 11/07/25 19:58 11/07/25 19:59 Narrative: Constitutional: Elderly WF, resting in bed comfortably HEENT: Moist mucous membranes, neck supple Cardiovascular: RRR, no M/R/G, normal S1 and S2, no JVD Respiratory: Lungs clear to auscultation bilaterally, no wheezes, rales or rhonchi GI: Soft, NTND, normoactive bowel sounds : Deferred Neuro: AAO x3, no focal deficits. CN III-XII grossly intact, Strength 5/5 throughout Extremities: Right foot wrapped in an Hiren wrap Psych: Patient calm, cooperative and conversant Objective Lab Results 11/06/25 03:48 11/06/25 03:48 Microbiology Results Microbiology 11/04/25 12:14 Blood - Left Wrist Blood Culture - Preliminary No Growth 3 Days 11/04/25 12:14 Blood - Left Hand Blood Culture - Preliminary No Growth 3 Days Meds Allergies and Active Meds Allergies azithromycin (From Zithromax) Allergy (Unknown, Verified 11/04/25 10:46) Hives Active Meds: Active Medications Generic Name Dose Route Start Last Admin Trade Name Melony PRN Reason Stop Dose Admin Acetaminophen 325 mg 11/04/25 19:07 Acetaminophen 325 Mg Tablet PO 11/04/26 19:06 Q6HR PRN pain Acetaminophen 650 mg 11/04/25 18:44 Acetaminophen 325 Mg Tablet PO 11/04/26 18:43 Q6HR PRN Pain Scale 1 - 3 or fever Hydrocodone Bitart/Acetaminophen 1 tab 11/04/25 18:35 11/07/25 21:25 Hydrocodone/Acetaminophen 5-325 Mg Tablet PO 1 tab Q6HR PRN Administration Pain Amlodipine Besylate 10 mg 11/06/25 09:00 11/07/25 08:53 Amlodipine 10 Mg Tablet PO 11/06/26 08:59 Not Given DAILY REGINA Aspirin 81 mg 11/05/25 09:00 11/07/25 08:53 Aspirin 81 Mg Tab.Chew PO 11/05/26 08:59 Not Given QAM REGINA Atorvastatin Calcium 40 mg 11/04/25 22:00 11/07/25 21:25 Atorvastatin 40 Mg Tablet PO 11/04/26 21:59 40 mg QHS REGINA Administration Cephalexin HCl 500 mg 11/05/25 09:00 11/07/25 21:25 Cephalexin 500 Mg Capsule PO 11/11/25 23:59 500 mg QID REGINA Administration Dapagliflozin 10 mg 11/05/25 09:00 11/07/25 08:52 Dapagliflozin 10 Mg Tablet PO 11/05/26 08:59 10 mg DAILY REGINA Administration Dextrose 0 gm 11/04/25 18:34 Dextrose 50% In Water 25 Gm/50 Ml Syringe IV-PUSH 11/04/26 18:33 PRN PRN Hypoglycemia Duloxetine HCl 60 mg 11/05/25 09:00 11/07/25 08:52 Duloxetine 60 Mg Capsule.Dr PO 11/05/26 08:59 60 mg DAILY REGINA Administration Furosemide 40 mg 11/05/25 09:00 11/07/25 08:52 Furosemide 40 Mg Tablet PO 11/05/26 08:59 40 mg DAILY REGINA Administration Gabapentin 300 mg 11/04/25 21:00 11/07/25 21:25 Gabapentin 300 Mg Capsule PO 11/04/26 20:59 300 mg BID REGINA Administration Glucose 0 gm 11/04/25 18:34 Dextrose 40% Gel 15 Gm Tube PO 11/04/26 18:33 PRN PRN Hypoglycemia Hydralazine HCl 100 mg 11/05/25 22:00 11/07/25 21:24 Hydralazine 50 Mg Tablet PO 11/05/26 21:59 100 mg TID REGINA Administration Magnesium Sulfate 2 gm in 50 mls @ 25 mls/hr 11/04/25 18:44 11/06/25 00:46 Magnesium Sulf 2gm-*Swfi* IV 11/04/26 18:43 Infused DAILY PRN Infusion Magnesium Level < 1.7 Insulin Aspart 0 units 11/04/25 22:00 11/07/25 21:28 Insulin Aspart 300 Units/3 Ml SUBCUT 11/04/26 21:59 2 units TID.WM.HS REGINA Administration Protocol Insulin Glargine 25 units 11/05/25 09:00 11/07/25 08:54 Insulin Glargine 300 Units/3 Ml Insuln.Pen SUBCUT 11/05/26 08:59 25 units QAM REGINA Administration Levothyroxine Sodium 75 mcg 11/05/25 06:30 11/07/25 06:35 Levothyroxine 75 Mcg Tablet PO 11/05/26 06:29 75 mcg DAILY.0630 REGINA Administration Melatonin 5 mg 11/04/25 21:29 11/04/25 22:30 Melatonin 5 Mg Tablet PO 11/04/26 21:59 5 mg QHS PRN Administration Insomnia Nystatin 1 applic 11/04/25 21:29 11/04/25 22:30 Nystatin 100,000 Unit/Gram Powder 15 Gm Bottle TOPICAL 11/04/26 21:28 1 applic QID PRN Administration Irritation Pantoprazole Sodium 40 mg 11/04/25 22:45 11/07/25 08:52 Pantoprazole 40 Mg Vial IV-PUSH 11/04/26 22:44 40 mg DAILY REGINA Administration Potassium Chloride 40 meq 11/04/25 18:44 Potassium Chloride Er 20 Meq Tab.Er.Prt PO 11/04/26 18:43 DAILY PRN Hypokalemia Prochlorperazine Edisylate 10 mg 11/04/25 23:52 11/05/25 20:28 Prochlorperazine Edisylate 10 Mg/2 Ml Vial IV-PUSH 11/04/26 23:51 10 mg Q4H PRN Administration Nausea And Vomiting Rivaroxaban 2.5 mg 11/04/25 21:00 11/07/25 21:24 Rivaroxaban 2.5 Mg Tablet PO 11/04/26 20:59 2.5 mg BID REGINA Administration Sodium Chloride 0 ml 11/04/25 10:48 11/05/25 20:28 Sodium Chloride 0.9 % 10 Ml Syringe IV-PUSH 11/04/26 10:47 10 ml PRN PRN Administration Flush Sodium Chloride 0 ml 11/04/25 22:00 11/07/25 21:27 Sodium Chloride 0.9 % 10 Ml Syringe IV-PUSH 11/04/26 21:59 10 ml QSHIFT REGINA Administration Sodium Chloride 10 ml 11/04/25 22:45 11/07/25 08:52 Sodium Chloride 0.9 % 10 Ml Vial.Pf INJECTION 11/04/26 22:44 10 ml PRN PRN Administration Dilution Sodium Chloride 10 ml 11/04/25 22:45 11/07/25 08:52 Sodium Chloride 0.9 % 10 Ml Syringe IV-PUSH 11/04/26 22:44 10 ml PRN PRN Administration Flush Valsartan 160 mg 11/07/25 09:00 11/07/25 08:52 Valsartan 160 Mg Tablet PO 11/07/26 08:59 160 mg DAILY REGINA Administration Vitamin D 50 mcg 11/05/25 09:00 11/07/25 08:52 Cholecalciferol 25 Mcg (1,000 Units) Tablet PO 11/05/26 08:59 50 mcg DAILY REGINA Administration A&P - Hospitalist Assessment/Plan (1) Altered mental status: Plan Hypertensive encephalopathy Patient has been transferred back to [facility] from the ICU She is off of Cardene drip. Valsartan 160 mg on top of her current antihypertensive medications. Will closely monitor her blood pressure. Her encephalopathy is much better now. She is on Keflex for UTI. Epigastric pain Unclear etiology. Patient presents to the ED on 10/31/2025 with a similar complaint. Workup at that time was negative. Workup remains unclear at this time - PPI therapy - Continue [place] as needed Diabetic Heel Ulcers s/p Recent Intervention Right foot evaluated by the ED attending, and reportedly there was no evidence of acute infectious appearance of the foot - Wound care nursing assessment Uncontrolled Hypertension Not adherent to her home regimen of medications. 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 COPD GERD DM type II Hypothyroidism HLD Obesity CODE STATUS: Full DVT PPx: Eliquis Documented By: Robin Whitaker MD 5 [id number] Signed By: <Electronically signed by Robin Whitaker MD> 11/08/25 033 Progress Note Author Robin Whitaker [facility] HospitalNote Date/TimeDecember 2024 9:47pm [place] [address] Hospitalist Progress Note Signed Patient: Olivia Chopra MR#: [id number] : 1950 Acct:[id number] Age/Sex: 75 / F Adm Date: 5 Loc: 3T Room: [address] [place] [address] Type: ADM IN Attending Dr: Robin Whitaker MD Copies to: ~ Date of Service: 11/08/2025 Subjective Subjective Narrative: No acute events noted overnight. No new complaints today. Eagerly awaiting discharge to SNF. Exam Physical Exam Vital Signs: Temp Pulse Resp BP Pulse Ox O2 Del Method 97.6 F 68 20 143/71 H 97 Room Air 11/08/25 16:48 11/08/25 16:48 11/08/25 16:48 11/08/25 16:48 11/08/25 16:48 11/08/25 16:48 Narrative: Constitutional: Elderly WF, resting in bed comfortably HEENT: Moist mucous membranes, neck supple Cardiovascular: RRR, no M/R/G, normal S1 and S2, no JVD Respiratory: Lungs clear to auscultation bilaterally, no wheezes, rales or rhonchi GI: Soft, NTND, normoactive bowel sounds : Deferred Neuro: AAO x3, no focal deficits. CN III-XII grossly intact, Strength 5/5 throughout Extremities: Right foot wrapped in an Hiren wrap Psych: Patient calm, cooperative and conversant Objective Lab Results 11/06/25 03:48 11/06/25 03:48 Microbiology Results Microbiology 11/04/25 12:14 Blood - Left Hand Blood Culture - Preliminary No Growth 4 Days 11/04/25 12:14 Blood - Left Wrist Blood Culture - Preliminary No Growth 4 Days Meds Allergies and Active Meds Allergies azithromycin (From Zithromax) Allergy (Unknown, Verified 11/04/25 10:46) Hives Active Meds: Active Medications Generic Name Dose Route Start Last Admin Trade Name Freq PRN Reason Stop Dose Admin Acetaminophen 325 mg 11/04/25 19:07 Acetaminophen 325 Mg Tablet PO 11/04/26 19:06 Q6HR PRN pain Acetaminophen 650 mg 11/04/25 18:44 Acetaminophen 325 Mg Tablet PO 11/04/26 18:43 Q6HR PRN Pain Scale 1 - 3 or fever Hydrocodone Bitart/Acetaminophen 1 tab 11/04/25 18:35 11/08/25 09:43 Hydrocodone/Acetaminophen 5-325 Mg Tablet PO 1 tab Q6HR PRN Administration Pain Amlodipine Besylate 10 mg 11/06/25 09:00 11/08/25 09:03 Amlodipine 10 Mg Tablet PO 11/06/26 08:59 10 mg DAILY REGINA Administration Aspirin 81 mg 11/05/25 09:00 11/08/25 09:04 Aspirin 81 Mg Tab.Chew PO 11/05/26 08:59 81 mg QAM REGINA Administration Atorvastatin Calcium 40 mg 11/04/25 22:00 11/07/25 21:25 Atorvastatin 40 Mg Tablet PO 11/04/26 21:59 40 mg QHS REGINA Administration Cephalexin HCl 500 mg 11/05/25 09:00 11/08/25 17:19 Cephalexin 500 Mg Capsule PO 11/11/25 23:59 500 mg QID REGINA Administration Dapagliflozin 10 mg 11/05/25 09:00 11/08/25 09:04 Dapagliflozin 10 Mg Tablet PO 11/05/26 08:59 10 mg DAILY REGINA Administration Dextrose 0 gm 11/04/25 18:34 Dextrose 50% In Water 25 Gm/50 Ml Syringe IV-PUSH 11/04/26 18:33 PRN PRN Hypoglycemia Duloxetine HCl 60 mg 11/05/25 09:00 11/08/25 09:05 Duloxetine 60 Mg Capsule.Dr PO 11/05/26 08:59 60 mg DAILY REGINA Administration Furosemide 40 mg 11/05/25 09:00 11/08/25 09:05 Furosemide 40 Mg Tablet PO 11/05/26 08:59 40 mg DAILY REGINA Administration Gabapentin 300 mg 11/04/25 21:00 11/08/25 09:05 Gabapentin 300 Mg Capsule PO 11/04/26 20:59 300 mg BID REGINA Administration Glucose 0 gm 11/04/25 18:34 Dextrose 40% Gel 15 Gm Tube PO 11/04/26 18:33 PRN PRN Hypoglycemia Hydralazine HCl 100 mg 11/05/25 22:00 11/08/25 14:48 Hydralazine 50 Mg Tablet PO 11/05/26 21:59 100 mg TID REGINA Administration Magnesium Sulfate 2 gm in 50 mls @ 25 mls/hr 11/04/25 18:44 11/06/25 00:46 Magnesium Sulf 2gm-*Swfi* IV 11/04/26 18:43 Infused DAILY PRN Infusion Magnesium Level < 1.7 Insulin Aspart 0 units 11/04/25 22:00 11/08/25 16:48 Insulin Aspart 300 Units/3 Ml SUBCUT 11/04/26 21:59 2 units TID.WM.HS REGINA Administration Protocol Insulin Glargine 25 units 11/05/25 09:00 11/08/25 09:06 Insulin Glargine 300 Units/3 Ml Insuln.Pen SUBCUT 11/05/26 08:59 25 units QAM REGINA Administration Levothyroxine Sodium 75 mcg 11/05/25 06:30 11/08/25 05:46 Levothyroxine 75 Mcg Tablet PO 11/05/26 06:29 Not Given DAILY.0630 REGINA Melatonin 5 mg 11/04/25 21:29 11/04/25 22:30 Melatonin 5 Mg Tablet PO 11/04/26 21:59 5 mg QHS PRN Administration Insomnia Nystatin 1 applic 11/04/25 21:29 11/04/25 22:30 Nystatin 100,000 Unit/Gram Powder 15 Gm Bottle TOPICAL 11/04/26 21:28 1 applic QID PRN Administration Irritation Pantoprazole Sodium 40 mg 11/04/25 22:45 11/08/25 09:06 Pantoprazole 40 Mg Vial IV-PUSH 11/04/26 22:44 40 mg DAILY REGINA Administration Potassium Chloride 40 meq 11/04/25 18:44 Potassium Chloride Er 20 Meq Tab.Er.Prt PO 11/04/26 18:43 DAILY PRN Hypokalemia Prochlorperazine Edisylate 10 mg 11/04/25 23:52 11/05/25 20:28 Prochlorperazine Edisylate 10 Mg/2 Ml Vial IV-PUSH 11/04/26 23:51 10 mg Q4H PRN Administration Nausea And Vomiting Rivaroxaban 2.5 mg 11/04/25 21:00 11/08/25 09:05 Rivaroxaban 2.5 Mg Tablet PO 11/04/26 20:59 2.5 mg BID REGINA Administration Sodium Chloride 0 ml 11/04/25 10:48 11/05/25 20:28 Sodium Chloride 0.9 % 10 Ml Syringe IV-PUSH 11/04/26 10:47 10 ml PRN PRN Administration Flush Sodium Chloride 0 ml 11/04/25 22:00 11/08/25 14:49 Sodium Chloride 0.9 % 10 Ml Syringe IV-PUSH 11/04/26 21:59 10 ml QSHIFT REGINA Administration Sodium Chloride 10 ml 11/04/25 22:45 11/08/25 09:06 Sodium Chloride 0.9 % 10 Ml Vial.Pf INJECTION 11/04/26 22:44 10 ml PRN PRN Administration Dilution Sodium Chloride 10 ml 11/04/25 22:45 11/07/25 08:52 Sodium Chloride 0.9 % 10 Ml Syringe IV-PUSH 11/04/26 22:44 10 ml PRN PRN Administration Flush Valsartan 160 mg 11/07/25 09:00 11/08/25 09:05 Valsartan 160 Mg Tablet PO 11/07/26 08:59 160 mg DAILY REGINA Administration Vitamin D 50 mcg 11/05/25 09:00 11/08/25 09:04 Cholecalciferol 25 Mcg (1,000 Units) Tablet PO 11/05/26 08:59 50 mcg DAILY REGINA Administration A&P - Hospitalist Assessment/Plan (1) Altered mental status: Plan Hypertensive encephalopathy Patient has been transferred back to med/tele from the ICU She is off of Cardene drip. Valsartan 160 mg on top of her current antihypertensive medications. Will closely monitor her blood pressure. Her encephalopathy is much better now. She is on Keflex for UTI. Epigastric pain Unclear etiology. Patient presents to the ED on 10/31/2025 with a similar complaint. Workup at that time was negative. Workup remains unclear at this time - PPI therapy - Continue [place] as needed Diabetic Heel Ulcers s/p Recent Intervention Right foot evaluated by the ED attending, and reportedly there was no evidence of acute infectious appearance of the foot - Wound care nursing assessment Uncontrolled Hypertension Not adherent to her home regimen of medications. 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
--- OUTSIDE RECORDS SUMMARY | 2025-11-14 15:49 | XMS_ITS ---
Author Organization [facility] Address [address] [place] [address] Care Team Providers Care Retail Loss Prevention Officer Name Role Phone Karolina Chamberlain DO Primary Care Provider [phone] Karolina Chamberlain DO Unavailable [phone] Custodial Facility Transitional Care Management Status:Enrolled (Active) Start date:11/09/2025 Enrollment date:11/11/2025 Enrollment reason:Identified using hospital discharge data Overview Patient discharged from [facility] on 11/09. Patient admitted to [facility]. Please contact SNF facility for VARUN (inpt to SNF) within 48 hours. NameMaxine Kerns LPN(Responsible Staff)Licensed Practical [phone] Continued Care and Services Coordination
--- OUTSIDE RECORDS SUMMARY | 2025-11-14 15:50 | XMS_ITS | Encounter Summary ---
Author Organization [facility] Address [address] [place] [address] Care Team Providers Care Ballistics Expert Forensic Name Role Phone Karolina Chamberlain DO Primary Care Provider [phone] Karolian Chamberlain DO Unavailable [phone] Encounter Details DateTypeDepartmentCare Team (Latest Contact Info)Huuwbtwsxao56/09/2025Telephone [facility] [address] [phone] Shauna Maciel MA Social History Tobacco UseTypesPacks/DayYears [...] care, and heating?Somewhat hard07/30/2023HQ-2AnswerDate RecordedPatient Health Questionnaire-2 [id number] Vital SignAnswerDate RecordedOn average, how many days [...] InformationValueDate RecordedSex Assigned at BirthNot on fileLegal PvjUwoixj01/15/2023 6:45 PM EDTGender Identity Not on fileSexual OrientationNot on filedocumented as of this encounter Miscellaneous Notes * Telephone Encounter - Shauna Maciel MA - 11/01/2025 11:05 AM EST Pt called to cancel today's appt due to the weather Will call back to reschedule documented in this encounter Plan of Treatment Not on file documented as of this encounter Visit Diagnoses Not on filedocumented in this encounter Care Teams Team MemberRelationshipSpecialtyStart DateEnd Date Karolina Chamberlain DO [address] [place] [address] PCP - GeneralFamily Medicine04/15/23 Karolina Chamberlain DO [address] [place] [address] [facility]1/11/2511documented as of this encounter
--- OUTSIDE RECORDS SUMMARY | 2025-11-14 15:50 | XMS_ITS | Clinical Summary ---
Author Organization [facility] Address [address] [place] [address] Phone Care Team Providers Care Airplane Coverer Name Role Phone Unavailable Primary Care Provider Unavailabl e Social History Tobacco UseTypesPacks/DayYears UsedDateSmoking Tobacco: Never Assessed CommentsUnknownSex and Gender InformationValueDate RecordedSex Assigned at Not on fileLegal FngJwdkcl44/26/2022 4:57 AM ESTGender IdentityNot on fileSexual OrientationNot on file Plan of Treatment Not on file
--- OUTSIDE RECORDS SUMMARY | 2025-11-14 15:50 | XMS_ITS | Patient Health Record ---
Author Organization [facility] Address [address] [place] [address] Care Team Providers Care Mumps Developer Name Role Phone Karolina Chamberlain Primary Care Provider Unavaila ble Reason For Referral No Information Immunizations Vaccine Route Administration Date Status [facility] z2024 Fluzone, HIGH DOSE, PFS (0.5mL Admin) IM Intramuscular 10/09/2024 Administered Plan Of Treatment No Information Insurance Providers Payer Name Payer Address Payer Phone Subscriber Number Group Number Insured Name Patient Relationship to Insured Coverage Start Date Coverage End Date [employer] [address] [address] [place] [address] [id number] Benji Chopra - patient is the insuredMEDICAID [facility] [address] [place], [place] [id number], SueSelf - patient is the insured
--- OUTSIDE RECORDS SUMMARY | 2025-11-14 15:50 | XMS_ITS | Clinical Summary ---
Author Organization [facility] Address [facility] [place] [address] Care Team Providers Care [address] And Building Decorator Name Role Phone Karolina Chamberlain Primary Care Provider Social History Tobacco UseTypesPacks/DayYears UsedDateSmoking Tobacco: Never Assessed CommentsUnknownSex and Gender InformationValueDate RecordedSex Assigned at Not on fileLegal WsuSdowng62/17/2021 1:43 PM ESTGender IdentityNot on fileSexual OrientationNot on file Plan of Treatment Not on file Insurance MemberSubscriberPlan / Payer (Effective 2022-Present)Name:Olivia Chopra Relation to Subscriber:SelfName:Olivia Chopra Silas Payer ID:Not on file Group ID:Not on file Type:Medicaid Address: [address] [place] [id number] Care Teams Team MemberRelationshipSpecialtyStart DateEnd Date Karolina Chamberlain [address] [facility] [address] [place] [address] [facility]01/10/21
--- OUTSIDE RECORDS SUMMARY | 2025-11-14 15:50 | XMS_ITS | Clinical Summary ---
Author Organization [facility] Address [address] [place] [address] Care Team Providers Care Air Intercept Controller Supervisor Name Role Phone Karolina Hyde DO Primary Care Provider [phone] Karolina Hyde DO Unavailable [phone] Allergies Active AllergyReactionsCriticalityNoted DateCommentsAzithromycinHives,Itching, Gddjppfs11/15/2023 Medications MedicationSigDispense QuantityRefillsLast FilledStart DateEnd DateStatus aspirin [...] MINI PEN NEEDLES) 31[place] 5 [place] [facility] [place]:Type 2 diabetes mellitus with diabetic peripheral [...] MORNING TAKE BEFORE A MEAL 100 tablet 5Active atorvastatin (Lipitor) 40 MG tablet Indications:Pure hypercholesterolemiaTAKE [...] kidney disease, with long-term current use of kgwivoe0604/06/2024Lumbar stenosis with neurogenic cccjvkrhvsik92/30/2024Thyroid mmmhch6805/15/2023Stenosis of left carotid iinswx3705/15/2023KD (chronic kidney disease) stage 4, GFR 15-29 [...] progressionof kidney damage. Chronic diastolic congestive heart ygciljt07/ Assessment & Plan (07/12/2025 1:09 PM EDT): [...] Diabetic polyneuropathy associated with type 2 diabetes xfdfadvr09/03/2021 Assessment & Plan (07/12/2025 1:08 PM EDT): [...] they have any problems or questions. Olivia Rosen Nav blood sugars are worsening. , Discussed dietary [...] they have any problems or questions. Olivia Silas Nav control is stable overall. , Will stay [...] amputation of lesser toe of right foot ([facility])05/06/2021 Assessment & Plan (04/06/2024 12:39 PM EDT): Wearing diabetic shoes and working on her mobility. History of amputation of great toe ([facility])05/06/2021Type 2 diabetes mellitus with diabetic peripheral angiopathy and gangrene, with long-term current use of hjzzjoz2703/30/2021ure myvgacyoyvretqthitmm64/07/2021 Assessment & Plan (07/12/2025 1:10 PM EDT): [...] low cholesterol (mediterranean style) diet. Renal artery cmdqirva22/22/2021 Assessment & Plan (04/06/2024 12:36 PM EDT): Working on risk factor reduction Tobacco abuse1Class 3 severe obesity due to excess calories with serious comorbidity and body mass index (BMI) of40.0 to 44.9 in adult01/11/2021 Urge zdisspjgiskg25/25/2019 Assessment & Plan (04/06/2024 12:37 PM EDT): Stable, no changes needed to current treatment plan. Need to decrease myrbetriq to daily dosing dueto insurance not covering bid dosing. Vitamin D mnnypolwfo81/25/2018Mild intermittent boltqg9208/25/2017 Assessment & Plan (07/12/2025 1:09 PM EDT): Stable, no changes needed to current treatment plan. Assessment & Plan (04/06/2024 12:36 PM EDT): Stable, no changes needed to current treatment plan. halfway current use of ghmsjbx1812/16/2016Peripheral vascular dfpxkcu7710/30/2015 Assessment & Plan (04/06/2024 12:36 PM EDT): Working on risk factor reduction Menieres lonuzar9210/30/2015Iron deficiency ygeyam7610/30/2015 Assessment & Plan (04/06/2024 12:38 PM EDT): Only takes iron a few days a week due to constipation. Will check labs and may need to consider IV iron. Essential adrbkniwkpyv14/07/2015 Assessment & Plan (07/12/2025 1:09 PM EDT): [...] will stay on current medications. Generalized anxiety xjyhbwzn04/07/2015 Assessment & Plan (07/12/2025 1:10 PM EDT): Stable, no changes needed to current treatment plan. Acquired ghejfkgqctooxm87/12/2015 Assessment & Plan (07/12/2025 1:10 PM EDT): Stable, no changes needed to current treatment plan. Assessment & Plan (04/06/2024 12:38 PM EDT): Stable, no changes needed to current treatment plan. Resolved Problems ProblemNoted DateDiagnosed DateResolved DateRenal massidney cystsOther ppcdukseqjwxfm43ERD without xqsnywlydqu10 Assessment & Plan (04/06/2024 12:36 PM EDT): Stable, no changes needed to current treatment plan. Mftyknjzrjrybe41epressive nrphuwpo69RP pdxzpuvp09oughnemia Amputation of toebscess of heelUlcer of right heel and midfoot with necrosis of boneUlcer of left heel and midfoot with fat layer bxktapx25/ifficulty sleeping Urinary lbsfdafupnvr76Ulcer of foot due to type 2 diabetes kzrnfahi30/cquired absence of other right toe(s) ([facility])05/06//Moderate malnutrition ([facility])01/19/2021 05/15/2023Ischemic toeangrene of toe of right foot bnormal gaitHypoglycemia due to type 2 diabetes vdhmuald30ost herpetic qipgxawgt82 Gastroesophageal reflux rqhaewx99Reactive airway disease lass 3 severe obesity due to excess calories with body mass index (BMI) of 40.0 to 44.9 in adultSciatica10/31/2015 05/15/2023 Encounters DateTypeDepartmentCare GbihQmfegndbijj07/19/2025Patient Outreach [facility] [address] [place] [phone] Gabriela Kerns LPN 11/03/2025Telephone [facility] [address] [place] [address] Karolina Hyde, DO ER Follow-up; Medication Iojaofja05/09/2025Telephone [facility] [address] [place] [address] Shauna Maciel MA 10/31/2025Telephone [facility] [address] [place] [address] Karolina Hyde, 10/18/2025Telephone [facility] [address] [place] [address] Shauna Maciel MA 10/13/2025Refill [facility] [address] [place] [address] Karolina Hyde, DO Rpgbqbbmxkv07/19/2025Clinisync Result Encounter [facility] External Department Unsolicited Provider, Generic External Data 5Clinisync Result Encounter [facility] External Department Unsolicited Provider, Generic External Data 5Clinisync Result Encounter [facility] External Department Unsolicited Provider, Generic External Data 10/08/2025Refill [facility] [address] [place] [phone] Karolina Hyde, DO Jmeaksaofdx53/12/2025Refill [facility] [address] [place] [address] Karolina Hyde, DO Pure goobxnslxotsabmxpvdl43/10/2025linisync Result Encounter [facility] External Department Unsolicited Provider, Generic External Data 10/03/2025linisync Result Encounter [facility] External Department Unsolicited Provider, Generic External Data 10/03/2025linisync Result Encounter [facility] External Department Unsolicited Provider, Generic External Data 09/28/2025Refill [facility] [address] [place] [address] Karolina Hyde, DO Essential hypertension; Type 2 diabetes mellitus with diabetic peripheral angiopathy and gangrene, with long-term current use of insulin (HCC); Acquired avkbiimnprhnnm90/17/2025Telephone [facility] [address] [place] [phone] Karolina Hyde, DO 09/07/2025Refill [facility] [address] [place] [address] Karolina Hyde, DO Sikdhxlbjqi68/29/2025Telephone [facility] [address] [place] [phone] Karolina Hyde, DO Medication Questionfrom Last 3 Months Immunizations ImmunizationAdministration DatesNext DueInfluenza, High Dose Seasonal, Preservative Free10/09/2024,08/18/2020,10/23/2019,08/13/2018,12/18/2017 Influenza, Seasonal, Quadrivalent, Almzdttliq29/09/2023,09/15/2021Influenza, injectable, MDCK, preservative free, weeplulmvhtv27/30/2022Influenza, injectable, quadrivalent, preservative free08/11/2020,01/07/2017Influenza, seasonal, injectable, preservative free10/30/2015Influenza, seasonal, intradermal, preservative free01/01/2010Pneumococcal Conjugate PCV 13012/18/2017, 08/18/2017Pneumococcal Polysaccharide ASDF9695Zoster, Recombinant 02/05/2019Zoster, live07/23/2016 Family History Medical HistoryRelationNameCommentsLung [...] care, and heating?Somewhat hard07/30/2023HQ-2AnswerDate RecordedPatient Health Questionnaire-2 Nmlsn529Exercise Vital SignAnswerDate RecordedOn average, how many days [...] InformationValueDate RecordedSex Assigned at BirthNot on fileLegal RfxWqdnfg16/15/2023 6:45 PM EDTGender Identity Not on fileSexual OrientationNot on file Last Filed Vital Signs Vital SignReadingTime TakenCommentsBlood Fdtvvedu452/6208 8:44 AM EDT Sqadq639807/12/2025 8:44 AM RQOBvnnjpknrbq93.7 ??C (98.1 ??F)07/12/2025 8:44 AM EDTRespiratory Rate--Oxygen Embrqavhrk81%07/12/2025 8:44 AM EDTInhaled Oxygen Concentration--Qenncm086 kg (244 lb)07/12/2025 8:44 AM BHOWtlhob207.8 cm (5' 4.5 )07/12/2025 8:44 AM EDTBody Mass Index41.24007/12/2025 8:44 AM EDT Plan of Treatment Health MaintenanceDue DateLast DoneCommentsCT Rjmpkfjfhsja1952Colonoscopy 1950FIT1950 2240Ohmntygomgyey71/15/4783WRRI53/07/2020Diabetes: Urine Protein Damycdvuk63/04/2022, 01/15/2019Diabetes: Retinopathy Mstqzbtov34/olorectal Cancer Jlenmeiph42/26/2025FIT-DNA 502COVID-19 Vaccine ( season)510/, 1Diabetes: Hemoglobin A1C508/, 12/28/2024, 04/06/2024, Additional history existsMedicare Annual Wellness (AWV)608, 07/12/2025, 04/06/2024, Additional history existsPneumococcal Vaccine: 65+ Years Ksvtdyajk68/25/2018, 12/18/2017, 08/18/20177617XjjbcsybcMtylvtdvklgs30/13/2020, 12/06/2019Influenza HlmwjczOajclnyay94/08/2025, 10/09/2024, 09/01/2023, Additional history exists Procedures Procedure NamePriorityDate/TimeAssociated DiagnosisCommentsALL BASIC METABOLIC UNCQASzoqbzn48/19/2025 5:01 AM EST XR FOOT RT MIN 3V112/11/2024 7:36 PM EST MLR HEMOGLOBIN V0CEguqjjm55/18/2025 1:58 PM EST ALL BASIC METABOLIC TAQLGKtgjesx83/18/2025 1:58 PM EST HMHP CBC WITH PLATELET NO MKDZEFZDASNKKvtzqyh11/18/2025 1:58 PM EST FUNGUS PXBZTLjipetu17/18/2025 11:28 AM EST ANAEROBIC CULT, EXTENDED GVVHDDzmmaxc40/18/2025 11:28 AM EST FUNGUS (MYCOLOGY) ATQPUJNQuhtbaw22/18/2025 11:28 AM EST TISSUE QFCNSNPGrpduav22/18/2025 11:28 AM EST GRAM STAIN AMFYTUOzirijq83/18/2025 11:28 AM EST ACID FAST YTXTSTOYkugslr01/18/2025 11:28 AM ESTACID FAST XHHILDphlakq49/18/2025 11:28 AM EST AFB SPECIMEN FALDZFCPAUQsfyfrw91/18/2025 11:28 AM EST XR CHEST 2V112/03/2024 5:57 PM EST CCF IUMTQhyqdhh69/10/2025 1:20 PM EST SRMCOH PROTHROMBIN TIME INR W/O PDRIGxkjhtw27/10/2025 1:20 PM EST ECG 12-LEAD10/03/2025 12:21 PM EST POCT GLYCOSYLATED HEMOGLOBIN (HGB A1C)Znnvbnw6307/12/2025 9:06 AM EDT Type 2 diabetes mellitus with diabetic peripheral angiopathy and gangrene, with long-term current use of insulin (HCC) MICROALB/CREAT RATIO QOPCgfqhcy59/06/2022 LAB COLOGUARD?? COLON CANCER DTGLRVOngumob05/26/2022 COLOR FUNDUS PHOTOGRAPHY - OU - BOTH JJAEJtjncic31/15/2022 12:00 PM EST FECAL OCCULT BLD FGBNbyebxw70/09/2020 12:00 PM EDT BI MAMMOGRAM SCREENING OXZVVHHBBFqwszen50/13/2020 12:00 PM EST from Last 3 Months or Most Recently Relevant to Health Maintenance Results * (ABNORMAL) ALL BASIC METABOLIC PANEL (10/12/2025 5:01 AM EST) Only the most recent of2 resultswithin the time period is included. ComponentValueRef RangeTest MethodAnalysis TimePerformed AtPathologist Signature FDOLRO185705 - 145 mmol/LTBHPOTASSIUM5.03.5 - 5.1 mmol/ECLOSZNQZGOP369(H)98 - 107 mmol/LTBHCARBON TRTSINI62.121.0 - 32.0 mmol/LTBHANION GAP12.6IXVQHQRVWU578 (H)74 - 106 mg/dLTBHBLOOD UREA RAZJZYNY22.0(H)7.0 - 18.0 mg/dLTBHCREATININE2.40 (H)0.55 - 1.02 mg/dLTBHTBH EGFR-AF YCCLMHUA93(L)>=60 mL/min/1.73m 2TBHTBH EGFR- NON AF RURHKBMX30(L)>=60 mL/min/1.73m 2TBHBUN CREATININE RATIO20.7DBAOYBISCM2.6 8.5 - 10.1 mg/dLTBHSpecimen (Source)Anatomical Location / LateralityCollection Method / VolumeCollection TimeReceived Time10/12/2025 5:01 AM EST10/12/2025 5:28 AM EST Narrative CLINISYNC - 10/12/2025 5:50 AM EST Authorizing ProviderResult TypeResult StatusGeneric External Data Provider CLINISYNCFinal ResultPerforming OrganizationAddressCity/State/ZIP CodePhone Number [facility] * XR FOOT RT MIN 3V (10/11/2025 7:36 PM EST)Anatomical RegionLateralityModality OtherSpecimen (Source)Anatomical Location / LateralityCollection Method / VolumeCollection TimeReceived Time10/11/2025 7:36 PM EST Narrative 10/11/2025 7:38 PM EST [facility] ?[address] ? [place] [address] ?XRay Report ? Signed ? Patient: OLIVIA CHOPRA ? MR#: [id number] ?? : 1950 ?Acct:[id number] ?? Age/Sex: 75 / F ?ADM Date: 10/11/25 ?? Loc: MS ??222-1 ? Attending Dr: Nick Landaverde D.P.M. ? Ordering Physician: Nick Landaverde D.P.M. ?? Date of Service: 10/11/25 ?? Procedure(s): XR foot RT min 3V ?? Accession Number(s): [id number] ? cc: Nick Landaverde D.P.M.; KAROLINA HYDE ? [facility] ? [address] ? [place] [address] ? Patient Name: ?? OLIVIA CHOPRA ? MRN: [facility]:[id number] ? date: 1950 ?Sex: F ?? Assigned Patient Location: SURGOUT ?? Current Patient Location: [place] ?? Accession/Order Number: [id number] ?? Exam Date: 10/11/2025 ??12:30 ?Report Date: [...] M.D. ??10/11/2025 7:36 PM ? Dictation Location: [facility]20 ? Electronically authenticated by: [id number] ??Y ?? Date: 10/11/2025 ??19:36 ? Dictated By: ?Pavel Davila D.O. ? Signed By: ?10/11/251937 ? DD/ 35 ? TD/TT: ? Lead Principal Technical Architect: Procedure Note Radiology, Radiologist, MD - 10/11/2025 [place] [address] XRay Report Signed Patient: OLIVIA CHOPRA [facility]#: [id number] : 2Acct:[id number] Age/Sex: 75 / FADM Date: 10/11/25 Loc: [place] 222-[address]: Nick Landaverde D.P.M. Ordering Physician: Nick Landaverde D.P.M. Date of Service: 10/11/25 Procedure(s): XR foot RT min 3V Accession Number(s): [id number] cc: Nick Landaverde D.P.M.; KAROLINA HYDE [place] [id number] Patient Name: OLIVIA CHOPRA MRN: [facility]:[id number] date: 1950 Sex: F Assigned Patient Location: SURGOUT Current Patient Location: [place] Accession/Order Number: [id number] Exam Date: 10/11/2025 12:30 Report Date: 10/11/2025 [...] Davila M.D. 10/11/2025 7:36 PM Dictation Location: [place] [address] Electronically authenticated by: [id number] Y Date: 9:36 Dictated By: Pavel Davila D.O. Signed By:10/11/251937 DD/ 35 TD/TT: Lead Principal Technical Architect: Authorizing ProviderResult TypeResult StatusGeneric External Data Provider CLINISYNC IMAGINGFinal Result * MLR HEMOGLOBIN A1C (10/11/2025 1:58 PM EST)ComponentValueRef RangeTest Method Analysis TimePerformed AtPathologist SignatureGLYCOHEMOGLOBIN A1C6.14.5 - 6.2 %TBHComment: ADA RECOMMENDED LIMIT 4.0 - 6.0 ADA THERAPEUTIC TARGET < 7.0 ACTION SUGGESTED > 7.0 ESTIMATED AVERAGE YOGESSD672le/dLTBHSpecimen (Source)Anatomical Location / LateralityCollection Method / VolumeCollection TimeReceived Time10/11/2025 1:58 PM EST10/11/2025 2:03 PM EST Narrative [facility]IN[facility]NC - 10/11/2025 2:55 PM EST Authorizing ProviderResult TypeResult StatusGeneric External Data Provider CLINISYNCFinal ResultPerforming OrganizationAddressCity/State/ZIP CodePhone Number [facility] * (ABNORMAL) [facility] CBC WITH PLATELET NO DIFFERENTIAL (10/11/2025 1:58 PM EST) ComponentValueRef RangeTest MethodAnalysis TimePerformed AtPathologist SignatureTBH WBC10.34.0 - 11.0 10 3/uLTBHTBH RBC3.63(L)4.20 - 5.40 10 6/uLTBH TBH HGB10.4(L)12.0 - 16.0 g/dLTBHTBH HCT33.5(L)36.0 - 48.0 %TBHTBH MCV92.381.0 - 99.0 fLTBHTBH MCH28.726.7 - 34.0 pgTBHTBH MCHC31.029.9 - 35.2 g/dLTBHTBH RDW 13.511.0 - 15.0 %TBHTBH XLD520121 - 450 10 3/uLTBHTBH MPV11.49.5 - 13.5 fLTBH Specimen (Source)Anatomical Location / LateralityCollection Method / Volume Collection TimeReceived Time10/11/2025 1:58 PM EST10/11/2025 2:03 PM EST Narrative CLINISYIA - 10/11/2025 2:07 PM EST Authorizing ProviderResult TypeResult StatusGeneric External Data Provider CLINISYNCFinal ResultPerforming OrganizationAddressCity/State/ZIP CodePhone Number [facility] * ANAEROBIC CULT, EXTENDED INCUB (10/11/2025 11:28 AM EST)ComponentValueRef RangeTest MethodAnalysis TimePerformed AtPathologist SignatureANAEROBIC CULT, EXTENDED INCUB ??Anaerobic Cult, Extended Incub TBHANAEROBIC CULT, EXTENDED INCUBNo aerobic or anaerobic growth in five days.TBH ANAEROBIC CULT, EXTENDED INCUBTBHANAEROBIC CULT, EXTENDED INCUBNo growth after 14 days.TBHSpecimen (Source)Anatomical Location / LateralityCollection Method / VolumeCollection TimeReceived Time10/11/2025 11:28 AM EST10/11/2025 2:16 PM EST Narrative CLINISYIA - 10/27/2025 6:08 PM EST Authorizing ProviderResult TypeResult StatusGeneric External Data ProviderLAB BLOOD ORDERABLESFinal ResultPerforming OrganizationAddLifecare Hospital of Chester Countyty/[facility]ENTERB Code Phone Number [facility] * TISSUE CULTURE (10/11/2025 11:28 AM EST)ComponentValueRef RangeTest Method Analysis TimePerformed AtPathologist SignatureTISSUE CULTURE ??Tissue Culture WILL FOLLOW TBHTISSUE CULTURETBHTISSUE CULTURENo growth after 18-24 hours.TBHTISSUE CULTURE TBHTISSUE CULTURENo growth in 36 - 48 hours.TBHTISSUE CULTURETBHTISSUE CULTURENo growth in 56 - 72 hours.TBHSpecimen (Source)Anatomical Location / Laterality Collection Method / VolumeCollection TimeReceived Time10/11/2025 11:28 AM EST 10/11/2025 2:16 PM EST Narrative [facility] - 10/27/2025 6:08 PM EST Authorizing ProviderResult TypeResult StatusGeneric External Data ProviderTREGO [facility] BLOOD ORDERABLESFinal ResultPerforming OrganizationAddressty/State/ZIP Code Phone Number [facility] * GRAM STAIN RESULT (10/11/2025 11:28 AM EST)ComponentValueRef RangeTest Method Analysis TimePerformed AtPathologist SignatureGRAM STAIN RESULT ??Gram Stain Result TBHGRAM STAIN RESULTNo white blood cells seen.TBHGRAM STAIN RESULTTBHGRAM STAIN RESULTNo organisms seenTBHGRAM STAIN RESULTPerformed at: [facility] LabSaint [facility] GRAM STAIN [address] [place], [place] [id number] STAIN RESULTLab Director: Bernard Trevino PhD, Phone: [phone] (Source)Anatomical Location / LateralityCollection Method / VolumeCollection TimeReceived Time 10/11/2025 11:28 AM EST10/11/2025 2:16 PM EST Narrative CLINISYIA - 10/27/2025 6:08 PM EST Authorizing ProviderResult TypeResult StatusGeneric External Data ProviderLAB BLOOD ORDERABLESFinal ResultPerforming OrganizationAddressCity/State/ZIP Code Phone Number [facility] * FUNGUS STAIN (10/11/2025 11:28 AM EST)ComponentValueRef RangeTest Method Analysis TimePerformed AtPathologist SignatureFUNGUS STAIN ??Fungus Stain TBHFUNGUS STAINKOH/Calcofluor preparation: no fungus observed.TBHSpecimen (Source)Anatomical Location / LateralityCollection Method / VolumeCollection TimeReceived Time10/11/2025 11:28 AM EST10/11/2025 2:16 PM EST Narrative CLINISYIA - 11/11/2025 8:08 PM EST Authorizing ProviderResult TypeResult StatusGeneric External Data ProviderLAB BLOOD ORDERABLESFinal ResultPerforming OrganizationAddressCity/State/ZIP Code Phone Number DON[facility] * FUNGUS (MYCOLOGY) CULTURE (10/11/2025 11:28 AM EST)ComponentValueRef RangeTest MethodAnalysis TimePerformed AtPathologist SignatureFUNGUS (MYCOLOGY) CULTURE ??Fungus (Mycology) Culture TBHFUNGUS (MYCOLOGY) CULTURECulture Report:TBHFUNGUS (MYCOLOGY) CULTUREThe specimen submitted for fungus culture has been received andTBHFUNGUS (MYCOLOGY) CULTUREculture has been initiated.TBHFUNGUS (MYCOLOGY) CULTURENo yeast or mold isolated after 4 weeks.TBHFUNGUS (MYCOLOGY) CULTUREPerformed at: [facility] HospitalTBHFUNGUS (MYCOLOGY) HEANMQM[address] [place], [place] [id number] FUNGUS (MYCOLOGY) CULTURELab Director: Bernard Trevino PhD, Phone: [phone] TBHSpecimen (Source)Anatomical Location / LateralityCollection Method / Volume Collection TimeReceived Time10/11/2025 11:28 AM EST10/11/2025 2:16 PM EST Narrative CLINISYIA - 11/11/2025 8:08 PM EST Authorizing ProviderResult TypeResult StatusGeneric External Data ProviderLAB BLOOD ORDERABLESFinal ResultPerforming OrganizationAddressCity/State/ZIP Code Phone Number [facility] * ACID FAST SMEAR (10/11/2025 11:28 AM EST)ComponentValueRef RangeTest Method Analysis TimePerformed AtPathologist SignatureACID FAST SMEAR ??Acid Fast Smear ?Negative TBHSpecimen (Source)Anatomical Location / LateralityCollection Method / Volume Collection TimeReceived Time10/11/2025 11:28 AM EST10/11/2025 2:16 PM EST Narrative CLINISYNC - 10/12/2025 11:08 AM EST Authorizing ProviderResult TypeResult StatusGeneric External Data ProviderLAB BLOOD ORDERABLESFinal ResultPerforming OrganizationAddressty/State/ZIP Code Phone Number [facility] * AFB SPECIMEN PROCESSING (10/11/2025 11:28 AM EST)ComponentValueRef RangeTest MethodAnalysis TimePerformed AtPathologist SignatureAFB SPECIMEN PROCESSING ??AFB Specimen Processing TBHAFB SPECIMEN PROCESSINGTissue GrindingTBHSpecimen (Source)Anatomical Location / LateralityCollection Method / VolumeCollection TimeReceived Time10/11/2025 11:28 AM EST10/11/2025 2:16 PM EST Narrative CLINISYNC - 10/12/2025 11:08 AM EST Authorizing ProviderResult TypeResult StatusGeneric External Data ProviderLAB BLOOD ORDERABLESFinal ResultPerforming OrganizationAddressty/State/ZIP Code Phone Number [facility] * XR CHEST 2V (10/03/2025 5:57 PM EST)Anatomical RegionLateralityModalityOther Specimen (Source)Anatomical Location / LateralityCollection Method / Volume Collection TimeReceived Time10/03/2025 5:57 PM EST Narrative 10/03/2025 6:00 PM EST [facility] ?[address] ? [place] [address] ?XRay Report ? Signed ? Patient: OLIVIA CHOPRA ? MR#: [id number] ?? : 1950 ?Acct:[id number] ?? Age/Sex: 75 / F ?ADM Date: 10/03/25 ?? Loc: PST ? Attending Dr: Nick Landaverde D.P.M. ? Ordering Physician: Nick Landaverde D.P.M. ?? Date of Service: 10/03/25 ?? Procedure(s): XR chest 2V ?? Accession Number(s): [id number] ? cc: Nick Landaverde D.P.M.; KAROLINA HYDE ? [facility] ? [address] ? [place] [address] ? Patient Name: ?? OLIVIA CHOPRA ? MRN: [facility]:[id number] ? date: 1950 ?Sex: F ?? Assigned Patient Location: SURGOUT ?? Current Patient Location: SURGOUT ?? Accession/Order Number: [id number] ?? Exam Date: 10/03/2025 ??13:42 ?Report Date: [...] Dictation Location: [facility]-PC-29 ? Electronically authenticated by: [id number] ??Y ?? Date: 10/03/2025 ??17:57 ? Dictated By: ?Bassam Estevez M.D. ? Signed By: ?10/03/25 1800 ? DD/ 1757 ? TD/TT: ? Lead Principal Technical Architect: Procedure Note Radiology, Radiologist, - 10/03/2025 [place] [address] XRay Report Signed Patient: OLIVIA CHOPRA DMR#: [id number] : 2Acct:[id number] Age/Sex: 75 / FADM Date: 10/03/25 Loc: PST Attending Dr: Nick Landaverde D.P.M. Ordering Physician: Nick Landaverde D.P.M. Date of Service: 10/03/25 Procedure(s): XR chest 2V Accession Number(s): [id number] cc: Nick Landaverde D.P.M.; KAROLINA HYDE [place] [id number] Patient Name: OLIVIA CHOPRA MRN: [facility]:[id number] date: 1950 Sex: F [facility] Accession/Order Number: [id number] Exam Date: 10/03/2025 13:42 Report Date: 10/03/2025 [...] Estevez M.D. 10/03/2025 5:57 PM Dictation Location: [place] [address] Electronically authenticated by: [id number] Y Date: 7:57 Dictated By: Bassam Estevez M.D. Signed By:10/03/25 1800 DD/ 175 TD/TT: Lead Principal Technical Architect: Authorizing ProviderResult TypeResult StatusGeneric External Data Provider [...] Data Provider CLINISYNCFinal ResultPerforming OrganizationAddressCity/State/ZIP CodePhone Number [facility] * [facility] APTT (10/03/2025 1:20 PM EST)ComponentValueRef RangeTest MethodAnalysis TimePerformed AtPathologist SignaturePARTIAL THROMBOPLASTIN TIME34.022.3 - 36.2 secTBHSpecimen (Source)Anatomical Location / LateralityCollection Method / VolumeCollection TimeReceived Time10/03/2025 1:20 PM EST10/03/2025 1:37 PM EST Narrative CLINISYNC - 10/03/2025 2:12 PM EST Authorizing ProviderResult TypeResult StatusGeneric External Data Provider CLINISYNCFinal ResultPerforming OrganizationAddressCity/State/ZIP CodePhone Number [facility]IN[facility]NC [facility] * ECG 12-LEAD (10/03/2025 12:21 PM EST)Anatomical RegionLateralityModalityOther Specimen (Source)Anatomical Location / LateralityCollection Method / Volume Collection TimeReceived Time10/03/2025 12:21 PM EST Narrative 10/03/2025 7:23 PM EST [facility] ?[address] ? [place] [address] ? Electrocardiograph Report ? Signed ? Patient: OLIVIA CHOPRA ? MR#: [id number] ?? : 1950 ?Acct:[id number] ?? Age/Sex: 75 / F ?ADM Date: 10/03/25 ?? Loc: PST ? Attending Dr: Nick Landaverde D.P.M. ? Ordering Physician: Nick Landaverde D.P.M. ?? Date of Service: 10/03/25 ?? Procedure(s): ECG 12 lead ?? Accession Number(s): [id number] ? cc: ?[facility] ? Test Date: ?2025-10-03 ?? Pat Name: ? OLIVIA CHOPRA ?Department: ? Room: ? - ?? Gender: ? Female ? Veterinary Parasitologist: ? : ?1950 ? Requested By: NICK GARRET ?? Order Number: [id number] ?Reading MD: ?? PARESH ??Awa BLANK. ? Measurements ?? Intervals ?[place] ? Rate: ? 63 ? P: ?-12 ?? WA: ? 200 ?QRS: ?-32 ?? QRSD: ? [...] Dictated By: ?PARESH BLANK ? Signed By: ?10/03/25 1923 ? DD/ 1221 ? TD/TT: ? Lead Principal Technical Architect: Procedure Note Radiology, Radiologist, MD - 10/03/2025 [place] [address] Electrocardiograph Report Signed Patient: OLIVIA CHOPRA DMR#: [id number] : 2Acct:[id number] Age/Sex: 75 / FADM Date: 10/03/25 Loc: PST Attending Dr: Nick Landaverde D.P.M. Ordering Physician: Nick Landaverde D.P.M. Date of Service: 10/03/25 Procedure(s): ECG 12 lead Accession Number(s): [id number] cc: [facility] Test Date: 2025-10-03 Pat Name: OLIVIA CHOPRA Department: Room: - Gender: Female Veterinary Parasitologist: : 1950 Requested By: NICK LANDAVERDE Order Number: [id number] Reading MD: PARESH BLANK M.D. Measurements Intervals [place] Rate: 63 P: -12 WA: 200 QRS: -32 QRSD: 119 T: 82 QT: 416 QTc: 428 Interpretive Statements SINUS RHYTHM MARKED LEFT AXIS DEVIATION [QRS AXIS < -30] LEFT VENTRICULAR HYPERTROPHY AND ST-T CHANGE [VOLTAGE CRITERIA PLUS ST/T ABNORMALITY] Abnormal ECG No previous ECG available for comparison Electronically Signed On 10-03-2025 19:22:57 EST by PARESH BLANK M.D. Dictated By: PARESH BLANK Signed By:10/03/251922 DD/ 1221 TD/TT: Lead Principal Technical Architect: Authorizing ProviderResult TypeResult StatusGeneric External Data Provider CLINISYNC IMAGINGFinal Result * POCT glycosylated hemoglobin (Hb A1C) docked device (07/12/2025 9:06 AM EDT) ComponentValueRef RangeTest MethodAnalysis TimePerformed AtPathologist SignatureHemoglobin A1C6.1Specimen (Source)Anatomical Location / Laterality Collection Method / VolumeCollection TimeReceived TimeBloodVenous blood specimen / Wdoksqc5007/12/2025 9:06 AM EDT Narrative Authorizing ProviderResult TypeResult StatusAllison Aneesh Hyde DOPOINT OF CARE TEST ENTER/EDIT ORDERABLESFinal Result * (ABNORMAL) MICROALB/CREAT RATIO URR (07/30/2022)ComponentValueRef RangeTest MethodAnalysis TimePerformed AtPathologist SignatureMICROALBUMIN, URINE19.4(H) 0.0 - 1.8[facility] TTMKZKGM72.5[facility] EXTER[facility] LABComment:No reference range establishedMICROALBUMIN/CREATININE RATIO1,251.0(H)0.0 - 30.0 [facility] EXTER[facility] LABComment: 30-300 mg/g indicates an increased risk for diabetic nephropathy. ??Greater than 300 mg/g is consistent with clinical nephropathy. ??(Am. J. Kidney Disease 1995, 25:107) Specimen (Source)Anatomical Location / LateralityCollection Method / Volume Collection TimeReceived Time07/30/2022 Narrative Authorizing ProviderResult TypeResult StatusKarolina Hyde DOECW LABSFinal ResultPerforming OrganizationAddressCity/State/ZIP CodePhone Number [facility] [...] screened with both Cologuard and colonoscopy. (Lauren Grissom al, N Engl J Med 2014;370(14):8720-6228.) Cologuard may produce a false negative or false positive result (no colorectal cancer or precancerous polyp present at colonoscopy follow up). A negative Cologuard test result does not guarantee the absence of CRC or advanced adenoma (pre-cancer). The current Cologuard screening interval is every 3 years. ([place] [employer] Society and U.S. Multi-Society Task Force). Cologuard performance data in a 10,000 patient pivotal study using colonoscopy as the reference method can be accessed at the following location: [email or web address]/results. Additional description of the Cologuard test process, warnings and precautions can be found at www.cologuard.com. Specimen (Source)Anatomical Location / LateralityCollection Method / Volume Collection TimeReceived Time01/19/2022 Narrative Authorizing ProviderResult TypeResult Brown Hyde REPLACED BY [facility] ORDERABLESFinal ResultPerforming OrganizationAddressCity/State/ZIP CodePhone Number [facility] * Color Fundus Photography - OU - Both Eyes (01/08/2022 12:00 PM EST)Anatomical RegionLateralityModalityHeadFundus PhotographySpecimen (Source)Anatomical Location / LateralityCollection Method / VolumeCollection TimeReceived Time 01/08/2022 12:00 PM EST Narrative 01/08/2022 12:00 PM EST PERFORMED AT [facility] LOCATION:[id number] no diabetic retinopathy Procedure Note CONVERSION, GENERIC - 04/09/2023 PERFORMED AT [facility] LOCATION:[id number] no diabetic retinopathy Authorizing ProviderResult TypeResult Brown Hyde DOCARONDELET HEALTH PHOTOGRAPHYFinal Result * FECAL OCCULT BLD TST (09/01/2020 12:00 PM EDT)ComponentValueRef RangeTest MethodAnalysis TimePerformed AtPathologist SignatureIMMUNO FOBSSIECW NONXML LABSSpecimen (Source)Anatomical Location / LateralityCollection Method / VolumeCollection TimeReceived Time10/07/2020 12:00 PM EDT Narrative Authorizing ProviderResult TypeResult StatusKarolina Hyde DOEC LABSFinal ResultPerforming OrganizationAddressCity/State/ZIP CodePhone Number [facility] NONXML LABS * Bilateral screening mammogram (12/06/2019 12:00 PM EST)Anatomical Region LateralityModalityBreastBilateralMammographySpecimen (Source)Anatomical Location / LateralityCollection Method / VolumeCollection TimeReceived Time Narrative 12/06/2019 12:00 PM EST PERFORMED AT [facility] LOCATION:[id number] SSI Procedure Note CONVERSION, GENERIC / Karolina Hyde, DO - 05/30/2023 PERFORMED AT [facility] LOCATION:[id number] [facility] Authorizing ProviderResult TypeResult StatusKarolina Hyde DOIMG BI PROCEDURESFinal Result from Last 3 Months or Most Recently Relevant to Health Maintenance Insurance Advance Directives TypeDate RecordedPatient RepresentativeExplanationAdvance Directives and Living Will.10.10 POA HealthcareAdvance Directives and Living Will Last Will and Testament Care Teams Team MemberRelationshipSpecialtyStart DateEnd Date Karolina Hyde DO [address] [place] [address] PCP - [facility]04/15/23 Karolina Hyde DO [address] [place] [address] PCP - [facility]/11/2511
--- OUTSIDE RECORDS SUMMARY | 2025-11-14 15:50 | XMS_ITS | Encounter Summary ---
Author Organization [facility] Address [address] [place] [address] Care Team Providers Care Drive In Teller Name Role Phone Karolina Chamberlain DO Primary Care Provider [phone] Karolina Chamberlain DO Unavailable [phone] Reason for Visit * ReasonOnset DateCommentsER Follow-up11/03/2025Medication Mkuylkwa02/11/2025 Encounter Details DateTypeDepartmentCare Team (Latest Contact Info)Ieawdjejqhx31/11/2025Telephone [facility] [address] [facility] [address] [place] [phone] Karolina Chamberlain, [address] [facility] [address] [place] [address] ER Follow-up; Medication Question Social History Tobacco UseTypesPacks/DayYears UsedDateSmoking Tobacco: Every [...] care, and heating?Somewhat hard07/30/2023HQ-2AnswerDate RecordedPatient Health Questionnaire-2 Tvrqu007Exercise Vital SignAnswerDate RecordedOn average, how many days [...] steady place to sleep or slept in [place] (including now)?No 07/30/2023CommentsUnknownSex and Gender InformationValueDate RecordedSex Assigned at BirthNot on fileLegal HydTdbubq83/15/2023 6:45 PM EDTGender Identity Not on fileSexual OrientationNot on filedocumented as of this encounter Miscellaneous Notes * Telephone Encounter - Princess MARLON Oquendo - 11/03/2025 3:11 PM EST P/C to pt informing her of Dr. Turcios's response. Pt very tearful and states that she is in so much pain . Informed pt since pain is that bad she will want to go back out to ER. Pt states she does not want to since the last time she waited about 4 hours in waiting room. Questioned pt if she had someone to take her to the ER. States last time she had to call the squad, informed pt she may have to go that route again, if pain is that intense and she does not have anyone to take her. Pt voiced understanding. * Telephone Encounter - Princess Oquendo LPN - 11/03/2025 1:09 PM EST ER visit: 10/31/25 DX: UTI; Abd pain Prescribed: Cephalexin and Hydrocodone-acetaminophen 5-325 mg Q6H x 3 days * Telephone Encounter - Ketty Chen - 11/03/2025 1:03 PM EST Pt called stating she is on an antibiotic four times a day for a UTI and she went to the ER by ambulance on Friday and she had to wait four hours at the ER and she requesting some medication to helpwith the pain, she has stomach pain due to the UTI and she needs some pain meds because she is in alot of pain. She would like it sent to [facility] in [place]. She stated she just had surgery on her foot and she can not walk on it, she stated she is not able to come in for an appt if needed. Pt would like a call back at [phone] when this is sent in. documented in this encounter Plan of Treatment Not on file documented as of this encounter Visit Diagnoses Not on filedocumented in this encounter Care Teams Team MemberRelationshipSpecialtyStart DateEnd Date Karolina Chamberlain DO [address] [place] [address] [facility] - [facility]23 Karolina Chamberlain DO [address] [place] [address] PCP - [facility]1/11/2511documented as of this encounter
--- OUTSIDE RECORDS SUMMARY | 2025-11-14 15:50 | XMS_ITS | Clinical Summary ---
Author Organization [facility] Address [address], [address] [place] [address] Care Team Providers Care Field Clinical Engineer Name Role Phone Karolina Chamberlain Aneesh MELVIN Primary Care Provider [phone] Allergies Active AllergyReactionsCriticalityNoted DateCommentsAzithromycinHives,Itching 01/11/2021 Medications MedicationSigDispense [...] tablet 01/18/2021ctive Active Problems ProblemNoted DateDiagnosed DateModerate unrycubzbbkw14/26/2021arotid stenosis, asymptomatic, unspecified iwzvvvfzkr77/22/2021cute kidney qvkrbr4401/13/2021 Ischemic toe01/11/2021Tobacco abuse01/11/2021Obesity (BMI 30-39.9)01/11/2021 Peripheral vascular dbwnjkq2901/11/2021Gangrene of toe01/11/2021ssential hypertensionOther hyperlipidemiaCRP elevatedDisorientation Family History Medical HistoryRelationNameCommentsDiabetesBrotherDiabetesMotherDiabetesSister DianeKidney DiseaseSisterDianeRelationNameStatusCommentsBrotherAliveMother DeceasedSisterDianeAlive Social History Tobacco UseTypesPacks/DayYears UsedDateSmoking Tobacco: NeverSmokeless Tobacco: NeverCommentsUnknownSex and Gender InformationValueDate RecordedSex Assigned at BirthNot on fileLegal IvsCytymf96/17/2021 8:03 PM ESTGender Identity Not on fileSexual OrientationNot on file Last Filed Vital Signs Vital SignReadingTime TakenCommentsBlood Obeppukt965/3802 9:18 PM EST Nnjfy754501/19/2021 9:18 PM KXDDklktjquqyz69.6 ??C (97.8 ??F)02/05/2021 3:01 PM EDTRespiratory Cyrw126302/05/2021 3:01 PM EDTOxygen Oetajomhab17%01/19/2021 9:18 PM ESTInhaled Oxygen Concentration--Fngsrf590.6 kg (224 lb)02/05/2021 3:01 PM RXDXcaxej655.1 cm (5' 5 )02/05/2021 3:01 PM EDTBody Mass Index37.28002/05/2021 3:01 PM EDT Plan of Treatment Not on file Medical Devices ImplantedTypeAreaManufacturerDevice IdentifierShelf Expiration DateModel / Serial / LotPatch Vasc W0.8xl8cm Periph Bov Pericard N Pvc N Dehp Crss - [id number] Implanted:Qty: 1 on 01/16/2021 [facility] Dashawn [employer]OS[employer]-WD09/13/[id number] / [id number] / [id number]:VERIFIED X2 Frank PATTON RN, Rafita PARKS DRESS SHOE INSPECTOR Insurance Advance Directives * Full Code (Latest Code Status on File) Date ActivatedDate InactivatedComments01/11/2021 2:24 AM01/20/2021 1:22 AM NameRelationshipHealthcare Agent RelationshipCommunicationDiana MaschariOther Primary Decision Maker* Care Teams Team MemberRelationshipSpecialtyStart DateEnd Date Karolina Chamberlain DO [address] [place] [address] PCP - GeneralFamily Medicine01/11/21
--- OUTSIDE RECORDS SUMMARY | 2025-11-14 15:50 | XMS_ITS | Encounter Summary ---
Author Organization [facility] Address [address] [place] [address] Care Team Providers Care Founder And Chief Executive Officer Name Role Phone Karolina Chamberlain DO Primary Care Provider [phone]- [phone] Karolina Chamberlain DO Unavailable [phone] Encounter Details DateTypeDepartmentCare Team (Latest Contact Info)Clybuqgtwsw31/08/2025Telephone [facility] [address] [place] [phone] Karolina Chamberlain, DO [address] [facility] [address] [place] [address] Social History Tobacco UseTypesPacks/DayYears UsedDateSmoking Tobacco: Every [...] care, and heating?Somewhat hard07/30/2023HQ-2AnswerDate RecordedPatient Health Questionnaire-2 Fccgn009Exercise Vital SignAnswerDate RecordedOn average, how many days [...] steady place to sleep or slept in [facility] (including now)?No 3CommentsUnknownSex and Gender InformationValueDate RecordedSex Assigned at BirthNot on fileLegal XhhGpitcy44/15/2023 6:45 PM EDTGender Identity Not on fileSexual OrientationNot on filedocumented as of this encounter Miscellaneous Notes * Telephone Encounter - Delmis Landaverde - 10/31/2025 9:58 AM EST Patient called in and was upset and crying saying that her stomach was in pain and she hasn't been able to sleep and she's not able to eat or keep anything down. She said that she thinks her daughteris going to come pick her up to take her to the hospital and said that she just couldn't take it any longer. She asked what hospital should she go to. I asked her what hospital was closest to her andasked if [facility] was close to her and she said yes. I said that if she was going to go to the hospital I would just go to the nearest hospital. As I was letting her know to go to the nearest ER, itsounded as if there was someone coming in to pick her up at the moment and she said that she would call us back and hung the phone up. Just a heads up. documented in this encounter Plan of Treatment Not on file documented as of this encounter Visit Diagnoses Not on filedocumented in this encounter Care Teams Team MemberRelationshipSpecialtyStart DateEnd Date Karolina Chamberlain DO [address] [facility] [address] [place] [address] PCP - [facility]04/15/23 Karolina Chamberlain DO [address] [facility] [address] [place] [address] PCP - [facility]/11/2511documented as of this encounter
--- OUTSIDE RECORDS SUMMARY | 2025-11-14 15:50 | XMS_ITS | Patient Health Record ---
Author Organization [facility] Address [address] [place] [address] Care Team Providers Care Maple Products Maker Name Role Phone XXROMMELMaia baptiste Primary Care Provider [place] [phone] Allergies Allergen (clinical drug ingredient) Drug/Non Drug [...] tablet Orally Once a dayctiveLantus SoloStar 100units/ml Mrdpdzpf34cinbh Subcutaneous Once a day ActiveLovastatin 40 MG [...] Type II diabetes hiral litus without complication (010675746) Diabetes mellitus without mention of complication, type II or unspecified type, not stated as uncontrolled (250.00) ActiveconfirmedProblemHypertension (41536247)Hypertension (997.91)Active confirmed Plan Of Treatment No Information Insurance Providers Payer Name Payer Address Payer Phone Subscriber Number Group Number Insured Name Patient Relationship to Insured Coverage Start Date Coverage End Date [place]'T USE!!!!!!!!!!! !!!!!!!!!!!!! [address] [place] [phone] [id number] Everton Chopra - patient is the spouse of the insured[facility] [address] [place] [id number], SueSelf - patient is the insured Medical (General) History Medical History History ICD Code 1993 HTN 1993 [id number] DMIIPVDheart murmurGERDSurgical History Surgery Date(Month/Year) Rt. shoulder surgery 04/24/04 right lower leg - revasc 2009
--- OUTSIDE RECORDS SUMMARY | 2025-11-14 15:50 | XMS_ITS | Encounter Summary ---
Author Organization [facility] Address [address] [place] [address] Care Team Providers Care Fiber Drier Operator Name Role Phone Karolina Chamberlain DO Primary Care Provider [phone]- [phone] Karolina Chamberlain DO Unavailable [phone] Encounter Details DateTypeDepartmentCare Team (Latest Contact Info)Eybknuvhlts76/19/2025Patient Outreach [facility] [address] [place] [phone] Gabriela Kerns LPN Social History Tobacco UseTypesPacks/DayYears UsedDateSmoking Tobacco: Every [...] care, and heating?Somewhat hard07/30/2023HQ-2AnswerDate RecordedPatient Health Questionnaire-2 Lwlft841Exercise Vital SignAnswerDate RecordedOn average, how many days [...] InformationValueDate RecordedSex Assigned at BirthNot on fileLegal VzlRskqsp09/15/2023 6:45 PM EDTGender Identity Not on fileSexual OrientationNot on filedocumented as of this encounter Progress Notes * Gabriela Kerns LPN - 11/11/2025 9:47 AM EST Images from the original note were not included. <November 11, 2025, 10:16 - Gabriela Kerns LPN> Flowsheet Row Patient Outreach from 11/11/2025 in [facility] with Gabriela Kerns LPN Hospital Information ED, Hospital or Correction Facility Discharge? Hospital Patient has been contacted within two business days of discharge No [DUE TO GOING TO SNF] Have two attempts been made to contact the patient within two business days of being discharged? No Diagnosis AMS, ACUTE ENCEPHALOPATHY EPIGASTRIC PAIN, DIABETIC FOOT ULCER, HTN Discharge Date 11/09/25 Discharged To: Correction Facility (specify SNF in comments) Discharge [facility] Admission Date 11/04/25 Medications Appointments Self Management Patient Teaching Wrap Up documented in this encounter Plan of Treatment Not on file documented as of this encounter Visit Diagnoses Not on filedocumented in this encounter Care Teams Team MemberRelationshipSpecialtyStart DateEnd Date Karolina Chamberlain DO [address] [place] [address] [facility] - [facility] Karolina Chamberlain DO [address] [place] [address] PCP - [facility]/documented as of this encounter
== END 2025-11-14 15:47 | disposition home or self-care (01) ==
LOC: WC 15:46
PROVIDERS: PCP Family Medicine; Visit Provider Physician Assistant
DX: E11.621 Type 2 diabetes mellitus with foot ulcer (principal); L97.414 Non-pressure chronic ulcer of right heel and midfoot with necrosis of bone; L97.422 Non-pressure chronic ulcer of left heel and midfoot with fat layer exposed
CPT/HCPCS: G0463